=== PATIENT | female | born 1945 | race Caucasian/White ===

== ENCOUNTER 2020-05-25 10:56 | Emergency (ER) | payer MEDICARE, OTHER, SELFPAY ==
--- NOTE | 2020-05-25 | XR_ITS ---
EXAMINATION: XR CHEST CLINICAL INFORMATION: Right upper back pain. COMPARISON: None TECHNIQUE: 2 views of the chest were obtained. FINDINGS: There is central interstitial prominence with peribronchial cuffing consistent with airways disease. There is no focal consolidation. The pleural spaces are clear. The heart and mediastinal structures are normal. No bony abnormality is demonstrated. IMPRESSION: Central bronchial cuffing which can be seen in the setting of airways disease or long-term smoking. No focal consolidation or other acute abnormality.
[2020-05-25 11:26] VITALS: BP 157/81; PULSE 94; RESP 18; TEMP 36.4; O2SAT 96; BMI 45.6
--- NOTE | 2020-05-25 11:47 | ED.EXTPRO ---
HPI - Extremity Problem General Chief complaint: Extremity Injury, Upper Stated complaint: l shoulder pain Time Seen by Provider: 05/25/20 11:47 History of Present Illness HPI Narrative: patient complains of pain in the left upper back and shoulder worst in the area around her scapula on left side that is very similar to many prior episodes, pain is worse with movement deep breath and when it is touched Related Data Previous Rx's Medication Instructions Recorded cyclobenzaprine 5 mg PO TID PRN #14 tab 05/25/20 hydrocodone-acetaminophen 1 - 2 tab PO Q6H PRN #14 tab 05/25/20 Allergies Allergy/AdvReac Type Severity Reaction Status Date / Time No Known Allergies Allergy Unverified 05/09/20 17:02 N.K.D.A. Allergy Unknown Uncoded 03/15/18 00:00 Review of Systems Review of Systems: there is no chest pain no neck pain no shortness of breath no leg pain or swelling, pain is not related to exertion there is no sweating there is no nausea no vomiting no abdominal pain, there is no recent injury there is no fever no chills, no numbness no weakness no paresthesias PMFSH Past Medical History Source: nursing notes reviewed Social History Social History Alcohol intake: unknown Smoking Status: Unknown if ever smoked Use of substances other than those prescribed or required for medical reasons: No Advance Directives: No Advance Directives Information Provided: No Physical Exam Vital Signs and I&O and Narrative: Vital Signs and I&O: Vital Signs Temp 97.6 F 05/25/20 11:26 Pulse 94 05/25/20 11:26 Resp 18 05/25/20 11:26 BP 157/81 H 05/25/20 11:26 Pulse Ox 96 05/25/20 11:26 Intake & Output 05/24/20 05/25/20 05/25/20 18:59 06:59 18:59 Weight 136.078 kg Body Mass Index 45.6 general appearance is no acute distress, A&O x3, relaxed and cooperative The neck is supple nontender with full range of motion The chest is clear to auscultation bilaterally, no chest wall tenderness, no respiratory distress The abdomen is obese soft and nontender The back there is no CVA tenderness, skin of the back is normal with no wounds or rashes, there is tenderness that is in the left subscapular paraspinal area, pain is easily reproduced with movement and deep breath, there is no bony tenderness there is no redness no warmth Extremities there is no calf tenderness There is full range of motion and gait is normal normal Neuro exam is A&O x3 no motor deficits Course Course Hospital Course: patient remained stable throughout visit, x-ray of the chest did not show any acute abnormality and patient was sent home with medication for musculoskeletal pain in the left upper back Discharge Plan Discharge Clinical Impression: Back pain Patient Disposition: Home, Self-Care Additional Instructions: your exam is consistent with musculoskeletal pain in the left upper back Best plan is follow with primary care doctor for evaluation for physical therapy and if needed referral to specialist Return to ER any time for worsening pain, chest pain, difficulty breathing, any worse condition or any concerns Prescriptions: New cyclobenzaprine 5 mg tablet 5 mg PO TID PRN (Reason: muscle spasm) Qty: 14 RF: 0 hydrocodone-acetaminophen 5-325 mg tablet 1 - 2 tab PO Q6H PRN (Reason: pain) Qty: 14 RF: 0
== END 2020-05-25 13:18 | disposition home or self-care (01) ==
PROVIDERS: Emergency Provider Emergency Medicine; PCP Physician Assistant
DX: M54.6 Pain in thoracic spine (principal); Z79.01 Long term (current) use of anticoagulants
CPT/HCPCS: 71046; 99283; 99284

== ENCOUNTER → 2020-05-31 10:46 | Outpatient (BNVA) | payer MEDICARE, OTHER, SELFPAY | PROVIDERS: PCP Physician Assistant; Visit Provider Internal Medicine | DX: I26.99 Other pulmonary embolism without acute cor pulmonale (principal); Z86.718 Personal history of other venous thrombosis and embolism; Z51.81 Encounter for therapeutic drug level monitoring; Z79.01 Long term (current) use of anticoagulants | CPT/HCPCS: 85610 ==

== ENCOUNTER → 2020-06-28 10:50 | Outpatient (BNVA) | payer MEDICARE, OTHER, SELFPAY | PROVIDERS: PCP Physician Assistant; Referring Provider Physician Assistant; Visit Provider Internal Medicine | DX: I26.99 Other pulmonary embolism without acute cor pulmonale (principal); Z86.718 Personal history of other venous thrombosis and embolism; Z51.81 Encounter for therapeutic drug level monitoring; Z79.01 Long term (current) use of anticoagulants | CPT/HCPCS: 85610; 99211 ==

== ENCOUNTER → 2020-07-26 11:20 | Outpatient (BNVA) | payer MEDICARE, MEDICAID, OTHER, SELFPAY | PROVIDERS: PCP Physician Assistant; Visit Provider Internal Medicine | DX: I26.99 Other pulmonary embolism without acute cor pulmonale (principal); Z86.718 Personal history of other venous thrombosis and embolism; Z79.01 Long term (current) use of anticoagulants; Z51.81 Encounter for therapeutic drug level monitoring | CPT/HCPCS: 85610 ==

== ENCOUNTER → 2020-09-06 11:15 | Outpatient (BNVA) | payer MEDICARE, MEDICAID, SELFPAY | PROVIDERS: PCP Physician Assistant; Visit Provider Internal Medicine | DX: I26.99 Other pulmonary embolism without acute cor pulmonale (principal); Z86.718 Personal history of other venous thrombosis and embolism; Z51.81 Encounter for therapeutic drug level monitoring; Z79.01 Long term (current) use of anticoagulants | CPT/HCPCS: 85610; 99211 ==

== ENCOUNTER → 2020-10-04 11:10 | Outpatient (BNVA) | payer MEDICARE, MEDICAID, SELFPAY | PROVIDERS: PCP Physician Assistant; Visit Provider Internal Medicine | DX: I26.99 Other pulmonary embolism without acute cor pulmonale (principal); Z86.718 Personal history of other venous thrombosis and embolism; Z51.81 Encounter for therapeutic drug level monitoring; Z79.01 Long term (current) use of anticoagulants | CPT/HCPCS: 85610; 99211 ==

== ENCOUNTER → 2020-11-01 11:03 | Outpatient (BNVA) | payer MEDICARE, MEDICAID, SELFPAY | PROVIDERS: PCP Physician Assistant; Visit Provider Internal Medicine | DX: I26.99 Other pulmonary embolism without acute cor pulmonale (principal); Z86.718 Personal history of other venous thrombosis and embolism; Z51.81 Encounter for therapeutic drug level monitoring; Z79.01 Long term (current) use of anticoagulants | CPT/HCPCS: 85610; 99211 ==

== ENCOUNTER → 2020-11-29 10:49 | Outpatient (BNVA) | payer MEDICARE, MEDICAID, SELFPAY | PROVIDERS: PCP Physician Assistant; Visit Provider Internal Medicine | DX: I26.99 Other pulmonary embolism without acute cor pulmonale (principal); Z86.718 Personal history of other venous thrombosis and embolism; Z79.01 Long term (current) use of anticoagulants; Z51.81 Encounter for therapeutic drug level monitoring | CPT/HCPCS: 85610; 99211 ==

== ENCOUNTER → 2020-12-27 10:47 | Outpatient (BNVA) | payer MEDICARE, MEDICAID, SELFPAY | PROVIDERS: PCP Physician Assistant; Visit Provider Internal Medicine | DX: I26.99 Other pulmonary embolism without acute cor pulmonale (principal); Z86.718 Personal history of other venous thrombosis and embolism; Z79.01 Long term (current) use of anticoagulants; Z51.81 Encounter for therapeutic drug level monitoring | CPT/HCPCS: 85610; 99211 ==

== ENCOUNTER → 2021-01-03 13:10 | Outpatient (BNVA) | payer MEDICARE, MEDICAID, SELFPAY | PROVIDERS: PCP Physician Assistant; Visit Provider Internal Medicine | DX: I26.99 Other pulmonary embolism without acute cor pulmonale (principal); Z86.718 Personal history of other venous thrombosis and embolism; Z51.81 Encounter for therapeutic drug level monitoring; Z79.01 Long term (current) use of anticoagulants | CPT/HCPCS: 85610; 99211 ==

== ENCOUNTER → 2021-01-17 11:12 | Outpatient (BNVA) | payer MEDICARE, MEDICAID, SELFPAY | PROVIDERS: PCP Physician Assistant; Visit Provider Internal Medicine | DX: I26.99 Other pulmonary embolism without acute cor pulmonale (principal); Z86.718 Personal history of other venous thrombosis and embolism; Z51.81 Encounter for therapeutic drug level monitoring; Z79.01 Long term (current) use of anticoagulants | CPT/HCPCS: 85610; 99211 ==

== ENCOUNTER → 2021-01-31 11:19 | Outpatient (BNVA) | payer MEDICARE, MEDICAID, SELFPAY | PROVIDERS: PCP Physician Assistant; Visit Provider Internal Medicine | DX: I26.99 Other pulmonary embolism without acute cor pulmonale (principal); Z86.718 Personal history of other venous thrombosis and embolism; Z51.81 Encounter for therapeutic drug level monitoring; Z79.01 Long term (current) use of anticoagulants | CPT/HCPCS: 85610; 99211 ==

== ENCOUNTER → 2021-02-14 11:00 | Outpatient (BNVA) | payer MEDICARE, MEDICAID, SELFPAY | PROVIDERS: PCP Physician Assistant; Visit Provider Internal Medicine | DX: I26.99 Other pulmonary embolism without acute cor pulmonale (principal); Z86.718 Personal history of other venous thrombosis and embolism; Z51.81 Encounter for therapeutic drug level monitoring; Z79.01 Long term (current) use of anticoagulants | CPT/HCPCS: 85610; 99211 ==

== ENCOUNTER → 2021-02-17 11:09 | Outpatient (BNVA) | payer MEDICARE, MEDICAID, SELFPAY | PROVIDERS: PCP Physician Assistant; Visit Provider Internal Medicine | DX: I26.99 Other pulmonary embolism without acute cor pulmonale (principal); Z86.718 Personal history of other venous thrombosis and embolism; Z51.81 Encounter for therapeutic drug level monitoring; Z79.01 Long term (current) use of anticoagulants | CPT/HCPCS: 85610; 99211 ==

== ENCOUNTER → 2021-02-27 10:56 | Outpatient (BNVA) | payer MEDICARE, MEDICAID, SELFPAY | PROVIDERS: PCP Physician Assistant; Visit Provider Internal Medicine | DX: I26.99 Other pulmonary embolism without acute cor pulmonale (principal); Z86.718 Personal history of other venous thrombosis and embolism; Z51.81 Encounter for therapeutic drug level monitoring; Z79.01 Long term (current) use of anticoagulants | CPT/HCPCS: 85610; 99211 ==

== ENCOUNTER → 2021-03-13 11:05 | Outpatient (BNVA) | payer MEDICARE, MEDICAID, SELFPAY | PROVIDERS: PCP Physician Assistant; Visit Provider Internal Medicine | DX: I26.99 Other pulmonary embolism without acute cor pulmonale (principal); Z86.718 Personal history of other venous thrombosis and embolism; Z51.81 Encounter for therapeutic drug level monitoring; Z79.01 Long term (current) use of anticoagulants | CPT/HCPCS: 85610; 99211 ==

== ENCOUNTER → 2021-03-28 11:05 | Outpatient (BNVA) | payer MEDICARE, MEDICAID, SELFPAY | PROVIDERS: PCP Physician Assistant; Visit Provider Internal Medicine | DX: I26.99 Other pulmonary embolism without acute cor pulmonale (principal); Z86.718 Personal history of other venous thrombosis and embolism; Z51.81 Encounter for therapeutic drug level monitoring; Z79.01 Long term (current) use of anticoagulants | CPT/HCPCS: 85610; 99211 ==

== ENCOUNTER → 2021-04-11 11:02 | Outpatient (BNVA) | payer MEDICARE, MEDICAID, SELFPAY | PROVIDERS: PCP Physician Assistant; Visit Provider Internal Medicine | DX: I26.99 Other pulmonary embolism without acute cor pulmonale (principal); Z86.718 Personal history of other venous thrombosis and embolism; Z51.81 Encounter for therapeutic drug level monitoring; Z79.01 Long term (current) use of anticoagulants | CPT/HCPCS: 85610; 99211 ==

== ENCOUNTER → 2021-04-25 11:18 | Outpatient (BNVA) | payer MEDICARE, MEDICAID, SELFPAY | PROVIDERS: PCP Physician Assistant; Visit Provider Internal Medicine | DX: I26.99 Other pulmonary embolism without acute cor pulmonale (principal); Z86.718 Personal history of other venous thrombosis and embolism; Z51.81 Encounter for therapeutic drug level monitoring; Z79.01 Long term (current) use of anticoagulants | CPT/HCPCS: 85610; 99211 ==

== ENCOUNTER → 2021-05-16 10:21 | Outpatient (BNVA) | payer MEDICARE, MEDICAID, SELFPAY | PROVIDERS: PCP Physician Assistant; Visit Provider Internal Medicine | DX: I26.99 Other pulmonary embolism without acute cor pulmonale (principal); Z86.718 Personal history of other venous thrombosis and embolism; Z51.81 Encounter for therapeutic drug level monitoring; Z79.01 Long term (current) use of anticoagulants | CPT/HCPCS: 85610; 99211 ==

== ENCOUNTER → 2021-06-06 10:22 | Outpatient (BNVA) | payer MEDICARE, MEDICAID, SELFPAY | PROVIDERS: PCP Physician Assistant; Visit Provider Internal Medicine | DX: I26.99 Other pulmonary embolism without acute cor pulmonale (principal); Z86.718 Personal history of other venous thrombosis and embolism; Z51.81 Encounter for therapeutic drug level monitoring; Z79.01 Long term (current) use of anticoagulants | CPT/HCPCS: 85610; 99211 ==

== ENCOUNTER → 2021-06-27 10:22 | Outpatient (BNVA) | payer MEDICARE, MEDICAID, SELFPAY | PROVIDERS: PCP Physician Assistant; Visit Provider Internal Medicine | DX: I26.99 Other pulmonary embolism without acute cor pulmonale (principal); Z86.718 Personal history of other venous thrombosis and embolism; Z51.81 Encounter for therapeutic drug level monitoring; Z79.01 Long term (current) use of anticoagulants | CPT/HCPCS: 85610; 99211 ==

== ENCOUNTER → 2021-07-16 11:26 | Outpatient (BNVA) | payer MEDICARE, MEDICAID, SELFPAY | PROVIDERS: PCP Physician Assistant; Visit Provider Internal Medicine | DX: I26.99 Other pulmonary embolism without acute cor pulmonale (principal); Z86.718 Personal history of other venous thrombosis and embolism; Z51.81 Encounter for therapeutic drug level monitoring; Z79.01 Long term (current) use of anticoagulants | CPT/HCPCS: 85610; 99211 ==

== ENCOUNTER → 2021-08-20 10:30 | Outpatient (BNVA) | payer MEDICARE, MEDICAID, SELFPAY | PROVIDERS: PCP Physician Assistant; Visit Provider Internal Medicine | DX: I26.99 Other pulmonary embolism without acute cor pulmonale (principal); Z86.718 Personal history of other venous thrombosis and embolism; Z51.81 Encounter for therapeutic drug level monitoring; Z79.01 Long term (current) use of anticoagulants | CPT/HCPCS: 85610; 99211 ==

== ENCOUNTER → 2021-09-05 11:25 | Outpatient (BNVA) | payer MEDICARE, MEDICAID, SELFPAY | PROVIDERS: PCP Physician Assistant; Visit Provider Internal Medicine | DX: I26.99 Other pulmonary embolism without acute cor pulmonale (principal); Z86.718 Personal history of other venous thrombosis and embolism; Z51.81 Encounter for therapeutic drug level monitoring; Z79.01 Long term (current) use of anticoagulants | CPT/HCPCS: 85610; 99211 ==

== ENCOUNTER → 2021-10-10 13:41 | Outpatient (BNVA) | payer MEDICARE, MEDICAID, SELFPAY | PROVIDERS: PCP Physician Assistant; Visit Provider Internal Medicine | DX: I26.99 Other pulmonary embolism without acute cor pulmonale (principal); Z86.718 Personal history of other venous thrombosis and embolism; Z51.81 Encounter for therapeutic drug level monitoring; Z79.01 Long term (current) use of anticoagulants | CPT/HCPCS: 85610; 99211 ==

== ENCOUNTER → 2021-10-24 11:20 | Outpatient (BNVA) | payer MEDICARE, MEDICAID, SELFPAY | PROVIDERS: PCP Physician Assistant; Visit Provider Internal Medicine | DX: I26.99 Other pulmonary embolism without acute cor pulmonale (principal); Z86.718 Personal history of other venous thrombosis and embolism; Z51.81 Encounter for therapeutic drug level monitoring; Z79.01 Long term (current) use of anticoagulants | CPT/HCPCS: 85610; 99211 ==

== ENCOUNTER → 2021-11-14 11:29 | Outpatient (BNVA) | payer MEDICARE, MEDICAID, SELFPAY | PROVIDERS: PCP Physician Assistant; Visit Provider Internal Medicine | DX: I26.99 Other pulmonary embolism without acute cor pulmonale (principal); Z86.718 Personal history of other venous thrombosis and embolism; Z51.81 Encounter for therapeutic drug level monitoring; Z79.01 Long term (current) use of anticoagulants | CPT/HCPCS: 85610; 99211 ==

== ENCOUNTER 2021-11-17 09:09 | Outpatient (REF) | payer MEDICARE, OTHER, SELFPAY ==
[2021-11-17 10:47] LABS: MANUAL DIFF FLAG NO
[2021-11-17 11:01] LABS: Estimated Average Glucose 100 mg/dL; Hemoglobin A1c % 5.1 %
[2021-11-17 11:02] LABS: Basophils Absolute Auto 0.1 X10*3/uL (0.0-0.2); Basophils Percent Auto 1.1 % (0-2); Eosinophils Absolute Auto 0.3 X10*3/uL (0.0-0.4); Eosinophils Percent Auto 4.2 % (0-4); Hematocrit 39.2 % (37.0-47.0); Hemoglobin 12.4 g/dl (12.0-16.0); Imm Gran Abs Auto 0.01 X10*3/uL (0.00-0.03); Imm Gran Pct Auto 0.2 % (0.0-0.4); Lymphocytes Absolute Auto 1.9 X10*3/uL (1.2-4.9); Lymphocytes Percent Auto 29.5 % (20-40); Mean Corpuscular HGB Conc 31.6 g/dl (31.0-35.0); Mean Corpuscular Hemoglobin 30.5 pg (27.0-33.0); Mean Corpuscular Volume 96.3 fL (80.0-98.0); Mean Platelet Volume 11.5 fL (9.4-12.3); Monocytes Absolute Auto 0.5 X10*3/uL (0.1-1.2); Neutrophils Absolute Auto 3.7 x10*3/uL (2.0-8.3); Platelet Count 226 X10*3/uL (160-400); Red Blood Count 4.07 X10*6/uL (4.20-5.50); Red Cell Distribution Width 13.7 % (11.0-16.0); White Blood Count 6.4 X10*3/uL (4.8-10.8)
[2021-11-17 11:10] LABS: Anion Gap 11 (12-20); Blood Urea Nitrogen 17 mg/dL (9-16); Calcium 9.3 mg/dL (8.4-10.2); Carbon Dioxide 23 mmol/L (22-29); Chloride 110 mmol/L (96-108); Cholesterol 158 mg/dL; Estimated Glomerular Filt Rate 57; Glucose Fasting 94 mg/dL (60-99); HDL Cholesterol 45 mg/dL; LDL Cholesterol Calculated 91 mg/dl; Potassium 3.9 mmol/L (3.3-5.1); Sodium 140 mmol/L (135-145); Triglycerides 111 mg/dL
[2021-11-17 11:36] LABS: TSH reflex Free T4 0.09 uIU/mL (0.32-4.0)
[2021-11-17 12:41] LABS: Free T4 (Free Thyroxine) 1.47 ng/dL (0.71-1.85)
== END 2021-11-17 09:10 | disposition home or self-care (01) ==
LOC: HO.10HDL 09:09
PROVIDERS: Nurse Practitioner Acute Care; Visit Provider Physician Assistant
DX: Z13.1 Encounter for screening for diabetes mellitus (principal); I10 Essential (primary) hypertension; E03.9 Hypothyroidism, unspecified; E78.5 Hyperlipidemia, unspecified
CPT/HCPCS: 36415; 80048; 80061; 83036; 84439; 84443; 85025

== ENCOUNTER 2021-11-18 12:57 | Outpatient (REF) | payer MEDICARE, MEDICAID, SELFPAY ==
--- NOTE | ~2021-11-18 | MM_ITS ---
EXAMINATION: BONE DENSITOMETRY CLINICAL INDICATION: Encounter for screening for osteoporosis. COMPARISON: None (current study represents initial baseline exam). TECHNIQUE: Using a [employer] ([employer]) DXA System (software version: 13.1) manufactured by [employer], dual-energy x-ray absorptiometry was performed of the lumbar spine and left hip. The images are of good technical quality. Summary results are attached. FINDINGS: AP SPINE L1-L2 (excluding L3 and L4): The data of L1-L4 has been changed to exclude the L3 and L4 vertebral bodies, because degenerative changes at these levels may cause overestimation of lumbar spine density. BMD 1.221 g/cm2, Z-score 1.1, T-score 0.5, normal. LEFT FEMUR, NECK: BMD 0.812 g/cm2, Z-score -0.4, T-score -1.6, osteopenia. LEFT FEMUR, TOTAL: BMD 0.869 g/cm2, Z-score -0.2, T-score -1.1, osteopenia. IDENTIFIED RISK FACTORS: Parental hip fracture. Menopause. Chronic glucocorticoids. HISTORY OF FRACTURE: None listed. MEDICATIONS: Vitamin D. MM/XR DEXA axial skeleton IMPRESSION: 1. DIAGNOSIS: Osteopenia based on the lowest T-score value of -1.6 in the femoral neck applying World Health Organization criteria. 2. 10-YEAR FRACTURE RISK PREDICTION, FRAX: Major osteoporotic fracture (clinical spine, forearm, hip or shoulder) 26.0%. Hip fracture 14.2%. 3. Treatment Recommendations: NOF guidelines recommend consideration for treatment in postmenopausal women and men age 50 and older presenting with the following: -A hip or vertebral (clinical or morphometric) fracture. -T-score less than or equal to -2.5 at the femoral neck or spine after appropriate evaluation to exclude secondary causes. -Low bone mass at the hip or spine and a 10-year fracture probability by FRAX of greater than or equal to 3% for hip fracture or greater than or equal to 20% for major osteoporotic fracture based on the [place] adapted WHO algorithm. 4. Other Recommendations: All treatment decisions require clinical judgment and consideration of individual patient factors, including patient preferences, comorbidities, previous drug use, risk factors not captured in the FRAX model (e.g. frailty, falls, vitamin D deficiency, increased bone turnover, interval significant decline in bone density) and possible under or overestimation of fracture risk by FRAX. Additional medical evaluation for secondary cause of low bone mineral density may be appropriate. FUTURE SCAN RECOMMENDATION: People with diagnosed cases of osteoporosis or at high risk for fracture should have regular bone mineral density tests. For patients eligible for Medicare, routine testing is allowed once every 2 years. The testing frequency can be increased to one year for patients who have rapidly progressing disease, those who are receiving or discontinuing medical therapy to restore bone mass, or have additional risk factors.
== END 2021-11-18 12:58 | disposition home or self-care (01) ==
LOC: HO.MAMMO 12:57
PROVIDERS: PCP Physician Assistant; Visit Provider Nurse Practitioner Acute Care
DX: Z13.820 Encounter for screening for osteoporosis (principal); Z78.0 Asymptomatic menopausal state
CPT/HCPCS: 77080

== ENCOUNTER → 2021-11-28 11:30 | Outpatient (BNVA) | payer MEDICARE, MEDICAID, SELFPAY | PROVIDERS: PCP Physician Assistant; Visit Provider Internal Medicine | DX: I26.99 Other pulmonary embolism without acute cor pulmonale (principal); Z86.718 Personal history of other venous thrombosis and embolism; Z51.81 Encounter for therapeutic drug level monitoring; Z79.01 Long term (current) use of anticoagulants | CPT/HCPCS: 85610; 99211 ==

== ENCOUNTER → 2021-12-04 10:58 | Outpatient (BNVA) | payer MEDICARE, MEDICAID, SELFPAY | PROVIDERS: PCP Physician Assistant; Visit Provider Internal Medicine | DX: I26.99 Other pulmonary embolism without acute cor pulmonale (principal); Z86.718 Personal history of other venous thrombosis and embolism; Z79.01 Long term (current) use of anticoagulants; Z51.81 Encounter for therapeutic drug level monitoring | CPT/HCPCS: 85610; 99211 ==

== ENCOUNTER → 2021-12-12 11:14 | Outpatient (BNVA) | payer MEDICARE, MEDICAID, SELFPAY | PROVIDERS: PCP Physician Assistant; Visit Provider Internal Medicine | DX: I26.99 Other pulmonary embolism without acute cor pulmonale (principal); Z86.718 Personal history of other venous thrombosis and embolism; Z79.01 Long term (current) use of anticoagulants; Z51.81 Encounter for therapeutic drug level monitoring | CPT/HCPCS: 85610; 99211 ==

== ENCOUNTER → 2021-12-19 13:07 | Outpatient (BNVA) | payer MEDICARE, MEDICAID, SELFPAY | PROVIDERS: PCP Physician Assistant; Visit Provider Internal Medicine | DX: I26.99 Other pulmonary embolism without acute cor pulmonale (principal); Z86.718 Personal history of other venous thrombosis and embolism; Z79.01 Long term (current) use of anticoagulants; Z51.81 Encounter for therapeutic drug level monitoring | CPT/HCPCS: 85610; 99211 ==

== ENCOUNTER → 2021-12-26 13:44 | Outpatient (BNVA) | payer MEDICARE, MEDICAID, SELFPAY | PROVIDERS: PCP Physician Assistant; Visit Provider Internal Medicine | DX: I26.99 Other pulmonary embolism without acute cor pulmonale (principal); Z86.718 Personal history of other venous thrombosis and embolism; Z79.01 Long term (current) use of anticoagulants; Z51.81 Encounter for therapeutic drug level monitoring | CPT/HCPCS: 85610; 99211 ==

== ENCOUNTER → 2022-01-16 11:19 | Outpatient (BNVA) | payer MEDICARE, MEDICAID, SELFPAY | PROVIDERS: PCP Physician Assistant; Visit Provider Internal Medicine | DX: I26.99 Other pulmonary embolism without acute cor pulmonale (principal); Z86.718 Personal history of other venous thrombosis and embolism; Z79.01 Long term (current) use of anticoagulants; Z51.81 Encounter for therapeutic drug level monitoring | CPT/HCPCS: 85610; 99211 ==

== ENCOUNTER → 2022-02-13 11:23 | Outpatient (BNVA) | payer MEDICARE, MEDICAID, SELFPAY | PROVIDERS: PCP Physician Assistant; Visit Provider Internal Medicine | DX: I26.99 Other pulmonary embolism without acute cor pulmonale (principal); Z86.718 Personal history of other venous thrombosis and embolism; Z79.01 Long term (current) use of anticoagulants; Z51.81 Encounter for therapeutic drug level monitoring | CPT/HCPCS: 85610; 99211 ==

== ENCOUNTER → 2022-02-27 11:23 | Outpatient (BNVA) | payer MEDICARE, MEDICAID, SELFPAY | PROVIDERS: PCP Physician Assistant; Visit Provider Internal Medicine | DX: I26.99 Other pulmonary embolism without acute cor pulmonale (principal); Z86.718 Personal history of other venous thrombosis and embolism; Z79.01 Long term (current) use of anticoagulants; Z51.81 Encounter for therapeutic drug level monitoring | CPT/HCPCS: 85610; 99211 ==

== ENCOUNTER → 2022-03-20 10:58 | Outpatient (BNVA) | payer MEDICARE, MEDICAID, SELFPAY | PROVIDERS: PCP Physician Assistant; Visit Provider Internal Medicine | DX: I26.99 Other pulmonary embolism without acute cor pulmonale (principal); Z79.01 Long term (current) use of anticoagulants; Z86.718 Personal history of other venous thrombosis and embolism | CPT/HCPCS: 85610; 99211 ==

== ENCOUNTER → 2022-04-10 11:09 | Outpatient (BNVA) | payer MEDICARE, MEDICAID, SELFPAY | PROVIDERS: PCP Physician Assistant; Visit Provider Internal Medicine | DX: I26.99 Other pulmonary embolism without acute cor pulmonale (principal); Z86.718 Personal history of other venous thrombosis and embolism; Z79.01 Long term (current) use of anticoagulants; Z51.81 Encounter for therapeutic drug level monitoring | CPT/HCPCS: 85610; 99211 ==

== ENCOUNTER → 2022-05-01 11:00 | Outpatient (BNVA) | payer MEDICARE, MEDICAID, SELFPAY | PROVIDERS: PCP Physician Assistant; Visit Provider Internal Medicine | DX: I26.99 Other pulmonary embolism without acute cor pulmonale (principal); Z86.718 Personal history of other venous thrombosis and embolism; Z79.01 Long term (current) use of anticoagulants; Z51.81 Encounter for therapeutic drug level monitoring | CPT/HCPCS: 85610; 99211 ==

== ENCOUNTER 2022-05-04 09:54 | Outpatient (REF) | payer MEDICARE, MEDICAID, SELFPAY ==
[2022-05-04 10:52] LABS: Hematocrit 38.1 % (37.0-47.0); Hemoglobin 12.7 g/dl (12.0-16.0); Mean Corpuscular HGB Conc 33.3 g/dl (31.0-35.0); Mean Corpuscular Hemoglobin 31.9 pg (27.0-33.0); Mean Corpuscular Volume 95.7 fL (80.0-98.0); Mean Platelet Volume 11.5 fL (9.4-12.3); Platelet Count 188 X10*3/uL (160-400); Red Blood Count 3.98 X10*6/uL (4.20-5.50); Red Cell Distribution Width 13.4 % (11.0-16.0); White Blood Count 6.4 X10*3/uL (4.8-10.8)
[2022-05-04 11:26] LABS: Alanine Aminotransferase 11 U/L (0-31); Albumin Level 3.9 g/dL (3.5-5.0); Alkaline Phosphatase 70 U/L (39-117); Anion Gap 14 (12-20); Aspartate Amino Transferase 14 U/L (5-31); Bilirubin Total 0.6 mg/dL (0.0-1.0); Blood Urea Nitrogen 23 mg/dL (9-16); Carbon Dioxide 24 mmol/L (22-29); Chloride 109 mmol/L (96-108); Cholesterol 170 mg/dL; Estimated Glomerular Filt Rate 52; Glucose Fasting 95 mg/dL (60-99); HDL Cholesterol 48 mg/dL; LDL Cholesterol Calculated 100 mg/dl; Potassium 3.6 mmol/L (3.3-5.1); Sodium 143 mmol/L (135-145); Triglycerides 111 mg/dL
[2022-05-04 11:46] LABS: TSH reflex Free T4 1.41 uIU/mL (0.32-4.0)
== END 2022-05-04 09:55 | disposition home or self-care (01) ==
LOC: HO.10HDL 09:54
PROVIDERS: Visit Provider Physician Assistant
DX: I10 Essential (primary) hypertension (principal); E78.2 Mixed hyperlipidemia; E03.9 Hypothyroidism, unspecified
CPT/HCPCS: 36415; 80053; 80061; 84443; 85027

== ENCOUNTER → 2022-05-29 10:59 | Outpatient (BNVA) | payer MEDICARE, MEDICAID, SELFPAY | PROVIDERS: PCP Physician Assistant; Visit Provider Internal Medicine | DX: I26.99 Other pulmonary embolism without acute cor pulmonale (principal); Z86.718 Personal history of other venous thrombosis and embolism; Z51.81 Encounter for therapeutic drug level monitoring; Z79.01 Long term (current) use of anticoagulants | CPT/HCPCS: 85610; 99211 ==

== ENCOUNTER → 2022-06-26 11:08 | Outpatient (BNVA) | payer MEDICARE, MEDICAID, SELFPAY | PROVIDERS: PCP Physician Assistant; Visit Provider Internal Medicine | DX: I26.99 Other pulmonary embolism without acute cor pulmonale (principal); Z86.718 Personal history of other venous thrombosis and embolism; Z79.01 Long term (current) use of anticoagulants; Z51.81 Encounter for therapeutic drug level monitoring | CPT/HCPCS: 85610; 99211 ==

== ENCOUNTER → 2022-07-10 11:05 | Outpatient (BNVA) | payer MEDICARE, MEDICAID, SELFPAY | PROVIDERS: PCP Physician Assistant; Visit Provider Internal Medicine | DX: I26.99 Other pulmonary embolism without acute cor pulmonale (principal); Z86.718 Personal history of other venous thrombosis and embolism; Z79.01 Long term (current) use of anticoagulants; Z51.81 Encounter for therapeutic drug level monitoring | CPT/HCPCS: 85610; 99211 ==

== ENCOUNTER → 2022-08-07 11:04 | Outpatient (BNVA) | payer MEDICARE, MEDICAID, SELFPAY | PROVIDERS: PCP Physician Assistant; Visit Provider Internal Medicine | DX: I26.99 Other pulmonary embolism without acute cor pulmonale (principal); Z86.718 Personal history of other venous thrombosis and embolism; Z79.01 Long term (current) use of anticoagulants; Z51.81 Encounter for therapeutic drug level monitoring | CPT/HCPCS: 85610; 99211 ==

== ENCOUNTER → 2022-08-21 11:09 | Outpatient (BNVA) | payer MEDICARE, MEDICAID, SELFPAY | PROVIDERS: PCP Physician Assistant; Visit Provider Internal Medicine | DX: I26.99 Other pulmonary embolism without acute cor pulmonale (principal); Z86.718 Personal history of other venous thrombosis and embolism; Z79.01 Long term (current) use of anticoagulants; Z51.81 Encounter for therapeutic drug level monitoring | CPT/HCPCS: 85610; 99211 ==

== ENCOUNTER → 2022-09-11 11:03 | Outpatient (BNVA) | payer MEDICARE, MEDICAID, SELFPAY | PROVIDERS: PCP Physician Assistant; Visit Provider Internal Medicine | DX: I26.99 Other pulmonary embolism without acute cor pulmonale (principal); Z86.718 Personal history of other venous thrombosis and embolism; Z79.01 Long term (current) use of anticoagulants; Z51.81 Encounter for therapeutic drug level monitoring | CPT/HCPCS: 85610; 99211 ==

== ENCOUNTER → 2022-10-09 11:09 | Outpatient (BNVA) | payer MEDICARE, MEDICAID, SELFPAY | PROVIDERS: PCP Physician Assistant; Visit Provider Internal Medicine | DX: I26.99 Other pulmonary embolism without acute cor pulmonale (principal); Z86.718 Personal history of other venous thrombosis and embolism; Z79.01 Long term (current) use of anticoagulants; Z51.81 Encounter for therapeutic drug level monitoring | CPT/HCPCS: 85610; 99211 ==

== ENCOUNTER → 2022-11-06 11:12 | Outpatient (BNVA) | payer MEDICARE, MEDICAID, SELFPAY | PROVIDERS: PCP Physician Assistant; Visit Provider Internal Medicine | DX: I26.99 Other pulmonary embolism without acute cor pulmonale (principal); Z86.718 Personal history of other venous thrombosis and embolism; Z79.01 Long term (current) use of anticoagulants; Z51.81 Encounter for therapeutic drug level monitoring | CPT/HCPCS: 85610; 99211 ==

== ENCOUNTER → 2022-12-04 11:07 | Outpatient (BNVA) | payer MEDICARE, MEDICAID, SELFPAY | PROVIDERS: PCP Physician Assistant; Visit Provider Internal Medicine | DX: I26.99 Other pulmonary embolism without acute cor pulmonale (principal); Z86.718 Personal history of other venous thrombosis and embolism; Z79.01 Long term (current) use of anticoagulants; Z51.81 Encounter for therapeutic drug level monitoring | CPT/HCPCS: 85610; 99211 ==

== ENCOUNTER 2022-12-28 10:19 | Outpatient (REF) | payer MEDICARE, MEDICAID, SELFPAY ==
[2022-12-28 13:41] LABS: Hematocrit 38.6 % (37.0-47.0); Hemoglobin 12.6 g/dl (12.0-16.0); Mean Corpuscular HGB Conc 32.6 g/dl (31.0-35.0); Mean Corpuscular Hemoglobin 31.8 pg (27.0-33.0); Mean Corpuscular Volume 97.5 fL (80.0-98.0); Mean Platelet Volume 12.1 fL (9.4-12.3); Platelet Count 202 X10*3/uL (160-400); Red Blood Count 3.96 X10*6/uL (4.20-5.50); Red Cell Distribution Width 13.4 % (11.0-16.0); White Blood Count 6.3 X10*3/uL (4.8-10.8)
[2022-12-28 14:15] LABS: Alanine Aminotransferase 12 U/L (0-31); Albumin Level 3.8 g/dL (3.5-5.0); Alkaline Phosphatase 84 U/L (39-117); Anion Gap 13 (12-20); Aspartate Amino Transferase 17 U/L (5-31); Bilirubin Total 0.7 mg/dL (0.0-1.0); Blood Urea Nitrogen 17 mg/dL (9-16); Carbon Dioxide 24 mmol/L (22-29); Chloride 110 mmol/L (96-108); Cholesterol 169 mg/dL; Estimated Glomerular Filt Rate 54; Glucose Fasting 95 mg/dL (60-99); HDL Cholesterol 47 mg/dL; LDL Cholesterol Calculated 101 mg/dl; Potassium 3.6 mmol/L (3.3-5.1); Sodium 143 mmol/L (135-145); Total Protein 6.6 g/dL (6.5-8.0); Triglycerides 109 mg/dL
[2022-12-28 14:28] LABS: TSH reflex Free T4 1.14 uIU/mL (0.32-4.0)
[2022-12-28 14:55] LABS: Creatinine Urine 179.96 mg/dL; Microalbum/Creatinine Ratio Ur 62.2 ug/mg cr
== END 2022-12-28 10:20 | disposition home or self-care (01) ==
LOC: HO.10HDL 10:19
PROVIDERS: Visit Provider Physician Assistant
DX: E03.9 Hypothyroidism, unspecified (principal); E78.2 Mixed hyperlipidemia; I10 Essential (primary) hypertension
CPT/HCPCS: 36415; 80053; 80061; 82043; 84443; 85027

== ENCOUNTER → 2023-01-01 11:16 | Outpatient (BNVA) | payer MEDICARE, MEDICAID, SELFPAY | PROVIDERS: PCP Physician Assistant; Visit Provider Internal Medicine | DX: I26.99 Other pulmonary embolism without acute cor pulmonale (principal); Z86.718 Personal history of other venous thrombosis and embolism; Z79.01 Long term (current) use of anticoagulants; Z51.81 Encounter for therapeutic drug level monitoring | CPT/HCPCS: 85610; 99211 ==

== ENCOUNTER → 2023-01-29 11:02 | Outpatient (BNVA) | payer MEDICARE, SELFPAY | PROVIDERS: PCP Physician Assistant; Visit Provider Internal Medicine | DX: I26.99 Other pulmonary embolism without acute cor pulmonale (principal); Z86.718 Personal history of other venous thrombosis and embolism; Z79.01 Long term (current) use of anticoagulants; Z51.81 Encounter for therapeutic drug level monitoring | CPT/HCPCS: 85610; 99211 ==

== ENCOUNTER 2023-03-05 11:08 | Outpatient (AMB) | payer MEDICARE, SELFPAY ==
[2023-03-05 11:18] LABS: Prothrombin Time Whole Bld POC 25.3 sec (11.1-13.5); ~PT, ~INR - Anti Coag Clinic 2.1 (0.9-1.1)
--- NOTE | 2023-03-05 11:21 | MHC.OFFVISCO ---
Intake Intake Visit Reasons: Anticoagulation Allergies No Known Allergies Allergy (Verified 03/05/23 11:12) Medication List - Last Reconciled 03/05/23 by Keli Ly RN atenolol 50 mg PO DAILY blood pressure kit-extra large As directed calcium carbonate (Oyster Shell Calcium) 500 mg PO BID 30 days cholecalciferol (vitamin D3) 50 mcg PO DAILY 90 days diphenhydramine HCl (Benadryl) 25 mg PO TID PRN furosemide 20 mg PO DAILY levothyroxine 137 mcg PO DAILY 90 days lisinopril 40 mg PO DAILY 90 days potassium chloride ER 40 mEq (2 x 20 mEq) PO DAILY walker (Ultra-Light Rollator misc) As directed warfarin 7.5 mg See Protocol PO DAILY Nursing Note INR: 2.1 in therapeutic range Medications and supplements reviewed No changes in health, diet, medications, or supplements, Denies any signs and symptoms of bleeding or bruising or clotting. 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
== END 2023-03-05 11:23 | disposition home or self-care (01) ==
LOC: HO.ACS 11:08
PROVIDERS: PCP Physician Assistant; Visit Provider Internal Medicine
DX: Z79.01 Long term (current) use of anticoagulants (principal)

== ENCOUNTER → 2023-03-05 11:08 | Outpatient (BNVA) | payer MEDICARE, SELFPAY | PROVIDERS: PCP Physician Assistant; Visit Provider Internal Medicine | DX: I26.99 Other pulmonary embolism without acute cor pulmonale (principal); Z86.718 Personal history of other venous thrombosis and embolism; Z79.01 Long term (current) use of anticoagulants; Z51.81 Encounter for therapeutic drug level monitoring | CPT/HCPCS: 85610; 99211 ==

== ENCOUNTER 2023-04-02 11:18 | Outpatient (AMB) | payer MEDICARE, SELFPAY ==
[2023-04-02 11:33] LABS: Prothrombin Time Whole Bld POC 35.5 sec (11.1-13.5)
--- NOTE | 2023-04-02 11:40 | MHC.OFFVISCO ---
Intake Intake Visit Reasons: Anticoagulation Allergies No Known Allergies Allergy (Verified 04/02/23 11:34) Medication List - Last Reconciled 04/02/23 by Keli Ly RN atenolol 50 mg PO DAILY blood pressure kit-extra large As directed calcium carbonate (Oyster Shell Calcium) 500 mg PO BID 30 days cholecalciferol (vitamin D3) 50 mcg PO DAILY 90 days diphenhydramine HCl (Benadryl) 25 mg PO TID PRN furosemide 20 mg PO DAILY levothyroxine 137 mcg PO DAILY 90 days lisinopril 40 mg PO DAILY 90 days potassium chloride ER 40 mEq (2 x 20 mEq) PO DAILY walker (Ultra-Light Rollator misc) As directed warfarin 7.5 mg See Protocol PO DAILY Nursing Note INR: 3.0 in therapeutic range Medications and supplements reviewed 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 Bleeding, bruising, clotting discussed Nutritional guidance given - ENC TO KEEP UP GREENS, PROTEIN AND WATER WITH HOT WEATHER Dose: KEEP SAME DOSE 2.5MG X 1 DAY/ 5MG X 6 DAYS F/U INR: 1 MONTH Patient verbalizes understanding of instructions given Anti-Coag Initial Assessment Social Hx Patient Tobacco Use Status: Never used Tobacco alcohol intake: unknown Questionnaires HAS-BLED Does the patient had uncontrolled Hypertension?: No Does the patient have renal disease?: No Does the patient have liver disease?: No Does the patient have a history of stroke?: No Has the patient had major bleeding or predisposition to bleeding?: No Does the patient have labile INRs?: No Is the patient over 65 years of age?: Yes Is the patient on medications that gives them a predisposition to bleeding?: Yes Does the patient use alcohol?: No HAS-BLED Score: 2 CHADSVASC Age: 75 or over Gender: Female Does the patient have a history of CHF?: No Does the patient have a history of Hypertension?: Yes Does the patient have a history of Stroke/TIA/Thromboembolism?: Yes Does the patient have a history of Vascular Disease (prior MD, PAD or aortic plaque)?: No Does the patient have a history of Diabetes?: No CHADS VACS Score: 6 Adan Prediction Score Rsk VTE Active Cancer: No Previous VTE, excluding superficial vein thrombosis: Yes Reduced mobility: Yes Already known Thrombophilic Condition: Yes With-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 Trauma and/or Surgery: No Elderly 70 year or older: Yes Heart and/or Respiratory Failure: No Acute Myocardial infarction and/or Ischemic Stroke: No Acute Infection and/or Rheumatologic Disorder: No Obesity (BMI 30 or greater): Yes Ongoing Hormonal Treatment: No Score: 11 Adan Score less than 4; Low Risk of VTE Adan Score 4 or greater; High Risk of VTE Coding Level of Care Code Est Patient Level 1 Diagnoses Current use of anticoagulant therapy Z79.01 Assessment & Plan Assessment & Plan (1) Current use of anticoagulant therapy: 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
== END 2023-04-02 11:46 | disposition home or self-care (01) ==
LOC: HO.ACS 11:18
PROVIDERS: PCP Physician Assistant; Visit Provider Internal Medicine
DX: Z79.01 Long term (current) use of anticoagulants (principal)

== ENCOUNTER → 2023-04-02 11:18 | Outpatient (BNVA) | payer MEDICARE, SELFPAY | PROVIDERS: PCP Physician Assistant; Visit Provider Internal Medicine | DX: I26.99 Other pulmonary embolism without acute cor pulmonale (principal); Z86.718 Personal history of other venous thrombosis and embolism; Z79.01 Long term (current) use of anticoagulants; Z51.81 Encounter for therapeutic drug level monitoring | CPT/HCPCS: 85610; 99211 ==

== ENCOUNTER 2023-05-07 11:02 | Outpatient (AMB) | payer MEDICARE, SELFPAY ==
[2023-05-07 11:08] LABS: Prothrombin Time Whole Bld POC 38.8 sec (11.1-13.5); ~PT, ~INR - Anti Coag Clinic 3.2 (0.9-1.1)
--- NOTE | 2023-05-07 11:11 | MHC.OFFVISCO ---
Intake Intake Visit Reasons: Anticoagulation Allergies No Known Allergies Allergy (Verified 05/07/23 11:03) Medication List - Last Reconciled 05/07/23 by Cara Kahn RN atenolol 50 mg PO DAILY blood pressure kit-extra large As directed calcium carbonate (Oyster Shell Calcium) 500 mg PO BID 30 days cholecalciferol (vitamin D3) 50 mcg PO DAILY 90 days diphenhydramine HCl (Benadryl) 25 mg PO TID PRN furosemide 20 mg PO DAILY levothyroxine 137 mcg PO DAILY 90 days lisinopril 40 mg PO DAILY 90 days potassium chloride ER 40 mEq (2 x 20 mEq) PO DAILY walker (Ultra-Light Rollator misc) As directed warfarin 7.5 mg See Protocol PO DAILY Nursing Note Amb to ACS using walker, feeling well Medications and supplements reviewed No changes in health, diet, medications, or supplements Denies any unusual signs and symptoms of bruising, bleeding Denies any new Chest pain, SOB, or clotting INR: 3.2 just above therapeutic range Nutritional guidance given: dark leafy green today then try to balance greens and reds in diet Dose: continue usual dosing; 2.5mg x 1 day and 5mg x 6 days- discussed no dosing change now possibly if next visit still above range, however summer has been extremely hot and people eating less cooked foods and veggies F/U INR: 4 weeks Patient verbalizes understanding of instructions given with accurate read back/ teach back of dosing Anti-Coag Initial Assessment Social Hx Patient Tobacco Use Status: Never used Tobacco alcohol intake: unknown Coding Level of Care Code Est Patient Level 1 Diagnoses Current use of anticoagulant therapy Z79.01 Time Spent (min) 15 Assessment & Plan Assessment & Plan (1) Current use of anticoagulant therapy: 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
== END 2023-05-07 15:31 | disposition home or self-care (01) ==
LOC: HO.ACS 11:02
PROVIDERS: PCP Physician Assistant; Visit Provider Internal Medicine
DX: Z79.01 Long term (current) use of anticoagulants (principal)

== ENCOUNTER → 2023-05-07 11:02 | Outpatient (BNVA) | payer MEDICARE, SELFPAY | PROVIDERS: PCP Physician Assistant; Visit Provider Internal Medicine | DX: I26.99 Other pulmonary embolism without acute cor pulmonale (principal); Z86.718 Personal history of other venous thrombosis and embolism; Z79.01 Long term (current) use of anticoagulants; Z51.81 Encounter for therapeutic drug level monitoring | CPT/HCPCS: 85610; 99211 ==

== ENCOUNTER 2023-06-04 11:21 | Outpatient (AMB) | payer MEDICARE, SELFPAY ==
[2023-06-04 11:48] LABS: Prothrombin Time Whole Bld POC 25.2 sec (11.1-13.5); ~PT, ~INR - Anti Coag Clinic 2.1 (0.9-1.1)
--- NOTE | 2023-06-04 11:52 | MHC.OFFVISCO ---
Intake Intake Visit Reasons: Anticoagulation Allergies No Known Allergies Allergy (Verified 06/04/23 11:23) Medication List - Last Reconciled 06/04/23 by Keli Ly RN atenolol 50 mg PO DAILY blood pressure kit-extra large As directed calcium carbonate (Oyster Shell Calcium) 500 mg PO BID 30 days cholecalciferol (vitamin D3) 50 mcg PO DAILY 90 days diphenhydramine HCl (Benadryl) 25 mg PO TID PRN furosemide 20 mg PO DAILY levothyroxine 137 mcg PO DAILY 90 days lisinopril 40 mg PO DAILY 90 days potassium chloride ER 40 mEq (2 x 20 mEq) PO DAILY walker (Ultra-Light Rollator misc) As directed warfarin 7.5 mg See Protocol PO DAILY Nursing Note INR: 2.1 in therapeutic range Medications and supplements reviewed No changes in health, diet, medications, or supplements, Denies any signs and symptoms of bleeding or bruising or clotting. 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
== END 2023-06-04 11:54 | disposition home or self-care (01) ==
LOC: HO.ACS 11:21
PROVIDERS: PCP Physician Assistant; Visit Provider Internal Medicine
DX: Z79.01 Long term (current) use of anticoagulants (principal)

== ENCOUNTER → 2023-06-04 11:21 | Outpatient (BNVA) | payer MEDICARE, SELFPAY | PROVIDERS: PCP Physician Assistant; Visit Provider Internal Medicine | DX: I26.99 Other pulmonary embolism without acute cor pulmonale (principal); Z86.718 Personal history of other venous thrombosis and embolism; Z79.01 Long term (current) use of anticoagulants; Z51.81 Encounter for therapeutic drug level monitoring | CPT/HCPCS: 85610; 99211 ==

== ENCOUNTER 2023-07-02 11:30 | Outpatient (AMB) | payer MEDICARE, SELFPAY ==
--- NOTE | 2023-07-02 11:44 | MHC.OFFVISCO ---
Intake Intake Visit Reasons: Anticoagulation Allergies No Known Allergies Allergy (Verified 07/02/23 11:40) Medication List - Last Reconciled 07/02/23 by Nelsy Kahn RN atenolol 50 mg PO DAILY blood pressure kit-extra large As directed calcium carbonate (Oyster Shell Calcium) 500 mg PO BID 30 days cholecalciferol (vitamin D3) 50 mcg PO DAILY 90 days diphenhydramine HCl (Benadryl) 25 mg PO TID PRN furosemide 20 mg PO DAILY levothyroxine 137 mcg PO DAILY 90 days lisinopril 40 mg PO DAILY 90 days potassium chloride ER 40 mEq (2 x 20 mEq) PO DAILY walker (Ultra-Light Rollator misc) As directed warfarin 7.5 mg See Protocol PO DAILY Nursing Note INR: 2.7- in therapeutic range of 2-3 Medications and supplements reviewed- no changes No changes in health, diet, medications, or supplements, Denies any signs and symptoms of bleeding or bruising or clotting. Bleeding, bruising, clotting discussed Nutritional guidance given Dose: 2.5mg x 2, 5mg x 6 F/U INR: 4 weeks Patient verbalizes understanding of instructions given pt amb with walker, gets meals on wheels Anti-Coag Initial Assessment Social Hx Patient Tobacco Use Status: Never used Tobacco alcohol intake: unknown Coding Level of Care Code Est Patient Level 1 Diagnoses Current use of anticoagulant therapy Z79.01 Assessment & Plan Assessment & Plan (1) Current use of anticoagulant therapy: Code(s): Z79.01 - assisted (current) use of anticoagulants Category: Medical
[2023-07-02 11:45] LABS: Prothrombin Time Whole Bld POC 31.9 sec (11.1-13.5); ~PT, ~INR - Anti Coag Clinic 2.7 (0.9-1.1)
== END 2023-07-02 12:05 | disposition home or self-care (01) ==
LOC: HO.ACS 11:30
PROVIDERS: PCP Physician Assistant; Visit Provider Internal Medicine
DX: Z79.01 Long term (current) use of anticoagulants (principal)

== ENCOUNTER → 2023-07-02 11:30 | Outpatient (BNVA) | payer MEDICARE, SELFPAY | PROVIDERS: PCP Physician Assistant; Visit Provider Internal Medicine | DX: I26.99 Other pulmonary embolism without acute cor pulmonale (principal); Z86.718 Personal history of other venous thrombosis and embolism; Z79.01 Long term (current) use of anticoagulants; Z51.81 Encounter for therapeutic drug level monitoring | CPT/HCPCS: 85610; 99211 ==

== ENCOUNTER 2023-08-06 11:17 | Outpatient (AMB) | payer MEDICARE, SELFPAY ==
--- NOTE | 2023-08-06 11:55 | MHC.OFFVISCO ---
Intake Intake Visit Reasons: Anticoagulation Allergies No Known Allergies Allergy (Verified 08/06/23 11:22) Medication List - Last Reconciled 08/06/23 by Keli Ly RN atenolol 50 mg PO DAILY blood pressure kit-extra large As directed calcium carbonate (Oyster Shell Calcium) 500 mg PO BID 30 days cholecalciferol (vitamin D3) 50 mcg PO DAILY 90 days diphenhydramine HCl (Benadryl) 25 mg PO TID PRN furosemide 20 mg PO DAILY levothyroxine 137 mcg PO DAILY 90 days lisinopril 40 mg PO DAILY 90 days potassium chloride ER 40 mEq (2 x 20 mEq) PO DAILY walker (Ultra-Light Rollator misc) As directed warfarin 7.5 mg See Protocol PO DAILY Nursing Note INR 5.0 out of therapeutic range Medications and supplements reviewed Patient status: states she has not felt well x 3 weeks, had cough and laryngitis, feeling a little better but still tiered and REYEZ, has had decreased appetite without usual greens, was taking tylenol which can raise the INR, also has been under stress with squirrels in her house and family dynamics, has financial burdens and does not know how to navigate them- she states [facility] not able to assist- maybe nurse navigators can help. Offered to bring her to the ER but refused at this time. Medications or supplements: tyelnol for cold symptoms Diet: was fair but improving Denies any signs and symptoms of bleeding or clotting or unusual bruising Bleeding, bruising, clotting discussed Nutritional guidance given: eat cooked greens to help lower the INR Dose: hold today's dose then decrease tomorrow dose to 2.5mg eat cooked greens today and then resume usual dose 2.5mg mon/ 5mg x 6 days F/U INR Date : 08/10/23 ?? Will go to ER with any unusual bleeding or bruising or clotting or fall or bump to the head. Patient verbalizing understanding of instructions given. 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
== END 2023-08-06 12:11 | disposition home or self-care (01) ==
LOC: HO.ACS 11:17
PROVIDERS: PCP Physician Assistant; Visit Provider Internal Medicine
DX: Z79.01 Long term (current) use of anticoagulants (principal)

== ENCOUNTER → 2023-08-06 11:17 | Outpatient (BNVA) | payer MEDICARE, SELFPAY | PROVIDERS: PCP Physician Assistant; Visit Provider Internal Medicine | DX: I26.99 Other pulmonary embolism without acute cor pulmonale (principal); Z86.718 Personal history of other venous thrombosis and embolism; Z79.01 Long term (current) use of anticoagulants; Z51.81 Encounter for therapeutic drug level monitoring | CPT/HCPCS: 85610; 99211 ==

== ENCOUNTER 2023-08-10 13:22 | Outpatient (AMB) | payer MEDICARE, SELFPAY ==
--- NOTE | 2023-08-10 13:28 | MHC.OFFVISCO ---
Intake Intake Visit Reasons: Anticoagulation Allergies No Known Allergies Allergy (Verified 08/10/23 13:24) Medication List - Last Reconciled 08/10/23 by Nelsy Kahn RN atenolol 50 mg PO DAILY blood pressure kit-extra large As directed calcium carbonate (Oyster Shell Calcium) 500 mg PO BID 30 days cholecalciferol (vitamin D3) 50 mcg PO DAILY 90 days diphenhydramine HCl (Benadryl) 25 mg PO TID PRN furosemide 20 mg PO DAILY levothyroxine 137 mcg PO DAILY 90 days lisinopril 40 mg PO DAILY 90 days potassium chloride ER 40 mEq (2 x 20 mEq) PO DAILY walker (Ultra-Light Rollator misc) As directed warfarin 7.5 mg See Protocol PO DAILY Nursing Note INR 3.5-? out of therapeutic range of 2-3 Medications and supplements reviewed Patient status: pt to acs in w/c, she states walker is broken. she c.o increased stress pt states she is having issues with squirrels and racoons at her home. nurse navigation called to request assist for this pt. spoke to harvey. she will have someone reach out to this pt Medications or supplements: no changes Diet: appetite good Denies any signs and symptoms of bleeding or clotting or unusual bruising Bleeding, bruising, clotting discussed Nutritional guidance given: cont with greens Dose: 2.5mg today, reduce weekly dosing F/U INR Date : 08/17/23?? Patient verbalizing understanding of instructions given. 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
[2023-08-10 13:29] LABS: ~PT, ~INR - Anti Coag Clinic 3.5 (0.9-1.1)
== END 2023-08-10 14:02 | disposition home or self-care (01) ==
LOC: HO.ACS 13:22
PROVIDERS: PCP Physician Assistant; Visit Provider Internal Medicine
DX: Z79.01 Long term (current) use of anticoagulants (principal)

== ENCOUNTER → 2023-08-10 13:22 | Outpatient (BNVA) | payer MEDICARE, SELFPAY | PROVIDERS: PCP Physician Assistant; Visit Provider Internal Medicine | DX: I26.99 Other pulmonary embolism without acute cor pulmonale (principal); Z86.718 Personal history of other venous thrombosis and embolism; Z79.01 Long term (current) use of anticoagulants; Z51.81 Encounter for therapeutic drug level monitoring | CPT/HCPCS: 85610; 99211 ==

== ENCOUNTER 2023-08-17 13:19 | Outpatient (AMB) | payer MEDICARE, SELFPAY ==
--- NOTE | 2023-08-17 13:35 | MHC.OFFVISCO ---
Intake Intake Visit Reasons: Anticoagulation Allergies No Known Allergies Allergy (Verified 08/17/23 13:48) Medication List - Last Reconciled 08/17/23 by Nelsy Kahn RN atenolol 50 mg PO DAILY blood pressure kit-extra large As directed calcium carbonate (Oyster Shell Calcium) 500 mg PO BID 30 days cholecalciferol (vitamin D3) 50 mcg PO DAILY 90 days diphenhydramine HCl (Benadryl) 25 mg PO TID PRN furosemide 20 mg PO DAILY levothyroxine 137 mcg PO DAILY 90 days lisinopril 40 mg PO DAILY 90 days potassium chloride ER 40 mEq (2 x 20 mEq) PO DAILY walker (Ultra-Light Rollator misc) As directed warfarin 7.5 mg See Protocol PO DAILY Nursing Note INR 4.1-?? out of therapeutic range of 2-3 Medications and supplements reviewed Patient status: pt to acs in w/c, cont with increased stress prev inr at acs 5.0/3.5 Medications or supplements: no changes Diet: not many greens Denies any signs and symptoms of bleeding or clotting or unusual bruising Bleeding, bruising, clotting discussed - aware at risk for bleeding, avoid high risk activity Nutritional guidance given: eat greens for 2-3 days, no reds for 2-3 days Dose: hold today then reduce weekly dosing 2.5mg x 3, 5mg x 4 F/U INR Date : wed08/24/23 Patient verbalizing understanding of instructions given.j pt to acs with assist of friend Anti-Coag Initial Assessment Social Hx Patient Tobacco Use Status: Never used Tobacco alcohol intake: unknown Coding Level of Care Code Est Patient Level 1 Diagnoses Current use of anticoagulant therapy Z79.01 Assessment & Plan Assessment & Plan (1) Current use of anticoagulant therapy: 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
[2023-08-17 13:37] LABS: Prothrombin Time Whole Bld POC 49.2 sec (11.1-13.5); ~PT, ~INR - Anti Coag Clinic 4.1 (0.9-1.1)
== END 2023-08-17 13:49 | disposition home or self-care (01) ==
LOC: HO.ACS 13:19
PROVIDERS: PCP Physician Assistant; Visit Provider Internal Medicine
DX: Z79.01 Long term (current) use of anticoagulants (principal)

== ENCOUNTER → 2023-08-17 13:19 | Outpatient (BNVA) | payer MEDICARE, SELFPAY | PROVIDERS: PCP Physician Assistant; Visit Provider Internal Medicine | DX: I26.99 Other pulmonary embolism without acute cor pulmonale (principal); Z86.718 Personal history of other venous thrombosis and embolism; Z51.81 Encounter for therapeutic drug level monitoring; Z79.01 Long term (current) use of anticoagulants | CPT/HCPCS: 85610; 99211 ==

== ENCOUNTER 2023-08-24 13:55 | Inpatient (IN) | payer MEDICARE, SELFPAY ==
[2023-08-24] VITALS (12 sets, daily range): BP systolic 89–123; BP diastolic 52–92; PULSE 111–138; RESP 12–36; TEMP 36.5–36.7; O2SAT 92–97; BMI 50.8
--- NOTE | ~2023-08-24 | XR_ITS ---
EXAMINATION: XR CHEST CLINICAL INFORMATION: SOB COMPARISON: Chest x-ray 05/25/2020 TECHNIQUE: Frontal view of the chest was obtained. FINDINGS: The lungs are hypoexpanded. The heart size is enlarged with increased pulmonary vascularity suggestive of pulmonary vascular congestion. No gross bony abnormality seen. XR/XR chest 1V IMPRESSION: Cardiomegaly with mild pulmonary vascular congestion.
--- NOTE | 2023-08-24 14:22 | ECG_ITS ---
Test Reason : SOB Blood Pressure : / mmHG Vent. Rate : 133 BPM Atrial Rate : 000 BPM P-R Int : 000 ms QRS Dur : 130 ms QT Int : 352 ms P-R-T Axes : 000 -05 147 degrees QTc Int : 523 ms Atrial fibrillation with rapid ventricular response Left bundle branch block Abnormal ECG When compared with ECG of 13-OCT-2014 07:09, Atrial fibrillation has replaced Sinus rhythm Referred By: Generic ED Physician Electronically Signed By:Larry May
[2023-08-24 14:42] LABS: MANUAL DIFF FLAG NO
[2023-08-24 14:51] LABS: Basophils Absolute Auto 0.1 X10*3/uL (0.0-0.2); Basophils Percent Auto 0.9 % (0-2); Eosinophils Absolute Auto 0.1 X10*3/uL (0.0-0.4); Eosinophils Percent Auto 1.7 % (0-4); Hematocrit 38.1 % (37.0-47.0); Hemoglobin 12.2 g/dl (12.0-16.0); Imm Gran Abs Auto 0.02 X10*3/uL (0.00-0.03); Imm Gran Pct Auto 0.3 % (0.0-0.4); Lymphocytes Absolute Auto 1.1 X10*3/uL (1.2-4.9); Lymphocytes Percent Auto 16.4 % (20-40); Mean Corpuscular Hemoglobin 30.8 pg (27.0-33.0); Mean Corpuscular Volume 96.2 fL (80.0-98.0); Mean Platelet Volume 12.2 fL (9.4-12.3); Monocytes Absolute Auto 0.4 X10*3/uL (0.1-1.2); Monocytes Percent Auto 6.2 % (2-11); Neutrophils Absolute Auto 5.2 x10*3/uL (2.0-8.3); Neutrophils Percent Auto 74.5 % (45-73); Platelet Count 179 X10*3/uL (160-400); Prothrombin Time 36.3 SEC (11.1-13.3); Red Blood Count 3.96 X10*6/uL (4.20-5.50); Red Cell Distribution Width 15.2 % (11.0-16.0)
[2023-08-24 15:00] LABS: Ethanol < 10 mg/dL
--- NOTE | 2023-08-24 15:01 | ED_ITS ---
HPI - Arrhythmia/Palpitations General Chief Complaint: Arrhythmia/Palpitations Stated Complaint: sob 96% ra,high hr 70-160 per ems Time Seen by Provider: 08/24/23 14:23 Source: patient Mode of arrival: EMS Limitations: no limitations History of Present Illness HPI narrative: Patient comes to the emergency room via ambulance from home. Patient states that suddenly she became very short of breath, having palpitations after she stood up from her chair to use the bathroom. Patient called 911, per EMS, patient's EKG showed atrial fibrillation with RVR. According to the patient, patient does not have any history of AFib. Patient does take Coumadin for previous history of PEs. Patient states that she has some chest palpitations, no pain, complaining of shortness of breath. Patient oxygen dependent, denies history of asthma or COPD. Related Data Home Medications Medication Instructions Recorded Confirmed diphenhydramine HCl 25 mg capsule 25 mg PO TID PRN allergies 01/16/22 08/10/23 (Benadryl) Previous Rx's Medication Instructions Recorded calcium carbonate 500 mg calcium 500 mg PO BID 30 days #60 tabs 11/27/21 (1,250 mg) tablet (Oyster Shell Calcium) cholecalciferol (vitamin D3) 50 50 mcg PO DAILY 90 days #90 caps 11/27/21 mcg (2,000 unit) capsule blood pressure kit-extra large #1 ea 07/13/22 walker (Ultra-Light Rollator misc) #1 ea 01/28/23 furosemide 20 mg tablet 20 mg PO DAILY #90 tabs 03/15/23 atenolol 50 mg tablet 50 mg PO DAILY #60 tabs 04/15/23 warfarin 5 mg tablet 7.5 mg PO DAILY #45 tabs 04/15/23 levothyroxine 137 mcg tablet 137 mcg PO DAILY 90 days #90 tabs 05/14/23 potassium chloride 20 mEq 40 meq (2 x 20 mEq) PO DAILY #180 05/14/23 tablet,extended release(part/cryst) tabs lisinopril 40 mg tablet 40 mg PO DAILY 90 days #90 tabs 07/23/23 Allergies Allergy/AdvReac Type Severity Reaction Status Date / Time No Known Allergies Allergy Verified 08/17/23 13:48 Review of Systems 2 Review of Systems: Constitutional : No Weight loss, No Fever, No Chills, No Night Sweats, No Fatigue, No Malaise ENT/Mouth : No Hearing loss, No Ear Pain, No Nasal Congestion, No Sinus Pain, No Hoarseness, No sore throat, No Rhinorrhea, No Swallowing Difficulty Eyes: No Eye Pain, No Swelling, No Redness, No Foreign Body, No Discharge, No Vision Changes Cardiovascular : No Chest Pain, complaining of palpitations, shortness of breath, for weeks worsening bilateral lower extremity edema Respiratory : No Cough, No Sputum, No Wheezing, No Smoke Exposure, No Dyspnea Gastrointestinal : No Nausea, No Vomiting, No Diarrhea, No Constipation, No abdominal Pain, No Hematochezia, No Melena Genitourinary : no irregular bleeding, No Dysuria, No Urinary Frequency, No Hematuria, No Urinary Incontinence, No Urgency, No Flank Pain, No Urinary Flow Changes, No Hesitancy Musculoskeletal : No joint pain, No Myalgias, No Joint Swelling Skin : No Skin Lesions, No rash Neuro : No Weakness, No Numbness, No Paresthesias, No Loss of Consciousness, No Dizziness, No Headache Psych : No Anxiety/Panic, No Depression, No SI/HI/AH/VH, No Social Issues, Heme/Lymph: No Bruising, No Bleeding,No Lymphadenopathy Endocrine : No Polyuria, No Polydipsia, No Temperature Intolerance PMFSH Past Medical History Onset Date is defined in the Problem List Problems that require an onset date and time if occurred within 24 hrs of arrival to the ED Aortic Dissection and Rupture; Neurologic impairment; Cardiopulmonary Arrest; Endotracheal Intubation; Insertion or Replacement of Mechanical Circulatory Assist Device Medical History (Updated 08/24/23 @ 17:03 by Jaycee Hitchcock MD) Atrial fibrillation Lymphedema Hypothyroidism History of pulmonary embolism HTN (hypertension) Current use of anticoagulant therapy Surgical History History of laparoscopic cholecystectomy Family History Family History Father CVD (cardiovascular disease) Mother Medical history unknown Social History Social History Housing: House Alcohol intake: unknown Patient Tobacco Use Status: Never used Tobacco e-Cigarette/Vaping Use: Never Used Advance Directives: Yes Advance Directives Information Provided: Yes Advance Directives on File: No service: No Current occupational status: retired Cognitive needs: Yes (Pt has a walker) Hearing needs: No Vision needs: No Physical Exam 2 Vital Signs: Vital Signs: Last Vital Signs Temp 97.9 F 08/24/23 15:28 Pulse 137 H 08/24/23 16:48 Resp 28 H 08/24/23 16:48 BP 112/76 08/24/23 16:48 Pulse Ox 97 08/24/23 16:48 O2 Del Method Nasal Cannula 08/24/23 16:48 O2 Flow Rate 2 08/24/23 16:48 Oxygen Flow Rate 2 08/24/23 14:14 BMI result Body Mass Index 50.8 Const: Other: Appearance: Alert. Oriented X3. No acute distress. Eyes: Pupils equal, round and reactive to light. ENT: Pharynx normal. Neck: Normal inspection. Neck supple. No lymph nodes noted. No crepitus CVS: Normal heart rate and rhythm. Pulses normal. Normal S1 and S2 Respiratory: Irregularly irregular, heart rate 130 No crackles, No Wheezing. No rales Abdomen: Soft and nontender. No rigidity. No distention. Skin: Skin warm and dry. Normal skin color. Normal skin turgor. Extremities: Chronic lymphedema bilaterally, +2 pitting edema Neuro: Oriented X 3. No motor deficit. No sensory deficit. Moving all extremities. No slurred speech. CN 2 through 12 grossly intact Psych: calm, cooperative, normal affect Course Course Course Narrative: -patient takes atenolol at home. -current heart rate 130, blood pressure 115/71, patient receiving IV metoprolol 5 mg Medications Administered Generic Name Dose Route Start Last Admin Trade Name Freq PRN Reason Stop Dose Admin Calcium Gluconate 2 gm in 100 mls @ 50 mls/hr 08/24/23 16:30 08/24/23 16:59 Calcium Gluconate IV 08/24/23 18:29 50 mls/hr ONCE ONE Administration Discontinued Medications Generic Name Dose Route Start Last Admin Trade Name Freq PRN Reason Stop Dose Admin Metoprolol Tartrate 5 mg 08/24/23 14:46 08/24/23 15:06 Metoprolol Tartrate 5 Mg/5 Ml Vial IVPUSH 08/24/23 14:47 5 mg ONCE ONE Administration Metoprolol Tartrate 5 mg 08/24/23 16:30 08/24/23 16:47 Metoprolol Tartrate 5 Mg/5 Ml Vial IVPUSH 08/24/23 16:31 5 mg ONCE ONE Administration Medical Decision Making Medical Decision Making [facility] Narrative: -insert heart rate in the 140s to 160s, patient given 1 dose of IV metoprolol 5 mg. -the heart rate did not improve, patient still in AFib with RVR. Blood pressure 114/86. Patient will be given 1 more dose of IV metoprolol 5 mg, also calcium gluconate has been started to prevent hypotension in case that we need to start Cardizem -my interpretation of chest x-ray: Vascular congestion, pulmonary edema -given patient's new onset of AFib with RVR pulmonary edema and her current symptoms, is very likely that we will admit the patient -patient was given 20 mg of IV Lasix -I discussed the patient with Dr. Caro, patient being admitted Differential Diagnosis Differential Diagnoses: The differential diagnosis associated with the presentation includes (Atrial fibrillation with RVR, CHF, pulmonary edema) Admission/Observation Consideration of admission/observation: Escalation of care including admission/observation considered Consult Healthcare Provider Management of the patient was discussed with: Hospitalist Lab Data [facility] Lab Attestation statement: I reviewed the patient's lab results. 08/24/23 14:36 08/24/23 15:40 Labs: Lab Results 08/24/23 08/24/23 08/24/23 Range/Units 14:36 15:34 15:40 WBC 7.0 (4.8-10.8) X10*3/uL RBC 3.96 L (4.20-5.50) X10*6/uL Hgb 12.2 (12.0-16.0) g/dl Hct 38.1 (37.0-47.0) % MCV 96.2 (80.0-98.0) fL MCH 30.8 (27.0-33.0) pg MCHC 32.0 (31.0-35.0) g/dl RDW 15.2 (11.0-16.0) % Plt Count 179 (160-400) X10*3/uL MPV 12.2 (9.4-12.3) fL Immature Gran % (Auto) 0.3 (0.0-0.4) % Neut % (Auto) 74.5 H (45-73) % Lymph % (Auto) 16.4 L (20-40) % [place] % (Auto) 6.2 (2-11) % Eos % (Auto) 1.7 (0-4) % Baso % (Auto) 0.9 (0-2) % Lymph # (Auto) 1.1 L (1.2-4.9) X10*3/uL [place] # (Auto) 0.4 (0.1-1.2) X10*3/uL Eos # (Auto) 0.1 (0.0-0.4) X10*3/uL Baso # (Auto) 0.1 (0.0-0.2) X10*3/uL Abs Immat Gran (auto) 0.02 (0.00-0.03) X10*3/uL Absolute Neuts (auto) 5.2 (2.0-8.3) x10*3/uL Absolute Nucleated RBC 0.000 (0.0-0.012) X10*3/uL Nucleated RBC % (auto) 0.0 (0.0-0.2) /100WBC PT 36.3 H (11.1-13.3) SEC INR 3.0 H (0.9-1.1) Sodium 143 (135-145) mmol/L Potassium 3.3 (3.3-5.1) mmol/L Chloride 112 H (96-108) mmol/L Carbon Dioxide 21 L (22-29) mmol/L Anion Gap 13 (12-20) BUN 30 H (9-16) mg/dL Creatinine 1.18 (0.5-1.4) mg/dL Estim Creat Clear Calc 62.3 Estimated GFR 44 Random Glucose 129 H (60-115) mg/dL Calcium 9.5 (8.4-10.2) mg/dL Magnesium 2.2 (1.6-2.6) mg/dL Total Bilirubin 1.3 H (0.0-1.0) mg/dL Direct Bilirubin 0.6 H (0.0-0.5) mg/dL AST 19 (5-31) U/L ALT 14 (0-31) U/L Alkaline Phosphatase 82 (39-117) U/L Troponin I High Sens 8.0 (<3.5-17.0) ng/L B-Natriuretic Peptide 649 H (<100) pg/mL Total Protein 7.1 (6.5-8.0) g/dL Albumin 3.8 (3.5-5.0) g/dL Ethyl Alcohol < 10 mg/dL Influenza Type A (MADELINE) Negative (Negative) Influenza Type B (MADELINE) Negative (Negative) Influenza A & B Note See Note Independent Interpretation I performed an independent interpretation of an: Plain X-Ray Radiology Impression Discussion of test interpretation with radiology: I have reviewed the radiologist's reading. Radiologist Impression: FINDINGS: The lungs are hypoexpanded. The heart size is enlarged with increased pulmonary vascularity suggestive of pulmonary vascular congestion. No gross bony abnormality seen. XR/XR chest 1V IMPRESSION: Cardiomegaly with mild pulmonary vascular congestion. Independent Historian Clinical information obtained from an independent historian. History obtained from or confirmed by: EMS Critical Care Time Critical Care Time Critical Care Time: Yes Total Critical Care Time: 75 Attestation: I have personally provided critical care time. Time includes review of lab data, radiology results, discussion with consultants, and monitoring for potential decompensation. Intervention performed as documented. Discharge Plan Discharge Clinical Impression: Atrial fibrillation with RVR, Congestive heart failure Patient Disposition: Admitted As Inpatient
[2023-08-24] MEDS: Metoprolol Tartrate 5 MG/5 ML VIAL IVPUSH ×2 (15:06→16:47)
[2023-08-24 15:18] LABS: B Type Natriuretic Peptide 649 pg/mL (<100)
--- NOTE | 2023-08-24 15:40 | MHC.EDTECH ---
This pct assumed care of Pt at 1500 ,vitals taken ,flu swab collected ,repeated lab drawn and sent to lab .
[2023-08-24 16:13] LABS: Alanine Aminotransferase 14 U/L (0-31); Albumin Level 3.8 g/dL (3.5-5.0); Alkaline Phosphatase 82 U/L (39-117); Anion Gap 13 (12-20); Aspartate Amino Transferase 19 U/L (5-31); Bilirubin Direct 0.6 mg/dL (0.0-0.5); Bilirubin Total 1.3 mg/dL (0.0-1.0); Blood Urea Nitrogen 30 mg/dL (9-16); Calcium 9.5 mg/dL (8.4-10.2); Carbon Dioxide 21 mmol/L (22-29); Chloride 112 mmol/L (96-108); Creatinine Clr Calc Pharmacy 62.3; Estimated Glomerular Filt Rate 44; Glucose Random 129 mg/dL (60-115); Magnesium 2.2 mg/dL (1.6-2.6); Potassium 3.3 mmol/L (3.3-5.1); Sodium 143 mmol/L (135-145); Total Protein 7.1 g/dL (6.5-8.0)
[2023-08-24 16:27] LABS: IDNOW Serial# BCCEAD1C; Influenza A Negative (Negative); Influenza B2 Negative (Negative)
[2023-08-24] MEDS: Calcium Gluconate/NaCl,Iso-Osm 2 GM/100 ML PLAST..BAG IV (16:59)
--- NOTE | 2023-08-24 17:12 | P.HPHOSP_ITS ---
History of Present Illness Date of Service: 08/24/23 Chief Complaint: Shortness of breath and palpitation. 78 year old female with h/o HTN, HLD, PE in 2013 on coumadin, INR 3 today, Hypothyroidism on replacement therapy. She presents to the ED following 2 weeks of onset of shortness of breath that is progressing, worse with exertion and not longer able to go up the stairs to her bedroom and consequently sleeping in couch. Her symptoms have become more pronounced and additionally, today she had sudden onset of palpitation. She unsure of weight gain, but has noted increased leg edema as well. +PND and orthopnea. Work up in ED has revealed new AFIB with RVR, clinicaly finding of heart failure--BNP 649. CXR cardiolmegally and vascular congestion. ED treatement: IV Lasix, calcium gluconate, IV metoprolol Review of Systems 2 Review of Systems: Gen: no fever Resp: +sob, no cough CV: no chest, + REYEZ, + leg edema GI: No n/v, no abd pain Neuro: No confusion Yes all other systems are reviewed and are negative [facility] Medical History (Updated 08/25/23 @ 10:54 by Larry May MD) Lymphedema Hypothyroidism History of pulmonary embolism HTN (hypertension) Current use of anticoagulant therapy Family History Father CVD (cardiovascular disease) Mother Medical history unknown Surgical History History of laparoscopic cholecystectomy Social History Housing: House Alcohol intake: unknown Patient Tobacco Use Status: Never used Tobacco e-Cigarette/Vaping Use: Never Used Advance Directives: Yes Advance Directives Information Provided: Yes Advance Directives on File: No service: No Current occupational status: retired Cognitive needs: Yes (Pt has a walker) Hearing needs: No Vision needs: No Meds Allergies Allergy/AdvReac Type Severity Reaction Status Date / Time No Known Allergies Allergy Verified 08/17/23 13:48 Active Medications: Current Medications Calcium Gluconate (Calcium Gluconate) 2 gm in 100 mls @ 50 mls/hr IV ONCE ONE Stop: 08/24/23 18:29 Last Admin: 08/24/23 16:59 Dose: 50 mls/hr Home Medications Medication Instructions Recorded Confirmed Last Taken Type diphenhydramine HCl 25 mg capsule 25 mg PO TID PRN allergies 01/16/22 08/24/23 Unknown History (Benadryl) atenolol 50 mg tablet 50 mg PO BEDTIME 08/24/23 08/24/23 08/23/22 History levothyroxine 137 mcg tablet 137 mcg PO DAILY@0600 08/24/23 08/24/23 08/24/22 History potassium chloride 20 mEq 40 meq PO DAILY@1200 08/24/23 08/24/23 08/23/22 History tablet,extended release(part/cryst) warfarin 5 mg tablet 2.5 mg PO MOWEFR@1800 08/24/23 08/24/23 08/23/22 History warfarin 5 mg tablet 5 mg PO SUTUTHSA@1800 08/24/23 08/24/23 08/22/23 History Physical Exam 2 Vital Signs and Narrative: Vital Signs: Last Vital Signs Temp 97.9 F 08/24/23 15:28 Pulse 137 H 08/24/23 16:48 Resp 28 H 08/24/23 16:48 BP 112/76 08/24/23 16:48 Pulse Ox 97 08/24/23 16:48 O2 Del Method Nasal Cannula 08/24/23 16:48 O2 Flow Rate 2 08/24/23 16:48 Oxygen Flow Rate 2 08/24/23 14:14 BMI result Body Mass Index 50.8 Const: Other: Constitutional: Alert, in no distress, overweight. Mental Status: Oriented to person, place and time. Eyes: Pupils are equal, round and reactive to light. Ear, Nose and Throat: Oropharynx clear, mucous membranes moist. Ears and nose without deformities. Trachea midline. Respiratory: diminished, rales at bases, with some faint audible wheezes Cardiovascular: S1 S2 ireuglar ireregular. No murmurs, rubs or gallops. 3+ pitting pedal edema bilaterally Gastrointestinal: Abdomen soft, non-tender, non-distended. Normal bowel sounds.? Neurologic: Cranial nerves II-XII grossly intact. No focal neurological deficits. Moves all extremities spontaneously.? Skin: No rashes or lesions.? Musculoskeletal: No cyanosis or clubbing. Psychiatric: Normal mood and affect? Results Labs 08/24/23 14:36 08/25/23 10:10 Labs: Imaging Radiologist's Impressions: Impressions Chest X-Ray 08/24/23 15:45 IMPRESSION: Cardiomegaly with mild pulmonary vascular congestion. Assessment and Plan (1) Atrial fibrillation with RVR: Status: Acute (2) Congestive heart failure: Status: Acute Plan 78 year old female with h/o HTN, HLD, PE in 2013 on coumadin, INR 3 today, Hypothyroidism on replacement therapy here with dyspnea, leg edame, vascular congestion and found to have new onset afib with rvy and new onset of hert failure New onset of heart failure- symptomatic treatment with IV Lasix, further work up with echo, tsh, cardiology consult, monitor i/o, weight New onset of AFIB with RVR, give IV metoprolol, will consider IV cardizem cautiously if rate remains high. Already anticoagulated with coumadin with therapeutic INR, continue coumadin Hypothyroidism--Levothryoxine HTN--hold Lisinopril for now, hold atenolol ( not controlling heart rate as is) dvt prophylaxis coumadin full code admission for at least 2 mdnight for management acute heart failure needing iv diuretics, new afib with rvr that is requiring iv med for control and continuous cardiac Quality Stroke Does the patient have a stroke diagnosis?: No VTE Prior VTE?: Yes VTE Risk Level:: Medical - moderate - high VTE Device Contraindication: Treatment Not Indicated VTE Drug Contraindication: N/A - Med Ordered
--- NOTE | 2023-08-24 17:29 | PHA.MEDREC ---
Pharmacy Consult ? Medication Reconciliation Pharmacy has completed the medication reconciliation. Patient reported medications. Patient reported INR has been high, and her dose has been adjusted often. Per coag clinic, current dose is MoWeFr 2.5mg and SuTuThSa 5 mg. Glenis Bui, FideD
--- NOTE | 2023-08-24 17:54 | MHC.EDTECH ---
Patient vitals taken ,Pure wick in place ,patient was reposition and boosted up in bed ,Pt belonging list done ,RN Jaimie aware of Pt high heart rate and high resp .
[2023-08-24 18:22] LABS: Thyroid Stimulating Hormone 3.24 uIU/mL (0.32-4.0)
[2023-08-24] MEDS: Furosemide 40 MG/4 ML VIAL IVPUSH (18:25)
[2023-08-24] MEDS: Warfarin Sodium 5 MG TABLET PO (18:26)
--- NOTE | 2023-08-24 21:00 | PC.NURSE ---
pt heart rated noted to increase to 120s with activity such as eating. once she is resting heart rate comes down to 110-113.
[2023-08-25] VITALS (11 sets, daily range): BP systolic 96–123; BP diastolic 63–89; PULSE 97–138; RESP 13–30; TEMP 36.5–36.6; O2SAT 93–99
[2023-08-25] MEDS: dilTIAZem HCL 125 MG in 0.9 % Sodium Chloride 100 ML 10 MG IVCONT (03:53)
--- NOTE | 2023-08-25 03:53 | PC.NURSE ---
[employer] tech notified this RN that HR was again elevated. HR at this time is 128. Diltiazem drip initiated. pt HR from 113-128 on monitor. will continue to monitor.
--- NOTE | 2023-08-25 04:40 | PC.NURSE ---
HR is 116-118 on diltiazem drip at 10mg
--- NOTE | 2023-08-25 06:37 | MHC.EDTECH ---
Patient was change and reposition ,vitals taken ,Pt resting quietly in bed .
[2023-08-25] MEDS: LEVOTHYROXINE SODIUM 137 MCG PO (06:56)
[2023-08-25 06:59] LABS: INTERNATIONAL NORM RATIO 3.1 (0.9-1.1); Prothrombin Time 37.7 SEC (11.1-13.3)
[2023-08-25 07:18] LABS: Anion Gap 13 (12-20); Blood Urea Nitrogen 28 mg/dL (9-16); Calcium 9.6 mg/dL (8.4-10.2); Carbon Dioxide 24 mmol/L (22-29); Chloride 111 mmol/L (96-108); Creatinine Clr Calc Pharmacy 55.8; Estimated Glomerular Filt Rate 39; Glucose Random 107 mg/dL (60-115); Potassium 3.5 mmol/L (3.3-5.1); Sodium 144 mmol/L (135-145)
--- NOTE | 2023-08-25 08:30 | PC.NURSE ---
Bedside echo at this time
[2023-08-25] MEDS: Furosemide 40 MG/4 ML VIAL IVPUSH (09:37)
[2023-08-25] MEDS: 0.9 % Sodium Chloride Flush 3 ML SYRINGE IVFLUSH ×2 (09:38→15:18)
--- NOTE | 2023-08-25 09:39 | PC.NURSE ---
After cho pt noted with increased SOB and work of breathing. Dr Fragoso to bedside, verbal order to d/c Cardizem. Lasix given. Pt started on Bipap 10/5/30%, pt tolerated well at this time with decreased work of breathing. HR 120s
--- NOTE | 2023-08-25 10:29 | PC.NURSE ---
Pt tolerating Bipap. HR 120-140s since stop of Cardizem. Digoxin being given at this time. Pt with eyes closed intermittently. Voided in bed bet[place] when attempting to have BM, unable to measure. Pt unable to tolerate laying flat for care. Purewick in place.
--- NOTE | 2023-08-25 10:50 | PM.CNCAR ---
History of Present Illness History of Present Illness Date of Service: 08/25/23 Requesting physician: Ernst Arambula Chief complaint: New afib, New CHF Narrative: 78-year-old female with background history of PE on Coumadin, obesity, hypertension and hyperlipidemia who is presenting with shortness of breath ongoing for 1 week. She said she was getting more and more short of breath with activities. She has been sleeping in a recliner for long time and was denying any orthopnea PND but unclear how inclined she is when she is sleeping. She was noticed to be in AFib with RVR and congestive heart failure in the ER. She was given diuretics, IV metoprolol and was started on IV Cardizem drip. She was seen while she was getting echocardiography. She was significantly short of breath and was unable to speak in full sentences. ECHO was completed quickly and she was given IV diuretics and was started on BiPAP for support. Cardizem drip was stopped. She was denying any chest discomfort. ECHO was briefly reviewed which showed moderate to severe LV dysfunction. We will report this in more detail. She was in AFib with RVR. [facility] Past Medical History Medical History (Updated 08/25/23 @ 10:54 by Larry May MD) Lymphedema Hypothyroidism History of pulmonary embolism HTN (hypertension) Current use of anticoagulant therapy Family History Family History Father CVD (cardiovascular disease) Mother Medical history unknown Surgical History Surgical History History of laparoscopic cholecystectomy Social History Social History Housing: House Alcohol intake: unknown Patient Tobacco Use Status: Never used Tobacco e-Cigarette/Vaping Use: Never Used Advance Directives: Yes Advance Directives Information Provided: Yes Advance Directives on File: No service: No Current occupational status: retired Cognitive needs: Yes (Pt has a walker) Hearing needs: No Vision needs: No Meds Allergies Allergy/AdvReac Type Severity Reaction Status Date / Time No Known Allergies Allergy Verified 08/17/23 13:48 Active Medications: Current Medications Acetaminophen (Acetaminophen 325 Mg Tablet) 650 mg PO Q6H PRN PRN Reason: Pain, Mild (Pain Scale 1-3) Al Hydroxide/Mg Hydroxide (Magnesium Hydrox/Alum Hydrox 30 Ml Oral.Susp) 30 ml PO Q4H PRN PRN Reason: Heartburn/Nausea Digoxin (Digoxin 0.5 Mg/2 Ml Ampul) 0.125 mg IVPUSH Q6H [facility] Stop: 08/25/23 22:16 Last Admin: 08/25/23 10:27 Dose: 0.125 mg Furosemide (Furosemide 40 Mg/4 Ml Vial) 40 mg IVPUSH BID@0900,1800 [facility]; Protocol Last Admin: 08/25/23 09:37 Dose: 40 mg Levothyroxine Sodium 25 mcg/ (Levothyroxine Sodium 112 mcg) 137 mcg PO DAILY@0600 [facility] Last Admin: 08/25/23 06:56 Dose: 137 mcg Magnesium Hydroxide (Milk Of Magnesia 30 Ml Oral.Susp) 30 ml PO DAILY PRN PRN Reason: Constipation Melatonin (Melatonin 3 Mg Tablet) 3 mg PO BEDTIME PRN PRN Reason: Insomnia Ondansetron HCl (Ondansetron Hcl 4 Mg/2 Ml Vial) 4 mg IVPUSH Q8H PRN PRN Reason: Nausea and Vomiting Potassium Chloride (Potassium Chloride Er 20 Meq Tab.Er.Prt) 40 meq PO DAILY@1200 [facility] Sodium Chloride (0.9 % Sodium Chloride Flush 3 Ml Syringe) 3 ml IVFLUSH QSWIFT [facility] Last Admin: 08/25/23 09:38 Dose: 3 ml Warfarin Sodium (Warfarin Sodium 2.5 Mg Tablet) 2.5 mg PO MOWEFR@1800 [facility] Home Medications Medication Instructions Recorded Confirmed Last Taken Type diphenhydramine HCl 25 mg capsule 25 mg PO TID PRN allergies 01/16/22 08/24/23 Unknown History (Benadryl) atenolol 50 mg tablet 50 mg PO BEDTIME 08/24/23 08/24/23 08/23/22 History levothyroxine 137 mcg tablet 137 mcg PO DAILY@0600 08/24/23 08/24/23 08/24/22 History potassium chloride 20 mEq 40 meq PO DAILY@1200 08/24/23 08/24/23 08/23/22 History tablet,extended release(part/cryst) warfarin 5 mg tablet 2.5 mg PO MOWEFR@1800 08/24/23 08/24/23 08/23/22 History warfarin 5 mg tablet 5 mg PO HANNAH@1800 08/24/23 08/24/23 08/22/23 History Physical Exam Vital Signs: Vital Signs: Last Vital Signs Temp 97.7 F 08/25/23 06:33 Pulse 133 H 08/25/23 10:28 Resp 22 H 08/25/23 10:28 BP 101/78 08/25/23 10:28 Pulse Ox 95 08/25/23 10:28 O2 Del Method BiPAP 08/25/23 10:28 O2 Flow Rate 2 08/25/23 03:29 FiO2 30 08/25/23 10:28 Oxygen Flow Rate 2 08/24/23 14:14 BMI result Body Mass Index 50.8 GENERAL APPEARANCE: Significantly short of breath. On supplemental oxygen. NECK: no carotid bruit, + jugular venous distention. SKIN: no suspicious lesions, warm and dry. HEART: no murmurs, Irregularly irregular rhythm. Tachycardic. LUNGS: Bilateral wheezes. ABDOMEN: soft, nontender. EXTREMITIES: 2+ edema. PERIPHERAL PULSES: equal. NEUROLOGIC: No gross deficits, AAO X 3 Objective Labs and Meds 08/24/23 14:36 08/25/23 05:53 Lab results: Laboratory Results - last 24 hr 08/24/23 08/24/23 08/24/23 14:36 15:34 15:40 WBC 7.0 RBC 3.96 L Hgb 12.2 Hct 38.1 MCV 96.2 MCH 30.8 MCHC 32.0 RDW 15.2 Plt Count 179 MPV 12.2 Immature Gran % (Auto) 0.3 Neut % (Auto) 74.5 H Lymph % (Auto) 16.4 L [place] % (Auto) 6.2 Eos % (Auto) 1.7 Baso % (Auto) 0.9 Lymph # (Auto) 1.1 L [place] # (Auto) 0.4 Eos # (Auto) 0.1 Baso # (Auto) 0.1 Abs Immat Gran (auto) 0.02 Absolute Neuts (auto) 5.2 Absolute Nucleated RBC 0.000 Nucleated RBC % (auto) 0.0 PT 36.3 H INR 3.0 H Sodium 143 Potassium 3.3 Chloride 112 H Carbon Dioxide 21 L Anion Gap 13 BUN 30 H Creatinine 1.18 Estim Creat Clear Calc 62.3 Estimated GFR 44 Random Glucose 129 H Calcium 9.5 Magnesium 2.2 Total Bilirubin 1.3 H Direct Bilirubin 0.6 H AST 19 ALT 14 Alkaline Phosphatase 82 Troponin I High Sens 8.0 B-Natriuretic Peptide 649 H Total Protein 7.1 Albumin 3.8 TSH 3.24 Ethyl Alcohol < 10 Influenza Type A (MADELINE) Negative Influenza Type B (MADELINE) Negative Influenza A & B Note See Note 08/25/23 05:53 WBC RBC Hgb Hct MCV MCH MCHC RDW Plt Count MPV Immature Gran % (Auto) Neut % (Auto) Lymph % (Auto) [place] % (Auto) Eos % (Auto) Baso % (Auto) Lymph # (Auto) [place] # (Auto) Eos # (Auto) Baso # (Auto) Abs Immat Gran (auto) Absolute Neuts (auto) Absolute Nucleated RBC Nucleated RBC % (auto) PT 37.7 H INR 3.1 H Sodium 144 Potassium 3.5 Chloride 111 H Carbon Dioxide 24 Anion Gap 13 BUN 28 H Creatinine 1.32 Estim Creat Clear Calc 55.8 Estimated GFR 39 Random Glucose 107 Calcium 9.6 Magnesium Total Bilirubin Direct Bilirubin AST ALT Alkaline Phosphatase Troponin I High Sens B-Natriuretic Peptide Total Protein Albumin TSH Ethyl Alcohol Influenza Type A (MADELINE) Influenza Type B (MADELINE) Influenza A & B Note Imaging Radiologist's impression: Impressions Chest X-Ray 08/24/23 15:45 IMPRESSION: Cardiomegaly with mild pulmonary vascular congestion. Assessment and Plan (1) Atrial fibrillation with RVR: Status: Acute (2) Congestive heart failure: Status: Acute (3) Cardiomyopathy: Status: Acute Plan 78-year-old female with medical issues as above presenting with shortness of breath and new onset atrial fibrillation and congestive heart failure. EKG showing AFib with RVR with left bundle-branch block which is chronic. AFib is new onset. She has moderate to severe LV dysfunction by echocardiography. No negative ionotropic agents should be given specially Cardizem. Give her digoxin load. Lasix 40 mg IV b.i.d. with low threshold to change it to a Lasix drip. Monitor electrolytes closely. She will eventually need cardioversion. She is on Coumadin for pulmonary embolism and has been therapeutic so would favor cardioversion without DOUG on her. We will follow along with you. Thank you for allowing me to participate in the care of your patient. Please feel free to contact me if you have any questions. Procedures Date of Service Date of Service: 08/25/23
[2023-08-25 11:30] LABS: Anion Gap 13 (12-20); Blood Urea Nitrogen 28 mg/dL (9-16); Carbon Dioxide 26 mmol/L (22-29); Chloride 109 mmol/L (96-108); Creatinine Clr Calc Pharmacy 55.3; Estimated Glomerular Filt Rate 39; Glucose Random 126 mg/dL (60-115); Potassium 3.6 mmol/L (3.3-5.1); Sodium 144 mmol/L (135-145)
--- NOTE | 2023-08-25 12:40 | PC.NURSE ---
Pt continues on BIPAP, HR more so 130s consistently. BP stable as charted. Dr Arambula aware
--- NOTE | 2023-08-25 12:49 | P.PNIM_ITS ---
Subjective Subjective Date of Service: 08/25/23 Interval History: Seen in f/u for heart failure interval history :She remains tachycardic overnight, and feels just slightly better Physical Exam 2 Vital Signs: Vital Signs: Last Vital Signs Temp 97.7 F 08/25/23 06:33 Pulse 133 H 08/25/23 11:49 Resp 22 H 08/25/23 11:49 BP 116/89 08/25/23 11:49 Pulse Ox 99 08/25/23 11:49 O2 Del Method BiPAP 08/25/23 11:49 O2 Flow Rate 2 08/25/23 03:29 FiO2 30 08/25/23 11:49 Oxygen Flow Rate 2 08/24/23 14:14 BMI result Body Mass Index 50.8 Const: Other: General: AO X 3, no acute distress Resp: diminished, rales at bases, 3+ pedal edema CVS: S1,S2, iregular iregular GI: +BS, NT, no distention Skin: bilateral lymphadema changes, marked leg edema Neuro: motor grossly intact Psych: appropriate affect Objective Data Active Medications Acetaminophen (Acetaminophen 325 Mg Tablet) 650 mg PO Q6H PRN PRN Reason: Pain, Mild (Pain Scale 1-3) Al Hydroxide/Mg Hydroxide (Magnesium Hydrox/Alum Hydrox 30 Ml Oral.Susp) 30 ml PO Q4H PRN PRN Reason: Heartburn/Nausea Digoxin (Digoxin 0.5 Mg/2 Ml Ampul) 0.125 mg IVPUSH Q6H [facility] Stop: 08/25/23 22:16 Last Admin: 08/25/23 10:27 Dose: 0.125 mg Documented By: NONI Furosemide (Furosemide 40 Mg/4 Ml Vial) 40 mg IVPUSH BID@0900,1800 [facility]; Protocol Last Admin: 08/25/23 09:37 Dose: 40 mg Documented By: NONI Furosemide 200 mg/ Sodium (Chloride) 100 mls @ 2.5 mls/hr IVCONT .Q24H [facility] Levothyroxine Sodium 25 mcg/ (Levothyroxine Sodium 112 mcg) 137 mcg PO DAILY@0600 [facility] Last Admin: 08/25/23 06:56 Dose: 137 mcg Documented By: AMANDA Magnesium Hydroxide (Milk Of Magnesia 30 Ml Oral.Susp) 30 ml PO DAILY PRN PRN Reason: Constipation Melatonin (Melatonin 3 Mg Tablet) 3 mg PO BEDTIME PRN PRN Reason: Insomnia Ondansetron HCl (Ondansetron Hcl 4 Mg/2 Ml Vial) 4 mg IVPUSH Q8H PRN PRN Reason: Nausea and Vomiting Potassium Chloride (Potassium Chloride Er 20 Meq Tab.Er.Prt) 40 meq PO DAILY@1200 [facility] Sodium Chloride (0.9 % Sodium Chloride Flush 3 Ml Syringe) 3 ml IVFLUSH QSHIFT [facility] Last Admin: 08/25/23 09:38 Dose: 3 ml Documented By: NONI Warfarin Sodium (Warfarin Sodium 2.5 Mg Tablet) 2.5 mg PO MOWEFR@1800 [facility] Labs 08/24/23 14:36 08/25/23 10:10 Labs: Laboratory Results - last 24 hr 08/24/23 08/24/23 08/24/23 14:36 15:34 15:40 MCV 96.2 MCH 30.8 MCHC 32.0 RDW 15.2 Plt Count 179 MPV 12.2 Immature Gran % (Auto) 0.3 Neut % (Auto) 74.5 H Lymph % (Auto) 16.4 L [place] % (Auto) 6.2 Eos % (Auto) 1.7 Baso % (Auto) 0.9 Lymph # (Auto) 1.1 L [place] # (Auto) 0.4 Eos # (Auto) 0.1 Baso # (Auto) 0.1 Abs Immat Gran (auto) 0.02 Absolute Neuts (auto) 5.2 Absolute Nucleated RBC 0.000 Nucleated RBC % (auto) 0.0 PT 36.3 H INR 3.0 H Anion Gap 13 Estim Creat Clear Calc 62.3 Estimated GFR 44 Random Glucose 129 H Calcium 9.5 Magnesium 2.2 Total Bilirubin 1.3 H Direct Bilirubin 0.6 H AST 19 ALT 14 Alkaline Phosphatase 82 B-Natriuretic Peptide 649 H Total Protein 7.1 Albumin 3.8 TSH 3.24 Ethyl Alcohol < 10 Influenza Type A (MADELINE) Negative Influenza Type B (MADELINE) Negative Influenza A & B Note See Note 08/25/23 08/25/23 05:53 10:10 MCV MCH MCHC RDW Plt Count MPV Immature Gran % (Auto) Neut % (Auto) Lymph % (Auto) [place] % (Auto) Eos % (Auto) Baso % (Auto) Lymph # (Auto) [place] # (Auto) Eos # (Auto) Baso # (Auto) Abs Immat Gran (auto) Absolute Neuts (auto) Absolute Nucleated RBC Nucleated RBC % (auto) PT 37.7 H INR 3.1 H Anion Gap 13 13 Estim Creat Clear Calc 55.8 55.3 Estimated GFR 39 39 Random Glucose 107 126 H Calcium 9.6 10.0 Magnesium Total Bilirubin Direct Bilirubin AST ALT Alkaline Phosphatase B-Natriuretic Peptide Total Protein Albumin TSH Ethyl Alcohol Influenza Type A (MADELINE) Influenza Type B (MADELINE) Influenza A & B Note Assessment and Plan (1) Congestive heart failure: Status: Acute (2) Atrial fibrillation with RVR: Status: Acute Assessment and Plan: 78 year old female with h/o HTN, HLD, PE in 2013 on coumadin, INR 3 today, Hypothyroidism on replacement therapy here with dyspnea, leg edame, vascular congestion and found to have new onset afib with rvy and new onset of hert failure New onset of heart failure with reduced EF, complicated by acute respiratory failure and is now on bipap- symptomatic treatment with IV Lasix, now changing to drip, monitor i/o, reduced salt diet, daily weight, cardiology following New onset of AFIB with RVR, give IV metoprolol, cardizem stopped, being loaded with dig, further management recomendation per cardiology, continue anticoagulation with coumadin. Digoxin loading HTN--hold Lisinopril for now, and Atenolol given borderline bp Chronic Hypokalemia--oral K replacement dvt prophylaxis coumadin full code need for inpt: Acute heart failure needing IV diuretics, afib with rvr that needs constant cardiac monitoring and meed adjustement Quality Stroke Does the patient have a stroke diagnosis?: No VTE Prior VTE?: Yes VTE Risk Level:: Medical - moderate - high VTE Device Contraindication: Treatment Not Indicated VTE Drug Contraindication: N/A - Med Ordered
[2023-08-25] MEDS: Potassium Chloride ER 20 MEQ TAB.ER.PRT 40 MEQ PO (13:19)
--- NOTE | 2023-08-25 13:30 | PC.NURSE ---
BiPAP removed and tolerating well
--- NOTE | 2023-08-25 13:56 | MHC.CM.PN ---
IMM 08/25/23, Pt lives alone in a 2 floor house, she uses only first floor. She has services from [facility] (through [facility]) for 2 hours a week on and . She is independent with personal care, home health aid does light cleaning, shopping, errands. For med equipment, she has a w/c, walker, rollator, commode. She has used [facility] in the past, agrees to refer again if rec. She has been to [facility] (then [facility]) in the past, agrees to refer again if rec. Her daughter is her HCP, CM will call PCP to obtain copy. Pt will need assistance with transportation home upon DC. CM to follow and assist with DC planning.
--- NOTE | 2023-08-25 15:08 | PM.EVENT ---
Event Note Date of Service: 08/25/23 Event Note: Patient is now feeling better, off bipap, HR remains fairly high Time Spent With Patient Time: Total time managing care of this patient today ____ minutes.
--- NOTE | 2023-08-25 16:01 | PC.NURSE ---
Negrete placed and lasix gtt started at 5mg/hr. Plan for Amiodarone per Dr Fragoso (at bedside) Pt remains tachy 140s, work of breathing increases with activity but improves with rest.
[2023-08-26] VITALS (12 sets, daily range): BP systolic 73–131; BP diastolic 7–81; PULSE 118–138; RESP 13–25; TEMP 36.4–36.6; O2SAT 96–99; BMI 48.7
[2023-08-26 06:42] LABS: Anion Gap 17 (12-20); Blood Urea Nitrogen 25 mg/dL (9-16); Calcium 9.2 mg/dL (8.4-10.2); Carbon Dioxide 24 mmol/L (22-29); Chloride 106 mmol/L (96-108); Estimated Glomerular Filt Rate 40; Glucose Random 111 mg/dL (60-115); Potassium 3.3 mmol/L (3.3-5.1); Sodium 144 mmol/L (135-145)
[2023-08-26] MEDS: LEVOTHYROXINE SODIUM 137 MCG PO (06:42)
[2023-08-26 06:43] LABS: INTERNATIONAL NORM RATIO 3.8 (0.9-1.1); Prothrombin Time 46.7 SEC (11.1-13.3)
[2023-08-26] MEDS: 0.9 % Sodium Chloride Flush 3 ML SYRINGE IVFLUSH (08:19)
--- NOTE | 2023-08-26 11:29 | PM.PNCARD ---
Subjective Subjective Date of Service: 08/26/23 Interval history: Seen examined at bedside. Feeling better than yesterday. Continues to be in atrial fibrillation with heart rate is 130s. She is on p.o. amiodarone at this point. Coumadin has been held. She is on Lasix drip. I's and O's are not well documented. Physical Exam Vital Signs: Last Vital Signs Temp 97.7 F 08/25/23 14:49 Pulse 133 H 08/26/23 08:21 Resp 22 H 08/26/23 08:21 BP 131/7 L 08/26/23 08:21 Pulse Ox 96 08/26/23 08:21 O2 Del Method Nasal Cannula 08/26/23 08:21 O2 Flow Rate 2.5 08/26/23 08:21 FiO2 30 08/25/23 11:49 Oxygen Flow Rate 2 08/24/23 14:14 BMI result Body Mass Index 50.8 GENERAL APPEARANCE: Less short of breath today. On supplemental oxygen. NECK: no carotid bruit, + jugular venous distention. SKIN: no suspicious lesions, warm and dry. HEART: no murmurs, Irregularly irregular rhythm. Tachycardic. LUNGS: Crackles at bases. ABDOMEN: soft, nontender. EXTREMITIES: 2+ edema. PERIPHERAL PULSES: equal. NEUROLOGIC: No gross deficits, AAO X 3 Objective Labs and Meds 08/24/23 14:36 08/26/23 05:10 Lab results: Laboratory Results - last 24 hr 08/25/23 08/26/23 10:10 05:10 PT 46.7 H D INR 3.8 H Sodium 144 144 Potassium 3.6 3.3 Chloride 109 H 106 Carbon Dioxide 26 24 Anion Gap 13 17 BUN 28 H 25 H Creatinine 1.33 1.29 Estim Creat Clear Calc 55.3 57.0 Estimated GFR 39 40 Random Glucose 126 H 111 Calcium 10.0 9.2 D Progress Note: A&P Assessment and plan (1) Cardiomyopathy: Status: Acute (2) Congestive heart failure: Status: Acute (3) Atrial fibrillation with RVR: Status: Acute (4) LBBB (left bundle branch block): Status: Acute Plan Pleasant 78-year-old female with chronic left bundle-branch block presenting for new onset congestive heart failure and cardiomyopathy with EF of 25-30% as well as new onset atrial fibrillation. Left bundle-branch block is chronic and has been present since 2015. New onset atrial fibrillation with rapid ventricular response is a potential cause for cardiomyopathy. She was given IV Cardizem and did not tolerated due to cardiomyopathy. She should not get any calcium channel blockers or beta-blockers currently. Continue amiodarone 400 mg twice a day. Adding Entresto. Increasing spironolactone 25 mg twice a day. As potassium starts improving and rises close to for please stop the oral potassium supplements. Still significantly volume overloaded. Will eventually need cardioversion. Transitioning her from Coumadin to Eliquis. We will wait for the INR to get close to 2 and at that stage we will introduce apixaban. She has hypothyroidism and is on levothyroxine so will need close monitoring of TSH on amiodarone. Thank you for allowing me to participate in the care of your patient. Please feel free to contact me if you have any questions. Time Spent With Patient Time: Total time managing care of this patient today ____ minutes. Progress Note: Quality Stroke Does the patient have a stroke diagnosis?: No Procedures Date of Service Date of Service: 08/26/23
[2023-08-26] MEDS: Sacubitril/Valsartan 24/26 1 TAB TABLET PO (11:58)
--- NOTE | 2023-08-26 13:54 | HO.PM.IMPN ---
Subjective Subjective Date of Service: 08/27/23 Interval History: Seen in f/u for heart failure, new afib with RVR interval history :Symptomatically feels better, Heart rate is better on on amiodarone, she less short of breath and remrain high fluid overloaded Physical Exam Vital Signs: Vital Signs: Last Vital Signs Temp 97.7 F 08/25/23 14:49 Pulse 125 H 08/26/23 11:42 Resp 20 08/26/23 11:42 BP 131/73 08/26/23 11:42 Pulse Ox 98 08/26/23 11:42 O2 Del Method Nasal Cannula 08/26/23 11:42 O2 Flow Rate 2.5 08/26/23 11:42 FiO2 30 08/25/23 11:49 Oxygen Flow Rate 2 08/24/23 14:14 BMI result Body Mass Index 50.8 General: AO X 3, no acute distress, more comfortable today Resp: rales at bases CVS: S1,S2,iRiR, no mur, +jvd, 2-3+ leg edema demetri GI: +BS, NT, no distention Skin: No rash Neuro: motor grossly intact Psych: appropriate affect Objective Data Active Medications Acetaminophen (Acetaminophen 325 Mg Tablet) 650 mg PO Q6H PRN PRN Reason: Pain, Mild (Pain Scale 1-3) Al Hydroxide/Mg Hydroxide (Magnesium Hydrox/Alum Hydrox 30 Ml Oral.Susp) 30 ml PO Q4H PRN PRN Reason: Heartburn/Nausea Amiodarone HCl (Amiodarone Hcl 200 Mg Tablet) 400 mg PO BID [facility] Last Admin: 08/26/23 08:18 Dose: 400 mg Documented By: SUMIT Furosemide 200 mg/ Sodium (Chloride) 100 mls @ 2.5 mls/hr IVCONT .Q24H [facility] Last Admin: 08/25/23 15:16 Dose: 5 mg/hr, 2.5 mls/hr Documented By: NONI Levothyroxine Sodium 25 mcg/ (Levothyroxine Sodium 112 mcg) 137 mcg PO DAILY@0600 [facility] Last Admin: 08/26/23 06:42 Dose: 137 mcg Documented By: ALEXIS Magnesium Hydroxide (Milk Of Magnesia 30 Ml Oral.Susp) 30 ml PO DAILY PRN PRN Reason: Constipation Melatonin (Melatonin 3 Mg Tablet) 3 mg PO BEDTIME PRN PRN Reason: Insomnia Ondansetron HCl (Ondansetron Hcl 4 Mg/2 Ml Vial) 4 mg IVPUSH Q8H PRN PRN Reason: Nausea and Vomiting Potassium Chloride (Potassium Chloride Er 20 Meq Tab.Er.Prt) 40 meq PO DAILY@1200 [facility] Last Admin: 08/26/23 11:40 Dose: 40 meq Documented By: SUMIT Sacubitril/Valsartan (Sacubitril/Valsartan 1 Tab Tablet) 1 tab PO BID [facility]; Protocol Last Admin: 08/26/23 11:58 Dose: 1 tab Documented By: SUMIT Sodium Chloride (0.9 % Sodium Chloride Flush 3 Ml Syringe) 3 ml IVFLUSH QSHIFT [facility] Last Admin: 08/26/23 08:19 Dose: 3 ml Documented By: SUMIT Spironolactone (Spironolactone 25 Mg Tablet) 25 mg PO BID [facility]; Protocol Labs 08/24/23 14:36 08/27/23 07:15 Labs: Laboratory Results - last 24 hr 08/26/23 05:10 PT 46.7 H D INR 3.8 H Anion Gap 17 Estim Creat Clear Calc 57.0 Estimated GFR 40 Random Glucose 111 Calcium 9.2 D Assessment and Plan (1) Congestive heart failure: Status: Acute (2) Atrial fibrillation with RVR: Status: Acute Assessment and Plan: 78 year old female with h/o HTN, HLD, PE in 2013 on coumadin, INR 3 today, Hypothyroidism on replacement therapy here with dyspnea, leg edame, vascular congestion and found to have new onset afib with rvy and new onset of hert failure New onset of heart failure with reduced EF, complicated by acute respiratory failure that required bipap briefly on 08/25, negative 3 lit Continue IV Lasix drip with pulse dose, monitor I/O, starting entresto, aldactone and monitor potassium. BB and CCB to be avoided at the present time. New onset of AFIB with RVR, give IV metoprolol, cardizem stopped as did not tolerated, got quincy 0.125 x 2, and started on amio, to continue on amio loading, to be transitioned from coumadin to eliquis once INR is near 2, INR 3.8 today Discussed with cardiology h/o PE, anticoagulation as above HTN--hold Lisinopril for now, and Atenolol given borderline bp Chronic Hypokalemia--oral K replacement morbid obesity--weight loss adivised Hypothyroidism--continue Levothyroxine dvt prophylaxis coumadin full code need for inpt: Acute heart failure needing IV diuretics, afib with rvr that needs constant cardiac monitoring and meed adjustement Quality Stroke Does the patient have a stroke diagnosis?: No VTE Prior VTE?: Yes VTE Risk Level:: Medical - moderate - high VTE Device Contraindication: Treatment Not Indicated VTE Drug Contraindication: N/A - Med Ordered
--- NOTE | 2023-08-26 15:15 | PC.NURSE ---
this RN assumed care of patient at this time, patient has furosemide drip at 5mg/hr running. patient on 2.5 L NC, respirations equal and unlabored, patient shows no signs of distress, skin PWD. becker cath emptied by this RN 800ml.patient remains tachy in 120s. patuient is alert and oriented x3, call kulkarni within reach able to make needs known
--- NOTE | 2023-08-26 15:41 | MHC.EDTECH ---
Total bed changed and patient repositioned
--- NOTE | 2023-08-26 18:24 | PC.NURSE ---
patient becker cath emptied 650ml output
--- NOTE | 2023-08-26 18:42 | PC.NURSE ---
patient pressure dropped 89/55 at 1821, attending at bedside, requested lasix drip to be paused. pressure now 115/68 semi michelle
--- NOTE | 2023-08-26 23:02 | PC.NURSE ---
Per Dr. Ralf ferrara to restart lasix gtt at this time.
--- NOTE | 2023-08-26 23:38 | PM.EVENT ---
Event Note Date of Service: 08/26/23 Event Note: Nurse reported blood pressure of around 70/40s. Patient is in AFib with RVR with heart rate jumping up to the 150s. Patient just got back to the bed after using the commode. Patient is mentating well and denies dizziness or lightheadedness. Blood pressure re-checked in both arms. Noted that patient is on IV Lasix drip and amiodarone for new onset CHF and AFib with RVR. Reviewed notes from Cardiology. Consulted ICU and discussed the case with Dr. Horton. Patient's heart rate spontaneously improved with improvement in blood pressure with rest. Will continue to monitor mentation and hemodynamics with low threshold to transfer for higher care Time Spent With Patient Time: Total time managing care of this patient today ____ minutes.
--- NOTE | 2023-08-26 23:50 | PC.NURSE ---
Report given to oncoming RN assuming care of patient at this time.
[2023-08-27] MEDS: 0.9 % Sodium Chloride Flush 3 ML SYRINGE IVFLUSH (00:26)
[2023-08-27 03:58] VITALS: BP 91/64; PULSE 127; RESP 20; TEMP 36.2; O2SAT 97
[2023-08-27 07:26] VITALS: BP 114/60; PULSE 127; RESP 20; TEMP 36.4; O2SAT 96
[2023-08-27 11:03] VITALS: BP 103/78; PULSE 126; RESP 20; TEMP 36.2; O2SAT 96
--- NOTE | 2023-08-27 11:10 | HO.WOUND ---
Wound Consult: Initial 78yr old [place] admitted [place] [facility] [place] 17:16? - See progress notes and H&P for detailed history. Wound consult placed for Skin folds. Arrival to bedside pt agreeable to assessment and photo documentation. She denies incontinence - she is obese and has several skin folds contributing to trapping moisture. Skin folds assessed and are noted for MASD and fungal dermatitis to the abdominal skin folds no open lesions at the base of the folds - advancing satellite lesions noted - pt reports itching. Bilateral breast fold noted for MASD - red pink blanchable mirrored erythema no observance of fungal dermatitis at this time and pt denies itching. Buttock and perineal area noted for MASD - red blanchable erythema noted tissue intact at this time and tender to touch - F/C in place but strong urine odor noted - pericare provided along with barrier cream. The sacrum is noted for nonblanchable red intact lesions on the sacral coccyx area -these are stage 1 pressure injuries Present on admission. Discussed off loading pressure with pt and staff. Abdominal Skin folds Etiology: ?MASD with Fungal Dermatitis Wound Bed: red blanchable tissue with advancing satellite lesions noted - no open tissue noted Drainage / Odor: None Edges: ? Mirrored and advancing Nani wound: ? No Induration, Fluctuance or Warmth noted Pain: Itching reported Goals of Treatment: ? Antifungal powder followed by Interdry Bilateral Breast Skin folds Etiology: ?MASD with Fungal Dermatitis Wound Bed: red blanchable tissue with mirroed edges - hyperpigmentation indicative of chronic moisture - no s/s of fungal at this time - no open tissue at base of skin folds Drainage / Odor: None Edges: ? Mirrored Nani wound: ? No Induration, Fluctuance or Warmth noted Pain: denies Itching Goals of Treatment: ? Interdry Sacrum Etiology: ??Stage 1 Pressure Injury Present on Admission Measurements: 3cm x 3cm x 0cm Wound Bed: red nonblanchable intact tissue Drainage / Odor: none Edges: ? irregular Nani wound: ? No Induration, Fluctuance or Warmth noted Pain: denies Goals of Treatment: Off load pressure and barrier cream to protect from moisture and friction Recommendations: 1. Turn and Reposition every 2 hours and as needed for patient comfort.? Use pillows or wedges to support off loading positions. 2. Off Load all bony prominences with use of pillows and heel boots if needed.? Apply Preventative foams where needed. ? 3. Monitor for incontinence and moisture control, use barrier creams when needed for prevention and treatment. 4. Provide adequate and supplemental nutrition. 5. Order low air loss mattress - consider bariatric bed. 6. Bilateral Breast Skin Folds - Tuck Interdry AG Sheet into skin fold to wick and translocate moisture away from skin fold.? Be sure to leave at least 2 inch of fabric exposed outside of skin fold.? Change when soiled. 7. Abdominal Folds - Cleanse with PH balance wipes, pat dry with soft cloth.? Apply antifungal power to assist with moisture management.? Be sure to dust of excess powder to prevent caking on skin and in folds. Apply per provider orders. 8. Sacrum and buttocks - Off Load Pressure - Cleanse with routine cleansing - apply barrier cream twice daily and PRN. Re-consult wound care Nurse for wound deterioration or wound changes.
--- NOTE | 2023-08-27 11:17 | PM.PNCARD ---
Subjective Subjective Date of Service: 08/27/23 Interval history: Seen examined at bedside. Continues to be significantly volume overloaded but improving. In AFib with RVR. On amiodarone p.o.. Physical Exam Vital Signs: Last Vital Signs Temp 97.1 F 08/27/23 11:03 Pulse 126 H 08/27/23 11:03 Resp 20 08/27/23 11:03 BP 103/78 08/27/23 11:03 Pulse Ox 96 08/27/23 11:03 O2 Del Method Nasal Cannula 08/27/23 11:03 O2 Flow Rate 2 08/27/23 11:03 FiO2 30 08/25/23 11:49 Oxygen Flow Rate 2 08/24/23 14:14 BMI result Body Mass Index 48.7 GENERAL APPEARANCE: Less short of breath today. On supplemental oxygen. NECK: no carotid bruit, + jugular venous distention. SKIN: no suspicious lesions, warm and dry. HEART: no murmurs, Irregularly irregular rhythm. Tachycardic. LUNGS: Crackles at bases. ABDOMEN: soft, nontender. EXTREMITIES: 2+ edema. PERIPHERAL PULSES: equal. NEUROLOGIC: No gross deficits, AAO X 3 Objective Labs and Meds 08/24/23 14:36 08/27/23 07:15 Lab results: Laboratory Results - last 24 hr 08/27/23 08/27/23 07:00 07:15 PT 47.8 H INR 3.9 H Sodium 143 Potassium 3.2 L Chloride 108 Carbon Dioxide 27 Anion Gap 11 L BUN 25 H Creatinine 1.18 Estim Creat Clear Calc 60.7 Estimated GFR 44 Random Glucose 104 Calcium 8.6 D Progress Note: A&P Assessment and plan (1) LBBB (left bundle branch block): Status: Acute (2) Cardiomyopathy: Status: Acute (3) Congestive heart failure: Status: Acute (4) Atrial fibrillation with RVR: Status: Acute Plan Pleasant 78 year female with left bundle-branch block, atrial fibrillation with rapid ventricular response, cardiomyopathy and congestive heart failure. LV function is moderate to severely reduced. Likely tachycardia induced cardiomyopathy. Did not tolerate Cardizem due to cardiomyopathy. Should not use any Cardizem or beta-negrito currently. Will give 1 more dose of digoxin 250 mcg IV x1. Monitor potassium closely and keep it close to 4. On spironolactone 25 mg twice a day. Hopefully as she gets more negative we can try low-dose beta-negrito. Will plan for cardioversion next week. INR is still above 2 and once close to 2 Eliquis should be started. Will need sleep study as outpatient. Thank you for allowing me to participate in the care of your patient. Please feel free to contact me if you have any questions. Time Spent With Patient Time: Total time managing care of this patient today ____ minutes. Progress Note: Quality Stroke Does the patient have a stroke diagnosis?: No Procedures Date of Service Date of Service: 08/27/23
--- NOTE | 2023-08-27 11:24 | HO.PM.IMPN ---
Subjective Subjective Date of Service: 08/27/23 Interval History: Seen in f/u for heart failure, new afib with RVR interval history her breathing feels better, still tachycardic but doesn't feel it, remains highly volume overloaded Physical Exam Vital Signs: Vital Signs: Last Vital Signs Temp 97.1 F 08/27/23 11:03 Pulse 126 H 08/27/23 11:03 Resp 20 08/27/23 11:03 BP 103/78 08/27/23 11:03 Pulse Ox 96 08/27/23 11:03 O2 Del Method Nasal Cannula 08/27/23 11:03 O2 Flow Rate 2 08/27/23 11:03 FiO2 30 08/25/23 11:49 Oxygen Flow Rate 2 08/24/23 14:14 BMI result Body Mass Index 48.7 GENERAL APPEARANCE: Less short of breath today. On supplemental oxygen. NECK: no carotid bruit, + jugular venous distention. SKIN: no suspicious lesions, warm and dry. HEART: no murmurs, Irregularly irregular rhythm. Tachycardic. LUNGS: Crackles at bases. ABDOMEN: soft, nontender. EXTREMITIES: 2+ edema. PERIPHERAL PULSES: equal. NEUROLOGIC: No gross deficits, AAO X 3 Objective Data Active Medications Acetaminophen (Acetaminophen 325 Mg Tablet) 650 mg PO Q6H PRN PRN Reason: Pain, Mild (Pain Scale 1-3) Al Hydroxide/Mg Hydroxide (Magnesium Hydrox/Alum Hydrox 30 Ml Oral.Susp) 30 ml PO Q4H PRN PRN Reason: Heartburn/Nausea Amiodarone HCl (Amiodarone Hcl 200 Mg Tablet) 400 mg PO BID [facility] Last Admin: 08/27/23 08:09 Dose: 400 mg Documented By: PAULA Digoxin (Digoxin 0.5 Mg/2 Ml Ampul) 0.25 mg IVPUSH ONCE ONE Stop: 08/27/23 11:17 Furosemide 200 mg/ Sodium (Chloride) 100 mls @ 5 mls/hr IVCONT .Q20H [facility] Last Admin: 08/27/23 10:42 Dose: 10 mg/hr, 5 mls/hr Documented By: PAULA Levothyroxine Sodium 25 mcg/ (Levothyroxine Sodium 112 mcg) 137 mcg PO DAILY@0600 [facility] Last Admin: 08/27/23 06:24 Dose: 137 mcg Documented By: JACKIE Magnesium Hydroxide (Milk Of Magnesia 30 Ml Oral.Susp) 30 ml PO DAILY PRN PRN Reason: Constipation Melatonin (Melatonin 3 Mg Tablet) 3 mg PO BEDTIME PRN PRN Reason: Insomnia Nystatin (Nystatin Powder 15 Gm Bottle) 1 appl TOPICAL BID [facility]; Protocol Ondansetron HCl (Ondansetron Hcl 4 Mg/2 Ml Vial) 4 mg IVPUSH Q8H PRN PRN Reason: Nausea and Vomiting Potassium Chloride (Potassium Chloride Er 20 Meq Tab.Er.Prt) 40 meq PO DAILY@1200 [facility] Last Admin: 08/26/23 11:40 Dose: 40 meq Documented By: SUMIT Potassium Chloride (Potassium Chloride Er 20 Meq Tab.Er.Prt) 20 meq PO ONCE ONE Stop: 08/27/23 11:16 Sacubitril/Valsartan (Sacubitril/Valsartan 1 Tab Tablet) 1 tab PO BID [facility]; Protocol Last Admin: 08/27/23 08:09 Dose: 1 tab Documented By: PAULA Sodium Chloride (0.9 % Sodium Chloride Flush 3 Ml Syringe) [facility] Last Admin: 08/27/23 08:10 Dose: 3 ml Documented By: PAULA Spironolactone (Spironolactone 25 Mg Tablet) 25 mg PO BID [facility]; Protocol Last Admin: 08/27/23 08:09 Dose: 25 mg Documented By: PAULA Labs 08/24/23 14:36 08/27/23 07:15 Labs: Laboratory Results - last 24 hr 08/27/23 08/27/23 07:00 07:15 PT 47.8 H INR 3.9 H Anion Gap 11 L Estim Creat Clear Calc 60.7 Estimated GFR 44 Random Glucose 104 Calcium 8.6 D Assessment and Plan (1) Congestive heart failure: Status: Acute (2) Atrial fibrillation with RVR: Status: Acute Assessment and Plan: 78 year old female with h/o HTN, HLD, PE in 2013 on coumadin, INR 3 today, Hypothyroidism on replacement therapy here with dyspnea, leg edame, vascular congestion and found to have new onset afib with rvy and new onset of hert failure New onset of heart failure with reduced EF 25 to 30%,, complicated by acute respiratory failure that required bipap briefly on 08/25, negative 3.7 liter Continue IV Lasix drip at 10 mg/hr, monitor I/O, continue entresto, aldactone and monitor potassium. BB and CCB to be avoided at the present time. O2 as needed New onset of AFIB with RVR, give IV metoprolol, cardizem stopped as did not tolerated, got quincy 0.125 x 2, and started on amio, to continue on amio loading, to be transitioned from coumadin to eliquis once INR is near 2, INR 3.8 today, ultimately may need cardioversion. h/o PE, anticoagulation as above HTN-- Entesto as above Chronic Hypokalemia--oral K replacement, additional K given low k and lasix drip morbid obesity--weight loss adivised Hypothyroidism--continue Levothyroxine dvt prophylaxis coumadin full code need for inpt: Acute heart failure needing IV diuretics, afib with rvr that needs constant cardiac monitoring and meed adjustement Quality Stroke Does the patient have a stroke diagnosis?: No VTE Prior VTE?: Yes VTE Risk Level:: Medical - moderate - high VTE Device Contraindication: Treatment Not Indicated VTE Drug Contraindication: N/A - Med Ordered
--- NOTE | 2023-08-27 13:08 | MHC.CM.PN ---
EMR REVIEWED, PT REMAINS TACCHY AND W/FLUID OVERLOAD, ANTIC CARDIOVERSION ON WEDNESDAY AND DC BY THURSDAY 08/31, ANTIC PLAN WILL BE HOME W/NEW HVNA. CM MET W/PT TO COMPLETE A HCP, PT NAMED HER DTR VINEET GEORGE [phone] HER [facility] AND HER DTRS ALEJANDRA AND MARYCHUY HER ALTERNATES ADN CONTACT INFO ON FILE, PT PROVIDED W/EDUCATIONAL HANDOUT, ORIGINAL AND 3 COPIES, COPY UPLOADED TO [facility] AND PLACED IN CHART.
[2023-08-27 15:50] VITALS: BP 120/64; PULSE 118; RESP 20; TEMP 36.1; O2SAT 98
[2023-08-27 20:00] VITALS: BP 107/58; PULSE 123; RESP 20; TEMP 35.9; O2SAT 98
[2023-08-28] VITALS: BP 94/60; PULSE 119; RESP 20; TEMP 36.6; O2SAT 95
[2023-08-28 03:55] VITALS: BP 122/57; PULSE 102; RESP 20; TEMP 36.1; O2SAT 95
[2023-08-28 05:48] VITALS: BMI 48.4
[2023-08-28 07:46] VITALS: BP 122/51; PULSE 107; RESP 20; TEMP 36.1; O2SAT 98
--- NOTE | 2023-08-28 12:13 | HO.PM.IMPN ---
Subjective Subjective Date of Service: 08/28/23 Interval History: Seen in f/u for heart failure, new afib with RVR interval history her breathing feels the best today, still in RVR but better Physical Exam Vital Signs: Vital Signs: Last Vital Signs Temp 97 F 08/28/23 07:46 Pulse 107 H 08/28/23 07:46 Resp 20 08/28/23 07:46 BP 122/51 L 08/28/23 07:46 Pulse Ox 98 08/28/23 07:46 O2 Del Method Nasal Cannula 08/28/23 07:46 O2 Flow Rate 2 08/28/23 07:46 FiO2 30 08/25/23 11:49 Oxygen Flow Rate 2 08/24/23 14:14 BMI result Body Mass Index 48.4 GENERA: comfortable, no sob NECK: no carotid bruit, + jugular venous distention. SKIN: no suspicious lesions, warm and dry. HEART: no murmurs, Irregularly irregular rhythm. Tachycardic. LUNGS: Crackles at bases. ABDOMEN: soft, nontender. EXTREMITIES: 2+ edema, now noting wrinkles PERIPHERAL PULSES: equal. NEUROLOGIC: No gross deficits, AAO X 3 Objective Data Active Medications Acetaminophen (Acetaminophen 325 Mg Tablet) 650 mg PO Q6H PRN PRN Reason: Pain, Mild (Pain Scale 1-3) Al Hydroxide/Mg Hydroxide (Magnesium Hydrox/Alum Hydrox 30 Ml Oral.Susp) 30 ml PO Q4H PRN PRN Reason: Heartburn/Nausea Amiodarone HCl (Amiodarone Hcl 200 Mg Tablet) 400 mg PO BID [facility] Last Admin: 08/28/23 08:23 Dose: 400 mg Documented By: ELI Furosemide 200 mg/ Sodium (Chloride) 100 mls @ 5 mls/hr IVCONT .Q20H [facility] Last Admin: 08/28/23 05:41 Dose: 10 mg/hr, 5 mls/hr Documented By: DANNIELLE Levothyroxine Sodium 25 mcg/ (Levothyroxine Sodium 112 mcg) 137 mcg PO DAILY@0600 [facility] Last Admin: 08/28/23 05:38 Dose: 137 mcg Documented By: DANNIELLE Magnesium Hydroxide (Milk Of Magnesia 30 Ml Oral.Susp) 30 ml PO DAILY PRN PRN Reason: Constipation Melatonin (Melatonin 3 Mg Tablet) 3 mg PO BEDTIME PRN PRN Reason: Insomnia Metoprolol Succinate (Metoprolol Succinate Er 25 Mg Tab.Er.24h) 25 mg PO DAILY [facility]; Protocol Nystatin (Nystatin Powder 15 Gm Bottle) 1 appl TOPICAL BID [facility]; Protocol Last Admin: 08/28/23 08:24 Dose: 1 appl Documented By: ELI Ondansetron HCl (Ondansetron Hcl 4 Mg/2 Ml Vial) 4 mg IVPUSH Q8H PRN PRN Reason: Nausea and Vomiting Potassium Chloride (Potassium Chloride Er 20 Meq Tab.Er.Prt) 40 meq PO BID [facility] Last Admin: 08/28/23 11:38 Dose: 40 meq Documented By: ELI Sacubitril/Valsartan (Sacubitril/Valsartan 1 Tab Tablet) 1 tab PO BID [facility]; Protocol Last Admin: 08/28/23 08:23 Dose: 1 tab Documented By: ELI Sodium Chloride (0.9 % Sodium Chloride Flush 3 Ml Syringe) 3 ml IVFLUSH QSHIFT [facility] Last Admin: 08/28/23 08:24 Dose: Not Given Documented By: ELI Non-Admin Reason: IV Running Spironolactone (Spironolactone 25 Mg Tablet) 25 mg PO BID [facility]; Protocol Last Admin: 08/28/23 08:29 Dose: 25 mg Documented By: ELI Labs 08/24/23 14:36 08/28/23 08:16 Labs: Laboratory Results - last 24 hr 08/28/23 08:16 PT 35.7 H D INR 2.9 H Anion Gap 12 Estim Creat Clear Calc 64.3 Estimated GFR 48 Random Glucose 91 Calcium 8.5 Assessment and Plan (1) Congestive heart failure: Status: Acute (2) Atrial fibrillation with RVR: Status: Acute Assessment and Plan: 78 year old female with h/o HTN, HLD, PE in 2013 on coumadin, INR 3 today, Hypothyroidism on replacement therapy here with dyspnea, leg edame, vascular congestion and found to have new onset afib with rvy and new onset of hert failure New onset of heart failure with reduced EF 25 to 30%,, complicated by acute respiratory failure that required bipap briefly on 08/25, negative 5 liter, but still markedly fluid overloaded. Continue IV Lasix drip at 10 mg/hr, monitor I/O, continue entresto, aldactone and monitor potassium. No CCB, adding Toprolol today. Conineu Entresto New onset of AFIB with RVR, did tolerate CCB. On Amio loading. Adding Toprol XL 25 mg today, cardiology following h/o PE, on coumaind, holding coumadin, transition to Eliquis when INR close to 2 HTN-- Entesto as above and metoprolol as above Chronic HypOkalemia--oral K replacement, additional K given low k and lasix drip morbid obesity--weight loss adivised Hypothyroidism--continue Levothyroxine dvt prophylaxis coumadin, INR therapeutic full code need for inpt: Acute heart failure needing IV diuretics, afib with rvr that needs constant cardiac monitoring and meed adjustement Quality Stroke Does the patient have a stroke diagnosis?: No VTE Prior VTE?: Yes VTE Risk Level:: Medical - moderate - high VTE Device Contraindication: Treatment Not Indicated VTE Drug Contraindication: N/A - Med Ordered
[2023-08-28 12:29] VITALS: BP 147/54; PULSE 126; RESP 20; TEMP 35.8; O2SAT 98
[2023-08-28] MEDS: Metoprolol Succinate ER 25 MG TAB.ER.24H PO (12:31)
--- NOTE | 2023-08-28 13:39 | PM.PNCARD ---
Subjective Subjective Date of Service: 08/28/23 Interval history: Seen examined at bedside. Feeling good. Continues to be volume overloaded. Physical Exam Vital Signs: Last Vital Signs Temp 96.5 F L 08/28/23 12:29 Pulse 126 H 08/28/23 12:29 Resp 20 08/28/23 12:29 BP 147/54 H 08/28/23 12:29 Pulse Ox 98 08/28/23 12:29 O2 Del Method Nasal Cannula 08/28/23 12:29 O2 Flow Rate 2 08/28/23 12:29 FiO2 30 08/25/23 11:49 Oxygen Flow Rate 2 08/24/23 14:14 BMI result Body Mass Index 48.4 GENERAL APPEARANCE: Less short of breath today. On supplemental oxygen. NECK: no carotid bruit, + jugular venous distention. SKIN: no suspicious lesions, warm and dry. HEART: no murmurs, Irregularly irregular rhythm. Tachycardic. LUNGS: Crackles at bases. ABDOMEN: soft, nontender. EXTREMITIES: 2+ edema. PERIPHERAL PULSES: equal. NEUROLOGIC: No gross deficits, AAO X 3 Objective Labs and Meds 08/24/23 14:36 08/28/23 08:16 Lab results: Laboratory Results - last 24 hr 08/28/23 08:16 PT 35.7 H D INR 2.9 H Sodium 142 Potassium 3.1 L Chloride 101 Carbon Dioxide 32 H Anion Gap 12 BUN 22 H Creatinine 1.11 Estim Creat Clear Calc 64.3 Estimated GFR 48 Random Glucose 91 Calcium 8.5 Progress Note: A&P Assessment and plan (1) LBBB (left bundle branch block): Status: Acute (2) Cardiomyopathy: Status: Acute (3) Congestive heart failure: Status: Acute (4) Atrial fibrillation with RVR: Status: Acute Plan Pleasant 78-year-old female who is presenting with shortness of breath and congestive heart failure. She has moderate severe LV dysfunction on echocardiogram. She has chronic left bundle branch block and new onset atrial fibrillation. Continues to be volume overloaded at this point. Also AFib with RVR on amiodarone loading right now. Was on Coumadin our plan is to transition her to Eliquis as INR comes close to 2. Increase potassium to 40 mg twice a day. Give 2.5 mg of oral metolazone along with the Lasix drip. Toprol XL 25 mg once a day. Not be titrated till she stabilizes further. Will eventually need cardioversion for atrial fibrillation. Thank you for allowing me to participate in the care of your patient. Please feel free to contact me if you have any questions. Time Spent With Patient Time: Total time managing care of this patient today ____ minutes. Progress Note: Quality Stroke Does the patient have a stroke diagnosis?: No Procedures Date of Service Date of Service: 08/28/23
[2023-08-28 15:55] VITALS: BP 131/57; PULSE 113; RESP 20; TEMP 35.9; O2SAT 99
[2023-08-28 20:00] VITALS: BP 104/54; PULSE 117; RESP 18; TEMP 36; O2SAT 99
[2023-08-29] VITALS: BP 128/68; PULSE 117; RESP 20; TEMP 36.1; O2SAT 95
[2023-08-29 03:30] VITALS: BP 110/55; PULSE 106; RESP 20; TEMP 36.1; O2SAT 96
[2023-08-29 06:00] VITALS: BMI 47.6
[2023-08-29 08:00] VITALS: BP 106/70; PULSE 117; RESP 20; TEMP 36.1; O2SAT 97
[2023-08-29 08:38] LABS: Anion Gap 12 (12-20); Blood Urea Nitrogen 25 mg/dL (9-16); Calcium 8.8 mg/dL (8.4-10.2); Carbon Dioxide 33 mmol/L (22-29); Chloride 98 mmol/L (96-108); Estimated Glomerular Filt Rate 42; Glucose Random 83 mg/dL (60-115); Potassium 3.6 mmol/L (3.3-5.1); Sodium 139 mmol/L (135-145)
--- NOTE | 2023-08-29 11:46 | HO.PM.IMPN ---
Subjective Subjective Date of Service: 08/30/23 Interval History: Seen in f/u for heart failure, new afib with RVR interval history Breathing is better, tachycardia is better, still fluid overloaded Physical Exam Vital Signs: Vital Signs: Last Vital Signs Temp 96.9 F 08/29/23 08:00 Pulse 117 H 08/29/23 08:00 Resp 20 08/29/23 08:00 BP 106/70 08/29/23 08:00 Pulse Ox 97 08/29/23 08:00 O2 Del Method Nasal Cannula 08/29/23 08:00 O2 Flow Rate 2 08/29/23 08:00 FiO2 30 08/25/23 11:49 Oxygen Flow Rate 2 08/24/23 14:14 BMI result Body Mass Index 47.6 Objective Data Active Medications Acetaminophen (Acetaminophen 325 Mg Tablet) 650 mg PO Q6H PRN PRN Reason: Pain, Mild (Pain Scale 1-3) Al Hydroxide/Mg Hydroxide (Magnesium Hydrox/Alum Hydrox 30 Ml Oral.Susp) 30 ml PO Q4H PRN PRN Reason: Heartburn/Nausea Amiodarone HCl (Amiodarone Hcl 200 Mg Tablet) 400 mg PO BID [facility] Last Admin: 08/29/23 08:52 Dose: 400 mg Documented By: ROBBY Furosemide 200 mg/ Sodium (Chloride) 100 mls @ 5 mls/hr IVCONT .Q20H [facility] Last Admin: 08/29/23 00:49 Dose: 10 mg/hr, 5 mls/hr Documented By: MARY Levothyroxine Sodium 25 mcg/ (Levothyroxine Sodium 112 mcg) 137 mcg PO DAILY@0600 [facility] Last Admin: 08/29/23 05:45 Dose: 137 mcg Documented By: MARY Magnesium Hydroxide (Milk Of Magnesia 30 Ml Oral.Susp) 30 ml PO DAILY PRN PRN Reason: Constipation Melatonin (Melatonin 3 Mg Tablet) 3 mg PO BEDTIME PRN PRN Reason: Insomnia Metoprolol Succinate (Metoprolol Succinate Er 25 Mg Tab.Er.24h) 25 mg PO DAILY [facility]; Protocol Last Admin: 08/29/23 08:52 Dose: 25 mg Documented By: ROBBY Nystatin (Nystatin Powder 15 Gm Bottle) 1 appl TOPICAL BID [facility]; Protocol Last Admin: 08/29/23 08:56 Dose: 1 appl Documented By: ROBBY Ondansetron HCl (Ondansetron Hcl 4 Mg/2 Ml Vial) 4 mg IVPUSH Q8H PRN PRN Reason: Nausea and Vomiting Potassium Chloride (Potassium Chloride Er 20 Meq Tab.Er.Prt) 40 meq PO BID [facility] Last Admin: 08/29/23 08:52 Dose: 40 meq Documented By: ROBBY Sacubitril/Valsartan (Sacubitril/Valsartan 1 Tab Tablet) 1 tab PO BID [facility]; Protocol Last Admin: 08/29/23 08:52 Dose: 1 tab Documented By: ROBBY Sodium Chloride (0.9 % Sodium Chloride Flush 3 Ml Syringe) 3 ml IVFLUSH QSHIFT [facility] Last Admin: 08/29/23 08:52 Dose: Not Given Documented By: ROBBY Non-Admin Reason: IV Running Spironolactone (Spironolactone 25 Mg Tablet) 25 mg PO BID [facility]; Protocol Last Admin: 08/29/23 08:52 Dose: 25 mg Documented By: ROBBY Labs 08/24/23 14:36 08/30/23 05:55 Labs: Laboratory Results - last 24 hr 08/29/23 07:47 PT 33.5 H INR 2.8 H Anion Gap 12 Estim Creat Clear Calc 57.0 Estimated GFR 42 Random Glucose 83 Calcium 8.8 Assessment and Plan (1) Congestive heart failure: Status: Acute (2) Atrial fibrillation with RVR: Status: Acute Assessment and Plan: 78 year old female with h/o HTN, HLD, PE in 2013 on coumadin, INR 3 today, Hypothyroidism on replacement therapy here with dyspnea, leg edame, vascular congestion and found to have new onset afib with rvy and new onset of hert failure New onset of heart failure with reduced EF 25 to 30%,, complicated by acute respiratory failure that required bipap briefly on 08/25, negative 8 liter, but still markedly fluid overloaded. Continue IV Lasix drip at 10 mg/hr, metolazone 2.5 today, monitor I/O, continue entresto, aldactone and monitor potassium. No CCB, adding Toprolol today. Conineu Entresto New onset of AFIB with RVR, did not tolerate CCB. On Amio loading. On toprolol xl 25, , cardiology following h/o PE, on coumaind, holding coumadin, transition to Eliquis when INR close to 2 HTN-- Entesto and metoprolol as above Chronic HypOkalemia--oral K replacement, additional K given low k and lasix drip morbid obesity--weight loss adivised Hypothyroidism--continue Levothyroxine dvt prophylaxis coumadin, INR therapeutic full code need for inpt: continues to need IV diuretics drip for heart failure Quality Stroke Does the patient have a stroke diagnosis?: No VTE Prior VTE?: Yes VTE Risk Level:: Medical - moderate - high VTE Device Contraindication: Treatment Not Indicated VTE Drug Contraindication: N/A - Med Ordered
[2023-08-29 12:00] VITALS: BP 115/61; PULSE 115; RESP 20; TEMP 36.1; O2SAT 97
--- NOTE | 2023-08-29 12:00 | PM.PNCARD ---
Subjective Subjective Date of Service: 08/29/23 Interval history: Seen and examined at bedside. Clinically improving. In negative balance of 3900 after metolazone. Physical Exam Vital Signs: Last Vital Signs Temp 96.9 F 08/29/23 08:00 Pulse 117 H 08/29/23 08:00 Resp 20 08/29/23 08:00 BP 106/70 08/29/23 08:00 Pulse Ox 97 08/29/23 08:00 O2 Del Method Nasal Cannula 08/29/23 08:00 O2 Flow Rate 2 08/29/23 08:00 FiO2 30 08/25/23 11:49 Oxygen Flow Rate 2 08/24/23 14:14 BMI result Body Mass Index 47.6 GENERAL APPEARANCE: In no distress. On supplemental oxygen. NECK: no carotid bruit, + jugular venous distention. SKIN: no suspicious lesions, warm and dry. HEART: no murmurs, Irregularly irregular rhythm. Tachycardic. LUNGS: Crackles at bases. ABDOMEN: soft, nontender. EXTREMITIES: 1+ edema. PERIPHERAL PULSES: equal. NEUROLOGIC: No gross deficits, AAO X 3 Objective Labs and Meds 08/24/23 14:36 08/29/23 07:47 Lab results: Laboratory Results - last 24 hr 08/29/23 07:47 PT 33.5 H INR 2.8 H Sodium 139 Potassium 3.6 Chloride 98 Carbon Dioxide 33 H Anion Gap 12 BUN 25 H Creatinine 1.24 Estim Creat Clear Calc 57.0 Estimated GFR 42 Random Glucose 83 Calcium 8.8 Progress Note: A&P Assessment and plan (1) LBBB (left bundle branch block): Status: Acute (2) Cardiomyopathy: Status: Acute (3) Congestive heart failure: Status: Acute (4) Atrial fibrillation with RVR: Status: Acute Plan Pleasant 78-year-old female who is presenting with shortness of breath and congestive heart failure. She has moderate severe LV dysfunction on echocardiogram. She has chronic left bundle branch block and new onset atrial fibrillation. Continues to be volume overloaded at this point. Also AFib with RVR on amiodarone loading right now. Was on Coumadin our plan is to transition her to Eliquis as INR comes close to 2. INR today is 2.8. We will check tomorrow morning. Increased potassium to 40 mg twice a day. We will give her another dose of 2.5 mg metolazone today. Toprol XL 25 mg once a day. Not be titrated till she stabilizes further. Will eventually need cardioversion for atrial fibrillation probably by Wednesday or Wednesday. Thank you for allowing me to participate in the care of your patient. Please feel free to contact me if you have any questions. Time Spent With Patient Time: Total time managing care of this patient today ____ minutes. Progress Note: Quality Stroke Does the patient have a stroke diagnosis?: No Procedures Date of Service Date of Service: 08/29/23
[2023-08-29 16:00] VITALS: BP 111/53; PULSE 114; RESP 20; TEMP 36.1; O2SAT 99
[2023-08-29 19:04] VITALS: BP 109/55; PULSE 124; RESP 16; TEMP 36; O2SAT 98
[2023-08-30] VITALS (7 sets, daily range): BP systolic 100–121; BP diastolic 54–65; PULSE 62–123; RESP 18–20; TEMP 36.1–37.1; O2SAT 95–100; BMI 47.0
[2023-08-30 06:57] LABS: Anion Gap 14 (12-20); Blood Urea Nitrogen 32 mg/dL (9-16); Calcium 9.2 mg/dL (8.4-10.2); Carbon Dioxide 37 mmol/L (22-29); Chloride 91 mmol/L (96-108); Creatinine Clr Calc Pharmacy 47.8; Estimated Glomerular Filt Rate 34; Glucose Random 90 mg/dL (60-115); Potassium 3.8 mmol/L (3.3-5.1); Sodium 138 mmol/L (135-145)
--- NOTE | 2023-08-30 11:03 | HO.PM.IMPN ---
Subjective Subjective Date of Service: 08/31/23 Interval History: Seen in f/u for heart failure, new afib with RVR interval history Breathing is better, tachycardia is better, still fluid overloaded Physical Exam Vital Signs: Vital Signs: Last Vital Signs Temp 97.0 F 08/30/23 07:58 Pulse 112 H 08/30/23 07:58 Resp 18 08/30/23 07:58 BP 118/65 08/30/23 07:58 Pulse Ox 95 08/30/23 07:58 O2 Del Method Nasal Cannula 08/30/23 07:58 O2 Flow Rate 2 08/30/23 07:58 FiO2 30 08/25/23 11:49 Oxygen Flow Rate 2 08/24/23 14:14 BMI result Body Mass Index 47.0 Const: Other: General: AO X 3, no acute distress Resp: diminished, rales at bases, 3+ pedal edema CVS: S1,S2, iregular iregular GI: +BS, NT, no distention Skin: bilateral lymphadema changes, marked leg edema Neuro: motor grossly intact Psych: appropriate affect Objective Data Active Medications Acetaminophen (Acetaminophen 325 Mg Tablet) 650 mg PO Q6H PRN PRN Reason: Pain, Mild (Pain Scale 1-3) Al Hydroxide/Mg Hydroxide (Magnesium Hydrox/Alum Hydrox 30 Ml Oral.Susp) 30 ml PO Q4H PRN PRN Reason: Heartburn/Nausea Amiodarone HCl (Amiodarone Hcl 200 Mg Tablet) 400 mg PO BID [facility] Last Admin: 08/30/23 08:40 Dose: 400 mg Documented By: GOYO Levothyroxine Sodium 25 mcg/ (Levothyroxine Sodium 112 mcg) 137 mcg PO DAILY@0600 [facility] Last Admin: 08/30/23 05:58 Dose: 137 mcg Documented By: JUSTIN Magnesium Hydroxide (Milk Of Magnesia 30 Ml Oral.Susp) 30 ml PO DAILY PRN PRN Reason: Constipation Melatonin (Melatonin 3 Mg Tablet) 3 mg PO BEDTIME PRN PRN Reason: Insomnia Metoprolol Succinate (Metoprolol Succinate Er 25 Mg Tab.Er.24h) 25 mg PO DAILY [facility]; Protocol Last Admin: 08/30/23 08:41 Dose: 25 mg Documented By: GOYO Nystatin (Nystatin Powder 15 Gm Bottle) 1 appl TOPICAL BID [facility]; Protocol Last Admin: 08/30/23 08:41 Dose: 1 appl Documented By: GOYO Ondansetron HCl (Ondansetron Hcl 4 Mg/2 Ml Vial) 4 mg IVPUSH Q8H PRN PRN Reason: Nausea and Vomiting Potassium Chloride (Potassium Chloride Er 20 Meq Tab.Er.Prt) 40 meq PO BID [facility] Last Admin: 08/30/23 08:41 Dose: 40 meq Documented By: GOYO Sacubitril/Valsartan (Sacubitril/Valsartan 1 Tab Tablet) 1 tab PO BID [facility]; Protocol Last Admin: 08/30/23 08:40 Dose: 1 tab Documented By: GOYO Sodium Chloride (0.9 % Sodium Chloride Flush 3 Ml Syringe) 3 ml IVFLUSH QSHIFT [facility] Last Admin: 08/30/23 08:42 Dose: 3 ml Documented By: GOYO Spironolactone (Spironolactone 25 Mg Tablet) 25 mg PO BID [facility]; Protocol Last Admin: 08/30/23 08:40 Dose: 25 mg Documented By: GOYO Labs 08/24/23 14:36 08/30/23 05:55 Labs: Laboratory Results - last 24 hr 08/30/23 08/30/23 05:55 09:26 Hold Purple Top SEE NOTE PT 23.7 H D INR 1.9 H Anion Gap 14 Estim Creat Clear Calc 47.8 Estimated GFR 34 Random Glucose 90 Calcium 9.2 Assessment and Plan (1) Congestive heart failure: Status: Acute (2) Atrial fibrillation with RVR: Status: Acute Assessment and Plan: 78 year old female with h/o HTN, HLD, PE in 2013 on coumadin, INR 3 today, Hypothyroidism on replacement therapy here with dyspnea, leg edame, vascular congestion and found to have new onset afib with rvy and new onset of hert failure New onset of heart failure with reduced EF 25 to 30%, complicated by acute respiratory failure that required bipap briefly on 08/25, negative 13 liters. Cr is going up so stop IV Lasix drip. monitor I/O, continue entresto, metoprolol, aldactone and monitor potassium. Start PO lasix tomorrow New onset of AFIB with RVR, did not tolerate CCB. On Amio loading. On toprolol xl 25, , cardiology following, for cardioversion tomorrow h/o PE, on coumaind, holding coumadin, transition to Eliquis when INR close to 2, starting eliquis today JESSIE on CKD--mild, hold diuretic and repeat tomorrow HTN-- Entesto and metoprolol as above Chronic HypOkalemia--K corrected morbid obesity--weight loss adivised Hypothyroidism--continue Levothyroxine dvt prophylaxis coumadin, INR therapeutic full code need for inpt: continues to need IV diuretics drip for heart failure Quality Stroke Does the patient have a stroke diagnosis?: No VTE Prior VTE?: Yes VTE Risk Level:: Medical - moderate - high VTE Device Contraindication: Treatment Not Indicated VTE Drug Contraindication: N/A - Med Ordered
[2023-08-30] MEDS: Apixaban 5 MG TABLET PO ×2 (11:56→20:16)
--- NOTE | 2023-08-30 12:26 | PM.PNCARD ---
Subjective Subjective Date of Service: 08/30/23 Principal diagnosis: Cardiomyopathy, atrial fibrillation. Interval history: Patient has diuresed over 13 L. Creatinine jumping up a low bit. Patient says shortness of breath and leg edema improved significantly. Atrial fibrillation remains with slightly rapid ventricular response. Review of Systems Constitutional: Reports no additional constitutional complaints Cardiovascular: Denies chest pain, Denies lightheadedness, Denies Loss of Consciousness, Denies palpitations and Reports dyspnea on exertion Respiratory: Reports dyspnea on exertion Gastrointestinal: Reports no additional gastrointestinal complaints Reports system reviewed and no additional complaints, except as documented Endocrine: Denies palpitations Physical Exam Vital Signs: Last Vital Signs Temp 97.1 F 08/30/23 11:55 Pulse 106 H 08/30/23 11:55 Resp 20 08/30/23 11:55 BP 106/58 L 08/30/23 11:55 Pulse Ox 97 08/30/23 11:55 O2 Del Method Nasal Cannula 08/30/23 11:55 O2 Flow Rate 2 08/30/23 11:55 FiO2 30 08/25/23 11:49 Oxygen Flow Rate 2 08/24/23 14:14 BMI result Body Mass Index 47.0 GENERAL APPEARANCE: In no distress. On supplemental oxygen. NECK: no carotid bruit, + jugular venous distention. SKIN: no suspicious lesions, warm and dry. HEART: no murmurs, Irregularly irregular rhythm. Tachycardic. LUNGS: Crackles at bases. ABDOMEN: soft, nontender. EXTREMITIES: 1+ edema. PERIPHERAL PULSES: equal. 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 Heart rate remains difficult to control. Overall diuresed about 13 L. Still short of breath could be related to being bed-bound and reduced pulmonary capacity. Can hold off on loop diuretics today. Continue other medications. Continue monitor renal function tomorrow. Will require cardioversion, to pursue rhythm control approach. Continue current neurohormonal modulation. (2) Atrial fibrillation with RVR: Status: Acute Assessment and Plan: Atrial fibrillation with mostly therapeutic INR. INR today is 1.9. Will start Eliquis 5 mg b.i.d.. Discussed with the patient of more predictable oral anticoagulation therapy with Eliquis. She understands. Rate is borderline controlled. Pursue synchronized cardioversion tomorrow. Please keep NPO past midnight. Continue amiodarone for loading. Will follow with you Time Spent With Patient Time: Total time managing care of this patient today ____ minutes. Progress Note: Quality Stroke Does the patient have a stroke diagnosis?: No Procedures Date of Service Date of Service: 08/30/23
--- NOTE | 2023-08-30 14:46 | MHC.CM.PN ---
EMR REVIEWED, PER CARDIO PLAN FOR CARDIVERSION TOMORROW, NO PLAN FOR DC AT THIS TIME, CM WILL CONT TO FOLLOW DC NEEDS.
[2023-08-30] MEDS: 0.9 % Sodium Chloride Flush 3 ML SYRINGE IVFLUSH (16:47)
[2023-08-30] MEDS: Spironolactone 25 MG TABLET PO (20:15)
[2023-08-30] MEDS: Amiodarone HCL 200 MG TABLET 400 MG PO (20:15)
[2023-08-30] MEDS: Potassium Chloride ER 20 MEQ TAB.ER.PRT 40 MEQ PO (20:16)
[2023-08-30] MEDS: Sacubitril/Valsartan 24/26 1 TAB TABLET PO (20:26)
[2023-08-31] VITALS (12 sets, daily range): BP systolic 90–116; BP diastolic 39–64; PULSE 73–121; RESP 12–20; TEMP 36.2–37.1; O2SAT 92–97; BMI 47.1
[2023-08-31] MEDS: LEVOTHYROXINE SODIUM 137 MCG PO (06:20)
[2023-08-31] MEDS: 0.9 % Sodium Chloride Flush 3 ML SYRINGE IVFLUSH ×4 (06:21→20:57)
[2023-08-31 07:45] LABS: INTERNATIONAL NORM RATIO 2.6 (0.9-1.1); Prothrombin Time 31.7 SEC (11.1-13.3)
[2023-08-31] MEDS: Potassium Chloride ER 20 MEQ TAB.ER.PRT 40 MEQ PO ×2 (08:17→20:56)
[2023-08-31] MEDS: Amiodarone HCL 200 MG TABLET 400 MG PO (08:17)
[2023-08-31] MEDS: Sacubitril/Valsartan 24/26 1 TAB TABLET PO ×2 (08:17→20:57)
[2023-08-31] MEDS: Furosemide 40 MG TABLET PO (08:17)
[2023-08-31] MEDS: Apixaban 5 MG TABLET PO ×2 (08:17→20:57)
[2023-08-31] MEDS: Metoprolol Succinate ER 25 MG TAB.ER.24H PO (08:17)
[2023-08-31] MEDS: Spironolactone 25 MG TABLET PO ×2 (08:17→20:57)
--- NOTE | 2023-08-31 09:33 | P.PNIM_ITS ---
Subjective Subjective Date of Service: 08/31/23 Interval History: Seen in f/u for heart failure, new afib with RVR interval history : Breathing continues to be favorable, HR oveall better Physical Exam 2 Vital Signs: Vital Signs: Last Vital Signs Temp 98.3 F 08/31/23 07:17 Pulse 104 H 08/31/23 07:17 Resp 20 08/31/23 07:17 BP 116/59 L 08/31/23 07:17 Pulse Ox 92 08/31/23 09:24 O2 Del Method Room Air 08/31/23 09:24 O2 Flow Rate 2 08/31/23 07:17 FiO2 30 08/25/23 11:49 Oxygen Flow Rate 2 08/24/23 14:14 BMI result Body Mass Index 47.1 Const: Other: General: AO X 3, no acute distress Resp: diminished, rales at bases, 1+ pedal edema CVS: S1,S2, iregular iregular GI: +BS, NT, no distention Skin: bilateral lymphadema changes, marked leg edema Neuro: motor grossly intact Psych: appropriate affect Objective Data Active Medications Acetaminophen (Acetaminophen 325 Mg Tablet) 650 mg PO Q6H PRN PRN Reason: Pain, Mild (Pain Scale 1-3) Al Hydroxide/Mg Hydroxide (Magnesium Hydrox/Alum Hydrox 30 Ml Oral.Susp) 30 ml PO Q4H PRN PRN Reason: Heartburn/Nausea Amiodarone HCl (Amiodarone Hcl 200 Mg Tablet) 400 mg PO BID [facility] Last Admin: 08/31/23 08:17 Dose: 400 mg Documented By: GREG Apixaban (Apixaban 5 Mg Tablet) 5 mg PO BID [facility] Last Admin: 08/31/23 08:17 Dose: 5 mg Documented By: GREG Furosemide (Furosemide 40 Mg Tablet) 40 mg PO BID@0900,1800 [facility]; Protocol Last Admin: 08/31/23 08:17 Dose: 40 mg Documented By: GREG Levothyroxine Sodium 25 mcg/ (Levothyroxine Sodium 112 mcg) 137 mcg PO DAILY@0600 [facility] Last Admin: 08/31/23 06:20 Dose: 137 mcg Documented By: MARIA TERESA Magnesium Hydroxide (Milk Of Magnesia 30 Ml Oral.Susp) 30 ml PO DAILY PRN PRN Reason: Constipation Melatonin (Melatonin 3 Mg Tablet) 3 mg PO BEDTIME PRN PRN Reason: Insomnia Metoprolol Succinate (Metoprolol Succinate Er 25 Mg Tab.Er.24h) 25 mg PO DAILY [facility]; Protocol Last Admin: 08/31/23 08:17 Dose: 25 mg Documented By: GREG Nystatin (Nystatin Powder 15 Gm Bottle) 1 appl TOPICAL BID [facility]; Protocol Last Admin: 08/31/23 08:26 Dose: 1 appl Documented By: GREG Ondansetron HCl (Ondansetron Hcl 4 Mg/2 Ml Vial) 4 mg IVPUSH Q8H PRN PRN Reason: Nausea and Vomiting Potassium Chloride (Potassium Chloride Er 20 Meq Tab.Er.Prt) 40 meq PO BID [facility] Last Admin: 08/31/23 08:17 Dose: 40 meq Documented By: GREG Sacubitril/Valsartan (Sacubitril/Valsartan 1 Tab Tablet) 1 tab PO BID [facility]; Protocol Last Admin: 08/31/23 08:17 Dose: 1 tab Documented By: GREG Sodium Chloride (0.9 % Sodium Chloride Flush 3 Ml Syringe) [address] [facility] Last Admin: 08/31/23 08:17 Dose: 3 ml Documented By: GREG Spironolactone (Spironolactone 25 Mg Tablet) 25 mg PO BID [facility]; Protocol Last Admin: 08/31/23 08:17 Dose: 25 mg Documented By: GREG Labs 08/24/23 14:36 08/30/23 05:55 Labs: Laboratory Results - last 24 hr 08/30/23 08/31/23 09:26 06:35 Hold Purple Top SEE NOTE PT 23.7 H D 31.7 H D INR 1.9 H 2.6 H Assessment and Plan (1) Congestive heart failure: Status: Acute (2) Atrial fibrillation with RVR: Status: Acute Assessment and Plan: 78 year old female with h/o HTN, HLD, PE in 2013 on coumadin, INR 3 today, Hypothyroidism on replacement therapy here with dyspnea, leg edame, vascular congestion and found to have new onset afib with rvy and new onset of hert failure New onset of heart failure with reduced EF 25 to 30%, complicated by acute respiratory failure that required bipap briefly on 08/25, negative 13 liters thus far. Changing to oral Lasix 40 bid, monitor I/O, continue entresto, metoprolol, aldactone and monitor potassium. Monitor BMP New onset of AFIB with RVR, did not tolerate CCB. On Amio loading started on 08/25 x 7 days, then 200 mg daily, On toprolol xl 25. For DC cardioversion today h/o PE, was on coumadin with elevated INR, now transitioned to eliquis JESSIE on CKD 3b, mild JESSIE monitoring, HTN-- Entesto and metoprolol as above Chronic HypOkalemia--K corrected morbid obesity--weight loss adivised Hypothyroidism--continue Levothyroxine dvt prophylaxis Eliquis full code need for inpt: IV diuretic for chf, and need for cardioversion for symptomatic afib Quality Stroke Does the patient have a stroke diagnosis?: No VTE Prior VTE?: Yes VTE Risk Level:: Medical - moderate - high VTE Device Contraindication: Treatment Not Indicated VTE Drug Contraindication: N/A - Med Ordered
[2023-08-31 10:56] LABS: B Type Natriuretic Peptide 193 pg/mL (<100)
--- NOTE | 2023-08-31 11:01 | PM.PNCARD ---
Subjective Subjective Date of Service: 08/31/23 Principal diagnosis: Cardiomyopathy, atrial fibrillation. Interval history: Patient remains in atrial fibrillation better rate control. No shortness of breath. BNP is improved to 193. Review of Systems Constitutional: Reports no additional constitutional complaints Cardiovascular: Reports no additional cardiovascular complaints Respiratory: Reports no additional respiratory complaints Reports system reviewed and no additional complaints, except as documented Psychiatric: Reports no additional psychiatric complaints Endocrine: Reports no additional endocrine complaints Physical Exam Vital Signs: Last Vital Signs Temp 98.3 F 08/31/23 07:17 Pulse 104 H 08/31/23 07:17 Resp 20 08/31/23 07:17 BP 116/59 L 08/31/23 07:17 Pulse Ox 92 08/31/23 09:24 O2 Del Method Room Air 08/31/23 09:24 O2 Flow Rate 2 08/31/23 07:17 FiO2 30 08/25/23 11:49 Oxygen Flow Rate 2 08/24/23 14:14 BMI result Body Mass Index 47.1 GENERAL APPEARANCE: In no distress. On supplemental oxygen. NECK: no carotid bruit, + jugular venous distention. SKIN: no suspicious lesions, warm and dry. HEART: no murmurs, Irregularly irregular rhythm. Tachycardic. LUNGS: Crackles at bases. ABDOMEN: soft, nontender. EXTREMITIES: 1+ edema. PERIPHERAL PULSES: equal. NEUROLOGIC: No gross deficits, AAO X 3 Objective Labs and Meds 08/24/23 14:36 08/30/23 05:55 Lab results: Laboratory Results - last 24 hr 08/31/23 06:35 Hold Purple Top SEE NOTE PT 31.7 H D INR 2.6 H B-Natriuretic Peptide 193 H Progress Note: A&P Assessment and plan (1) Decompensated heart failure: Status: Acute Assessment and Plan: Decompensated congestive after which has improved. Has been diuresed about 13 L. Can transition to p.o. Lasix 40 mg today. Continue Entresto, metoprolol and spironolactone for neurohormonal modulation. Heart failure education to be provided. 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 Will require ischemic workup as outpatient. (2) Atrial fibrillation with RVR: Status: Acute Assessment and Plan: Atrial fibrillation rapid ventricular response with improved rate with amiodarone metoprolol therapy. Pursue rhythm control approach as above. Will schedule for synchronized cardioversion today. Has been on warfarin therapy with therapeutic INRs. Switch to Eliquis yesterday and should continue Eliquis in the long run for more predictable anticoagulation. Will follow with her. Time Spent With Patient Time: Total time managing care of this patient today ____ minutes. Progress Note: Quality Stroke Does the patient have a stroke diagnosis?: No Procedures Date of Service Date of Service: 08/31/23
[2023-08-31 11:25] LABS: Anion Gap 13 (12-20); Blood Urea Nitrogen 34 mg/dL (9-16); Calcium 9.5 mg/dL (8.4-10.2); Carbon Dioxide 38 mmol/L (22-29); Chloride 91 mmol/L (96-108); Creatinine Clr Calc Pharmacy 44.5; Estimated Glomerular Filt Rate 32; Glucose Random 96 mg/dL (60-115); Sodium 138 mmol/L (135-145)
--- NOTE | 2023-08-31 12:45 | PC.NURSE ---
Patient off of floor for cardioversion at this time.
--- NOTE | 2023-08-31 13:22 | HO.ANESPROP2 ---
HPI - Anesthesia Eval Consult details Narrative: for cardioversion [facility] Active Problems Active Problems: All Active Problems (Updated 08/30/23 @ 12:27 by Thuan Fine MD) Decompensated heart failure (Acute) LBBB (left bundle branch block) (Acute) Cardiomyopathy (Acute) Congestive heart failure (Acute) Atrial fibrillation with RVR (Acute) Atrial fibrillation (Acute) Current use of anticoagulant therapy (Acute) HTN (hypertension) (Acute) History of pulmonary embolism (Acute) Hypothyroidism (Acute) Lymphedema (Acute) Lumbar disc disease (Acute) Obese (Acute) Osteopenia after menopause (Acute) Post-menopausal (Acute) Obesity due to excess calories (Acute) Screening for osteoporosis (Acute) Hyperlipidemia (Acute) Screening for diabetes mellitus (Acute) Lower extremity edema (Acute) Vitamin D deficiency (Acute) Current use of anticoagulant therapy (Acute) Past Medical History Medical History Lymphedema Hypothyroidism History of pulmonary embolism HTN (hypertension) Current use of anticoagulant therapy Family History Family History Father CVD (cardiovascular disease) Mother Medical history unknown Family history of problems with anesthesia: No Surgical History Surgical History History of laparoscopic cholecystectomy History of Problems with Anesthesia: No Social History Social History Household Members: None Housing: House Do you presently have visiting nurse or other home services: Yes ([employer]/ Meals on wheels) Alcohol intake: unknown Comment: rings appropriately- A/ox4 Patient Tobacco Use Status: Never used Tobacco e-Cigarette/Vaping Use: Never Used Advance Directives Date on File: 08/26/23 service: No Current occupational status: retired Cognitive needs: Yes (Pt has a walker) Hearing needs: No Vision needs: No Meds Allergies Allergy/AdvReac Type Severity Reaction Status Date / Time No Known Allergies Allergy Verified 08/31/23 13:23 Active Medications: Current Medications Acetaminophen (Acetaminophen 325 Mg Tablet) 650 mg PO Q6H PRN PRN Reason: Pain, Mild (Pain Scale 1-3) Al Hydroxide/Mg Hydroxide (Magnesium Hydrox/Alum Hydrox 30 Ml Oral.Susp) 30 ml PO Q4H PRN PRN Reason: Heartburn/Nausea Amiodarone HCl (Amiodarone Hcl 200 Mg Tablet) 400 mg PO BID [facility] Last Admin: 08/31/23 08:17 Dose: 400 mg Apixaban (Apixaban 5 Mg Tablet) 5 mg PO BID [facility] Last Admin: 08/31/23 08:17 Dose: 5 mg Levothyroxine Sodium 25 mcg/ (Levothyroxine Sodium 112 mcg) 137 mcg PO DAILY@0600 [facility] Last Admin: 08/31/23 06:20 Dose: 137 mcg Magnesium Hydroxide (Milk Of Magnesia 30 Ml Oral.Susp) 30 ml PO DAILY PRN PRN Reason: Constipation Melatonin (Melatonin 3 Mg Tablet) 3 mg PO BEDTIME PRN PRN Reason: Insomnia Metoprolol Succinate (Metoprolol Succinate Er 25 Mg Tab.Er.24h) 25 mg PO DAILY [facility]; Protocol Last Admin: 08/31/23 08:17 Dose: 25 mg Nystatin (Nystatin Powder 15 Gm Bottle) 1 appl TOPICAL BID [facility]; Protocol Last Admin: 08/31/23 08:26 Dose: 1 appl Ondansetron HCl (Ondansetron Hcl 4 Mg/2 Ml Vial) 4 mg IVPUSH Q8H PRN PRN Reason: Nausea and Vomiting Potassium Chloride (Potassium Chloride Er 20 Meq Tab.Er.Prt) 40 meq PO BID [facility] Last Admin: 08/31/23 08:17 Dose: 40 meq Sacubitril/Valsartan (Sacubitril/Valsartan 1 Tab Tablet) 1 tab PO BID [facility]; Protocol Last Admin: 08/31/23 08:17 Dose: 1 tab Sodium Chloride (0.9 % Sodium Chloride Flush 3 Ml Syringe) 3 ml IVFLUSH QSHIFT [facility] Last Admin: 08/31/23 08:17 Dose: 3 ml Spironolactone (Spironolactone 25 Mg Tablet) 25 mg PO BID [facility]; Protocol Last Admin: 08/31/23 08:17 Dose: 25 mg Home Medications Medication Instructions Recorded Confirmed Last Taken Type diphenhydramine HCl 25 mg capsule 25 mg PO TID PRN allergies 01/16/22 08/24/23 Unknown History (Benadryl) atenolol 50 mg tablet 50 mg PO BEDTIME 08/24/23 08/24/23 08/23/22 History levothyroxine 137 mcg tablet 137 mcg PO DAILY@0600 08/24/23 08/24/23 08/24/22 History potassium chloride 20 mEq 40 meq PO DAILY@1200 08/24/23 08/24/23 08/23/22 History tablet,extended release(part/cryst) warfarin 5 mg tablet 2.5 mg PO MOWEFR@1800 08/24/23 08/24/23 08/23/22 History warfarin 5 mg tablet 5 mg PO SUTUTHSA@1800 08/24/23 08/24/23 08/22/23 History Exam Height,Weight and Vital Signs: Height 5 ft 8 in Weight 140.6 kg Last Vital Signs Temp 98.2 F 08/31/23 12:50 Pulse 102 H 08/31/23 13:21 Resp 18 08/31/23 12:50 BP 96/64 08/31/23 12:50 Pulse Ox 97 08/31/23 12:50 O2 Del Method Room Air 08/31/23 12:50 O2 Flow Rate 2 08/31/23 07:17 FiO2 30 08/25/23 11:49 Oxygen Flow Rate 2 08/24/23 14:14 Pertinent Lab Results Pertinent Lab Results: Laboratory Tests 08/24/23 08/24/23 08/24/23 14:36 15:34 15:40 WBC 7.0 RBC 3.96 L Hgb 12.2 Hct 38.1 MCV 96.2 MCH 30.8 MCHC 32.0 RDW 15.2 Plt Count 179 MPV 12.2 Immature Gran % (Auto) 0.3 Neut % (Auto) 74.5 H Lymph % (Auto) 16.4 L [place] % (Auto) 6.2 Eos % (Auto) 1.7 Baso % (Auto) 0.9 Lymph # (Auto) 1.1 L [place] # (Auto) 0.4 Eos # (Auto) 0.1 Baso # (Auto) 0.1 Abs Immat Gran (auto) 0.02 Absolute Neuts (auto) 5.2 Absolute Nucleated RBC 0.000 Nucleated RBC % (auto) 0.0 Hold Purple Top PT 36.3 H INR 3.0 H Sodium 143 Potassium 3.3 Chloride 112 H Carbon Dioxide 21 L Anion Gap 13 BUN 30 H Creatinine 1.18 Estim Creat Clear Calc 62.3 Estimated GFR 44 Random Glucose 129 H Calcium 9.5 Magnesium 2.2 Total Bilirubin 1.3 H Direct Bilirubin 0.6 H AST 19 ALT 14 Alkaline Phosphatase 82 Troponin I High Sens 8.0 B-Natriuretic Peptide 649 H Total Protein 7.1 Albumin 3.8 TSH 3.24 Ethyl Alcohol < 10 Influenza Type A (MADELINE) Negative Influenza Type B (MADELINE) Negative Influenza A & B Note See Note 08/25/23 08/25/23 08/26/23 05:53 10:10 05:10 WBC RBC Hgb Hct MCV MCH MCHC RDW Plt Count MPV Immature Gran % (Auto) Neut % (Auto) Lymph % (Auto) [place] % (Auto) Eos % (Auto) Baso % (Auto) Lymph # (Auto) [place] # (Auto) Eos # (Auto) Baso # (Auto) Abs Immat Gran (auto) Absolute Neuts (auto) Absolute Nucleated RBC Nucleated RBC % (auto) Hold Purple Top PT 37.7 H 46.7 H D INR 3.1 H 3.8 H Sodium 144 144 144 Potassium 3.5 3.6 3.3 Chloride 111 H 109 H 106 Carbon Dioxide 24 26 24 Anion Gap 13 13 17 BUN 28 H 28 H 25 H Creatinine 1.32 1.33 1.29 Estim Creat Clear Calc 55.8 55.3 57.0 Estimated GFR 39 39 40 Random Glucose 107 126 H 111 Calcium 9.6 10.0 9.2 D Magnesium Total Bilirubin Direct Bilirubin AST ALT Alkaline Phosphatase Troponin I High Sens B-Natriuretic Peptide Total Protein Albumin TSH Ethyl Alcohol Influenza Type A (MADELINE) Influenza Type B (MADELINE) Influenza A & B Note 08/27/23 08/27/23 08/28/23 07:00 07:15 08:16 WBC RBC Hgb Hct MCV MCH MCHC RDW Plt Count MPV Immature Gran % (Auto) Neut % (Auto) Lymph % (Auto) [place] % (Auto) Eos % (Auto) Baso % (Auto) Lymph # (Auto) [place] # (Auto) Eos # (Auto) Baso # (Auto) Abs Immat Gran (auto) Absolute Neuts (auto) Absolute Nucleated RBC Nucleated RBC % (auto) Hold Purple Top PT 47.8 H 35.7 H D INR 3.9 H 2.9 H Sodium 143 142 Potassium 3.2 L 3.1 L Chloride 108 101 Carbon Dioxide 27 32 H Anion Gap 11 L 12 BUN 25 H 22 H Creatinine 1.18 1.11 Estim Creat Clear Calc 60.7 64.3 Estimated GFR 44 48 Random Glucose 104 91 Calcium 8.6 D 8.5 Magnesium Total Bilirubin Direct Bilirubin AST ALT Alkaline Phosphatase Troponin I High Sens B-Natriuretic Peptide Total Protein Albumin TSH Ethyl Alcohol Influenza Type A (MADELINE) Influenza Type B (MADELINE) Influenza A & B Note 08/29/23 08/30/23 08/30/23 07:47 05:55 09:26 WBC RBC Hgb Hct MCV MCH MCHC RDW Plt Count MPV Immature Gran % (Auto) Neut % (Auto) Lymph % (Auto) [place] % (Auto) Eos % (Auto) Baso % (Auto) Lymph # (Auto) [place] # (Auto) Eos # (Auto) Baso # (Auto) Abs Immat Gran (auto) Absolute Neuts (auto) Absolute Nucleated RBC Nucleated RBC % (auto) Hold Purple Top SEE NOTE PT 33.5 H 23.7 H D INR 2.8 H 1.9 H Sodium 139 138 Potassium 3.6 3.8 Chloride 98 91 L Carbon Dioxide 33 H 37 H Anion Gap 12 14 BUN 25 H 32 H Creatinine 1.24 1.47 H Estim Creat Clear Calc 57.0 47.8 Estimated GFR 42 34 Random Glucose 83 90 Calcium 8.8 9.2 Magnesium Total Bilirubin Direct Bilirubin AST ALT Alkaline Phosphatase Troponin I High Sens B-Natriuretic Peptide Total Protein Albumin TSH Ethyl Alcohol Influenza Type A (MADELINE) Influenza Type B (MADELINE) Influenza A & B Note 08/31/23 08/31/23 06:35 10:16 WBC RBC Hgb Hct MCV MCH MCHC RDW Plt Count MPV Immature Gran % (Auto) Neut % (Auto) Lymph % (Auto) [place] % (Auto) Eos % (Auto) Baso % (Auto) Lymph # (Auto) [place] # (Auto) Eos # (Auto) Baso # (Auto) Abs Immat Gran (auto) Absolute Neuts (auto) Absolute Nucleated RBC Nucleated RBC % (auto) Hold Purple Top SEE NOTE PT 31.7 H D INR 2.6 H Sodium 138 Potassium 4.0 Chloride 91 L Carbon Dioxide 38 H Anion Gap 13 BUN 34 H Creatinine 1.58 H Estim Creat Clear Calc 44.5 Estimated GFR 32 Random Glucose 96 Calcium 9.5 Magnesium Total Bilirubin Direct Bilirubin AST ALT Alkaline Phosphatase Troponin I High Sens B-Natriuretic Peptide 193 H Total Protein Albumin TSH Ethyl Alcohol Influenza Type A (MADELINE) Influenza Type B (MADELINE) Influenza A & B Note Airway Mallampati Class: III TM Dist: >3cm Neck ROM: Limited Heart: a fib Lungs: cta Assessment and Plan Assessment Anesthesia Assessment: Anesthesia Plan Discussed Final Anesthetic Review Family History of Problems with Anesthesia: No History of Problems with Anesthesia: No NPO: Yes ASA Class: III Final Preanesthetic Review: No Changes in Pt Med Stat, Meds/Allgs Chart Reviewed and Anes Risks/Benef Reviewed Patient Risk: Intermediate Procedure Risk: Low Anesthetic Plan Anesthetic Plan: MAC: Disposition: Standard PACU
--- NOTE | 2023-08-31 13:56 | HO.CARDIVERS ---
Cardioversion Procedure Note Cardioversion Date of Procedure: Today Ordering Provider: Myself Performing Provider: Myself Indication for Procedure: Persistent atrial fibrillation with severe cardiomyopathy suspected to be tachycardia mediated with heart failure Pre-Op Diagnosis: Same Post-Op Diagnosis: Same Performed with Transesophageal Echo: No History: See the consult note and progress notes Consent: Verbal and Written consent was obtained from the patient before starting after confirming oral anticoagulation use. The patient was made aware of the risk of synchronized cardioversion including benefits and alternatives Procedure: After consent obtained, cardioversion pads were attached in anteroposterior configuration and the patient was sedated by the anesthesia team. Once adequate sedation achieved, patient was delivered 200 joules of biphasic synchronized energy in anteroposterior configuration Complications: Developed brief hypoxemia, probably related to obstruction, corrected quickly by anesthesia team Impression: Successful conversion to sinus rhythm with PACs Recommendations: 1. 12 lead EKG 2. IV amiodarone protocol for 1 day to boost therapeutic levels with bolus does 3. Continue full oral anticoagulation Eliquis. Will follow with her
--- NOTE | 2023-08-31 14:13 | ECG_ITS ---
Test Reason : s/p cardioversion Blood Pressure : / mmHG Vent. Rate : 073 BPM Atrial Rate : 073 BPM P-R Int : 200 ms QRS Dur : 150 ms QT Int : 472 ms P-R-T Axes : 008 -54 100 degrees QTc Int : 519 ms Normal sinus rhythm with sinus arrhythmia Left axis deviation Left bundle branch block Abnormal ECG When compared with ECG of 24-AUG-2023 14:33, Sinus rhythm has replaced Atrial fibrillation Vent. rate has decreased BY 60 BPM Left bundle branch block has replaced Non-specific intra-ventricular conduction block Referred By: Thuan Fine Electronically Signed By:THUAN FINE MD
--- NOTE | 2023-08-31 14:50 | PC.NURSE ---
Patient back on floor from PACU at this time?
[2023-08-31] MEDS: Amiodarone/Dextrose 150 MG/100 ML PLAST..BAG 600 MG IV (15:34)
[2023-08-31] MEDS: Amiodarone HCL 900 MG in 0.9 % Sodium Chloride 500 ML 34.53 MG IVCONT (17:36)
[2023-09-01] VITALS: BP 106/53; PULSE 69; RESP 20; TEMP 36.1; O2SAT 96
[2023-09-01 04:00] VITALS: BP 97/61; PULSE 65; RESP 18; TEMP 36.2; O2SAT 94
[2023-09-01] MEDS: Amiodarone HCL 900 MG in 0.9 % Sodium Chloride 500 ML 17.27 MG IVCONT (04:36)
[2023-09-01] MEDS: LEVOTHYROXINE SODIUM 137 MCG PO (04:36)
[2023-09-01 06:00] VITALS: BMI 44.3
[2023-09-01 07:22] VITALS: BP 103/49; PULSE 65; RESP 13; TEMP 36.3; O2SAT 95
[2023-09-01 07:23] LABS: Anion Gap 16 (12-20); Blood Urea Nitrogen 31 mg/dL (9-16); Calcium 9.2 mg/dL (8.4-10.2); Carbon Dioxide 33 mmol/L (22-29); Chloride 95 mmol/L (96-108); Creatinine Clr Calc Pharmacy 48.1; Estimated Glomerular Filt Rate 36; Glucose Random 95 mg/dL (60-115); Potassium 4.6 mmol/L (3.3-5.1); Sodium 139 mmol/L (135-145)
[2023-09-01] MEDS: Apixaban 5 MG TABLET PO (07:35)
[2023-09-01] MEDS: Sacubitril/Valsartan 24/26 1 TAB TABLET PO (07:35)
[2023-09-01] MEDS: Metoprolol Succinate ER 25 MG TAB.ER.24H PO (07:35)
[2023-09-01] MEDS: Potassium Chloride ER 20 MEQ TAB.ER.PRT 40 MEQ PO (07:35)
[2023-09-01] MEDS: Spironolactone 25 MG TABLET PO (07:35)
[2023-09-01] MEDS: 0.9 % Sodium Chloride Flush 3 ML SYRINGE IVFLUSH (07:37)
[2023-09-01 08:49] LABS: Magnesium 1.9 mg/dL (1.6-2.6)
[2023-09-01 09:42] LABS: INTERNATIONAL NORM RATIO 3.6 (0.9-1.1); Prothrombin Time 43.9 SEC (11.1-13.3)
--- NOTE | 2023-09-01 10:32 | PM.PNCARD ---
Subjective Subjective Date of Service: 09/01/23 Principal diagnosis: Cardiomyopathy, atrial fibrillation. Interval history: Patient status post cardioversion yesterday. Maintaining rhythm. Blood pressure is optimized. Overall negative balance of 14 L. No shortness of breath. Review of Systems Constitutional: Reports weakness Cardiovascular: Reports no additional cardiovascular complaints Respiratory: Reports no additional respiratory complaints Reports system reviewed and no additional complaints, except as documented and Reports weakness Physical Exam Vital Signs: Last Vital Signs Temp 97.3 F 09/01/23 07:22 Pulse 65 09/01/23 07:22 Resp 13 09/01/23 07:22 BP 103/49 L 09/01/23 07:22 Pulse Ox 95 09/01/23 07:22 O2 Del Method Nasal Cannula 09/01/23 07:22 O2 Flow Rate 2 09/01/23 07:22 FiO2 30 08/25/23 11:49 Oxygen Flow Rate 2 08/24/23 14:14 BMI result Body Mass Index 44.3 GENERAL APPEARANCE: In no distress. On supplemental oxygen. NECK: no carotid bruit, + jugular venous distention. SKIN: no suspicious lesions, warm and dry. HEART: no murmurs, regular rhythm LUNGS: Crackles at bases. ABDOMEN: soft, nontender. EXTREMITIES: 1+ edema. PERIPHERAL PULSES: equal. NEUROLOGIC: No gross deficits, AAO X 3 Objective Labs and Meds 08/24/23 14:36 09/01/23 06:18 Lab results: Laboratory Results - last 24 hr 08/31/23 08/31/23 09/01/23 06:35 10:16 06:18 PT INR Sodium 138 139 Potassium 4.0 4.6 Chloride 91 L 95 L Carbon Dioxide 38 H 33 H Anion Gap 13 16 BUN 34 H 31 H Creatinine 1.58 H 1.41 H Estim Creat Clear Calc 44.5 48.1 Estimated GFR 32 36 Random Glucose 96 95 Calcium 9.5 9.2 Magnesium 1.9 B-Natriuretic Peptide 193 H 09/01/23 09:17 PT 43.9 H D INR 3.6 H Sodium Potassium Chloride Carbon Dioxide Anion Gap BUN Creatinine Estim Creat Clear Calc Estimated GFR Random Glucose Calcium Magnesium B-Natriuretic Peptide Progress Note: A&P Assessment and plan (1) Atrial fibrillation: Status: Acute Assessment and Plan: Atrial fibrillation with rapid ventricular response status post cardioversion yesterday. Currently maintaining rhythm. Continue amiodarone loading for total of 14 days followed by 200 mg daily for maintenance. Continue full oral anticoagulation with Eliquis 5 mg b.i.d.. Follow up in the office after Holter monitor. (2) Decompensated heart failure: Status: Acute Assessment and Plan: Severe decompensated congestive heart failure. Patient has severe LV systolic dysfunction. Doing well at this point time with 40 L of negative balance discussed with patient about management of heart failure. Daily weight monitoring avoidance of salt loading was discussed. [facility]. Continue current neurohormonal modulation with Entresto, spironolactone, metoprolol. Please restart loop diuretics, start on Bumex 2 mg daily. Will sign of the case and follow-up as outpatient Time Spent With Patient Time: Total time managing care of this patient today ____ minutes. Progress Note: Quality Stroke Does the patient have a stroke diagnosis?: No Procedures Date of Service Date of Service: 09/01/23
[2023-09-01 11:42] VITALS: BP 108/51; PULSE 65; RESP 18; TEMP 36.3; O2SAT 99
[2023-09-01 12:05] VITALS: O2SAT 95
--- NOTE | 2023-09-01 12:20 | HO.POSTANES ---
Post Anesthesia Evaluation Post Anesthesia Evaluation Date of Service: 09/01/23 Vital Signs: Vital Signs Temp Pulse Resp BP Pulse Ox O2 Del Method O2 Flow Rate 09/01/23 12:05 95 Room Air 09/01/23 11:42 97.4 F 65 18 108/51 L 99 Room Air 09/01/23 07:22 97.3 F 65 13 103/49 L 95 Nasal Cannula 2 09/01/23 04:00 97.2 F 65 18 97/61 94 Nasal Cannula 1 Anesthesia: Monitored Mental Status: Awake Pain Control: Satisfactory Nausea/Vomiting: None Hydration: Adequate Anesthesia-Related Issues: No Anes. Related Issues
--- NOTE | 2023-09-01 13:11 | MHC.CM.PN ---
Second IMM 09/01/23, pt has been medically cleared for DC, she will go to [facility] for STR via ambulance this afternoon.
--- NOTE | 2023-09-01 13:38 | P.DS_ITS ---
DS: Providers Provider Date of Service: 09/01/23 Date of admission: 08/24/23 17:16 Date of discharge: 09/01/23 Primary care physician: Karson Frank PA-C Consults: 08/24/23 17:16 Consult to Cardiology Routine Consulting Provider: [facility] [place] Cardiovascular Services Reason for consultation: New AFIB, new chf Has provider been notified: Yes 08/26/23 19:43 Consult to Wound Care Routine Reason for consultation: Fungal rash groin, thighs, breasts, redness DS: Diagnosis Discharge Diagnosis (1) Atrial fibrillation: Status: Acute (2) Decompensated heart failure: Status: Acute (3) Acute HFrEF (heart failure with reduced ejection fraction): Status: Acute (4) Morbid obesity: Status: Acute DS: Summary Hospital Course Hospital Course: From the history and physical by the admitting hospitalist, Drew Arambula MD 08/24/23: 78 year old female with h/o HTN, HLD, PE in 2013 on coumadin, INR 3 today, Hypothyroidism on replacement therapy. She presents to the ED following 2 weeks of onset of shortness of breath that is progressing, worse with exertion and not longer able to go up the stairs to her bedroom and consequently sleeping in couch. Her symptoms have become more pronounced and additionally, today she had sudden onset of palpitation. She unsure of weight gain, but has noted increased leg edema as well. +PND and orthopnea. Work up in ED has revealed new AFIB with RVR, clinicaly finding of heart failure--BNP 649. CXR cardiolmegally and vascu lar congestion. ED treatement: IV Lasix, calcium gluconate, IV metoprolol She was admitted to the telemetry unit for new-onset AF with RVR and new-onset HFrEF. Hospital course by problem: acute HFrEF - TTE 08/25/23: - Mildly increased left ventricular cavity size. There is mildly increased left ventricular wall thickness. The left ventricular systolic function is moderate to severely decreased. The visually estimated ejection fraction is between 25-30%. - LV is dilated. - Mildly increased right ventricular cavity size. There is normal right ventricular systolic function. - There is moderate tricuspid valve regurgitation. Significantly elevated right atrial pressure. Mild pulmonary hypertension is present. - There is a moderate pleural effusion. Cardiology was consulted. She was diuresed total net negative 14L with IV furos emide then changed to bumetanide 2 mg PO daily. Lisinopril was changed to Entresto and atenolol was changed to metoprolol succinate. She was also started on spironolactone. She will need Cardiology follow- up in 2 weeks. new-onset AF/RVR - Loaded with amiodarone PO. She underwent DC cardioversion on 08/31/23. She will need amiodarone 400 mg bid for 8 more days, then switch to 200 mg daily for maintenance dosing. Anticoagulation was switched from warfarin to apixaban. Cardiology follow-up as above. JESSIE/CKD3 - Likely some degree of cardiorenal syndrome. To recheck BMP in 1 week. She was discharged to [facility] for short-term rehabilitation. Time Attestation Discharge coordination time: Greater than 30 minutes Quality: Safe Use of Opioids Does Pt have an Active Cancer Diagnosis on the Problem List?: No Quality: Stroke Does the patient have a stroke diagnosis?: No Physical Exam Vital Signs: Vital Signs: Last Vital Signs Temp 97.4 F 09/01/23 11:42 Pulse 65 09/01/23 11:42 Resp 18 09/01/23 11:42 BP 108/51 L 09/01/23 11:42 Pulse Ox 95 09/01/23 12:05 O2 Del Method Room Air 09/01/23 12:05 O2 Flow Rate 2 09/01/23 07:22 FiO2 30 08/25/23 11:49 Oxygen Flow Rate 2 08/24/23 14:14 BMI result Body Mass Index 44.3 Gen: in no acute distress HEENT: sclera anicteric, moist mucus membranes Neck: supple Lungs: clear to auscultation bilaterally Heart: regular rate and rhythm, no murmurs, obese Abd: soft, non-tender, non-distended Ext: 1+ bilateral leg edema Skin: warm/well-perfused Neuro: alert and oriented x3, no focal findings Psych: appropriate affect DS: Data Data Completed and Pending Completed studies during hospitalization [Text1]: Laboratory Results WBC 7.0 X10*3/uL (4.8-10.8) 08/24/23 14:36 RBC 3.96 X10*6/uL (4.20-5.50) L 08/24/23 14:36 Hgb 12.2 g/dl (12.0-16.0) 08/24/23 14:36 Hct 38.1 % (37.0-47.0) 08/24/23 14:36 MCV 96.2 fL (80.0-98.0) 08/24/23 14:36 MCH 30.8 pg (27.0-33.0) 08/24/23 14:36 MCHC 32.0 g/dl (31.0-35.0) 08/24/23 14:36 RDW 15.2 % (11.0-16.0) 08/24/23 14:36 Plt Count 179 X10*3/uL (160-400) 08/24/23 14:36 MPV 12.2 fL (9.4-12.3) 08/24/23 14:36 Immature Gran % (Auto) 0.3 % (0.0-0.4) 08/24/23 14:36 Neut % (Auto) 74.5 % (45-73) H 08/24/23 14:36 Lymph % (Auto) 16.4 % (20-40) L 08/24/23 14:36 [place] % (Auto) 6.2 % (2-11) 08/24/23 14:36 Eos % (Auto) 1.7 % (0-4) 08/24/23 14:36 Baso % (Auto) 0.9 % (0-2) 08/24/23 14:36 Lymph # (Auto) 1.1 X10*3/uL (1.2-4.9) L 08/24/23 14:36 [place] # (Auto) 0.4 X10*3/uL (0.1-1.2) 08/24/23 14:36 Eos # (Auto) 0.1 X10*3/uL (0.0-0.4) 08/24/23 14:36 Baso # (Auto) 0.1 X10*3/uL (0.0-0.2) 08/24/23 14:36 Abs Immat Gran (auto) 0.02 X10*3/uL (0.00-0.03) 08/24/23 14:36 Absolute Neuts (auto) 5.2 x10*3/uL (2.0-8.3) 08/24/23 14:36 Absolute Nucleated RBC 0.000 X10*3/uL (0.0-0.012) 08/24/23 14:36 Nucleated RBC % (auto) 0.0 /100WBC (0.0-0.2) 08/24/23 14:36 Hold Purple Top SEE NOTE 08/31/23 06:35 PT 43.9 SEC (11.1-13.3) H D 09/01/23 09:17 INR 3.6 (0.9-1.1) H 09/01/23 09:17 Sodium 139 mmol/L (135-145) 09/01/23 06:18 Potassium 4.6 mmol/L (3.3-5.1) 09/01/23 06:18 Chloride 95 mmol/L (96-108) L 09/01/23 06:18 Carbon Dioxide 33 mmol/L (22-29) H 09/01/23 06:18 Anion Gap 16 (12-20) 09/01/23 06:18 BUN 31 mg/dL (9-16) H 09/01/23 06:18 Creatinine 1.41 mg/dL (0.5-1.4) H 09/01/23 06:18 Estim Creat Clear Calc 48.1 09/01/23 06:18 Estimated GFR 36 09/01/23 06:18 Random Glucose 95 mg/dL (60-115) 09/01/23 06:18 Calcium 9.2 mg/dL (8.4-10.2) 09/01/23 06:18 Magnesium 1.9 mg/dL (1.6-2.6) 09/01/23 06:18 Total Bilirubin 1.3 mg/dL (0.0-1.0) H 08/24/23 15:40 Direct Bilirubin 0.6 mg/dL (0.0-0.5) H 08/24/23 15:40 AST 19 U/L (5-31) 08/24/23 15:40 ALT 14 U/L (0-31) 08/24/23 15:40 Alkaline Phosphatase 82 U/L (39-117) 08/24/23 15:40 Troponin I High Sens 8.0 ng/L (<3.5-17.0) 08/24/23 14:36 B-Natriuretic Peptide 193 pg/mL (<100) H 08/31/23 06:35 Total Protein 7.1 g/dL (6.5-8.0) 08/24/23 15:40 Albumin 3.8 g/dL (3.5-5.0) 08/24/23 15:40 TSH 3.24 uIU/mL (0.32-4.0) 08/24/23 15:40 Ethyl Alcohol < 10 mg/dL 08/24/23 14:36 Influenza Type A (MADELINE) Negative (Negative) 08/24/23 15:34 Influenza Type B (MADELINE) Negative (Negative) 08/24/23 15:34 Influenza A & B Note See Note 08/24/23 15:34 Impressions Chest X-Ray 08/24/23 15:45 IMPRESSION: Cardiomegaly with mild pulmonary vascular congestion. Discharge Plan Discharge Anticipated Discharge Date/Time: 09/01/23 13:11 Patient Disposition: [facility] SN[facility] Discharge Diagnosis: CHF atrial fibrillation Referrals: [facility] [Outside] - 1 Week Karson Frank PA-C [Primary Care Provider] - 1 Week Thuan Fine MD [Physician] - 2 Weeks Discharge Medications: New spironolactone 25 mg Tablet 25 mg PO BID Qty: 1 0RF Protocol: Hold for SBP< HOLD for SBP < : 90 metoprolol succinate 25 mg Tablet Extended Release 24 Hr 25 mg PO DAILY Qty: 1 0RF Protocol: Hold for SBP/HR < HOLD for SBP < : 90 HOLD for HR < : 60 Eliquis 5 mg Tablet 5 mg PO BID Qty: 1 0RF Entresto 24-26 mg Tablet 1 tab PO BID Qty: 1 0RF Protocol: Hold for SBP< HOLD for SBP < : 90 amiodarone 200 mg tablet See Rx Instructions .ROUTE .COMPLEX Qty: 1 0RF Rx Instructions: 400 mg [two tabs] twice daily for 8 days, then 200 mg once daily bumetanide 2 mg tablet 2 mg PO DAILY Qty: 1 0RF Continued (DME) Ultra-Light Rollator Misc See Rx Instructions .Route Qty: 1 0RF Rx Instructions: As directed levothyroxine 137 mcg tablet 137 mcg PO DAILY@0600 potassium chloride 20 mEq tablet,ER particles/crystals 40 meq PO DAILY@1200 (DME) blood pressure kit-extra large Kit See Rx Instructions .Route Qty: 1 0RF Rx Instructions: As directed diphenhydramine HCl [Benadryl] 25 mg capsule 25 mg PO TID PRN (Reason: allergies) Discontinued furosemide 20 mg tablet 20 mg PO DAILY Qty: 90 2RF lisinopril 40 mg tablet 40 mg PO DAILY 90 Days Qty: 90 1RF atenolol 50 mg tablet 50 mg PO BEDTIME warfarin 5 mg tablet 5 mg PO SUTUTHSA@1800 warfarin 5 mg tablet 2.5 mg PO MOWEFR@1800 Protocol: Dose Management Condition: Wednesday (Week One) Dose/Route: 5 mg Instruction: 1 x 5 mg tablet Condition: Wednesday Dose/Route: 2.5 mg Instruction: 0.5 x 5 mg tablets Condition: Wednesday Dose/Route: 0 mg Instruction: 0 tablets Condition: Wednesday Dose/Route: 2.5 mg Instruction: 0.5 x 5 mg tablets Condition: Dose/Route: 5 mg Instruction: 1 x 5 mg tablet Condition: Wednesday Dose/Route: 2.5 mg Instruction: 0.5 x 5 mg tablets Condition: Wednesday Dose/Route: 5 mg Instruction: 1 x 5 mg tablet Condition: Wednesday (Week Two) Dose/Route: 5 mg Instruction: 1 x 5 mg tablet Condition: Wednesday Dose/Route: 2.5 mg Instruction: 0.5 x 5 mg tablets Condition: Wednesday Dose/Route: 5 mg Instruction: 1 x 5 mg tablet Condition: Wednesday Dose/Route: 2.5 mg Instruction: 0.5 x 5 mg tablets Condition: Dose/Route: 5 mg Instruction: 1 x 5 mg tablet Condition: Wednesday Dose/Route: 2.5 mg Instruction: 0.5 x 5 mg tablets Condition: Wednesday Dose/Route: 5 mg Instruction: 1 x 5 mg tablet Protocol Text: Adjustment Start Date: Wednesday08/17/23 INR Value: Pending INR Date: 08/17/23 Recheck Date: 08/24/23 Additional Instructions: hold warfarin today, then reduce weekly dosing eat greens to lower inr, no reds for 2-3 days Discharge Orders: Discharge Order (Routine); Ordered 09/01/23 Ordered By: Helen Caro Diet: Advance to usual diet Activity on Discharge: As tolerated Stand Alone Forms: Patient Portal Discharge page Other Ambulatory Orders: Basic Metabolic Panel (Routine) Timeframe: 1 Week Facility: [facility] - Location: Laboratory Ordered By: Helen Caro Care Plan Goals: cardiac health Health Concerns: CHF atrial fibrillation Plan of Treatment: change warfarin to apixaban [Eliquis] 5 mg twice daily change lisinopril to Entresto 24/26 mg twice daily change atenolol to metoprolol succinate 25 mg once daily change furosemide to bumetanide 2 mg once daily start spironolactone 25 mg twice daily start amiodarone 400 mg twice daily for 8 days, then 200 mg once daily recheck BMP in 1 week Low-sodium diet: less than 2000 mg of sodium daily. Weigh yourself daily and call your doctor if your weight goes up by more than 3 lb/day or 5 lb/week. follow up with [facility] [place] Cardiology in 2 weeks Please follow up with your primary care doctor within 1 week of discharge from short-term rehabilitation. Return to the hospital if you experience recurrent or worsening symptoms. Assessment: See Discharge Summary.
[2023-09-01 15:05] VITALS: BP 110/48; PULSE 72; RESP 16; TEMP 36.2; O2SAT 98
== END 2023-09-01 16:30 | disposition skilled nursing facility (03) | DRG 291 ==
LOC: HO.ED 17:03 → HO.EDOVER 17:31 → HO.IMC 08-26 17:53
PROVIDERS: Internal Medicine Cardiovascular Disease; Admitting Provider Internal Medicine; Emergency Provider Emergency Medicine; PCP Physician Assistant; Visit Provider Family Medicine
PROC: 5A2204Z Restoration of Cardiac Rhythm, Single (ICD-10-PCS; principal; 2023-08-31 13:30)
DX: I13.0 Hypertensive heart and chronic kidney disease with heart failure and stage 1 through stage 4 chronic kidney disease, or unspecified chronic kidney disease (principal); I50.21 Acute systolic (congestive) heart failure; Z68.41 Body mass index [BMI] 40.0-44.9, adult; N17.9 Acute kidney failure, unspecified; I42.9 Cardiomyopathy, unspecified; I07.1 Rheumatic tricuspid insufficiency; N18.32 Chronic kidney disease, stage 3b; I27.20 Pulmonary hypertension, unspecified; E66.01 Morbid (severe) obesity due to excess calories; I44.7 Left bundle-branch block, unspecified; I48.91 Unspecified atrial fibrillation; Z71.3 Dietary counseling and surveillance; E03.9 Hypothyroidism, unspecified; E87.6 Hypokalemia; Z23 Encounter for immunization; Z86.711 Personal history of pulmonary embolism; Z79.01 Long term (current) use of anticoagulants; Z79.890 Hormone replacement therapy; Z79.899 Other long term (current) drug therapy
CPT/HCPCS: 36415; 71045; 80048; 80076; 80307; 83735; 83880; 84443; 84484; 85025; 85610; 87502; 90686; 92950; 92960; 93005; 93306; 94660; 97162; 99285; C1758; J0282; J0283; J0613; J1160; J1940; J2371; J2704; Q9957

== ENCOUNTER 2023-08-24 17:16 | Outpatient (BNV) | payer MEDICARE, SELFPAY | END 2023-08-25 07:00 | PROVIDERS: Admitting Provider Internal Medicine; Emergency Provider Emergency Medicine; PCP Physician Assistant; Visit Provider Internal Medicine Cardiovascular Disease | DX: I36.1 Nonrheumatic tricuspid (valve) insufficiency (principal) | CPT/HCPCS: 93306 ==

== ENCOUNTER → 2023-08-24 17:16 | Outpatient (BNV) | payer MEDICARE, SELFPAY | PROVIDERS: Admitting Provider Internal Medicine; Emergency Provider Emergency Medicine; PCP Physician Assistant; Visit Provider Internal Medicine Cardiovascular Disease | DX: I42.9 Cardiomyopathy, unspecified (principal); I50.9 Heart failure, unspecified; I48.91 Unspecified atrial fibrillation; I44.7 Left bundle-branch block, unspecified | CPT/HCPCS: 92960; 93010; 99223; 99233 ==

== ENCOUNTER → 2023-08-24 17:16 | Outpatient (BNV) | payer MEDICARE, SELFPAY | PROVIDERS: Admitting Provider Internal Medicine; Emergency Provider Emergency Medicine; PCP Physician Assistant; Visit Provider Internal Medicine | DX: I50.9 Heart failure, unspecified (principal); I48.91 Unspecified atrial fibrillation | CPT/HCPCS: 99223; 99232; 99233; 99239 ==

== ENCOUNTER 2023-09-15 10:56 | Outpatient (AMB) | payer MEDICARE, SELFPAY ==
[2023-09-15 11:04] VITALS: BP 136/60; PULSE 42; O2SAT 99; BMI 40.6
--- NOTE | 2023-09-15 11:04 | A.OFFPC_ITS ---
Vital Signs 09/15/23 11:04 Height 5 ft 8 in Weight 121.109 kg BMI 40.6 BP 136/60 Blood Pressure Location Lt brachial Position Sitting Pulse 42 L Pulse Source Pulse Oximeter Pulse Oximetry (%) 99 Oxygen Delivery Method Room Air Intake Visit Reasons: [facility] 09/10 Cabin Agent Required: No Interior Painter: Not Required per policy Accompanied by: Self / Same As Patient Allergies No Known Allergies Allergy (Verified 09/15/23 11:05) Tobacco use date assessed: 09/15/23 Fall risk assessment: No Falls in past year Last assessed Fall Risk: 09/15/23 Dental Screening Dental Screen Date: 09/15/23 Did you have a dental visit in the last 12 months?: No Did you have a dental problem in the last 6 months where you did not have access to dental care?: No Was dental information given to patient?: Patient has dentist HPI HPI Comments History of Present Illness Details 78-year-old female with history of hyper tension, hyperlipidemia, pulmonary embolism in 2013 on Coumadin, hypothyroidism presents to the office today for hospital discharge follow-up. She was admitted to [facility] from 08/24-09/01 due to new onset atrial fibrillation with rapid ventricular rate as well as new onset heart failure with reduced ejection fraction. Echocardiogram 08/25 showed mildly increased left ventricular cavity size with mildly increased left ventricular wall thickness, moderate to severely reduced LV systolic function with EF 25-30% as well as moderate tricuspid valve regurgitation and significantly elevated right atrial pressures with mild pulmonary hypertension present. CXR has shown cardiomegaly with mild pulmonary vascular congestion. She was diuresed with IV Lasix for total net negative of 14 L and was changed to Bumex 2 mg daily. Lisinopril was changed to Entresto and atenolol was changed to metoprolol. She was also started on spironolactone. For the atrial fibrillation, she was loaded with amiodarone and underwent cardioversion 08/31. She did convert to normal sinus rhythm and was advised to continue amiodarone for wondered mg twice daily for 8 additional days and then switch to 200 mg daily for maintenance dosing. Her Coumadin was also changed to apixaban. On admission, there had also been acute kidney injury but this was likely secondary to cardiorenal syndrome and resolved with IV diuresis. She was evaluated by physical therapy recommending discharge today [facility] for short-term rehab. She states since discharge she is feeling slightly stronger, ambulating with a walker. She now has [facility]NA in home for ongoing PT/OT. She still has some BLE edema, but this has greatly improved. Denies any significant bower though did have some bower walking into our office today. Denies orhopnea but sleeps in a recliner. No CP, palps, lightheadedness. She has been restricting fluids. She has upcoming cardiology appointment on 10/24 and needs to call to schedule nuclear stress test and Holter monitor. Feeling well overall. 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 1. Little interest or pleasure in doing things: several days 2. Feeling down, depressed, or hopeless: several days 3. Trouble falling or staying asleep, or sleeping too much: not at all 4. Feeling tired or having little energy: several days 5. Poor appetite or overeating: several days 6. Feeling bad about yourself - or that you are a failure or have let yourself or your family down: not at all 7. Trouble concentrating on things, such as reading the newspaper or watching television: not at all 8. Moving or speaking so slowly that other people could have noticed. Or the opposite - being so fidgety or restless that you have been moving around a lot more than usual: not at all 9. Thoughts that you would be better off or of hurting yourself in some way: not at all Total score: 4 Depression Screening Interpretation: Positive Depression Screening Follow-up: Existing condition Depression Screening Done: Yes Source: Developed by Drs. Remy Kirby, Bren Pro, Tony Orona and colleagues, with an educational siri from [employer]. Thrive Questionnaire Date Thrive assessed: 09/15/23 I am a: Patient What is your living situation today?: I have a steady place to live Within the past 12 months, did the food you bought not last and you didn't have the money to get more?: Never true Within the past 12 months, did you worry whether your food would run out before you got money to buy more?: Never true Do you have trouble paying for medicines?: No Do you have trouble getting transportation to medical appointments?: No Do you have trouble paying your heating and electricity bill?: No Do you have trouble taking care of your child, family member or friend?: No Do you have trouble with day-to-day activities such as bathing, preparing meals, shopping, managing finances, etc.?: No Are you currently unemployed and looking for a job?: No Are you interested in more education?: No Please select the resources that you would like help with: None Currently or been in a relationship where the following occur: no concerns reported THRIVE Score: 0 AUDIT C Alcohol Use Questionnaire (AUDIT-C) 1. How often do you have a drink containing alcohol?: Never 3. How often do you have six or more drinks on one occasion?: Never Total Score: 0 NOÉ-7 AMB Questionnaire NOÉ-7 Date NOÉ - 7 assessed: 09/15/23 Feeling nervous, anxious, or on edge: 0 = Not at all Not being able to stop or control worryin = Not at all Worrying too much about different things: 0 = Not at all Trouble relaxin = Not at all Being so restless that it is hard to sit still: 0 = Not at all Becoming easily annoyed or irritable: 0 = Not at all Feeling afraid as if something awful might happen: 0 = Not at all Total NOÉ-7 score (0-4 normal; 5-9 mild; 10-14 moderate; 15-21 severe): 0 Source: Developed by Drs. Remy Kirby, Bren Pro, Tony Orona and colleagues, with an educational siri from [employer]. Physical exam (Primary Care) Vital Signs: Last Vital Signs Pulse 42 L 09/15/23 11:04 BP 136/60 09/15/23 11:04 Pulse Ox 99 09/15/23 11:04 Oxygen Delivery Method Room Air 09/15/23 11:04 BMI result Body Mass Index 40.6 Tobacco/Smoking Status: Tobacco use Status Tobacco use date assessed 09/15/23 09/15/23 11:06 Patient Tobacco Use Status Never used Tobacco 09/15/23 11:06 e-Cigarette/Vaping Use Never Used 09/15/23 11:06 PHQ-9: PHQ-9 Score PHQ-9: Total score 4 09/15/23 11:40 Depression Screening Interpretation: Positive Depression Screening Follow-up: Existing condition Thrive Assessment: Date of Thrive Assessment Date Thrive assessed 09/15/23 09/15/23 11:06 Currently or been in a relationship where the following occur: no concerns rep orted Const Other: Constitutional - Awake and Alert, No apparent distress Eyes - PERRLA, EOMI Cardiovascular - S1S2, RRR, 1+ ble edema Respiratory - Normal lung expansion, Normal respiratory effort, No respiratory distress, CTA bilaterally Extremities - no calf tenderness bilaterally, no swelling Skin - Warm/Dry Neurological - Alert & oriented x3 Psychological - Appropriate affect Results Reviewed Results Reviewed: cbc, bmp, echo, cxr, h&p, discharge summary, cardiology consult, cardioversion procedure now Assessment and Plan Assessment & Plan (1) Decompensated heart failure: Code(s): I50.9 - Heart failure, unspecified Plan: Negative 14L during admission. Symptoms greatly improved and stable overall. Continue entresto, metoprolol, spironolactone. Blood pressure normal in office at 136/60. HR on recheck 72. Fluid restrict to 1.2L daily, limit sodium to 2g daily. Daily weights. FOllow up with cardiology as scheduled / and call to schedule nuclear stress test as advised. She is also referred to [facility] for further assistance (2) Cardiomyopathy: Code(s): I42.9 - Cardiomyopathy, unspecified Plan: As above (3) Atrial fibrillation with RVR: Code(s): I48.91 - Unspecified atrial fibrillation Plan: Rate controlled, 72 on recheck in office. Asymptomatic. Continue eliquis for anticoagulation. Continue metoprolol for rate control. Call to schedule Holter monitor as advised. Follow-up with Cardiology on 10/24 (4) HTN (hypertension): Code(s): I10 - Essential (primary) hypertension Qualifiers: Hypertension type: essential hypertension Qualified Code(s): I10 - Essential (primary) hypertension Plan: Controlled with blood pressure 136/60 in the office today. Continue Entresto, spironolactone, metoprolol. Low-sodium diet as above. (5) CKD (chronic kidney disease), stage III: Code(s): N18.30 - Chronic kidney disease, stage 3 unspecified Plan: Stable. (6) Left paraspinal back pain: Code(s): M54.89 - Other dorsalgia Plan: Avoid nsaids due to Eliquis use. Limited improvement with Tylenol. Recommend lidocaine patches. She is also given short course of prednisone. Counseled on side effects of the medication. Recommend gentle exercises and work with physical therapy at home. Orders: Referrals Nurse Navigator Referral I50.21 - Acute systolic (congestive) heart failure, I50.9 - Heart failure, unspecified Assistant Loan Processor Nutrition Referral I50.9 - Heart failure, unspecified, I50.21 - Acute systolic (congestive) heart failure Medications: New amiodarone 200 mg PO DAILY 90 tabs 0RF levothyroxine 137 mcg PO DAILY@0600 90 tabs 0RF potassium chloride ER 40 mEq (2 x 20 mEq) PO DAILY@1200 90 tabs 0RF prednisone Take 40mg daily x 3 days, then 30mg daily x 3 days, then 20mg daily x 3 days, then 10mg daily x3 days 10 mg PO DIRECTED 30 tabs 0RF Refilled bumetanide 2 mg PO DAILY 90 tabs 0RF sacubitril-valsartan 24-26 mg (Entresto) 1 tab See Protocol PO BID 180 tabs 0RF apixaban (Eliquis) 5 mg PO BID 180 tabs 0RF spironolactone 25 mg See Protocol PO BID 180 tabs 0RF Coding Level of Care Code Est Pt Level 5 (04110) Diagnoses Decompensated heart failure I50.9 Cardiomyopathy I42.9 Atrial fibrillation with RVR I48.91 Essential hypertension I10 Hypertension type: essential hypertension CKD (chronic kidney disease), stage III N18.30 Left paraspinal back pain M54.89 Time Spent (min) 47 Comment time spent reviewing, interview with pt, documentation time
== END 2023-09-15 11:54 | disposition home or self-care (01) ==
PROVIDERS: PCP Physician Assistant; Visit Provider Physician Assistant
DX: I13.0 Hypertensive heart and chronic kidney disease with heart failure and stage 1 through stage 4 chronic kidney disease, or unspecified chronic kidney disease (principal); I50.9 Heart failure, unspecified; N18.30 Chronic kidney disease, stage 3 unspecified; I48.91 Unspecified atrial fibrillation; M54.89 Other dorsalgia
CPT/HCPCS: 99215

== ENCOUNTER 2023-10-22 13:15 | Inpatient (IN) | payer MEDICARE, OTHER, SELFPAY ==
[2023-10-22] VITALS (13 sets, daily range): BP systolic 104–201; BP diastolic 47–97; PULSE 61–165; RESP 16–20; TEMP 35.9–36.5; O2SAT 94–98; BMI 37.3
--- NOTE | 2023-10-22 | ECG_ITS ---
Test Reason : ?afib with rvr Blood Pressure : / mmHG Vent. Rate : 121 BPM Atrial Rate : 089 BPM P-R Int : 000 ms QRS Dur : 156 ms QT Int : 334 ms P-R-T Axes : 000 -48 111 degrees QTc Int : 474 ms Artifact in tracing Atrial fibrillation Left bundle branch block Abnormal ECG When compared with ECG of 31-AUG-2023 14:10, Rhythm change Referred By: Theodora Adams Electronically Signed By:CODI AVITIA
--- NOTE | ~2023-10-22 | CT_ITS ---
EXAMINATION: CT HEAD WITHOUT CONTRAST CLINICAL INFORMATION: Mechanical fall. Blunt head trauma without loss of consciousness, significant head injury and posttraumatic headache. COMPARISON: None available. TECHNIQUE: Contiguous axial imaging was performed from the skull base to vertex without intravenous administration of contrast. This CT examination was performed using dose optimization techniques as appropriate, variously including the following: *Automated exposure control *Adjustment of mA and/or kV according to patient size (this includes techniques or standardized protocols for targeted exams where dose is matched to indication/reason for exam; i.e. extremities or head) *Use of iterative reconstruction technique DLP: 640.74 mGy-cm FINDINGS: Ventricles, sulci and cisterns are dilated. There is no midline shift, no abnormal intra- or extra- axial fluid accumulation. Polanco and white matter differentiation is normal. Bone window images show no evidence of skull fracture. CT/CT head/brain wo IV con IMPRESSION: 1. Age related cerebral atrophy and ventriculomegaly. 2. No intracranial hemorrhage or skull fracture is seen. 3. No evidence of space occupying lesion could be found. 4. The current plain CT scan of the brain shows no diagnostic evidence of acute cerebral infarction.
--- NOTE | ~2023-10-22 | CT_ITS ---
EXAMINATION: CT CERVICAL SPINE WITHOUT CONTRAST CLINICAL INFORMATION: Mechanical fall, neck injury and pain COMPARISON: None available. TECHNIQUE: Multiple 3.0 and 0.6 mm axial images were obtained from base of skull to T1 levels without IV contrast enhancement. Sagittal and coronal 2.0 mm bone window images were reconstructed from axial image data. This CT examination was performed using dose optimization techniques as appropriate, variously including the following: *Automated exposure control *Adjustment of mA and/or kV according to patient size (this includes techniques or standardized protocols for targeted exams where dose is matched to indication/reason for exam; i.e. extremities or head) *Use of iterative reconstruction technique DLP: 344.96 mGy-cm FINDINGS: C1/C2: Bony structures are intact with normal alignment. There is no spinal stenosis. C2/C3: Bony structures are intact with normal alignment. There is no spinal stenosis. Bilateral C2/C3 neuroforamina are patent. Bilateral apophyseal joints are intact with normal alignment. C3/C4: Bony structures are intact with normal alignment. There is no spinal stenosis. Bilateral C3/C4 neuroforamina are patent. Bilateral apophyseal joints are intact with normal alignment. C4/C5: Bony structures are intact with normal alignment. There is no spinal stenosis. Bilateral C4/C5 neuroforamina are patent. Bilateral apophyseal joints are intact with normal alignment. C5/C6: Bony structures are intact with normal alignment. There is marked decrease in intervertebral disc height. Anterior sharp syndesmophytes are present. There is no spinal stenosis. Bilateral C5/C6 neuroforamina are patent. Bilateral apophyseal joints are intact with normal alignment. C6/C7: Bony structures are intact with normal alignment. There is marked decrease in intervertebral disc height. Anterior sharp syndesmophytes are present. There is no spinal stenosis. Bilateral C6/C7 neuroforamina are patent. Bilateral apophyseal joints are intact with normal alignment. C7/T1: Bony structures are intact with normal alignment. There is no spinal stenosis. Bilateral C7/T1 neuroforamina are patent. Bilateral apophyseal joints are intact with normal alignment. Multilevel bilateral apophyseal joint and uncovertebral joint osteoarthritis with loss of joint space, sclerosis, facet hypertrophy and osteophytosis are seen. CT/CT cervical spine wo IV con IMPRESSION: 1. No evidence of acute fracture or traumatic subluxation of the cervical spine. 2. Cervical spondylosis, C5-C6 and C6-C7 degenerative cervical disc disease are seen.
--- NOTE | ~2023-10-22 | XR_ITS ---
EXAMINATION: XR HIP, RIGHT CLINICAL INFORMATION: Fell down, right hip injury and pain COMPARISON: None available. TECHNIQUE: Frontal x-ray of the pelvis, Frontal and Frog leg lateral x-rays of right hip. FINDINGS: BONES: Bony structures are intact. There is no focal bone destruction or periosteal reaction seen. JOINTS: Alignment of hip joint is normal. SOFT TISSUE: Soft tissue is normal. No radiopaque foreign body or abnormal air collection is seen. XR/XR hip RT w PEL1V IMPRESSION: 1. Normal pelvis x-ray. No fracture or dislocation is seen. 2. Normal x-ray of right hip. No fracture or dislocation or signs of avascular necrosis are seen.
--- NOTE | ~2023-10-22 | CT_ITS ---
EXAMINATION: CT HEAD WITHOUT CONTRAST CT FACIAL BONES WITHOUT CONTRAST CLINICAL INFORMATION: Facial trauma, fall COMPARISON: None. TECHNIQUE: Imaging was performed from the skull base to vertex without intravenous administration of contrast. In addition, helical noncontrast CT imaging was acquired through the facial bones and source images were reviewed along with axial reconstructions and sagittal and coronal MPRs. This CT examination was performed using dose optimization techniques as appropriate, variously including the following: *Automated exposure control. *Adjustment of mA and/or kV according to patient size (this includes techniques or standardized protocols for targeted exams where dose is matched to indication/reason for exam; i.e. extremities or head). *Use of iterative reconstruction technique. DLP: 208.51 mGy-cm FINDINGS: Examination limited due to motion Maxillofacial Bones: No evidence of maxillofacial bone fractures. The zygomatic arches remain intact. No nasal bone fracture. The nasal septum remains midline. No evidence of mandibular or maxillary fracture. The mandibular condyles remain well-seated in their respective temporal articular grooves. Normal appearance of the intraconal and extraconal fat. No evidence of traumatic injury to the extraocular musculature or globes. The mastoid air cells and visualized paranasal sinuses are clear. No layering fluid collections. CT/CT facial bones wo IV con IMPRESSION: No acute intracranial, maxillofacial bone, or cervical abnormalities.
--- NOTE | ~2023-10-22 | CT_ITS ---
EXAMINATION: CT CHEST WITHOUT CONTRAST CLINICAL INFORMATION: Fall, head strike and pain. COMPARISON: None available. TECHNIQUE: Multidetector volumetric CT imaging of the chest was done. Axial MIP volume rendering provided. Sagittal and coronal reformatted images were obtained. This CT examination was performed using dose optimization techniques as appropriate, variously including the following: *Automated exposure control *Adjustment of mA and/or kV according to patient size (this includes techniques or standardized protocols for targeted exams where dose is matched to indication/reason for exam; i.e. extremities or head) *Use of iterative reconstruction technique DLP: 309 mGy-cm FINDINGS: [employer]MENT SUPERVISOR: Well-expanded lungs. LUNGS: There is a 3 mm nodule right middle lobe axial image 321/6, 2 nodule left lower lobe superior segment axial image 251/6. The lungs are well-expanded and clear of acute process. Mild groundglass haziness seen in both lower lobes. MEDIASTINUM: The thyroid lobes are symmetric and normal. The central trachea and bronchi are widely patent. Heart size and the great vessels are normal caliber. No abnormal size mediastinal or hilar lymphadenopathy. CORONARY ARTERY CALCIFICATION: None visualized on this study. PLEURA: There is no pleural effusion. No pleural mass or thickening. AXILLA: Small shotty lymph nodes are seen axilla. The chest wall is unremarkable. UPPER ABDOMEN: Visualized liver, spleen, pancreas and bilateral adrenal glands unremarkable. The gallbladder has been surgically removed. OSSEOUS STRUCTURES: No aggressive lytic or sclerotic process seen. There is mild dextroscoliosis. CT/CT chest wo IV con IMPRESSION: 1. 2 small pulmonary nodules in the right middle lobe and left lower lobe superior segment. 2. No abnormal mediastinal or axillary lymphadenopathy. 3. Mild groundglass haziness in both lower lobes. No acute consolidation. Fleischner guidelines were followed.
--- NOTE | 2023-10-22 13:22 | ED_ITS ---
HPI - General Adult General Chief complaint: Fall Stated complaint: R SIDE LEG PAIN AFTER FALL Time Seen by Provider: 10/22/23 13:21 Source: patient and EMS Mode of arrival: EMS Limitations: no limitations History of Present Illness HPI narrative: Patient is a 78 yo female with a history of HFrEF, cardiomyopathy, HTN, HLD, lymphedema, A FIB w/ RVR, LBBB, Hx of PE, CKD (stage III), and hypothyroidism presents to the ED with R hip and left flank pain after being transported by EMS for a fall. Patient was attempting to scare away squirrels in her attic when she tripped and fell landing on her right side. Patient does not report hitting her head or losing consciousness. Patient is on intermediate designer anticoagulation for various cardiac diagnoses and ASCVD risk. MD complaint: R hip and rib pain Onset (ago): hour(s) Severity: mild Severity scale (1-10): 4 Quality: constant Pain Consistency: constant Relieving factors: none Exacerbating factors: none Associated symptoms: denies other symptoms Treatments prior to arrival: none Related Data Home Medications Medication Instructions Recorded Confirmed diphenhydramine HCl 25 mg capsule 25 mg PO TID PRN allergies 01/16/22 08/24/23 (Benadryl) Previous Rx's Medication Instructions Recorded blood pressure kit-extra large #1 ea 07/13/22 sujata (Ultra-Light Rollator misc) #1 ea 01/28/23 metoprolol succinate 25 mg 25 mg PO DAILY #1 tab 09/01/23 tablet,extended release 24 hr amiodarone 200 mg tablet 200 mg PO DAILY #90 tabs 09/15/23 apixaban 5 mg tablet (Eliquis) 5 mg PO BID #180 tabs 09/15/23 bumetanide 2 mg tablet 2 mg PO DAILY #90 tabs 09/15/23 levothyroxine 137 mcg tablet 137 mcg PO DAILY@0600 #90 tabs 09/15/23 potassium chloride 20 mEq 40 meq (2 x 20 mEq) PO DAILY@1200 09/15/23 tablet,extended release(part/cryst) #90 tabs prednisone 10 mg tablet 10 mg PO DIRECTED #30 tabs 09/15/23 sacubitril 24 mg-valsartan 26 mg 1 tab PO BID #180 tabs 09/15/23 tablet (Entresto) spironolactone 25 mg tablet 25 mg PO BID #180 tabs 09/15/23 miscellaneous medical supply 1 ea miscellaneous DAILY 99 days 10/14/23 #1 ea miscellaneous medical supply #1 ea 10/14/23 (Blood Pressure Cuff) nystatin 100,000 unit/gram topical 1 appl topical BID 30 days #30 10/19/23 cream grams Allergies Allergy/AdvReac Type Severity Reaction Status Date / Time No Known Allergies Allergy Verified 09/15/23 11:05 Review of Systems 2 Constitutional: Constitutional: Reports no additional constitutional complaints, Denies chills, Denies fever(s) and Denies night sweats Eyes: Eyes: Reports no additional eye complaints, Denies blurry vision, Denies change in vision, Denies diplopia, Denies eye discharge, Denies loss of vision and Denies eye pain ENT: Denies dizziness Cardiovascular: Cardiovascular: Reports no additional cardiovascular complaints, Denies chest pain, Denies lightheadedness, Denies Loss of Consciousness and Denies dyspnea Respiratory: Respiratory: Reports no additional respiratory complaints and Denies dyspnea Gastrointestinal: Gastrointestinal: Reports no additional gastrointestinal complaints, Denies abdominal pain, Denies melena, Denies hematochezia, Denies change in bowel habits and Denies change in stool character Genitourinary: Genitourinary: Denies hematuria, Denies urinary frequency, Denies dysuria, Denies urinary incontinence, Denies urinary hesitancy and Denies urinary urgency Musculoskeletal: Musculoskeletal: Reports no additional musculoskeletal complaints, Denies numbness and Denies tingling Comments: left rib pain and right hip pain Neurologic: Denies dizziness, Denies loss of vision, Denies numbness and Denies tingling Psychiatric: Psychiatric: Reports no additional psychiatric complaints Endocrine: Endocrine: Reports no additional endocrine complaints Hematologic/Lymphatic: Hematologic/Lymphatic: Reports no additional hematologic/lymphatic complaints Allergic/Immunologic: Allergic/Immunologic: Reports no additional allergic/immunologic complaints PMFSH Past Medical History Attestation statement: The following information was validated with the patient. 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[employer]) Alcohol intake: unknown Comment: [place]/eduardo Patient Tobacco Use Status: Never used Tobacco Smoked in Last 30 Days: No e-Cigarette/Vaping Use: Never Used Use of substances other than those prescribed or required for medical reasons: No Advance Directives: Yes Advance Directives on File: Yes Advance Directives Date on File: 08/26/23 service: No Current occupational status: retired Cognitive needs: Yes (Pt has a walker) Hearing needs: No Vision needs: No Physical Exam ED Vital Signs: Vital Signs - 24 hr 10/22/23 13:30 10/22/23 13:31 10/22/23 14:27 Temperature 97.6 F 97.6 F Pulse Rate 108 H 108 H Respiratory Rate 18 16 Blood Pressure 117/76 Pulse Oximetry 95 95 Oxygen Delivery Method Room Air Room Air 10/22/23 16:35 10/22/23 18:53 Temperature 97.7 F Pulse Rate 61 100 Respiratory Rate 16 16 Blood Pressure 107/47 L 119/57 L Pulse Oximetry 98 98 Oxygen Delivery Method Room Air Room Air BMI result Body Mass Index 37.3 Const General: cooperative, no acute distress, alert and awake Nutritional Appearance: well nourished Orientation/consciousness: patient oriented x3 Limitations: no limitations HENMT Head: Yes normal to inspection and Yes atraumatic Ears: hearing grossly normal bilaterally and external ears normal General nose exam: Normal external nose present, no nasal discharge noted and no epistaxis Face and sinus: Yes normal facial exam, No abrasion and No laceration Mouth: Normal oral and palatal mucosa present, no drooling and no muffled voice Eyes General: appearance normal, both eyes and all related structures Periorbital: periorbital findings normal Eyelids: Yes eyelids normal Conjunctivae: conjunctivae normal Pupils: Equal, round and reactive pupils present EOM: EOMs intact bilaterally Neck Neck: Yes normal visual inspection, Yes full ROM and Yes no lymphadenopathy Chest Chest palpation & inspection: normal inspection of the chest Resp Effort & Inspection: normal respiratory effort and able to speak in complete sentences Auscultation: clear to auscultation bilaterally GI Inspection: Yes normal to inspection Neuro General: patient oriented x3 and moves all extremities Cranial nerves: Yes Equal, round and reactive pupils present Cognition (Neuro): normal cognition Motor exam (neuro): 5/5 motor strength present throughout Sensory Exam: Normal double simultaneous stimulation for sensation Coordination: [id number] test normal Extrem General: Yes normal to inspection, Yes full ROM and Yes capillary refill normal Psych Appearance: grossly normal Mental Status: mental status grossly normal Affect: normal affect Attitude: cooperative Thought process: Normal thought process present Thought content: Normal thought content present Insight: Good insight present (Psych) Medications Administered Discontinued Medications Generic Name Dose Route Start Last Admin Trade Name Freq PRN Reason Stop Dose Admin Cyclobenzaprine HCl 5 mg 10/22/23 17:29 10/22/23 18:10 Cyclobenzaprine Hcl 5 Mg Tablet PO 10/22/23 17:30 5 mg ONCE ONE Administration Diazepam 5 mg 10/22/23 18:15 10/22/23 18:51 Diazepam 10 Mg/2 Ml Cartridge IVPUSH 10/22/23 18:16 5 mg STAT STA Administration Ondansetron HCl 4 mg 10/22/23 13:28 10/22/23 14:42 Ondansetron Odt 4 Mg Tab.Rapdis TRANSLINGU 10/22/23 13:29 4 mg ONCE ONE Administration Medical Decision Making Medical Decision Making MDM Narrative: Patient is a 78 year old assigned female at with a history of HTN, CKD, atrial fib, and CHF presenting to the emergency department today after a fall. Patient's physical exam was unremarkable. Patient's blood work showed an elevated BUN + CR consistent with an JESSIE. Patient's right hip x-ray showed no acute process. Patient's head, C-Spine, and chest CTs were all negative. I spoke to the hospitalist team who agreed to admission. I explained my physical exam findings as well as all test results to the patient. I answered all questions asked by the patient. Patient verbalized agreement and understanding with this treatment plan and admission. Differential Diagnosis Differential Diagnoses: The differential diagnosis associated with the presentation includes JESSIE Fall Muscle spasms Hip pain Rib pain Admission/Observation Consideration of admission/observation: Escalation of care including admission/observation considered Patient admitted. Consult Healthcare Provider Management of the patient was discussed with: Hospitalist (agreed to admission) Lab Data MDM Lab Attestation statement: I reviewed the patient's lab results. My interpretation of these results are in the MDM Rationale portion of this note. 10/22/23 18:42 10/22/23 18:42 Labs: Lab Results 10/22/23 10/22/23 Range/Units 18:06 18:42 WBC 10.9 H (4.8-10.8) X10*3/uL RBC 4.43 (4.20-5.50) X10*6/uL Hgb 13.8 (12.0-16.0) g/dl Hct 41.8 (37.0-47.0) % MCV 94.4 (80.0-98.0) fL MCH 31.2 (27.0-33.0) pg MCHC 33.0 (31.0-35.0) g/dl RDW 15.9 (11.0-16.0) % Plt Count 254 D (160-400) X10*3/uL MPV 10.6 (9.4-12.3) fL Immature Gran % (Auto) 0.4 (0.0-0.4) % Neut % (Auto) 88.1 H (45-73) % Lymph % (Auto) 4.8 L (20-40) % Rains % (Auto) 6.0 (2-11) % Eos % (Auto) 0.2 (0-4) % Baso % (Auto) 0.5 (0-2) % Lymph # (Auto) 0.5 L (1.2-4.9) X10*3/uL Rains # (Auto) 0.7 (0.1-1.2) X10*3/uL Eos # (Auto) 0.0 (0.0-0.4) X10*3/uL Baso # (Auto) 0.1 (0.0-0.2) X10*3/uL Abs Immat Gran (auto) 0.04 H (0.00-0.03) X10*3/uL Absolute Neuts (auto) 9.7 H (2.0-8.3) x10*3/uL Absolute Nucleated RBC 0.000 (0.0-0.012) X10*3/uL Nucleated RBC % (auto) 0.0 (0.0-0.2) /100WBC Sodium 139 (135-145) mmol/L Potassium 4.9 (3.3-5.1) mmol/L Chloride 110 H (96-108) mmol/L Carbon Dioxide 18 L (22-29) mmol/L Anion Gap 16 (12-20) BUN 78 H (9-16) mg/dL Creatinine 2.49 H (0.5-1.4) mg/dL Estim Creat Clear Calc 26.4 Estimated GFR 19 POC Glucose 119 H (60-115) mg/dL Random Glucose 125 H (60-115) mg/dL Calcium 10.5 H D (8.4-10.2) mg/dL Total Bilirubin 0.7 (0.0-1.0) mg/dL AST 13 (5-31) U/L ALT 9 (0-31) U/L Alkaline Phosphatase 74 (39-117) U/L Total Protein 7.6 (6.5-8.0) g/dL Albumin 4.0 (3.5-5.0) g/dL Independent Interpretation I performed an independent interpretation of an: Plain X-Ray and CT Scan Interpretation: My interpretation is in agreement with the radiologist's impression of these imaging studies. - EXAMINATION: CT CHEST WITHOUT CONTRAST CLINICAL INFORMATION: Fall, head strike and pain. COMPARISON: None available. TECHNIQUE: Multidetector volumetric CT imaging of the chest was done. Axial MIP volume rendering provided. Sagittal and coronal reformatted images were obtained. This CT examination was performed using dose optimization techniques as appropriate, variously including the following: *Automated exposure control *Adjustment of mA and/or kV according to patient size (this includes techniques or standardized protocols for targeted exams where dose is matched to indication/reason for exam; i.e. extremities or head) *Use of iterative reconstruction technique DLP: 309 mGy-cm FINDINGS: EQUIPMENT SERVICE LEAD: Well-expanded lungs. LUNGS: There is a 3 mm nodule right middle lobe axial image 321/6, 2 nodule left lower lobe superior segment axial image 251/6. The lungs are well-expanded and clear of acute process. Mild groundglass haziness seen in both lower lobes. MEDIASTINUM: The thyroid lobes are symmetric and normal. The central trachea and bronchi are widely patent. Heart size and the great vessels are normal caliber. No abnormal size mediastinal or hilar lymphadenopathy. CORONARY ARTERY CALCIFICATION: None visualized on this study. PLEURA: There is no pleural effusion. No pleural mass or thickening. AXILLA: Small shotty lymph nodes are seen axilla. The chest wall is unremarkable. UPPER ABDOMEN: Visualized liver, spleen, pancreas and bilateral adrenal glands unremarkable. The gallbladder has been surgically removed. OSSEOUS STRUCTURES: No aggressive lytic or sclerotic process seen. There is mild dextroscoliosis. CT/CT chest wo IV con IMPRESSION: 1. 2 small pulmonary nodules in the right middle lobe and left lower lobe superior segment. 2. No abnormal mediastinal or axillary lymphadenopathy. 3. Mild groundglass haziness in both lower lobes. No acute consolidation. Fleischner guidelines were followed. Dictated By: Luc Walter MD Signed By: Electronically signed by Luc Walter MD 10/22/23 0643 - EXAMINATION: CT HEAD WITHOUT CONTRAST CLINICAL INFORMATION: Mechanical fall. Blunt head trauma without loss of consciousness, significant head injury and posttraumatic headache. COMPARISON: None available. TECHNIQUE: Contiguous axial imaging was performed from the skull base to vertex without intravenous administration of contrast. This CT examination was performed using dose optimization techniques as appropriate, variously including the following: *Automated exposure control *Adjustment of mA and/or kV according to patient size (this includes techniques or standardized protocols for targeted exams where dose is matched to indication/reason for exam; i.e. extremities or head) *Use of iterative reconstruction technique DLP: 640.74 mGy-cm FINDINGS: Ventricles, sulci and cisterns are dilated. There is no midline shift, no abnormal intra- or extra- axial fluid accumulation. Polanco and white matter differentiation is normal. Bone window images show no evidence of skull fracture. CT/CT head/brain wo IV con IMPRESSION: 1. Age related cerebral atrophy and ventriculomegaly. 2. No intracranial hemorrhage or skull fracture is seen. 3. No evidence of space occupying lesion could be found. 4. The current plain CT scan of the brain shows no diagnostic evidence of acute cerebral infarction. Dictated By: Mee Teague Signed By: Electronically signed by Mee Teague 10/22/23 1525 - EXAMINATION: CT HEAD WITHOUT CONTRAST CT FACIAL BONES WITHOUT CONTRAST CLINICAL INFORMATION: Facial trauma, fall COMPARISON: None. TECHNIQUE: Imaging was performed from the skull base to vertex without intravenous administration of contrast. In addition, helical noncontrast CT imaging was acquired through the facial bones and source images were reviewed along with axial reconstructions and sagittal and coronal MPRs. This CT examination was performed using dose optimization techniques as appropriate, variously including the following: *Automated exposure control. *Adjustment of mA and/or kV according to patient size (this includes techniques or standardized protocols for targeted exams where dose is matched to indication/reason for exam; i.e. extremities or head). *Use of iterative reconstruction technique. DLP: 208.51 mGy-cm FINDINGS: Examination limited due to motion Maxillofacial Bones: No evidence of maxillofacial bone fractures. The zygomatic arches remain intact. No nasal bone fracture. The nasal septum remains midline. No evidence of mandibular or maxillary fracture. The mandibular condyles remain well-seated in their respective temporal articular grooves. Normal appearance of the intraconal and extraconal fat. No evidence of traumatic injury to the extraocular musculature or globes. The mastoid air cells and visualized paranasal sinuses are clear. No layering fluid collections. CT/CT facial bones wo IV con IMPRESSION: No acute intracranial, maxillofacial bone, or cervical abnormalities. Dictated By: Babs Messer MD Signed By: Electronically signed by Babs Messer MD 10/22/23 1555 - EXAMINATION: CT CERVICAL SPINE WITHOUT CONTRAST CLINICAL INFORMATION: Mechanical fall, neck injury and pain COMPARISON: None available. TECHNIQUE: Multiple 3.0 and 0.6 mm axial images were obtained from base of skull to T1 levels without IV contrast enhancement. Sagittal and coronal 2.0 mm bone window images were reconstructed from axial image data. This CT examination was performed using dose optimization techniques as appropriate, variously including the following: *Automated exposure control *Adjustment of mA and/or kV according to patient size (this includes techniques or standardized protocols for targeted exams where dose is matched to indication/reason for exam; i.e. extremities or head) *Use of iterative reconstruction technique DLP: 344.96 mGy-cm FINDINGS: C1/C2: Bony structures are intact with normal alignment. There is no spinal stenosis. C2/C3: Bony structures are intact with normal alignment. There is no spinal stenosis. Bilateral C2/C3 neuroforamina are patent. Bilateral apophyseal joints are intact with normal alignment. C3/C4: Bony structures are intact with normal alignment. There is no spinal stenosis. Bilateral C3/C4 neuroforamina are patent. Bilateral apophyseal joints are intact with normal alignment. C4/C5: Bony structures are intact with normal alignment. There is no spinal stenosis. Bilateral C4/C5 neuroforamina are patent. Bilateral apophyseal joints are intact with normal alignment. C5/C6: Bony structures are intact with normal alignment. There is marked decrease in intervertebral disc height. Anterior sharp syndesmophytes are present. There is no spinal stenosis. Bilateral C5/C6 neuroforamina are patent. Bilateral apophyseal joints are intact with normal alignment. C6/C7: Bony structures are intact with normal alignment. There is marked decrease in intervertebral disc height. Anterior sharp syndesmophytes are present. There is no spinal stenosis. Bilateral C6/C7 neuroforamina are patent. Bilateral apophyseal joints are intact with normal alignment. C7/T1: Bony structures are intact with normal alignment. There is no spinal stenosis. Bilateral C7/T1 neuroforamina are patent. Bilateral apophyseal joints are intact with normal alignment. Multilevel bilateral apophyseal joint and uncovertebral joint osteoarthritis with loss of joint space, sclerosis, facet hypertrophy and osteophytosis are seen. CT/CT cervical spine wo IV con IMPRESSION: 1. No evidence of acute fracture or traumatic subluxation of the cervical spine. 2. Cervical spondylosis, C5-C6 and C6-C7 degenerative cervical disc disease are seen. Dictated By: Mee Teague Signed By: Electronically signed by Mee Teague 10/22/23 1534 - EXAMINATION: XR HIP, RIGHT CLINICAL INFORMATION: Fell down, right hip injury and pain COMPARISON: None available. TECHNIQUE: Frontal x-ray of the pelvis, Frontal and Frog leg lateral x-rays of right hip. FINDINGS: BONES: Bony structures are intact. There is no focal bone destruction or periosteal reaction seen. JOINTS: Alignment of hip joint is normal. SOFT TISSUE: Soft tissue is normal. No radiopaque foreign body or abnormal air collection is seen. XR/XR hip RT w PEL1V IMPRESSION: 1. Normal pelvis x-ray. No fracture or dislocation is seen. 2. Normal x-ray of right hip. No fracture or dislocation or signs of avascular necrosis are seen. Dictated By: Mee Teague Signed By: Electronically signed by Mee Teague 10/22/23 6520 Radiology Impression Discussion of test interpretation with radiology: I have reviewed the radiologist's reading. Independent Historian Clinical information obtained from an independent historian. History obtained from or confirmed by: EMS (EMS provided additional history and confirmed the history provided by the patient.) Critical Care Time Critical Care Time Critical Care Time: Yes Total Critical Care Time: 55 Attestation: I spent 55 minutes of Critical Care Time with this patient. This does not include time spent on separately reported billable procedures. Discharge Plan Discharge Clinical Impression: JESSIE (acute kidney injury), Fall, Muscle spasm Patient Disposition: Admitted As Inpatient
--- NOTE | 2023-10-22 13:30 | PC.NURSE ---
unable to obtain triage bp as radiology took pt w/o asking RN if ready to go for testing. no distress. breathing and talking well w/o dizziness, sob or cp reported
--- NOTE | 2023-10-22 13:46 | PC.NURSE ---
remains in xray
[2023-10-22] MEDS: Ondansetron ODT 4 MG TAB.RAPDIS TRANSLINGU (14:42)
[2023-10-22 18:10] LABS: Glucose, Whole Blood 119 mg/dL (60-115)
[2023-10-22] MEDS: Cyclobenzaprine HCl 5 MG TABLET PO (18:10)
[2023-10-22 18:47] LABS: MANUAL DIFF FLAG NO
[2023-10-22 18:49] LABS: Basophils Absolute Auto 0.1 X10*3/uL (0.0-0.2); Basophils Percent Auto 0.5 % (0-2); Eosinophils Percent Auto 0.2 % (0-4); Hematocrit 41.8 % (37.0-47.0); Hemoglobin 13.8 g/dl (12.0-16.0); Imm Gran Abs Auto 0.04 X10*3/uL (0.00-0.03); Imm Gran Pct Auto 0.4 % (0.0-0.4); Lymphocytes Absolute Auto 0.5 X10*3/uL (1.2-4.9); Lymphocytes Percent Auto 4.8 % (20-40); Mean Corpuscular Hemoglobin 31.2 pg (27.0-33.0); Mean Corpuscular Volume 94.4 fL (80.0-98.0); Mean Platelet Volume 10.6 fL (9.4-12.3); Monocytes Absolute Auto 0.7 X10*3/uL (0.1-1.2); Neutrophils Absolute Auto 9.7 x10*3/uL (2.0-8.3); Neutrophils Percent Auto 88.1 % (45-73); Platelet Count 254 X10*3/uL (160-400); Red Blood Count 4.43 X10*6/uL (4.20-5.50); Red Cell Distribution Width 15.9 % (11.0-16.0); White Blood Count 10.9 X10*3/uL (4.8-10.8)
[2023-10-22] MEDS: diazePAM 10 MG/2 ML CARTRIDGE 5 MG IVPUSH (18:51)
[2023-10-22 19:01] LABS: Alanine Aminotransferase 9 U/L (0-31); Alkaline Phosphatase 74 U/L (39-117); Anion Gap 16 (12-20); Aspartate Amino Transferase 13 U/L (5-31); Bilirubin Total 0.7 mg/dL (0.0-1.0); Blood Urea Nitrogen 78 mg/dL (9-16); Calcium 10.5 mg/dL (8.4-10.2); Carbon Dioxide 18 mmol/L (22-29); Chloride 110 mmol/L (96-108); Creatinine Clr Calc Pharmacy 26.4; Estimated Glomerular Filt Rate 19; Glucose Random 125 mg/dL (60-115); Potassium 4.9 mmol/L (3.3-5.1); Sodium 139 mmol/L (135-145); Total Protein 7.6 g/dL (6.5-8.0)
--- NOTE | 2023-10-22 19:24 | MHC.CM.ED ---
Addendum entered by Gabby Tolliver 10/22/23 21:04: 16 local referrals placed. [facility] is first choice. Awaiting transport to room 350. Addendum entered by Gabby Tolliver 10/22/23 20:54: THRIVE assessment negative. Addendum entered by Gabby Tolliver 10/22/23 20:50: 3/1 IMM reviewed and signed. Original given. Copy to medical records. Addendum entered by Gabby Tolliver 10/22/23 19:40: Pt will be admitted. Awaiting hospitalist. Original Note: CM met with patient at the request of Patti PATEL. Pt is A&Ox4. Lives alone. Uses a walker. Has home services through [facility] from [facility] with [employer] 2 hours/twice a week. Has MOW. Has been accepted into Elderly [facility] at [facility] [address] with scheduled move in date of January 21. Pt is very excited about this, as she has been on a waiting list for 1.5 years. Pt has help from her neighbor who is at the bedside. HCP is on file. HCP #1/daughter Isatu Allen ([phone]) lives in [place] and HCP#2/daughter Kristen Bhandari ([phone]) lives in [place]. Per patient, her daughter Kristen has limited contact with her. Pt was recently [facility] [place]/CHF from 08/24-09/01/23 and was discharged to [facility]. Pt states she was at rehab for about 2 weeks and then had home PT/OT. Her home services have been D/C'd, and she does not remember what agency provided home services. Pt is agreeable to additional STR. Pt had fall today and is having severe muscle spasms. PT is pending. First choice for STR is [facility]. Pt states she came home in September from STR, but doesn't remember the date. This should be a qualifying stay. Local referrals placed. CM will follow for discharge planning.
--- NOTE | 2023-10-22 19:30 | PHA.MEDREC ---
Pharmacy Consult ? Medication Reconciliation Pharmacy has completed the medication reconciliation. Patient had rx bottle with her. Able to confirm when she takes each medicaiton. Glenis Bui, FideD
--- NOTE | 2023-10-22 19:40 | MHC.EDTECH ---
Patient repositioned and bed pad changed
[2023-10-22 19:51] LABS: B Type Natriuretic Peptide 205 pg/mL (<100)
--- NOTE | 2023-10-22 20:15 | PM.IMHP ---
History of Present Illness Date of Service: 10/22/23 Attending physician on admission: Susana Adams Chief Complaint: Fall at home Pt is a 78-year-old female with a PMH significant for?HTN, HLD, PE in 2013, paroxysmal AFib on Eliquis, HFrEF, hypothyroidism, and CKD 3 who presents to the ED after suffering fall at home. Patient states she was chasing a scrotal out of her house when she fell in her bathroom on her right side and got stuck between the door and the toilet. Reports took 30 minutes or so before she was able to become unstuck. Patient currently complaining of painful left-sided back spasms that occur every 1-2 minutes. Reports a long history of similar back spasms but less severe in pain and length. Has also had constant nausea with a little bit of vomiting since the incident. In the ED patient received Ativan and Flexeril, but patient states these have not relieved her symptoms. Denies chest pain/pressure, palpitations. No shortness of breath. Denies fever, chills, abdominal pain. No headache. Of note, patient was admitted to the hospital on 08/24-09/01 for new onset AFib with RVR and HFrEF. Patient was cardioverted during her stay and discharged on amiodarone, metoprolol, Entresto, and diuretics. Reports she was doing well up till today's incident. Reports she has been very careful not to drink too much fluid, and counts every fluid else she drinks. Denies increasing shortness of breath, lower leg edema, and worsening orthopnea. In the ED pt was tachycardic up to 108, with soft BP as low as 107/47. Labs were significant for BUN 78 with creatinine 2.49, and BNP slightly elevated at 205. CT?of head, face, and cervical spine found no acute intracranial, maxillofacial bone, or cervical abnormalities. CTA of chest found 2 small pulmonary nodules in right middle lobe and left lower lobe, as well as mild ground-glass haziness in both lower lobes with no acute consolidation. Pt was treated with IVF, Valium, Flexeril, and ondansetron. Pt will be admitted to the hospital for treatment and further evaluation of JESSIE in the setting of likely dehydration, as well as treatment for intractable muscle spasms and pain. Review of Systems Review of Systems: Left-sided painful back spasms Nausea, vomiting Denies increasing shortness of breath No lower leg edema Denies chest pain/pressure, palpitations No fever, chills, abdominal pain PMF Medical History HFrEF (heart failure with reduced ejection fraction) Atrial fibrillation Lymphedema Hypothyroidism History of pulmonary embolism HTN (hypertension) Current use of anticoagulant therapy Family History Father CVD (cardiovascular disease) Mother Medical history unknown Surgical History History of laparoscopic cholecystectomy Social History Household Members: None Housing: House Do you presently have visiting nurse or other home services: Yes ([employer]/ [employer]) Alcohol intake: unknown Comment: rings appropriately- A/ox4 Patient Tobacco Use Status: Never used Tobacco Smoked in Last 30 Days: No e-Cigarette/Vaping Use: Never Used Use of substances other than those prescribed or required for medical reasons: No Advance Directives: Yes Advance Directives on File: Yes Advance Directives Date on File: 08/26/23 service: No Current occupational status: retired Cognitive needs: Yes (Pt has a walker) Hearing needs: No Vision needs: No Meds Allergies Allergy/AdvReac Type Severity Reaction Status Date / Time No Known Allergies Allergy Verified 09/15/23 11:05 Active Medications: Current Medications Acetaminophen (Acetaminophen 325 Mg Tablet) 650 mg PO Q6H PRN PRN Reason: Pain, Mild (Pain Scale 1-3) Amiodarone HCl (Amiodarone Hcl 200 Mg Tablet) 200 mg PO DAILY HUSEYIN Apixaban (Apixaban 5 Mg Tablet) 5 mg PO BID HUSEYIN Sodium Chloride (Ns) 1,000 mls @ 999 mls/hr IV .Q1H1M HUSEYIN Stop: 10/22/23 20:15 Levothyroxine Sodium 112 mcg/ (Levothyroxine Sodium 25 mcg) 137 mcg PO DAILY@0600 HUSEYIN Melatonin (Melatonin 3 Mg Tablet) 6 mg PO BEDTIME PRN PRN Reason: Insomnia Metoprolol Succinate (Metoprolol Succinate Er 25 Mg Tab.Er.24h) 25 mg PO DAILY HUSEYIN; Protocol Nystatin (Nystatin Cream 15 Gm Tube) 1 appl TOPICAL BID HUSEYIN; Protocol Ondansetron HCl (Ondansetron Hcl 4 Mg/2 Ml Vial) 4 mg IVPUSH Q8H PRN PRN Reason: Nausea and Vomiting Potassium Chloride (Potassium Chloride Er 20 Meq Tab.Er.Prt) 40 meq PO DAILY@1200 HUSEYIN Sodium Chloride (0.9 % Sodium Chloride Flush 3 Ml Syringe) 3 ml IVFLUSH QSHIFT [facility] Home Medications Medication Instructions Recorded Confirmed Last Taken Type acetaminophen 325 mg tablet 650 mg PO Q6H PRN Pain 10/22/23 10/22/23 10/22/23 History Physical Exam Vital Signs and Narrative: Vital Signs: Last Vital Signs Temp 97.7 F 10/22/23 16:35 Pulse 100 10/22/23 18:53 Resp 16 10/22/23 18:53 BP 119/57 L 10/22/23 18:53 Pulse Ox 98 10/22/23 18:53 O2 Del Method Room Air 10/22/23 18:53 BMI result Body Mass Index 37.3 Constitutional: Alert, uncomfortable, constantly having to sit forward and shift in the bed. In no acute distress. Mental Status: Oriented to person, place and time. Eyes: Pupils are equal, round, and reactive to light. Ear, Nose, and Throat: Oropharynx clear, mucous membranes dry. Ears and nose without deformities. Trachea midline. Respiratory: Clear to auscultation bilaterally. No wheezing, rales, or rhonchi. Cardiovascular: Irregularly irregular rhythm. Gastrointestinal: Abdomen soft, non-tender, non-distended. Normal bowel sounds. Neurologic: Cranial nerves II-XII are grossly intact bilaterally. No focal neurological deficits. Moves all extremities spontaneously. Skin: Warm, dry. Musculoskeletal: Left-sided of back diffusely tender all the way to upper left thigh. Extremities: No edema. Psychiatric: Normal mood and affect. Results Labs 10/22/23 18:42 10/22/23 18:42 Labs: Laboratory Results - last 24 hr 10/22/23 10/22/23 18:06 18:42 MCV 94.4 MCH 31.2 MCHC 33.0 RDW 15.9 Plt Count 254 D MPV 10.6 Immature Gran % (Auto) 0.4 Neut % (Auto) 88.1 H Lymph % (Auto) 4.8 L [place] % (Auto) 6.0 Eos % (Auto) 0.2 Baso % (Auto) 0.5 Lymph # (Auto) 0.5 L [place] # (Auto) 0.7 Eos # (Auto) 0.0 Baso # (Auto) 0.1 Abs Immat Gran (auto) 0.04 H Absolute Neuts (auto) 9.7 H Absolute Nucleated RBC 0.000 Nucleated RBC % (auto) 0.0 Anion Gap 16 Estim Creat Clear Calc 26.4 Estimated GFR 19 POC Glucose 119 H Random Glucose 125 H Calcium 10.5 H D Total Bilirubin 0.7 AST 13 ALT 9 Alkaline Phosphatase 74 Total Creatine Kinase 40 B-Natriuretic Peptide 205 H Total Protein 7.6 Albumin 4.0 Imaging Radiologist's Impressions: Impressions Hip/Pelvis X-Ray 10/22/23 14:00 IMPRESSION: 1. Normal pelvis x-ray. No fracture or dislocation is seen. 2. Normal x-ray of right hip. No fracture or dislocation or signs of avascular necrosis are seen. Cervical Spine CT 10/22/23 14:15 IMPRESSION: 1. No evidence of acute fracture or traumatic subluxation of the cervical spine. 2. Cervical spondylosis, C5-C6 and C6-C7 degenerative cervical disc disease are seen. Face CT 10/22/23 14:15 IMPRESSION: No acute intracranial, maxillofacial bone, or cervical abnormalities. Head CT 10/22/23 14:15 IMPRESSION: 1. Age related cerebral atrophy and ventriculomegaly. 2. No intracranial hemorrhage or skull fracture is seen. 3. No evidence of space occupying lesion could be found. 4. The current plain CT scan of the brain shows no diagnostic evidence of acute cerebral infarction. Chest CT 10/22/23 14:49 IMPRESSION: 1. 2 small pulmonary nodules in the right middle lobe and left lower lobe superior segment. 2. No abnormal mediastinal or axillary lymphadenopathy. 3. Mild groundglass haziness in both lower lobes. No acute consolidation. Fleischner guidelines were followed. Assessment and Plan (1) Muscle spasm: Status: Acute (2) JESSIE (acute kidney injury): Status: Acute Plan Pt is a 78-year-old female with a PMH significant for?HTN, HLD, PE in 2014, paroxysmal AFib on Eliquis, HFrEF, hypothyroidism, and CKD 3 who presents to the ED after suffering fall at home. Pt will be admitted to the hospital for treatment and further evaluation of JESSIE in the setting of likely dehydration, as well as treatment for intractable muscle spasms and pain. JESSIE Creatinine 2.49 at time of presentation, up from 1.41 on 09/01/2023 Likely secondary to dehydration from reduced p.o. intake after HFrEF diagnosis while continuing to take multiple diuretics Patient received 1 L IVF in ED Will hold Entresto, bumetanide, spironolactone Patient will likely need to be re-educated on the amount of fluid she can drink per day Follow BMP Muscle spasms Patient experiencing painful muscle spasms since fall at home All imaging negative for acute fractures or dislocations Received Flexeril and Ativan in ED to little effect Will treat with Robaxin Analgesics for pain management Nausea/vomiting Etiology unclear: pt not complaining of abd pain Seems to have started once arrived to the ED Will treat with ondansetron, Compazine Paroxysmal AFib Recently diagnosed on 08/25/2023 Underwent cardioversion on 08/31/2023 EKG shows AFib RVR of 123 with chronic LBBB Consider cardiology consult if patient goes back in AFib and RVR Continuous cardiac monitoring HFrEF Not in acute exacerbation Holding diuretics and Entresto secondary to JESSIE Hypothyroidism Continue levothyroxine Full Code Attending:?Dr. Adams DVT Prophylaxis: On Eliquis Pt will require a hospitalization of at least two nights for treatment of?JESSIE in setting of likely dehydration and intractable painful pack spasms. Given patient's significant comorbidities including paroxysmal AFib, CKD 3, and history of heart failure, patient require hospitalization for treatment with IVF, IV antiemetics, and close monitoring of creatinine and cardiac function. Quality Stroke Does the patient have a stroke diagnosis?: No VTE Prior VTE?: No VTE Risk Level:: Medical - moderate - high VTE Device Contraindication: Treatment Not Indicated VTE Drug Contraindication: N/A - Med Ordered
[2023-10-22] MEDS: 0.9 % Sodium Chloride Flush 3 ML SYRINGE IVFLUSH (21:25)
[2023-10-22] MEDS: Prochlorperazine Edisylate 10 MG/2 ML VIAL 5 MG IVPUSH (21:27)
[2023-10-22] MEDS: Apixaban 5 MG TABLET PO (21:28)
[2023-10-22] MEDS: methocarbamoL 500 MG TABLET PO (21:28)
[2023-10-22] MEDS: 0.9 % Sodium Chloride 1,000 ML 999 ML IV (21:28)
--- NOTE | 2023-10-22 22:11 | PM.EVENT ---
Event Note Date of Service: 10/22/23 Event Note: Patient with heart rate sustaining over 140s. In AFib with RVR. Will administer IV Lopressor. Consulting Cardiology, appreciate assistance Time Spent With Patient Time: Total time managing care of this patient today ____ minutes.
[2023-10-22] MEDS: oxyCODONE HCl Immed Release 5 MG TABLET PO (22:20)
[2023-10-22] MEDS: Metoprolol Tartrate 5 MG/5 ML VIAL IVPUSH (22:21)
[2023-10-22 22:31] LABS: Appearance Urine Cloudy; Color Urine Yellow; Glucose Urine UA Negative (Negative); Leukocyte Esterase Urine Small (1+) (Negative); Nitrite Urine Negative (Negative); UMIC TRIGGER UACC YES; Urine Blood Negative (Negative); Urine Ketones Negative (Negative); Urine Protein Negative (Neg-Trace)
--- NOTE | 2023-10-22 22:32 | PC.NURSE ---
pt came up with afib with rvr 130-199, immediately notified to dr. Adams, received new order lopressor 5mg pushed by charge nurse Lily, it went down 112 -156s, it jumps all over lowest 110s. bp 201/97. MD aware of bp will continue to monitor
[2023-10-22 22:42] LABS: Bacteria Urine 2+ (None Seen); Hyaline Casts Urine 0-2 /LPF (0-2); RBC Urine 0-2 /HPF (0-2); Squamous Epithelial Cell Urine 0-2 /HPF (0-2); UACC Culture Trigger YES; WBC Urine 0-5 /HPF (0-5)
[2023-10-22 22:45] LABS: Glucose, Whole Blood 128 mg/dL (60-115)
[2023-10-22] MEDS: Nystatin Cream 15 GM TUBE 1 APPL TOPICAL (22:49)
[2023-10-22] MEDS: dilTIAZem HCL 50 MG/10 ML VIAL 15 MG IVPUSH (22:55)
--- NOTE | 2023-10-22 23:31 | PC.NURSE ---
called RP on 0 after metoprolol pushed bc pt BP 201/97 HR 140s. new meds received given by magnetic prospecting supervisor Camille and transfer to [facility]Tele. report to LAUREANO Lakhani. will closer to monitor.
[2023-10-22 23:32] LABS: Troponin-I High Sensitivity 11.8 ng/L (<3.5-17.0)
[2023-10-23] VITALS (10 sets, daily range): BP systolic 78–121; BP diastolic 48–81; PULSE 76–104; RESP 16–20; TEMP 36–36.3; O2SAT 97–99
--- NOTE | 2023-10-23 | ECG_ITS ---
Test Reason : tachycardia Blood Pressure : / mmHG Vent. Rate : 100 BPM Atrial Rate : 000 BPM P-R Int : 000 ms QRS Dur : 152 ms QT Int : 362 ms P-R-T Axes : 000 -65 100 degrees QTc Int : 466 ms Atrial fibrillation with premature ventricular or aberrantly conducted complexes Left axis deviation Left bundle branch block Abnormal ECG No significant changes when compared with the previous EKG of 22 october 2023 Referred By: Theodora Adams Electronically Signed By:CODI AVITIA
[2023-10-23] MEDS: dilTIAZem HCL 125 MG in 0.9 % Sodium Chloride 100 ML 10 MG IVCONT (00:38)
[2023-10-23] MEDS: Magnesium Sulfate/H2O 2 GM/50 ML PIGGYBACK IV (02:15)
[2023-10-23] MEDS: Levothyroxine Sodium 112 MCG, Levothyroxine Sodium 25 MCG 137 MCG PO (05:41)
[2023-10-23 06:27] LABS: MANUAL DIFF FLAG NO
[2023-10-23 06:39] LABS: Basophils Absolute Auto 0.1 X10*3/uL (0.0-0.2); Basophils Percent Auto 0.7 % (0-2); Eosinophils Absolute Auto 0.1 X10*3/uL (0.0-0.4); Eosinophils Percent Auto 1.8 % (0-4); Hematocrit 39.5 % (37.0-47.0); Hemoglobin 13.1 g/dl (12.0-16.0); Imm Gran Abs Auto 0.06 X10*3/uL (0.00-0.03); Imm Gran Pct Auto 0.8 % (0.0-0.4); Lymphocytes Absolute Auto 0.8 X10*3/uL (1.2-4.9); Lymphocytes Percent Auto 10.7 % (20-40); Mean Corpuscular HGB Conc 33.2 g/dl (31.0-35.0); Mean Corpuscular Hemoglobin 31.6 pg (27.0-33.0); Mean Corpuscular Volume 95.4 fL (80.0-98.0); Mean Platelet Volume 10.8 fL (9.4-12.3); Monocytes Absolute Auto 0.9 X10*3/uL (0.1-1.2); Monocytes Percent Auto 11.2 % (2-11); Neutrophils Absolute Auto 5.7 x10*3/uL (2.0-8.3); Neutrophils Percent Auto 74.8 % (45-73); Platelet Count 233 X10*3/uL (160-400); Red Blood Count 4.14 X10*6/uL (4.20-5.50); Red Cell Distribution Width 16.1 % (11.0-16.0); White Blood Count 7.7 X10*3/uL (4.8-10.8)
[2023-10-23 06:53] LABS: Anion Gap 16 (12-20); Blood Urea Nitrogen 69 mg/dL (9-16); Carbon Dioxide 17 mmol/L (22-29); Chloride 112 mmol/L (96-108); Creatinine Clr Calc Pharmacy 32.8; Estimated Glomerular Filt Rate 24; Glucose Random 87 mg/dL (60-115); Potassium 5.2 mmol/L (3.3-5.1); Sodium 140 mmol/L (135-145)
[2023-10-23 07:10] LABS: Calcium 9.6 mg/dL (8.4-10.2)
[2023-10-23] MEDS: methocarbamoL 500 MG TABLET PO ×4 (08:45→19:39)
[2023-10-23] MEDS: Apixaban 5 MG TABLET PO ×2 (08:45→19:39)
[2023-10-23] MEDS: Metoprolol Succinate ER 25 MG TAB.ER.24H PO (08:45)
[2023-10-23] MEDS: Amiodarone HCL 200 MG TABLET PO (08:46)
--- NOTE | 2023-10-23 09:32 | ECG_ITS ---
Test Reason : afib Blood Pressure : / mmHG Vent. Rate : 079 BPM Atrial Rate : 000 BPM P-R Int : 000 ms QRS Dur : 162 ms QT Int : 438 ms P-R-T Axes : 000 -67 094 degrees QTc Int : 502 ms Atrial fibrillation Left axis deviation Left bundle branch block Abnormal ECG When compared with ECG of 23-OCT-2023 00:06, No significant change was found Referred By: Codi Avitia Electronically Signed By:CODI AVITIA
--- NOTE | 2023-10-23 10:51 | P.PNIM_ITS ---
Subjective Subjective Date of Service: 10/23/23 Interval History: no complaints Physical Exam 2 Vital Signs: Vital Signs: Last Vital Signs Temp 97.3 F 10/23/23 08:00 Pulse 76 10/23/23 08:00 Resp 16 10/23/23 08:00 BP 100/55 L 10/23/23 08:00 Pulse Ox 98 10/23/23 08:00 O2 Del Method Room Air 10/23/23 08:00 BMI result Body Mass Index 37.3 General: AO X 3, no acute distress Resp: CTA bilateral, no accessory muscles used CVS: S1,S2,irregular GI: soft, non tender, non distended Neuro: motor grossly intact, alert Psych: appropriate affect, appropriate insight Objective Data Active Medications Acetaminophen (Acetaminophen 325 Mg Tablet) 650 mg PO Q6H PRN PRN Reason: Pain, Mild (Pain Scale 1-3) Amiodarone HCl (Amiodarone Hcl 200 Mg Tablet) 200 mg PO DAILY [facility] Last Admin: 10/23/23 08:46 Dose: 200 mg Documented By: MOON Apixaban (Apixaban 5 Mg Tablet) 5 mg PO BID [facility] Last Admin: 10/23/23 08:45 Dose: 5 mg Documented By: MOON Diltiazem HCl 125 mg/ Sodium (Chloride) 125 mls @ 0 mls/hr IVCONT .Q0M [facility]; Protocol Last Titration: 10/23/23 09:58 Dose: 5 mg/hr, 5 mls/hr Documented By: MOON Levothyroxine Sodium 112 mcg/ (Levothyroxine Sodium 25 mcg) 137 mcg PO DAILY@0600 [facility] Last Admin: 10/23/23 05:41 Dose: 137 mcg Documented By: KANA Melatonin (Melatonin 3 Mg Tablet) 6 mg PO BEDTIME PRN PRN Reason: Insomnia Methocarbamol (Methocarbamol 500 Mg Tablet) 500 mg PO QID [facility] Last Admin: 10/23/23 08:45 Dose: 500 mg Documented By: MOON Metoprolol Succinate (Metoprolol Succinate Er 25 Mg Tab.Er.24h) 25 mg PO DAILY [facility]; Protocol Last Admin: 10/23/23 08:45 Dose: 25 mg Documented By: MOON Nystatin (Nystatin Cream 15 Gm Tube) 1 appl TOPICAL BID [facility]; Protocol Last Admin: 10/22/23 22:49 Dose: 1 appl Documented By: CAROLYN Ondansetron HCl (Ondansetron Hcl 4 Mg/2 Ml Vial) 4 mg IVPUSH Q8H PRN PRN Reason: Nausea and Vomiting Oxycodone HCl (Oxycodone Hcl Immed Release 5 Mg Tablet) 5 mg PO Q4H PRN PRN Reason: Pain, Severe (Pain Scale 7-10) Last Admin: 10/22/23 22:20 Dose: 5 mg Documented By: CAROLYN Potassium Chloride (Potassium Chloride Er 20 Meq Tab.Er.Prt) 40 meq PO DAILY@1200 [facility] Sodium Chloride (0.9 % Sodium Chloride Flush 3 Ml Syringe) 3 ml IVFLUSH QSHIFT [facility] Last Admin: 10/23/23 08:46 Dose: Not Given Documented By: MOON Non-Admin Reason: IV Running Labs 10/23/23 06:08 10/23/23 06:08 Labs: Laboratory Results - last 24 hr 10/22/23 10/22/23 10/22/23 18:06 18:42 22:00 MCV 94.4 MCH 31.2 MCHC 33.0 RDW 15.9 Plt Count 254 D MPV 10.6 Immature Gran % (Auto) 0.4 Neut % (Auto) 88.1 H Lymph % (Auto) 4.8 L [place] % (Auto) 6.0 Eos % (Auto) 0.2 Baso % (Auto) 0.5 Lymph # (Auto) 0.5 L [place] # (Auto) 0.7 Eos # (Auto) 0.0 Baso # (Auto) 0.1 Abs Immat Gran (auto) 0.04 H Absolute Neuts (auto) 9.7 H Absolute Nucleated RBC 0.000 Nucleated RBC % (auto) 0.0 Anion Gap 16 Estim Creat Clear Calc 26.4 Estimated GFR 19 POC Glucose 119 H Random Glucose 125 H Calcium 10.5 H D Total Bilirubin 0.7 AST 13 ALT 9 Alkaline Phosphatase 74 Total Creatine Kinase 40 Troponin I High Sens B-Natriuretic Peptide 205 H Total Protein 7.6 Albumin 4.0 Urine Color Yellow Urine Appearance Cloudy Urine pH 5.0 Ur Specific [place] 1.010 Urine Protein Negative Urine Glucose (UA) Negative Urine Ketones Negative Urine Blood Negative Urine Nitrite Negative Ur Leukocyte Esterase Small (1+) H Urine RBC 0-2 Urine WBC 0-5 Ur Squamous Epith Cells 0-2 Urine Bacteria 2+ Hyaline Casts 0-2 10/22/23 10/22/23 10/23/23 22:42 23:07 06:08 MCV 95.4 MCH 31.6 MCHC 33.2 RDW 16.1 H Plt Count 233 MPV 10.8 Immature Gran % (Auto) 0.8 H Neut % (Auto) 74.8 H Lymph % (Auto) 10.7 L [place] % (Auto) 11.2 H Eos % (Auto) 1.8 Baso % (Auto) 0.7 Lymph # (Auto) 0.8 L [place] # (Auto) 0.9 Eos # (Auto) 0.1 Baso # (Auto) 0.1 Abs Immat Gran (auto) 0.06 H Absolute Neuts (auto) 5.7 Absolute Nucleated RBC 0.000 Nucleated RBC % (auto) 0.0 Anion Gap 16 Estim Creat Clear Calc 32.8 Estimated GFR 24 POC Glucose 128 H Random Glucose 87 Calcium 9.6 D Total Bilirubin AST ALT Alkaline Phosphatase Total Creatine Kinase Troponin I High Sens 11.8 B-Natriuretic Peptide Total Protein Albumin Urine Color Urine Appearance Urine pH Ur Specific [place] Urine Protein Urine Glucose (UA) Urine Ketones Urine Blood Urine Nitrite Ur Leukocyte Esterase Urine RBC Urine WBC Ur Squamous Epith Cells Urine Bacteria Hyaline Casts Assessment and Plan (1) JESSIE (acute kidney injury): Status: Acute Plan 78F PMH htn, hld, pe, pafib, hfref, hypothyroid, ckd iii, presented with fall, n.v, found to have jessie and rapid afib JESSIE on CKD III due to hypovolemia hodling diuretics and Entresto and Aldactone Monitor Nausea vomiting Antiemetics Paroxysmal atrial fibrillation with rapid ventricular response Continue amiodarone, metoprolol Heart rate now in the 70s Chronic systolic CHF Hypovolemic, holding diuretics, Entresto, Aldactone Hypothyroid Synthroid DVT prophylaxis on Eliquis Full code reason for continued hospitalization: Monitoring for rate control and acute kidney injury Quality Stroke Does the patient have a stroke diagnosis?: No VTE Prior VTE?: No VTE Risk Level:: Medical - moderate - high VTE Device Contraindication: Treatment Not Indicated VTE Drug Contraindication: N/A - Med Ordered
--- NOTE | 2023-10-23 11:27 | PM.CNCAR ---
History of Present Illness History of Present Illness Date of Service: 10/23/23 Chief complaint: Fall Narrative: This is a cardiology consultation regarding atrial fibrillation. Per recent consultation by Dr. Fine, patient apparently had atrial fibrillation rapid ventricular response but had cardioversion and was maintaining sinus rhythm. Then discharged home. She was put on amiodarone. Also on Eliquis. Per the consultation, she also had severe LV dysfunction/CHF. She was supposed to follow-up in the clinic but has not done that as yet. In the interim, she states that she has a hole in the roof at home and that led to squirrels coming inside and bothering her. Hence it seems she was chasing the squirrels and in that process, had a fall. Then she has been admitted to the hospital for diagnosis of JESSIE/dehydration/muscle spasm/pain. In this context, it seems she also had atrial fibrillation and hence we have been consulted. The telemetry is reading heart rates in the 160s extra but it seems that is lot of artifact. When we do the actual EKG, the heart rate is only the 70s but she is in atrial fibrillation. Patient however, does not feel any of that. No other cardiac symptoms at this time. Review of Systems Review of Systems: Yes all other systems are reviewed and are negative Constitutional: Constitutional: Reports as per HPI and Reports no additional constitutional complaints Eyes: Eyes: Reports as per HPI and Denies no additional eye complaints ENT: Denies system reviewed and no additional complaints, except as documented and Reports as per HPI Cardiovascular: Cardiovascular: Reports as per HPI, Reports no additional cardiovascular complaints, Denies acrocyanosis, Denies cool extremities, Denies chest pain, Denies leg edema, Denies lightheadedness, Denies palpitations and Denies dyspnea Respiratory: Respiratory: Reports as per HPI, Denies no additional respiratory complaints and Denies dyspnea Gastrointestinal: Gastrointestinal: Reports as per HPI and Denies no additional gastrointestinal complaints Genitourinary: Genitourinary: Reports as per HPI Musculoskeletal: Musculoskeletal: Reports no additional musculoskeletal complaints and Reports as per HPI Integumentary/Breasts: Skin/Breast: Reports system reviewed and no additional complaints, except as docu Neurologic: Reports system reviewed and no additional complaints, except as documented and Reports as per HPI Psychiatric: Psychiatric: Reports no additional psychiatric complaints and Reports as per HPI Endocrine: Endocrine: Reports no additional endocrine complaints, Reports as per HPI and Denies palpitations Hematologic/Lymphatic: Hematologic/Lymphatic: Reports no additional hematologic/lymphatic complaints and Reports as per HPI Allergic/Immunologic: Allergic/Immunologic: Reports no additional allergic/immunologic complaints and Reports as per HPI PMFSH Past Medical History Medical History HFrEF (heart failure with reduced ejection fraction) Atrial fibrillation Lymphedema Hypothyroidism History of pulmonary embolism HTN (hypertension) Current use of anticoagulant therapy Family History Family History Father CVD (cardiovascular disease) Mother Medical history unknown Surgical History Surgical History History of laparoscopic cholecystectomy Social History Social History Household Members: None Housing: House Do you presently have visiting nurse or other home services: Yes ([employer]/ [employer]) Alcohol intake: unknown Comment: rings appropriately- A/ox4 Patient Tobacco Use Status: Never used Tobacco Smoked in Last 30 Days: No e-Cigarette/Vaping Use: Never Used Patient Interested in Nicotine Replacement: No Patient Given Instructions on How to Stop Smoking: No Second Hand Smoke Exposure: No Use of substances other than those prescribed or required for medical reasons: Unable to respond Currently Displaying Signs/Symptoms of Drug Intoxication Withdrawal: No Any prior treatment program specific to substance use: No Have you been hit, kicked, punched, or otherwise hurt by someone within the past year? 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 2/wk) Advance Directives: Yes Advance Directives on File: Yes Advance Directives Date on File: 08/26/23 Recently lost weight without trying: No Eating poorly because of decreased appetite: No Nutrition Risks: No Nutritional Risk Patient : No : No Poor oral hygiene: No service: No Current occupational status: retired Cognitive needs: Yes (Pt has a walker) Hearing needs: No Vision needs: No Meds Allergies Allergy/AdvReac Type Severity Reaction Status Date / Time No Known Allergies Allergy Verified 09/15/23 11:05 Active Medications: Current Medications Acetaminophen (Acetaminophen 325 Mg Tablet) 650 mg PO Q6H PRN PRN Reason: Pain, Mild (Pain Scale 1-3) Amiodarone HCl (Amiodarone Hcl 200 Mg Tablet) 200 mg PO DAILY [facility] Last Admin: 10/23/23 08:46 Dose: 200 mg Apixaban (Apixaban 5 Mg Tablet) 5 mg PO BID [facility] Last Admin: 10/23/23 08:45 Dose: 5 mg Diltiazem HCl 125 mg/ Sodium (Chloride) 125 mls @ 0 mls/hr IVCONT .Q0M [facility]; Protocol Last Titration: 10/23/23 10:51 Dose: 0 mg/hr, 0 mls/hr Levothyroxine Sodium 112 mcg/ (Levothyroxine Sodium 25 mcg) 137 mcg PO DAILY@0600 [facility] Last Admin: 10/23/23 05:41 Dose: 137 mcg Melatonin (Melatonin 3 Mg Tablet) 6 mg PO BEDTIME PRN PRN Reason: Insomnia Methocarbamol (Methocarbamol 500 Mg Tablet) 500 mg PO QID [facility] Last Admin: 10/23/23 08:45 Dose: 500 mg Metoprolol Succinate (Metoprolol Succinate Er 25 Mg Tab.Er.24h) 25 mg PO DAILY [facility]; Protocol Last Admin: 10/23/23 08:45 Dose: 25 mg Nystatin (Nystatin Cream 15 Gm Tube) 1 appl TOPICAL BID [facility]; Protocol Last Admin: 10/22/23 22:49 Dose: 1 appl Ondansetron HCl (Ondansetron Hcl 4 Mg/2 Ml Vial) 4 mg IVPUSH Q8H PRN PRN Reason: Nausea and Vomiting Oxycodone HCl (Oxycodone Hcl Immed Release 5 Mg Tablet) 5 mg PO Q4H PRN PRN Reason: Pain, Severe (Pain Scale 7-10) Last Admin: 10/22/23 22:20 Dose: 5 mg Potassium Chloride (Potassium Chloride Er 20 Meq Tab.Er.Prt) 40 meq PO DAILY@1200 [facility] Sodium Chloride (0.9 % Sodium Chloride Flush 3 Ml Syringe) 3 ml IVFLUSH QSHIFT [facility] Last Admin: 10/23/23 08:46 Dose: Not Given Home Medications Medication Instructions Recorded Confirmed Last Taken Type acetaminophen 325 mg tablet 650 mg PO Q6H PRN Pain 10/22/23 10/22/23 10/22/23 History Physical Exam Vital Signs: Vital Signs: Last Vital Signs Temp 97.3 F 10/23/23 08:00 Pulse 76 10/23/23 08:00 Resp 16 10/23/23 08:00 BP 100/55 L 10/23/23 08:00 Pulse Ox 98 10/23/23 08:00 O2 Del Method Room Air 10/23/23 08:00 BMI result Body Mass Index 37.3 Const: General: comfortable and no acute distress Orientation/consciousness: patient oriented x3 HEENT: Other: Unremarkable Head: Yes normal to inspection Neck: Neck: Yes normal visual inspection Chest: Chest palpation & inspection: normal inspection of the chest Resp: Auscultation: clear to auscultation bilaterally Cardio: Palpation: normal PMI Heart sounds: S1 normal heart sound present, S2 normal heart sound present, no gallops, no murmurs and no rubs GI: Palpation (GI): Soft to palpation Back/Spine/Pelvis: Other: unremarkable Skin: General skin exam: no rashes or lesions noted Neuro: General: patient oriented x3 Extrem: General: Yes normal to inspection Psych: Mental Status: mental status grossly normal Objective Labs and Meds 10/23/23 06:08 10/23/23 06:08 Lab results: Laboratory Results - last 24 hr 10/22/23 10/22/23 10/22/23 18:06 18:42 22:00 WBC 10.9 H RBC 4.43 Hgb 13.8 Hct 41.8 MCV 94.4 MCH 31.2 MCHC 33.0 RDW 15.9 Plt Count 254 D MPV 10.6 Immature Gran % (Auto) 0.4 Neut % (Auto) 88.1 H Lymph % (Auto) 4.8 L [place] % (Auto) 6.0 Eos % (Auto) 0.2 Baso % (Auto) 0.5 Lymph # (Auto) 0.5 L [place] # (Auto) 0.7 Eos # (Auto) 0.0 Baso # (Auto) 0.1 Abs Immat Gran (auto) 0.04 H Absolute Neuts (auto) 9.7 H Absolute Nucleated RBC 0.000 Nucleated RBC % (auto) 0.0 Sodium 139 Potassium 4.9 Chloride 110 H Carbon Dioxide 18 L Anion Gap 16 BUN 78 H Creatinine 2.49 H Estim Creat Clear Calc 26.4 Estimated GFR 19 POC Glucose 119 H Random Glucose 125 H Calcium 10.5 H D Total Bilirubin 0.7 AST 13 ALT 9 Alkaline Phosphatase 74 Total Creatine Kinase 40 Troponin I High Sens B-Natriuretic Peptide 205 H Total Protein 7.6 Albumin 4.0 Urine Color Yellow Urine Appearance Cloudy Urine pH 5.0 Ur Specific [place] 1.010 Urine Protein Negative Urine Glucose (UA) Negative Urine Ketones Negative Urine Blood Negative Urine Nitrite Negative Ur Leukocyte Esterase Small (1+) H Urine RBC 0-2 Urine WBC 0-5 Ur Squamous Epith Cells 0-2 Urine Bacteria 2+ Hyaline Casts 0-2 10/22/23 10/22/23 10/23/23 22:42 23:07 06:08 WBC 7.7 RBC 4.14 L Hgb 13.1 Hct 39.5 MCV 95.4 MCH 31.6 MCHC 33.2 RDW 16.1 H Plt Count 233 MPV 10.8 Immature Gran % (Auto) 0.8 H Neut % (Auto) 74.8 H Lymph % (Auto) 10.7 L [place] % (Auto) 11.2 H Eos % (Auto) 1.8 Baso % (Auto) 0.7 Lymph # (Auto) 0.8 L [place] # (Auto) 0.9 Eos # (Auto) 0.1 Baso # (Auto) 0.1 Abs Immat Gran (auto) 0.06 H Absolute Neuts (auto) 5.7 Absolute Nucleated RBC 0.000 Nucleated RBC % (auto) 0.0 Sodium 140 Potassium 5.2 H Chloride 112 H Carbon Dioxide 17 L Anion Gap 16 BUN 69 H Creatinine 2.00 H Estim Creat Clear Calc 32.8 Estimated GFR 24 POC Glucose 128 H Random Glucose 87 Calcium 9.6 D Total Bilirubin AST ALT Alkaline Phosphatase Total Creatine Kinase Troponin I High Sens 11.8 B-Natriuretic Peptide Total Protein Albumin Urine Color Urine Appearance Urine pH Ur Specific [place] Urine Protein Urine Glucose (UA) Urine Ketones Urine Blood Urine Nitrite Ur Leukocyte Esterase Urine RBC Urine WBC Ur Squamous Epith Cells Urine Bacteria Hyaline Casts ECG Interpretation: EKG with atrial fibrillation rate of 100/Min; left bundle-branch block pattern. In the repeat EKG, atrial fibrillation still present at 79/Min. In the initial admission EKG, there is artifact but the atrial fibrillation seems to be around 120/Min. Imaging Radiologist's impression: Impressions Hip/Pelvis X-Ray 10/22/23 14:00 IMPRESSION: 1. Normal pelvis x-ray. No fracture or dislocation is seen. 2. Normal x-ray of right hip. No fracture or dislocation or signs of avascular necrosis are seen. Cervical Spine CT 10/22/23 14:15 IMPRESSION: 1. No evidence of acute fracture or traumatic subluxation of the cervical spine. 2. Cervical spondylosis, C5-C6 and C6-C7 degenerative cervical disc disease are seen. Face CT 10/22/23 14:15 IMPRESSION: No acute intracranial, maxillofacial bone, or cervical abnormalities. Head CT 10/22/23 14:15 IMPRESSION: 1. Age related cerebral atrophy and ventriculomegaly. 2. No intracranial hemorrhage or skull fracture is seen. 3. No evidence of space occupying lesion could be found. 4. The current plain CT scan of the brain shows no diagnostic evidence of acute cerebral infarction. Chest CT 10/22/23 14:49 IMPRESSION: 1. 2 small pulmonary nodules in the right middle lobe and left lower lobe superior segment. 2. No abnormal mediastinal or axillary lymphadenopathy. 3. Mild groundglass haziness in both lower lobes. No acute consolidation. Fleischner guidelines were followed. Assessment and Plan (1) Atrial fibrillation with RVR: Status: Acute (2) Cardiomyopathy: Status: Acute (3) LBBB (left bundle branch block): Status: Acute Plan In the echocardiogram from 08/25/2023, LVEF 25-30%. Current admissions for falls and she has atrial fibrillation with slightly rapid rate but currently controlled. We can stop the Cardizem drip and see how she is. For medications, she is on amiodarone/metoprolol ER/Eliquis. Ideally, should be back in normal sinus rhythm considering the severe cardiomyopathy. May require outpatient cardioversion again. If that is still fails, then maybe ablation. Discussed with Dr. Randhawa. Procedures Date of Service Date of Service: 10/23/23
[2023-10-23] MEDS: 0.9 % Sodium Chloride 500 ML 999 ML IV (12:21)
[2023-10-23] MEDS: 0.9 % Sodium Chloride 1,000 ML 999 ML IV (13:55)
[2023-10-23] MEDS: Midodrine HCl 5 MG TABLET PO ×2 (14:17→16:29)
[2023-10-23] MEDS: 0.9 % Sodium Chloride Flush 3 ML SYRINGE IVFLUSH ×2 (16:29→19:39)
[2023-10-24 04:00] VITALS: BP 120/66; PULSE 101; RESP 20; TEMP 36; O2SAT 92
[2023-10-24] MEDS: Levothyroxine Sodium 112 MCG, Levothyroxine Sodium 25 MCG 137 MCG PO (05:04)
[2023-10-24] MEDS: Nystatin Cream 15 GM TUBE 1 APPL TOPICAL ×2 (05:04→08:09)
[2023-10-24 07:14] LABS: Hematocrit 38.4 % (37.0-47.0); Hemoglobin 12.5 g/dl (12.0-16.0); Mean Corpuscular HGB Conc 32.6 g/dl (31.0-35.0); Mean Corpuscular Hemoglobin 31.2 pg (27.0-33.0); Mean Corpuscular Volume 95.8 fL (80.0-98.0); Mean Platelet Volume 10.8 fL (9.4-12.3); Platelet Count 235 X10*3/uL (160-400); Red Blood Count 4.01 X10*6/uL (4.20-5.50); Red Cell Distribution Width 16.4 % (11.0-16.0); White Blood Count 7.9 X10*3/uL (4.8-10.8)
[2023-10-24 07:28] VITALS: BP 103/61; PULSE 100; RESP 18; TEMP 36.3; O2SAT 96
[2023-10-24 07:34] LABS: Anion Gap 12 (12-20); Blood Urea Nitrogen 52 mg/dL (9-16); Calcium 9.1 mg/dL (8.4-10.2); Carbon Dioxide 19 mmol/L (22-29); Chloride 114 mmol/L (96-108); Estimated Glomerular Filt Rate 34; Glucose Fasting 90 mg/dL (60-99); Potassium 4.6 mmol/L (3.3-5.1); Sodium 140 mmol/L (135-145)
[2023-10-24] MEDS: oxyCODONE HCl Immed Release 5 MG TABLET PO (08:06)
[2023-10-24] MEDS: methocarbamoL 500 MG TABLET PO ×4 (08:07→22:11)
[2023-10-24] MEDS: Midodrine HCl 5 MG TABLET PO ×3 (08:07→16:26)
[2023-10-24] MEDS: Amiodarone HCL 200 MG TABLET PO (08:07)
[2023-10-24] MEDS: Apixaban 5 MG TABLET PO ×2 (08:07→22:11)
[2023-10-24] MEDS: Metoprolol Succinate ER 25 MG TAB.ER.24H PO (08:07)
[2023-10-24] MEDS: 0.9 % Sodium Chloride Flush 3 ML SYRINGE IVFLUSH ×3 (08:07→22:12)
--- NOTE | 2023-10-24 09:34 | PM.PNCARD ---
Subjective Subjective Date of Service: 10/24/23 Interval history: Seen and examined. She states she feels okay. No specific cardiac complaints. Review of Systems Review of Systems Yes all other systems are reviewed and are negative Constitutional: Reports as per HPI and Reports no additional constitutional complaints Eyes: Reports as per HPI and Denies no additional eye complaints Denies system reviewed and no additional complaints, except as documented and Reports as per HPI Cardiovascular: Reports as per HPI, Reports no additional cardiovascular complaints, Denies acrocyanosis, Denies cool extremities, Denies chest pain, Denies leg edema, Denies lightheadedness, Denies palpitations and Denies dyspnea Respiratory: Reports as per HPI, Denies no additional respiratory complaints and Denies dyspnea Gastrointestinal: Reports as per HPI and Denies no additional gastrointestinal complaints Genitourinary: Reports as per HPI Musculoskeletal: Reports no additional musculoskeletal complaints and Reports as per HPI Skin/Breast: Reports system reviewed and no additional complaints, except as docu Reports system reviewed and no additional complaints, except as documented and Reports as per HPI Psychiatric: Reports no additional psychiatric complaints and Reports as per HPI Endocrine: Reports no additional endocrine complaints, Reports as per HPI and Denies palpitations Hematologic/Lymphatic: Reports no additional hematologic/lymphatic complaints and Reports as per HPI Allergic/Immunologic: Reports no additional allergic/immunologic complaints and Reports as per HPI Physical Exam Vital Signs: Last Vital Signs Temp 97.4 F 10/24/23 07:28 Pulse 100 10/24/23 07:28 Resp 18 10/24/23 07:28 BP 103/61 10/24/23 07:28 Pulse Ox 96 10/24/23 07:28 O2 Del Method Room Air 10/24/23 07:28 BMI result Body Mass Index 37.3 Const General: comfortable and no acute distress Orientation/consciousness: patient oriented x3 HEENT Other: Unremarkable Head: Yes normal to inspection Neck Neck: Yes normal visual inspection Chest Chest palpation & inspection: normal inspection of the chest Resp Auscultation: clear to auscultation bilaterally Cardio Palpation: normal PMI Heart sounds: S1 normal heart sound present, S2 normal heart sound present, no gallops, no murmurs and no rubs GI Palpation (GI): Soft to palpation Back/Spine/Pelvis Other: unremarkable Skin General skin exam: no rashes or lesions noted Neuro General: patient oriented x3 Extrem General: Yes normal to inspection Psych Mental Status: mental status grossly normal Objective Labs and Meds 10/24/23 06:38 10/24/23 06:38 Lab results: Laboratory Results - last 24 hr 10/24/23 06:38 WBC 7.9 RBC 4.01 L Hgb 12.5 Hct 38.4 MCV 95.8 MCH 31.2 MCHC 32.6 RDW 16.4 H Plt Count 235 MPV 10.8 Absolute Nucleated RBC 0.000 Nucleated RBC % (auto) 0.0 Sodium 140 Potassium 4.6 Chloride 114 H Carbon Dioxide 19 L Anion Gap 12 BUN 52 H Creatinine 1.49 H Estim Creat Clear Calc 44.0 Estimated GFR 34 Fasting Glucose 90 Calcium 9.1 Progress Note: A&P Assessment and plan (1) Atrial fibrillation with RVR: Status: Acute (2) Cardiomyopathy: Status: Acute (3) LBBB (left bundle branch block): Status: Acute Plan In the echocardiogram from 08/25/2023, LVEF 25-30%. Recurrent atrial fibrillation in spite of recent cardioversion. Her blood pressure is also lowish and it seems that she dropped as much into the 80s and 90s but currently slightly higher. Atrial fibrillation right now is just about 100-110/Min. Clinically, she has no overt symptoms. She states that she has been taking Eliquis without any interruptions. Can plan for another cardioversion tomorrow. Keep NPO past midnight. Discussed with hospitalist. Time Spent With Patient Time: Total time managing care of this patient today ____ minutes. Progress Note: Quality Stroke Does the patient have a stroke diagnosis?: No Procedures Date of Service Date of Service: 10/24/23
--- NOTE | 2023-10-24 10:09 | P.PNIM_ITS ---
Subjective Subjective Date of Service: 10/24/23 Interval History: no complaints Physical Exam 2 Vital Signs: Vital Signs: Last Vital Signs Temp 97.4 F 10/24/23 07:28 Pulse 100 10/24/23 07:28 Resp 18 10/24/23 07:28 BP 103/61 10/24/23 07:28 Pulse Ox 96 10/24/23 07:28 O2 Del Method Room Air 10/24/23 07:28 BMI result Body Mass Index 37.3 Const: General: comfortable and no acute distress O rientation/consciousness: patient oriented x3 HEENT: Other: Unremarkable Head: Yes normal to inspection Neck: Neck: Yes normal visual inspection Chest: Chest palpation & inspection: normal inspection of the chest Resp: Auscultation: clear to auscultation bilaterally Cardio: Palpation: normal PMI Heart sounds: S1 normal heart sound present, S2 normal heart sound present, no gallops, no murmurs and no rubs GI: Palpation (GI): Soft to palpation Back/Spine/Pelvis: Other: unremarkable Skin: General skin exam: no rashes or lesions noted Neuro: General: patient oriented x3 Extrem: General: Yes normal to inspection Psych: Mental Status: mental status grossly normal Objective Data Active Medications Acetaminophen (Acetaminophen 325 Mg Tablet) 650 mg PO Q6H PRN PRN Reason: Pain, Mild (Pain Scale 1-3) Amiodarone HCl (Amiodarone Hcl 200 Mg Tablet) 200 mg PO DAILY [facility] Last Admin: 10/24/23 08:07 Dose: 200 mg Documented By: GOYO Apixaban (Apixaban 5 Mg Tablet) 5 mg PO BID [facility] Last Admin: 10/24/23 08:07 Dose: 5 mg Documented By: GOYO Levothyroxine Sodium 112 mcg/ (Levothyroxine Sodium 25 mcg) 137 mcg PO DAILY@0600 [facility] Last Admin: 10/24/23 05:04 Dose: 137 mcg Documented By: KANA Melatonin (Melatonin 3 Mg Tablet) 6 mg PO BEDTIME PRN PRN Reason: Insomnia Methocarbamol (Methocarbamol 500 Mg Tablet) 500 mg PO QID [facility] Last Admin: 10/24/23 08:07 Dose: 500 mg Documented By: GOYO Metoprolol Succinate (Metoprolol Succinate Er 25 Mg Tab.Er.24h) 25 mg PO DAILY [facility]; Protocol Last Admin: 10/24/23 08:07 Dose: 25 mg Documented By: GOYO Midodrine (Midodrine Hcl 5 Mg Tablet) 5 mg PO TIDAC [facility] Last Admin: 10/24/23 08:07 Dose: 5 mg Documented By: GOYO Nystatin (Nystatin Cream 15 Gm Tube) 1 appl TOPICAL BID [facility]; Protocol Last Admin: 10/24/23 08:09 Dose: 1 appl Documented By: GOYO Ondansetron HCl (Ondansetron Hcl 4 Mg/2 Ml Vial) 4 mg IVPUSH Q8H PRN PRN Reason: Nausea and Vomiting Oxycodone HCl (Oxycodone Hcl Immed Release 5 Mg Tablet) 5 mg PO Q4H PRN PRN Reason: Pain, Severe (Pain Scale 7-10) Last Admin: 10/24/23 08:06 Dose: 5 mg Documented By: GOYO Potassium Chloride (Potassium Chloride Er 20 Meq Tab.Er.Prt) 40 meq PO DAILY@1200 [facility] Last Admin: 10/23/23 12:37 Dose: Not Given Documented By: MOON Non-Admin Reason: Physician Held Med Sodium Chloride (0.9 % Sodium Chloride Flush 3 Ml Syringe) 3 ml IVFLUSH QSHIFT [facility] Last Admin: 10/24/23 08:07 Dose: 3 ml Documented By: GOYO Labs 10/24/23 06:38 10/24/23 06:38 Labs: Laboratory Results - last 24 hr 10/24/23 06:38 MCV 95.8 MCH 31.2 MCHC 32.6 RDW 16.4 H Plt Count 235 MPV 10.8 Absolute Nucleated RBC 0.000 Nucleated RBC % (auto) 0.0 Anion Gap 12 Estim Creat Clear Calc 44.0 Estimated GFR 34 Fasting Glucose 90 Calcium 9.1 Microbiology Microbiology Results: Microbiology 10/22/23 Unknown Urine Culture - Preliminary Urine clean catch - Urine gaytan top Culture in progress. Assessment and Plan (1) JESSIE (acute kidney injury): Status: Acute Plan 78F PMH htn, hld, pe, pafib, hfref, hypothyroid, ckd iii, presented with fall, n.v, found to have jessie and rapid afib JESSIE on CKD III due to hypovolemia received ivf about 1.5L on 3/2/24 holding diuretics and Entresto and Aldactone Monitor, improved Nausea vomiting Antiemetics Paroxysmal atrial fibrillation with rapid ventricular response Continue amiodarone, metoprolol cardio following Chronic systolic CHF Hypovolemic, holding diuretics, Entresto, Aldactone Hypothyroid Synthroid DVT prophylaxis on Eliquis Full code reason for continued hospitalization: Monitoring for rate control and acute kidney injury Quality Stroke Does the patient have a stroke diagnosis?: No VTE Prior VTE?: No VTE Risk Level:: Medical - moderate - high VTE Device Contraindication: Treatment Not Indicated VTE Drug Contraindication: N/A - Med Ordered
[2023-10-24 11:37] VITALS: BP 105/62; PULSE 108; RESP 18; TEMP 36.1; O2SAT 97
[2023-10-24 16:00] VITALS: BP 101/74; PULSE 110; RESP 20; TEMP 36.3; O2SAT 100
[2023-10-24 20:00] VITALS: BP 130/61; PULSE 108; RESP 19; TEMP 36.2; O2SAT 99
[2023-10-24 23:31] VITALS: BP 125/77; PULSE 92; RESP 19; TEMP 35.8; O2SAT 98
--- NOTE | 2023-10-25 | ECG_ITS ---
Test Reason : vtach Blood Pressure : / mmHG Vent. Rate : 136 BPM Atrial Rate : 000 BPM P-R Int : 000 ms QRS Dur : 150 ms QT Int : 310 ms P-R-T Axes : 000 -41 118 degrees QTc Int : 466 ms Atrial fibrillation with rapid ventricular response with premature ventricular or aberrantly conducted complexes Left axis deviation Left bundle branch block Abnormal ECG When compared with ECG of 23-OCT-2023 09:39, Vent. rate has increased BY 57 BPM Referred By: Brandon Randhawa Electronically Signed By:Larry May
[2023-10-25 03:14] VITALS: BP 115/55; PULSE 104; RESP 19; TEMP 35.8; O2SAT 97
[2023-10-25] MEDS: Nystatin Cream 15 GM TUBE 1 APPL TOPICAL (05:12)
[2023-10-25 08:00] VITALS: BP 115/70; PULSE 111; RESP 20; TEMP 36; O2SAT 96
[2023-10-25] MEDS: 0.9 % Sodium Chloride Flush 3 ML SYRINGE IVFLUSH ×3 (08:44→21:17)
[2023-10-25] MEDS: Midodrine HCl 5 MG TABLET PO ×3 (08:45→17:05)
[2023-10-25] MEDS: Metoprolol Succinate ER 25 MG TAB.ER.24H PO ×2 (08:45→18:21)
[2023-10-25] MEDS: Amiodarone HCL 200 MG TABLET PO (08:46)
[2023-10-25] MEDS: Apixaban 5 MG TABLET PO ×2 (08:46→21:01)
[2023-10-25] MEDS: methocarbamoL 500 MG TABLET PO ×4 (08:46→21:01)
--- NOTE | 2023-10-25 09:04 | HO.PM.IMPN ---
Subjective Subjective Date of Service: 10/25/23 Interval History: no complaints Physical Exam Vital Signs: Vital Signs: Last Vital Signs Temp 96.8 F 10/25/23 08:00 Pulse 111 H 10/25/23 08:00 Resp 20 10/25/23 08:00 BP 115/70 10/25/23 08:00 Pulse Ox 96 10/25/23 08:00 O2 Del Method Room Air 10/25/23 08:00 BMI result Body Mass Index 37.3 Const: General: comfortable and no acute distress Orientation/consciousness: patient oriented x3 HEENT: Other: Unremarkable Head: Yes normal to inspection Neck: Neck: Yes normal visual inspection Chest: Chest palpation & inspection: normal inspection of the chest Resp: Auscultation: clear to auscultation bilaterally Cardio: Palpation: normal PMI Heart sounds: S1 normal heart sound present, S2 normal heart sound present, no gallops, no murmurs and no rubs GI: Palpation (GI): Soft to palpation Back/Spine/Pelvis: Other: unremarkable Skin: General skin exam: no rashes or lesions noted Neuro: General: patient oriented x3 Extrem: General: Yes normal to inspection Psych: Mental Status: mental status grossly normal Objective Data Active Medications Acetaminophen (Acetaminophen 325 Mg Tablet) 650 mg PO Q6H PRN PRN Reason: Pain, Mild (Pain Scale 1-3) Amiodarone HCl (Amiodarone Hcl 200 Mg Tablet) 200 mg PO DAILY [facility] Last Admin: 10/25/23 08:46 Dose: 200 mg Documented By: JOHN Apixaban (Apixaban 5 Mg Tablet) 5 mg PO BID [facility] Last Admin: 10/25/23 08:46 Dose: 5 mg Documented By: JOHN Levothyroxine Sodium 112 mcg/ (Levothyroxine Sodium 25 mcg) 137 mcg PO DAILY@0600 [facility] Last Admin: 10/25/23 05:13 Dose: Not Given Documented By: MARIA TERESA Non-Admin Reason: NPO Melatonin (Melatonin 3 Mg Tablet) 6 mg PO BEDTIME PRN PRN Reason: Insomnia Methocarbamol (Methocarbamol 500 Mg Tablet) 500 mg PO QID [facility] Last Admin: 10/25/23 08:46 Dose: 500 mg Documented By: JOHN Metoprolol Succinate (Metoprolol Succinate Er 25 Mg Tab.Er.24h) 25 mg PO DAILY [facility]; Protocol Last Admin: 10/25/23 08:45 Dose: 25 mg Documented By: JOHN Midodrine (Midodrine Hcl 5 Mg Tablet) 5 mg PO TIDAC [facility] Last Admin: 10/25/23 08:45 Dose: 5 mg Documented By: JOHN Nystatin (Nystatin Cream 15 Gm Tube) 1 appl TOPICAL BID [facility]; Protocol Last Admin: 10/25/23 05:12 Dose: 1 appl Documented By: MARIA TERESA Ondansetron HCl (Ondansetron Hcl 4 Mg/2 Ml Vial) 4 mg IVPUSH Q8H PRN PRN Reason: Nausea and Vomiting Oxycodone HCl (Oxycodone Hcl Immed Release 5 Mg Tablet) 5 mg PO Q4H PRN PRN Reason: Pain, Severe (Pain Scale 7-10) Last Admin: 10/24/23 08:06 Dose: 5 mg Documented By: GOYO Potassium Chloride (Potassium Chloride Er 20 Meq Tab.Er.Prt) 40 meq PO DAILY@1200 [facility] Last Admin: 10/23/23 12:37 Dose: Not Given Documented By: MOON Non-Admin Reason: Physician Held Med Sodium Chloride (0.9 % Sodium Chloride Flush 3 Ml Syringe) 3 ml IVFLUSH QSHIFT [facility] Last Admin: 10/25/23 08:44 Dose: 3 ml Documented By: JOHN Labs 10/24/23 06:38 10/24/23 06:38 Microbiology Microbiology Results: Microbiology 10/22/23 Unknown Urine Culture - Final Urine clean catch - Urine gaytan top Assessment and Plan (1) JESSIE (acute kidney injury): Status: Acute Plan 78F PMH htn, hld, pe, pafib, hfref, hypothyroid, ckd iii, presented with fall, n.v, found to have jessie and rapid afib JESSIE on CKD III due to hypovolemia received ivf about 1.5L on 10/23/23 holding diuretics and Entresto and Aldactone Monitor, improved Nausea vomiting Antiemetics Paroxysmal atrial fibrillation with rapid ventricular response Continue amiodarone, metoprolol plan for cardioversion today Chronic systolic CHF Hypovolemic, holding diuretics, Entresto, Aldactone Hypothyroid Synthroid DVT prophylaxis on Eliquis Full code reason for continued hospitalization: Monitoring for rate control and acute kidney injury, cardioversion today Quality Stroke Does the patient have a stroke diagnosis?: No VTE Prior VTE?: No VTE Risk Level:: Medical - moderate - high VTE Device Contraindication: Treatment Not Indicated VTE Drug Contraindication: N/A - Med Ordered
--- NOTE | 2023-10-25 11:32 | PM.PNCARD ---
Subjective Subjective Date of Service: 10/25/23 Interval history: Seen examined at bedside. Feeling better. In AFib with RVR. Our plan was cardioversion today but no openings with anesthesia and this will be done tomorrow. Physical Exam Vital Signs: Last Vital Signs Temp 96.8 F 10/25/23 08:00 Pulse 111 H 10/25/23 08:00 Resp 20 10/25/23 08:00 BP 115/70 10/25/23 08:00 Pulse Ox 96 10/25/23 08:00 O2 Del Method Room Air 10/25/23 08:00 BMI result Body Mass Index 37.3 GENERAL APPEARANCE: in no acute distress, pleasant. NECK: no carotid bruit, no jugular venous distention. SKIN: no suspicious lesions, warm and dry. HEART: no murmurs, irregular rate and rhythm. Tachycardic. LUNGS: clear to auscultation bilaterally. ABDOMEN: soft, nontender. EXTREMITIES: no edema. PERIPHERAL PULSES: equal. NEUROLOGIC: No gross deficits, AAO X 3 Objective Labs and Meds 10/24/23 06:38 10/24/23 06:38 Progress Note: A&P Assessment and plan (1) Decompensated heart failure: Status: Acute (2) Atrial fibrillation with RVR: Status: Acute Plan Pleasant 78 year female with decompensated congestive heart failure. She has cardiomyopathy and was diagnosed with atrial fibrillation with rapid ventricular response underwent cardioversion twice at this stage. She again developed AFib and came back with heart failure. Has been diuresed and appears to be fairly euvolemic at this stage. Continue amiodarone and apixaban as before. Our plan will be to do cardioversion tomorrow morning at 10:00. Please keep her NPO after midnight. Thank you for allowing me to participate in the care of your patient. Please feel free to contact me if you have any questions. Time Spent With Patient Time: Total time managing care of this patient today ____ minutes. Progress Note: Quality Stroke Does the patient have a stroke diagnosis?: No Procedures Date of Service Date of Service: 10/25/23
[2023-10-25 11:52] VITALS: BP 137/69; PULSE 70; RESP 20; TEMP 36.1; O2SAT 97
[2023-10-25 14:49] VITALS: BP 132/59; PULSE 134; RESP 20; TEMP 36.7; O2SAT 93
--- NOTE | 2023-10-25 15:23 | MHC.CM.PN ---
EMR reviewed and per MD rounds, pt is not medically cleared for D/C due to ongoing management of A-fib with RVR/getting a cardioversion today, along with management of JESSIE. CM will continue to follow.
[2023-10-25 15:33] LABS: Anion Gap 12 (12-20); Blood Urea Nitrogen 43 mg/dL (9-16); Calcium 9.4 mg/dL (8.4-10.2); Carbon Dioxide 22 mmol/L (22-29); Chloride 112 mmol/L (96-108); Creatinine Clr Calc Pharmacy 44.4; Estimated Glomerular Filt Rate 34; Glucose Random 120 mg/dL (60-115); Magnesium 2.1 mg/dL (1.6-2.6); Potassium 4.8 mmol/L (3.3-5.1); Sodium 141 mmol/L (135-145)
[2023-10-25 20:00] VITALS: BP 109/53; PULSE 72; RESP 20; TEMP 36.6; O2SAT 97
[2023-10-26] VITALS: BP 101/67; PULSE 108; RESP 20; TEMP 36.2; O2SAT 97
[2023-10-26 03:44] VITALS: BP 110/60; PULSE 98; RESP 18; TEMP 36.2; O2SAT 96
[2023-10-26 06:34] LABS: Hematocrit 36.5 % (37.0-47.0); Hemoglobin 12.1 g/dl (12.0-16.0); Mean Corpuscular HGB Conc 33.2 g/dl (31.0-35.0); Mean Corpuscular Hemoglobin 30.9 pg (27.0-33.0); Mean Corpuscular Volume 93.4 fL (80.0-98.0); Mean Platelet Volume 10.8 fL (9.4-12.3); Platelet Count 222 X10*3/uL (160-400); Red Blood Count 3.91 X10*6/uL (4.20-5.50); Red Cell Distribution Width 16.4 % (11.0-16.0); White Blood Count 7.2 X10*3/uL (4.8-10.8)
[2023-10-26 06:52] LABS: Anion Gap 12 (12-20); Blood Urea Nitrogen 40 mg/dL (9-16); Calcium 9.1 mg/dL (8.4-10.2); Carbon Dioxide 19 mmol/L (22-29); Chloride 112 mmol/L (96-108); Creatinine Clr Calc Pharmacy 54.2; Estimated Glomerular Filt Rate 43; Glucose Fasting 85 mg/dL (60-99); Magnesium 2.1 mg/dL (1.6-2.6); Potassium 4.3 mmol/L (3.3-5.1); Sodium 139 mmol/L (135-145)
[2023-10-26 07:25] VITALS: BP 111/72; PULSE 99; RESP 20; TEMP 36.3; O2SAT 98
[2023-10-26] MEDS: methocarbamoL 500 MG TABLET PO ×2 (08:49→12:35)
[2023-10-26] MEDS: 0.9 % Sodium Chloride Flush 3 ML SYRINGE IVFLUSH (08:49)
[2023-10-26] MEDS: Metoprolol Succinate ER 50 MG TAB.ER.24H PO (08:49)
[2023-10-26] MEDS: Amiodarone HCL 200 MG TABLET PO (08:49)
--- NOTE | 2023-10-26 10:40 | PM.DS ---
DS: Providers Provider Date of Service: 10/26/23 Date of admission: 10/22/23 19:51 Primary care physician: Karson Frank PA-C Consults: 10/22/23 17:30 Consult to Case Management Stat Comment: concerns about going home safely, lives alones. 10/22/23 22:11 Consult to Cardiology Routine Consulting Provider: [facility] Reason for consultation: afib with rvr Has provider been notified: Yes DS: Diagnosis Discharge Diagnosis (1) Decompensated heart failure: Status: Acute (2) Atrial fibrillation with RVR: Status: Acute DS: Summary Hospital Course Hospital Course: from initial hpi: 78-year-old female with a PMH significant for?HTN, HLD, PE in 2013, paroxysmal AFib on Eliquis, HFrEF, hypothyroidism, and CKD 3 who presents to the ED after suffering fall at home. Patient states she was chasing a scrotal out of her house when she fell in her bathroom on her right side and got stuck between the door and the toilet. Reports took 30 minutes or so before she was able to become unstuck. Patient currently complaining of painful left-sided back spasms that occur every 1-2 minutes. Reports a long history of similar back spasms but less severe in pain and length. Has also had constant nausea with a little bit of vomiting since the incident. In the ED patient received Ativan and Flexeril, but patient states these have not relieved her symptoms. Denies chest pain/pressure, palpitations. No shortness of breath. Denies fever, chills, abdominal pain. No headache. Of note, patient was admitted to the hospital on 08/24-09/01 for new onset AFib with RVR and HFrEF. Patient was cardioverted during her stay and discharged on amiodarone, metoprolol, Entresto, and diuretics. Reports she was doing well up till today's incident. Reports she has been very careful not to drink too much fluid, and counts every fluid else she drinks. Denies increasing shortness of breath, lower leg edema, and worsening orthopnea. In the ED pt was tachycardic up to 108, with soft BP as low as 107/47. Labs were significant for BUN 78 with creatinine 2.49, and BNP slightly elevated at 205. CT?of head, face, and cervical spine found no acute intracranial, maxillofacial bone, or cervical abnormalities. CTA of chest found 2 small pulmonary nodules in right middle lobe and left lower lobe, as well as mild ground-glass haziness in both lower lobes with no acute consolidation. Pt was treated with IVF, Valium, Flexeril, and ondansetron. Pt will be admitted to the hospital for treatment and further evaluation of JESSIE in the setting of likely dehydration, as well as treatment for intractable muscle spasms and pain. hospital course: Patient was admitted for fall complicated by acute kidney injury on CKD 3. She was noted to be hypotensive, initially thought due to hypovolemia, Her neural hormonals, diuretics, and antihypertensives were held and she was given IV fluids and JESSIE resolved. For paroxysmal atrial fibrillation with rapid ventricular response she was continued on amiodarone and metoprolol, continues to be in AFib in the 120s. For chronic systolic CHF, meds were held as mentioned. For hypothyroidism was continue Synthroid. Course was complicated by several episodes of sustained VT. seen by cardiology, recommended to transfer to [facility] for ischemic work up and possible AICD. Time Attestation Discharge Coordination Time: discharge time of ____ minutes Quality: Safe Use of Opioids Does Pt have an Active Cancer Diagnosis on the Problem List?: No Quality: Stroke Does the patient have a stroke diagnosis?: No Physical Exam Vital Signs: Vital Signs: Last Vital Signs Temp 97.4 F 10/26/23 07:25 Pulse 99 10/26/23 07:25 Resp 20 10/26/23 07:25 BP 111/72 10/26/23 07:25 Pulse Ox 98 10/26/23 07:25 O2 Del Method Room Air 10/26/23 07:25 BMI result Body Mass Index 37.3 GENERAL APPEARANCE: in no acute distress, pleasant. NECK: no carotid bruit, no jugular venous distention. SKIN: no suspicious lesions, warm and dry. HEART: no murmurs, irregular rate and rhythm. Tachycardic. LUNGS: clear to auscultation bilaterally. ABDOMEN: soft, nontender. EXTREMITIES: no edema. PERIPHERAL PULSES: equal. NEUROLOGIC: No gross deficits, AAO X 3 DS: Data Data Completed and Pending Completed studies during hospitalization [Text1]: Procedures Assistance with Respiratory Ventilation, Less than 24 Consecutive Hours, Continuous Positive Airway Pressure (08/24/23) Amish of Cardiac Rhythm, Single (08/24/23) Labs on day of discharge: Laboratory Results - last 24 hr 10/25/23 10/26/23 14:58 06:01 WBC 7.2 RBC 3.91 L Hgb 12.1 Hct 36.5 L MCV 93.4 MCH 30.9 MCHC 33.2 RDW 16.4 H Plt Count 222 MPV 10.8 Absolute Nucleated RBC 0.000 Nucleated RBC % (auto) 0.0 Sodium 141 139 Potassium 4.8 4.3 Chloride 112 H 112 H Carbon Dioxide 22 19 L Anion Gap 12 12 BUN 43 H 40 H Creatinine 1.48 H 1.21 Estim Creat Clear Calc 44.4 54.2 Estimated GFR 34 43 Random Glucose 120 H Fasting Glucose 85 Calcium 9.4 9.1 Magnesium 2.1 2.1 Discharge Plan Discharge Anticipated Discharge Date/Time: 10/26/23 10:38 Patient Disposition: Xfer Acute Care Hospital Discharge Diagnosis: jessie, fall, nsvt, afib rvr Referrals: Karson Frank PA-C [Primary Care Provider] - 1 Week Discharge Medications: Continued (DME) Ultra-Light Rollator Misc See Rx Instructions .Route Qty: 1 0RF Rx Instructions: As directed (DME) Blood Pressure Cuff Misc See Rx Instructions .ROUTE .MEDSUPPLY Qty: 1 0RF Rx Instructions: As directed nystatin 100,000 unit/gram cream 1 appl topical BID 30 Days Qty: 30 3RF acetaminophen 325 mg Tablet 650 mg PO Q6H PRN (Reason: Pain) metoprolol succinate 25 mg Tablet Extended Release 24 Hr 25 mg PO DAILY Qty: 1 0RF Protocol: Hold for SBP/HR < HOLD for SBP < : 90 HOLD for HR < : 60 (DME) blood pressure kit-extra large Kit See Rx Instructions .Route Qty: 1 0RF Rx Instructions: As directed amiodarone 200 mg tablet 200 mg PO DAILY Qty: 90 0RF levothyroxine 137 mcg tablet 137 mcg PO DAILY@0600 Qty: 90 0RF Held Eliquis 5 mg tablet 5 mg PO BID Qty: 180 0RF Hold Instructions: Resume on 10/28/23. Discontinued bumetanide 2 mg tablet 2 mg PO DAILY Qty: 90 0RF potassium chloride 20 mEq tablet,ER particles/crystals 40 meq PO DAILY@1200 Qty: 90 0RF Entresto 24-26 mg tablet 1 tab PO BID Qty: 180 0RF Protocol: Hold for SBP< HOLD for SBP < : 90 spironolactone 25 mg tablet 25 mg PO BID Qty: 180 0RF Protocol: Hold for SBP< HOLD for SBP < : 90 Diet: Advance to usual diet Activity on Discharge: As tolerated Stand Alone Forms: Patient Portal Discharge page Care Plan Goals: recovery Health Concerns: vt Plan of Treatment: trasnfer to [facility] Assessment: see above
--- NOTE | 2023-10-26 10:45 | HO.PM.IMPN ---
Subjective Subjective Date of Service: 10/26/23 Interval History: no complaints, was asymptomatic during VT Physical Exam Vital Signs: Vital Signs: Last Vital Signs Temp 97.4 F 10/26/23 07:25 Pulse 99 10/26/23 07:25 Resp 20 10/26/23 07:25 BP 111/72 10/26/23 07:25 Pulse Ox 98 10/26/23 07:25 O2 Del Method Room Air 10/26/23 07:25 BMI result Body Mass Index 37.3 GENERAL APPEARANCE: in no acute distress, pleasant. NECK: no carotid bruit, no jugular venous distention. SKIN: no suspicious lesions, warm and dry. HEART: no murmurs, irregular rate and rhythm. Tachycardic. LUNGS: clear to auscultation bilaterally. ABDOMEN: soft, nontender. EXTREMITIES: no edema. PERIPHERAL PULSES: equal. NEUROLOGIC: No gross deficits, AAO X 3 Objective Data Active Medications Acetaminophen (Acetaminophen 325 Mg Tablet) 650 mg PO Q6H PRN PRN Reason: Pain, Mild (Pain Scale 1-3) Amiodarone HCl (Amiodarone Hcl 200 Mg Tablet) 200 mg PO DAILY [facility] Last Admin: 10/26/23 08:49 Dose: 200 mg Documented By: ELBERT Apixaban (Apixaban 5 Mg Tablet) 5 mg PO BID [facility] Last Admin: 10/25/23 21:01 Dose: 5 mg Documented By: MARIA TERESA Levothyroxine Sodium 112 mcg/ (Levothyroxine Sodium 25 mcg) 137 mcg PO DAILY@0600 [facility] Last Admin: 10/26/23 05:39 Dose: Not Given Documented By: MARIA TERESA Non-Admin Reason: NPO Melatonin (Melatonin 3 Mg Tablet) 6 mg PO BEDTIME PRN PRN Reason: Insomnia Methocarbamol (Methocarbamol 500 Mg Tablet) 500 mg PO QID [facility] Last Admin: 10/26/23 08:49 Dose: 500 mg Documented By: ELBERT Metoprolol Succinate (Metoprolol Succinate Er 50 Mg Tab.Er.24h) 50 mg PO DAILY [facility]; Protocol Last Admin: 10/26/23 08:49 Dose: 50 mg Documented By: ELBERT Nystatin (Nystatin Cream 15 Gm Tube) 1 appl TOPICAL BID [facility]; Protocol Last Admin: 10/26/23 08:52 Dose: Not Given Documented By: ELBERT Non-Admin Reason: Med Not Available Ondansetron HCl (Ondansetron Hcl 4 Mg/2 Ml Vial) 4 mg IVPUSH Q8H PRN PRN Reason: Nausea and Vomiting Oxycodone HCl (Oxycodone Hcl Immed Release 5 Mg Tablet) 5 mg PO Q4H PRN PRN Reason: Pain, Severe (Pain Scale 7-10) Last Admin: 10/24/23 08:06 Dose: 5 mg Documented By: GOYO Potassium Chloride (Potassium Chloride Er 20 Meq Tab.Er.Prt) 40 meq PO DAILY@1200 [facility] Last Admin: 10/23/23 12:37 Dose: Not Given Documented By: MOON Non-Admin Reason: Physician Held Med Sodium Chloride (0.9 % Sodium Chloride Flush 3 Ml Syringe) 3 ml IVFLUSH QSHIFT [facility] Last Admin: 10/26/23 08:49 Dose: 3 ml Documented By: ELBERT Labs 10/26/23 06:01 10/26/23 06:01 Labs: Laboratory Results - last 24 hr 10/25/23 10/26/23 14:58 06:01 MCV 93.4 MCH 30.9 MCHC 33.2 RDW 16.4 H Plt Count 222 MPV 10.8 Absolute Nucleated RBC 0.000 Nucleated RBC % (auto) 0.0 Anion Gap 12 12 Estim Creat Clear Calc 44.4 54.2 Estimated GFR 34 43 Random Glucose 120 H Fasting Glucose 85 Calcium 9.4 9.1 Magnesium 2.1 2.1 Assessment and Plan (1) JESSIE (acute kidney injury): Status: Acute Plan 78F PMH htn, hld, pe, pafib, hfref, hypothyroid, ckd iii, presented with fall, n.v, found to have jessie and rapid afib sustained VT episodes amio, metoprolol transfer to [facility] [place] JESSIE on CKD III resolved Nausea vomiting Antiemetics Paroxysmal atrial fibrillation with rapid ventricular response Continue amiodarone, metoprolol Chronic systolic CHF Hypovolemic, holding diuretics, Entresto, Aldactone Hypothyroid Synthroid DVT prophylaxis on Eliquis Full code reason for continued hospitalization: [place] [facility] [place] Quality Stroke Does the patient have a stroke diagnosis?: No VTE Prior VTE?: No VTE Risk Level:: Medical - moderate - high VTE Device Contraindication: Treatment Not Indicated VTE Drug Contraindication: N/A - Med Ordered
[2023-10-26 11:15] VITALS: BP 123/70; PULSE 109; RESP 18; TEMP 36.2; O2SAT 98
--- NOTE | 2023-10-26 11:52 | PM.PNCARD ---
Subjective Subjective Date of Service: 10/26/23 Interval history: Seen examined at bedside. Was NPO at the time of interview because she was due to get cardioversion today. She had episode of sustained VT last evening which lasted for approximately 1 minute and was self-limiting. She had frequent premature ventricular complexes on telemetry. Denying any symptoms and overall stable today. Physical Exam Vital Signs: Last Vital Signs Temp 97.1 F 10/26/23 11:15 Pulse 109 H 10/26/23 11:15 Resp 18 10/26/23 11:15 BP 123/70 10/26/23 11:15 Pulse Ox 98 10/26/23 11:15 O2 Del Method Room Air 10/26/23 11:15 BMI result Body Mass Index 37.3 GENERAL APPEARANCE: in no acute distress, pleasant. NECK: no carotid bruit, no jugular venous distention. SKIN: no suspicious lesions, warm and dry. HEART: no murmurs, irregular rate and rhythm. Tachycardic. LUNGS: clear to auscultation bilaterally. ABDOMEN: soft, nontender. EXTREMITIES: no edema. PERIPHERAL PULSES: equal. NEUROLOGIC: No gross deficits, AAO X 3 Objective Labs and Meds 10/26/23 12:31 10/26/23 06:01 Lab results: Laboratory Results - last 24 hr 10/25/23 10/26/23 14:58 06:01 WBC 7.2 RBC 3.91 L Hgb 12.1 Hct 36.5 L MCV 93.4 MCH 30.9 MCHC 33.2 RDW 16.4 H Plt Count 222 MPV 10.8 Absolute Nucleated RBC 0.000 Nucleated RBC % (auto) 0.0 Sodium 141 139 Potassium 4.8 4.3 Chloride 112 H 112 H Carbon Dioxide 22 19 L Anion Gap 12 12 BUN 43 H 40 H Creatinine 1.48 H 1.21 Estim Creat Clear Calc 44.4 54.2 Estimated GFR 34 43 Random Glucose 120 H Fasting Glucose 85 Calcium 9.4 9.1 Magnesium 2.1 2.1 Progress Note: A&P Assessment and plan (1) Acute HFrEF (heart failure with reduced ejection fraction): Status: Acute (2) LBBB (left bundle branch block): Status: Acute (3) Cardiomyopathy: Status: Acute (4) Ventricular tachycardia: Status: Acute Plan Very pleasant 78-year-old female who got admitted recently with congestive heart failure in the setting of left bundle-branch block and atrial fibrillation. She was diuresed and underwent cardioversion and was discharged home. She subsequently had a fall and got admitted and was noticed to be in congestive heart failure again. She was back in atrial fibrillation. Our plan was to do cardioversion on her today but she developed monomorphic sustained VT last evening. She was asymptomatic and this was self-limiting. She has been on amiodarone since recent admission in the hospital. She was on apixaban for anticoagulation. I had a detailed discussion with electrophysiology and we have decided to transfer her for ICD placement. Given the fact that she has a wide QRS left bundle-branch block with QRS duration 150 milliseconds, they will consider doing DIGITAL PHOTOGRAPHIC PRINTER-D for her. I would hold off on cardioversion because she will need a diagnostic cardiac catheterization before they could do ICD placement. Post cardioversion interruption on anticoagulation has consequences including stroke and I feel the safest think would be to do diagnostic angiography and ICD placement and then pursue cardioversion she may need DOUG cardioversion or if she stabilizes then we can cardiovert her in 4 weeks. Alternatively EP may consider AV ese ablation during the procedure 2. Thank you for allowing me to participate in the care of your patient. Please feel free to contact me if you have any questions. Time Spent With Patient Time: Total time managing care of this patient today ____ minutes. Progress Note: Quality Stroke Does the patient have a stroke diagnosis?: No Procedures Date of Service Date of Service: 10/26/23
[2023-10-26 12:15] VITALS: BMI 36.9
--- NOTE | 2023-10-26 12:17 | MHC.CM.PN ---
Pt is being medically transferred to [facility].
[2023-10-26] MEDS: Heparin Sodium,Porcine/1/2NS 25,000 UNIT/250 ML IV.SOLN 16.35 UNIT IVCONT (12:35)
[2023-10-26 12:38] LABS: Hematocrit 39.2 % (37.0-47.0); Hemoglobin 12.9 g/dl (12.0-16.0); Mean Corpuscular HGB Conc 32.9 g/dl (31.0-35.0); Mean Corpuscular Hemoglobin 31.1 pg (27.0-33.0); Mean Corpuscular Volume 94.5 fL (80.0-98.0); Mean Platelet Volume 10.4 fL (9.4-12.3); Platelet Count 245 X10*3/uL (160-400); Red Blood Count 4.15 X10*6/uL (4.20-5.50); Red Cell Distribution Width 16.1 % (11.0-16.0); White Blood Count 8.6 X10*3/uL (4.8-10.8)
[2023-10-26 12:47] LABS: INTERNATIONAL NORM RATIO 1.8 (0.9-1.1); Prothrombin Time 21.7 SEC (11.1-13.3)
[2023-10-26 12:50] LABS: PTT Heparin Drip 35.2 SEC (53-77.9)
== END 2023-10-26 14:30 | disposition short-term general hospital (02) | DRG 292 ==
LOC: HO.ED 19:18 → HO.EDOVER 20:02 → HO.S3 20:24 → HO.IMC 22:38
PROVIDERS: Physician Assistant Medical; Admitting Provider Student in an Organized Health Care Education/Training Program; Emergency Provider Emergency Medicine Emergency Medical Services; PCP Physician Assistant; Visit Provider Internal Medicine
DX: I13.0 Hypertensive heart and chronic kidney disease with heart failure and stage 1 through stage 4 chronic kidney disease, or unspecified chronic kidney disease (principal); I47.20 Ventricular tachycardia, unspecified; I50.22 Chronic systolic (congestive) heart failure; N18.30 Chronic kidney disease, stage 3 unspecified; E86.1 Hypovolemia; I44.7 Left bundle-branch block, unspecified; I42.9 Cardiomyopathy, unspecified; E03.9 Hypothyroidism, unspecified; M62.830 Muscle spasm of back; I48.0 Paroxysmal atrial fibrillation; Z86.711 Personal history of pulmonary embolism; Z79.01 Long term (current) use of anticoagulants; Z79.890 Hormone replacement therapy; Z79.899 Other long term (current) drug therapy
CPT/HCPCS: 36415; 70450; 70486; 71250; 72125; 73502; 80048; 80053; 81001; 82550; 82947; 83735; 83880; 84484; 85025; 85027; 85610; 85730; 87086; 92950; 93005; 97162; 99285; J0737; J1644; J3360; J3475

== ENCOUNTER 2023-10-22 19:51 | Outpatient (BNV) | payer MEDICARE, SELFPAY | END 2023-10-25 14:43 | PROVIDERS: Admitting Provider Student in an Organized Health Care Education/Training Program; Emergency Provider Emergency Medicine Emergency Medical Services; PCP Physician Assistant; Visit Provider Internal Medicine Cardiovascular Disease | DX: I47.20 Ventricular tachycardia, unspecified (principal); I48.0 Paroxysmal atrial fibrillation; I44.7 Left bundle-branch block, unspecified; I44.4 Left anterior fascicular block | CPT/HCPCS: 93010 ==

== ENCOUNTER 2023-10-22 19:51 | Outpatient (BNV) | payer MEDICARE, SELFPAY | END 2023-10-23 00:06 | PROVIDERS: Admitting Provider Student in an Organized Health Care Education/Training Program; Emergency Provider Emergency Medicine Emergency Medical Services; PCP Physician Assistant; Visit Provider Internal Medicine | DX: I48.91 Unspecified atrial fibrillation (principal); I44.4 Left anterior fascicular block; I44.7 Left bundle-branch block, unspecified | CPT/HCPCS: 93010 ==

== ENCOUNTER → 2023-10-22 19:51 | Outpatient (BNV) | payer MEDICARE, MEDICAID, SELFPAY | PROVIDERS: Admitting Provider Student in an Organized Health Care Education/Training Program; Emergency Provider Emergency Medicine Emergency Medical Services; PCP Physician Assistant; Visit Provider Student in an Organized Health Care Education/Training Program | DX: I50.9 Heart failure, unspecified (principal); I48.91 Unspecified atrial fibrillation; N17.9 Acute kidney failure, unspecified; N18.30 Chronic kidney disease, stage 3 unspecified | CPT/HCPCS: 99223; 99232; 99233; 99238 ==

== ENCOUNTER → 2023-10-22 19:51 | Outpatient (BNV) | payer MEDICARE, MEDICAID, SELFPAY | PROVIDERS: Admitting Provider Student in an Organized Health Care Education/Training Program; Emergency Provider Emergency Medicine Emergency Medical Services; PCP Physician Assistant; Visit Provider Internal Medicine | DX: I50.21 Acute systolic (congestive) heart failure (principal); I44.7 Left bundle-branch block, unspecified; I42.9 Cardiomyopathy, unspecified; I47.20 Ventricular tachycardia, unspecified | CPT/HCPCS: 93010; 99223; 99232; 99233 ==

== ENCOUNTER → 2023-10-27 23:59 | Outpatient (BNV) | payer MEDICARE, MEDICAID, SELFPAY | PROVIDERS: PCP Physician Assistant; Visit Provider Internal Medicine Cardiovascular Disease | DX: I50.20 Unspecified systolic (congestive) heart failure (principal); I42.9 Cardiomyopathy, unspecified | CPT/HCPCS: 93458; 99152 ==

== ENCOUNTER 2023-11-15 07:46 | Outpatient (AMB) | payer MEDICARE, MEDICAID, SELFPAY ==
[2023-11-15 07:53] VITALS: BP 122/62; PULSE 89; O2SAT 98; BMI 37.0
--- NOTE | 2023-11-15 07:53 | MHC.PC.OV ---
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: No Accompanied by: Self / Same As Patient Allergies No Known Allergies Allergy (Verified 11/15/23 08:12) Medication List - Last Reconciled 11/15/23 by Karson Frank PA-C acetaminophen 650 mg PO Q6H PRN amiodarone 200 mg PO DAILY apixaban (Eliquis) 5 mg PO BID baclofen 5 mg PO DAILY PRN 14 days blood pressure kit-extra large As directed bumetanide 2 mg PO DAILY levothyroxine 137 mcg PO DAILY@0600 metoprolol succinate ER 25 mg See Protocol PO DAILY miscellaneous medical supply (Blood Pressure Cuff) As directed miscellaneous medical supply 1 ea miscellaneous DAILY 99 days nystatin 1 appl topical BID 30 days sacubitril-valsartan 24-26 mg (Entresto) 1 tab PO BID spironolactone 25 mg PO BID tramadol 50 mg PO BID PRN 7 days walker (Ultra-Light Rollator misc) As directed Tobacco use date assessed: 09/15/23 Fall risk assessment: 1 Fall in past year Last assessed Fall Risk: 11/15/23 Dental Screening Dental Screen Date: 11/15/23 Did you have a dental visit in the last 12 months?: No Did you have a dental problem in the last 6 months where you did not have access to dental care?: No Was dental information given to patient?: Patient has dentist [facility] HPI Details Patient is a 78 female here today for a rehab discharge follow-up. Patient has a past medical history significant for hypertension, hyperlipidemia, hypothyroidism and CKD stage 3. She was admitted to the hospital in early October 2023 for acute heart failure and rapid AFib. She was found to have a reduced ejection fraction of 25 30%. She did undergo cardiac catheterization on 10/27/[address] May that revealed normal coronary arteries. Patient did undergo a cardioversion and an ICD placement on October 28. She does report having trouble with erratic blood pressures. She was to hold metoprolol if systolic blood pressures under 110. Also has some decreased range of motion of the left shoulder secondary to ICD placement. Will work with home physical therapy She has been recently discharged from [facility]. Has PT and nursing at home Has upcoming appt with cardiology tomorrow. [facility] Medical History (Updated 11/15/23 @ 08:16 by Karson Frank PA-C) HFrEF (heart failure with reduced ejection fraction) Atrial fibrillation Lymphedema Hypothyroidism History of pulmonary embolism HTN (hypertension) Current use of anticoagulant therapy Surgical History History of cardiac pacemaker History of laparoscopic cholecystectomy Family History Father CVD (cardiovascular disease) Mother Medical history unknown Social History Household Members: None Housing: House Do you presently have visiting nurse or other home services: Yes ([employer]/ [employer]) Alcohol intake: unknown Comment: rings appropriately- A/ox4 Patient Tobacco Use Status: Never used Tobacco e-Cigarette/Vaping Use: Never Used Second Hand Smoke Exposure: No Advance Directives Date on File: 08/26/23 service: No Current occupational status: retired Cognitive needs: Yes (Pt has a walker) Hearing needs: No Vision needs: No Questionnaire Thrive Questionnaire Date Thrive assessed: 09/15/23 NOÉ-7 AMB Questionnaire NOÉ-7 Date NOÉ - 7 assessed: 09/15/23 Source: Developed by Drs. Remy Kirby, Bren Pro, Tony Orona and colleagues, with an educational siri from [employer]. Review of Systems Const Denies headache(s) Eyes Denies loss of vision ENT Denies vertigo, Denies dizziness, Denies headache(s) and Denies sore throat Card Denies chest pain, Denies leg edema and Denies lightheadedness Resp Denies cough, Denies hemoptysis and Denies wheezing GI Denies abdominal pain, Denies melena, Denies constipation, Denies diarrhea and Denies vomiting Denies urinary frequency, Denies dysuria and Denies urinary urgency Musc Denies arthralgias, Denies joint swelling, Denies numbness and Denies tingling Neuro Denies Abnormal speech present, Denies behavioral changes, Denies vertigo, Denies dizziness, Denies headache(s), Denies loss of vision, Denies memory loss, Denies numbness and Denies tingling Psych Denies anxiety, Denies behavioral changes, Denies depression, Denies memory loss and Denies panic attacks Arian/Lymph Denies easy bleeding and Denies easy bruising Aller/Immun Denies wheezing Physical exam (Primary Care) Vital Signs: Last Vital Signs Pulse 89 11/15/23 07:53 BP 122/62 11/15/23 07:53 Pulse Ox 98 11/15/23 07:53 Oxygen Delivery Method Room Air 11/15/23 07:53 BMI result Body Mass Index 37.0 Tobacco/Smoking Status: Tobacco use Status Tobacco use date assessed 09/15/23 11/15/23 08:03 Patient Tobacco Use Status Never used Tobacco 11/15/23 08:03 e-Cigarette/Vaping Use Never Used 11/15/23 08:03 Thrive Assessment: Date of Thrive Assessment Date Thrive assessed 09/15/23 11/15/23 08:03 Const Other: Obese General: healthy appearing, no acute distress, alert and awake Nutritional Appearance: well nourished Orientation/consciousness: oriented to person, oriented to place and oriented to time HENMT Ears: TM's normal bilaterally General nose exam: Normal nasal mucous membranes and turbinates present Eyes Conjunctivae: conjunctivae normal Sclerae: sclerae normal Pupils: Equal, round and reactive pupils present Neck Neck: Yes no lymphadenopathy and Yes no JVD Thyroid: Thyroid normal Carotids: no bruits Resp Effort & Inspection: normal respiratory effort and not tachypneic Auscultation: no crackles, no rales, no rhonchi and no wheezes Cardio Rate: regular rate Rhythm: regular rhythm Heart sounds: no murmurs and normal S1 and S2 GI Palpation (GI): Soft to palpation, nontender, no hepatomegaly and no splenomegaly Auscultation: normal bowel sounds Back/Spine/Pelvis Other: USING WALKER FOR AMBULATORY ASSISTANCE. Skin General skin exam: no rashes or lesions noted and dry skin Neuro General: oriented to person, oriented to place and oriented to time Cranial nerves: Yes Equal, round and reactive pupils present Speech: No Abnormal speech present Gait exam (Neuro): Normal gait present Motor exam (neuro): no tremor noted Extrem Right upper extremity: full ROM Left upper extremity: full ROM Right lower extremity: full ROM; no edema Left lower extremity: full ROM; no edema Psych Mental Status: mental status grossly normal Speech and movement: Normal speech and movement present Affect: normal affect Attitude: cooperative Thought process: Normal thought process present Assessment and Plan Assessment & Plan (1) CKD (chronic kidney disease), stage III: Code(s): N18.30 - Chronic kidney disease, stage 3 unspecified Qualifiers: Chronic kidney disease stage 3 subtype: unspecified whether 3a or 3b Qualified Code(s): N18.30 - Chronic kidney disease, stage 3 unspecified Plan: Did have acute kidney injury during hospitalization. She does have follow-up with a rpg programmer. Will continue to follow renal function. (2) Congestive heart failure: Code(s): I50.9 - Heart failure, unspecified Qualifiers: Heart failure type: systolic Heart failure chronicity: chronic Qualified Code(s): I50.22 - Chronic systolic (congestive) heart failure Plan: As per HPI patient was found to have heart failure with reduced ejection fraction. She does have an ICD placed (3) Atrial fibrillation with RVR: Code(s): I48.91 - Unspecified atrial fibrillation Plan: Continues to have irregular rhythm. Will follow-up with [facility]. Now on amiodarone and metoprolol. Also continues on Eliquis without any overt signs of bleeding. (4) HTN (hypertension): Code(s): I10 - Essential (primary) hypertension Qualifiers: Hypertension type: essential hypertension Qualified Code(s): I10 - Essential (primary) hypertension Plan: Blood pressure acceptable today in office. Goal blood pressures to be below 140/90 and above 100/60 (5) ICD (implantable cardioverter-defibrillator) in place: Code(s): Z95.810 - Presence of automatic (implantable) cardiac defibrillator Plan: As above (6) Muscle spasm: Code(s): M62.838 - Other muscle spasm Plan: She does report excruciating back spasms. Does have lidocaine patch and diclofenac topical analgesics available to her though is not able to apply them herself. Will give low-dose muscle relaxer and tramadol to use on a as needed basis for back pain. Orders: Orders Comprehensive [place]. Panel Fast Today N18.30 - Chronic kidney disease, stage 3 unspecified Karson Frank PA-C TSH reflex Free T4 Today E03.9 - Hypothyroidism, unspecified Karson Frank PA-C Microalbumin, Random (w Creat) Today I10 - Essential (primary) hypertension Karson Frank PA-C Lipid Panel Today E78.2 - Mixed hyperlipidemia Karson Frank PA-C Vitamin D 25-OH Total Today E55.9 - Vitamin D deficiency, unspecified Karson Frank PA-C Medications: New miscellaneous medical supply 1 ea miscellaneous DAILY 99 days 1 ea 0RF I50.22 - Chronic systolic (congestive) heart failure Karson Frank PA-C sacubitril-valsartan 24-26 mg (Entresto) 1 tab PO BID 90 days 180 tabs 1RF I50.22 - Chronic systolic (congestive) heart failure Karson Frank PA-C baclofen 5 mg PO DAILY 14 days PRN 14 tabs 0RF muscle spasm M62.838 - Other muscle spasm Karson Frank PA-C tramadol 50 mg PO BID 7 days PRN 14 tabs 0RF pain M62.838 - Other muscle spasm Karson Frank PA-C spironolactone 25 mg PO BID 90 days 180 tabs 1RF I50.22 - Chronic systolic (congestive) heart failure Karson Frank PA-C Changed From metoprolol succinate ER 25 mg See Protocol PO DAILY 1 tab 0RF To metoprolol succinate ER 25 mg See Protocol PO DAILY Karson Frank PA-C Refilled miscellaneous medical supply (Blood Pressure Cuff) As directed 1 ea 0RF I10 - Essential (primary) hypertension, I50.9 - Heart failure, unspecified Karson Frank PA-C levothyroxine 137 mcg PO DAILY@0600 90 tabs 0RF I50.22 - Chronic systolic (congestive) heart failure Karson Frank PA-C Resumed apixaban (Eliquis) 5 mg PO BID 180 tabs 1RF I48.91 - Unspecified atrial fibrillation Karson Frank PA-C apixaban (Eliquis) 5 mg PO BID 180 tabs 0RF JORGE Willis Coding Level of Care Code Est Pt Level 4 (83290) Diagnoses Stage 3 chronic kidney disease, unspecified whether stage 3a or 3b CKD N18.30 Chronic kidney disease stage 3 subtype: unspecified whether 3a or 3b Chronic systolic congestive heart failure I50.22 Heart failure type: systolic Heart failure chronicity: chronic Atrial fibrillation with RVR I48.91 Essential hypertension I10 Hypertension type: essential hypertension ICD (implantable cardioverter-defibrillator) in place Z95.810 Muscle spasm M62.838
== END 2023-11-15 08:43 | disposition home or self-care (01) ==
PROVIDERS: PCP Physician Assistant; Visit Provider Physician Assistant
DX: I13.0 Hypertensive heart and chronic kidney disease with heart failure and stage 1 through stage 4 chronic kidney disease, or unspecified chronic kidney disease (principal); N18.30 Chronic kidney disease, stage 3 unspecified; I50.22 Chronic systolic (congestive) heart failure; I48.91 Unspecified atrial fibrillation; Z95.810 Presence of automatic (implantable) cardiac defibrillator; M62.838 Other muscle spasm
CPT/HCPCS: 99214

== ENCOUNTER 2023-11-16 14:36 | Outpatient (AMB) | payer MEDICARE, MEDICAID, SELFPAY ==
--- NOTE | 2023-11-16 15:21 | MHC.OFFVIS ---
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 Social Security Assessor Required: No Allergies No Known Allergies Allergy (Verified 11/16/23 15:25) Medication List - Last Reconciled 11/16/23 by Nidhi Sheets NP-C acetaminophen 650 mg PO Q6H PRN amiodarone 200 mg PO DAILY apixaban (Eliquis) 5 mg PO BID baclofen 5 mg PO DAILY PRN 14 days blood pressure kit-extra large As directed bumetanide 2 mg PO DAILY levothyroxine 137 mcg PO DAILY@0600 metoprolol succinate ER 25 mg See Protocol PO DAILY miscellaneous medical supply (Blood Pressure Cuff) As directed miscellaneous medical supply 1 ea miscellaneous DAILY 99 days nystatin 1 appl topical BID 30 days sacubitril-valsartan 24-26 mg (Entresto) 1 tab PO BID 90 days spironolactone 25 mg PO BID 90 days tramadol 50 mg PO BID PRN 7 days walker (Ultra-Light Rollator misc) As directed HPI Cardiac cath 3/6- needs 2 wk fu KM or SUPERVISOR 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 She did have cardioversion during her 1st admission. She then had recurrent AFib and plan was for repeat cardioversion however she had NSVT and was transferred to [facility] for cardiac catheterization. While there she had cardioversion and Bi V ICD placed. She now presents here for follow-up. Today she states that following her hospital discharge she went to rehab and was discharged over a week later. She is now at home and has visiting nurse services come in. She will be starting home physical therapy soon. She says her breathing has been comfortable. No PND, orthopnea. She does have chronic leg edema and states her legs are currently looking very good. She has no chest discomfort at rest or with activity. She has not felt any recent heart palpitations. When she had the AFib she felt shortness of breath and heart palpitations. No lightheadedness, presyncope, syncope, falls. She has minor soreness at her left upper chest ICD site. She has been taking all her meds as directed. She was brought in today by her neighbor and he will assist her in getting home. 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[employer]) Alcohol intake: unknown Comment: rings appropriately- A/ox4 Patient Tobacco Use Status: Never used Tobacco e-Cigarette/Vaping Use: Never Used Second Hand Smoke Exposure: No Advance Directives Date on File: 08/26/23 service: No Current occupational status: retired Cognitive needs: Yes (Pt has a walker) Hearing needs: No Vision needs: No Review of Systems Const All systems reviewed & are unremarkable except as noted in HPI and below Reports weakness ENT Denies dizziness Card Details: Leg edema improve what had been Denies chest pain, Denies chest pain at rest, Denies chest pain with activity, Denies rapid heart rate, Denies pedal edema, Denies edema, Reports leg edema, Denies lightheadedness, Denies palpitations, Denies dyspnea, Denies dyspnea on exertion and Denies orthopnea Resp Denies cough, Denies dyspnea and Denies dyspnea on exertion GI Denies hematochezia and Denies change in stool character Musc Denies abnormal gait, Reports limited range of motion, Reports muscle cramps, Denies muscle weakness, Denies numbness, Denies radiating pain into limb, Denies stiffness and Denies tingling Neuro Denies abnormal gait, Denies dizziness, Denies numbness, Denies tingling and Reports weakness Endo Denies palpitations Physical Exam Vital Signs: Last Vital Signs Pulse 82 11/16/23 15:22 BP 100/62 11/16/23 15:22 Const Other: Morbidly obese, sitting in a wheelchair General: cooperative, comfortable and no acute distress Orientation/consciousness: patient oriented x3 Neck Neck: Yes normal visual inspection and Yes no JVD Chest Other: Pacemaker site left upper chest, dressing removed and incision fully approximated, skin glue intact, swelling still present, no redness, drainage noted. Dry dressing reapplied at her request Resp Effort & Inspection: normal respiratory effort Auscultation: clear to auscultation bilaterally, no rales, no rhonchi and no wheezes Cardio Jugular venous distension: no JVD Rate: regular rate Rhythm: regular rhythm Heart sounds: S1 normal heart sound present, S2 normal heart sound present, no murmurs and no rubs Neuro General: patient oriented x3 Extrem Other: Nonpitting leg edema present, looks like this is a decrease from prior swelling as skin has deflated look Psych Appearance: grossly normal Mental Status: mental status grossly normal Speech and movement: Normal speech and movement present Office Procedures EKG Details: Today, read by me, atrial sensed, ventricular paced rhythm with some a paced beats, PVCs noted on tracing, rate 82, QTC falsely prolonged due to wide QRS, 516 milliseconds [id number], Complete Assessment & Plan Assessment & Plan (1) Atrial fibrillation with RVR: Code(s): I48.91 - Unspecified atrial fibrillation Plan: History of AFiib and was on Coumadin for anticoagulation. [facility] admission 08/24/2023 with shortness of breath and heart palpitations. EKG confirmed AFib RVR. She was found to have Congestive heart failure and was diuresed 14 L. Her echocardiogram showed EF 25-30%. Her Coumadin was changed over to Eliquis. She was put on amiodarone in underwent cardioversion. Following that discharge she was to be seen in our office however she did not present for follow-up. She was readmitted to [facility] on 10/22/2023 after a fall at home with finding of JESSIE. She then went into atrial fibrillation which initially was treated with rate control. Plan was to do a cardioversion again however she had a 1 minute run of NSVT which prompted transferred to [facility] for cardiac catheterization. While at [facility] she did have a cardioversion and was continued on her amiodarone and Eliquis. She has not had recurrent heart palpitations since that time. Her EKG done today is showing ventricular and AV paced rhythm, rate 82. Will have her continue amiodarone, low-dose metoprolol for rhythm and rate control. Continue Eliquis for anticoagulation. (2) Cardiomyopathy: Code(s): I42.9 - Cardiomyopathy, unspecified Plan: Newer finding of cardiomyopathy, EF 25-30%. She did have a 1 minute run of NSVT during last [facility] admission. She was transferred to [facility] and underwent cardiac catheterization on 10/27/2023 showing normal coronary arteries. Her EKG does show a left bundle branch block. May be tachycardia mediated or related to her left bundle branch block. While at [facility] she underwent a Bi V ICD placement. Unclear at present which company her device was from. She will call us when she reviews her paperwork at home. EKG from today shows that she is V pacing and at times AV pacing, PVCs noted on EKG tracings as well. She has not had any palpitations, presyncope, syncope. Blood pressure on low side, asymptomatic. Will have her continue on metoprolol XL, Entresto and Aldactone for neurohormonal modulation. Arranging for cardiology follow-up in 1 month. Will have her check lab work at that time if not already completed. (3) Acute HFrEF (heart failure with reduced ejection fraction): Code(s): I50.21 - Acute systolic (congestive) heart failure Plan: As above. On exam today she does not appear grossly fluid overloaded. Her legs do have a deflated appearance. Her lungs are clear on exam. Continue Bumex 2 mg daily. Signs and symptoms of heart failure reviewed with her. Reviewed home weight monitoring if able. Follow low-salt diet. (4) LBBB (left bundle branch block): Code(s): I44.7 - Left bundle-branch block, unspecified Plan: Chronic, Noted on EKGs as far back as 2014. . (5) S/P cardiac catheterization: Comment: 10/27/2023, normal coronary arteries Code(s): Z98.890 - Other specified postprocedural states Plan: As above (6) History of cardiac pacemaker: Code(s): Z95.0 - Presence of cardiac pacemaker Plan: New Bi V ICD placed while at [facility] recently. Unknown type of device. Patient will call us with this information when she reviews her records. Will plan for device interrogation next visit. Pacemaker site is healing well with no signs of infection. There is mild swelling however wound well approximated and intact. Dry dressing placed over it at patient's request. 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 No med changes made (9) Hospital discharge follow-up: Code(s): Z09 - Encounter for follow-up examination after completed treatment for conditions other than malignant neoplasm Plan Time spent on chart review, documentation, interview and assessment Coding Level of Care Code Est Pt Level 4 (70452) Diagnoses Atrial fibrillation with RVR I48.91 Cardiomyopathy I42.9 Acute HFrEF (heart failure with reduced ejection fraction) I50.21 LBBB (left bundle branch block) I44.7 S/P cardiac catheterization Z98.890 History of cardiac pacemaker Z95.0 Current use of anticoagulant therapy Z79.01 Essential hypertension I10 Hypertension type: essential hypertension Hospital discharge follow-up Z09 CPT Codes EKG - CPT: 29578-[id number], Complete ([id number]) Time Spent (min) 30
[2023-11-16 15:22] VITALS: BP 100/62; PULSE 82
== END 2023-11-16 16:18 | disposition home or self-care (01) ==
PROVIDERS: PCP Physician Assistant; Visit Provider Nurse Practitioner Family
DX: I48.91 Unspecified atrial fibrillation (principal); I42.9 Cardiomyopathy, unspecified; I50.21 Acute systolic (congestive) heart failure; I44.7 Left bundle-branch block, unspecified; Z98.890 Other specified postprocedural states; Z95.0 Presence of cardiac pacemaker; Z79.01 Long term (current) use of anticoagulants; I10 Essential (primary) hypertension; Z09 Encounter for follow-up examination after completed treatment for conditions other than malignant neoplasm
CPT/HCPCS: 93010; 99214

== ENCOUNTER → 2023-11-16 14:36 | Outpatient (BNVA) | payer MEDICARE, MEDICAID, SELFPAY | PROVIDERS: PCP Physician Assistant; Visit Provider Nurse Practitioner Family | DX: Z09 Encounter for follow-up examination after completed treatment for conditions other than malignant neoplasm (principal); I42.9 Cardiomyopathy, unspecified; I11.0 Hypertensive heart disease with heart failure; I50.21 Acute systolic (congestive) heart failure; I44.7 Left bundle-branch block, unspecified; I48.91 Unspecified atrial fibrillation; E78.5 Hyperlipidemia, unspecified; E66.01 Morbid (severe) obesity due to excess calories; R60.0 Localized edema; Z95.0 Presence of cardiac pacemaker; Z79.01 Long term (current) use of anticoagulants; Z98.890 Other specified postprocedural states | CPT/HCPCS: 93005; 99212 ==

== ENCOUNTER 2023-11-29 13:17 | Outpatient (AMB) | payer MEDICARE, SELFPAY ==
[2023-11-29 13:43] VITALS: BMI 37.6
--- NOTE | 2023-11-29 13:43 | A.OFFVIS_ITS ---
Intake VS Expanded 11/29/23 13:43 Height 5 ft 10 in Weight 262 lb BMI 37.6 Intake Visit Reasons: Heart Failure/Obesity/CONFIRMED Allergies No Known Allergies Allergy (Verified 11/16/23 15:25) HPI Nutrition Presentation Details Pt presents for MNT for obesity, heart failure. The Pt was referred by Jose Miguel Hurtado Pt reports she participates from meals on wheels Pt reports needing instruction on low sodium diet related to CHF. B: Juice, fruit and toast L: salad or toast or sandwich (egg to tuna salad on low sodium deli ham, citizen of [place] cheese Dinner: low sodium meals on wheels snack : unsalted chips , crackers, peanut butter ZAN-Pwvgjye-Fp.Jeor Equation Height 5 ft 10 in Weight 262 lb Resting Metabolic Rate 1758.63 Calculated Activity Level Sedentary Calories Needed to Maintain Weight 2110.36 Diagnosis Nutrition problem #1 food nutri know defi As related to (etiology) #1 diagnosis As evidenced by (sign/symptom) #1 knowledge deficit of diet Monitoring/Goals Nutrition problem monitoring level of knowledge/skill Outcome comment Low sodium concepts Outcome progress verbalized understanding Learning/Education Readiness to learn good Most Recent Diabetes Results: Creatinine 1.21 mg/dL (0.5-1.4) 10/26/23 Blood Urea Nitrogen 40 mg/dL (9-16) H 10/26/23 Sodium 139 mmol/L (135-145) 10/26/23 Potassium 4.3 mmol/L (3.3-5.1) 10/26/23 Chloride 112 mmol/L (96-108) H 10/26/23 Carbon Dioxide 19 mmol/L (22-29) L 10/26/23 Calcium 9.1 mg/dL (8.4-10.2) 10/26/23 AST 13 U/L (5-31) 10/22/23 ALT 9 U/L (0-31) 10/22/23 Total Protein 7.6 g/dL (6.5-8.0) 10/22/23 Albumin 4.0 g/dL (3.5-5.0) 10/22/23 [facility] Medical History (Updated 11/23/23 @ 00:03 by Background Daemon) HFrEF (heart failure with reduced ejection fraction) Atrial fibrillation Lymphedema Hypothyroidism History of pulmonary embolism HTN (hypertension) Current use of anticoagulant therapy Surgical History (Updated 11/16/23 @ 19:00 by SHERWIN Napier) History of cardiac pacemaker History of laparoscopic cholecystectomy Family History Father CVD (cardiovascular disease) Mother Medical history unknown Social History Household Members: None Housing: House Do you presently have visiting nurse or other home services: 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[employer]) Alcohol intake: unknown Comment: tan Alvarado Patient Tobacco Use Status: Never used Tobacco e-Cigarette/Vaping Use: Never Used Second Hand Smoke Exposure: No Advance Directives Date on File: 08/26/23 service: No Current occupational status: retired Cognitive needs: Yes (Pt has a walker) Hearing needs: No Vision needs: No Assessment & Plan Assessment & Plan (1) Morbid obesity: Code(s): E66.01 - Morbid (severe) obesity due to excess calories Plan: Wt: 119 Kg ( 11/2023 ) Est kcal needs as per MSJ: 2100 (40% carb, 30% protein/fat) Est fluid needs as per 30 ml/d: 3600 Est prot per day as per 1 g/kg bw: 119 Recommend fiber intake : 8-10 g per day and gradually increase to 25-28 g per day for women and 35-38 g for men or as tolerated Recommend sodium intake per day : less than 2000 mg Educated patient on: ( R = reviewed V = verbalizes understanding N/R = needs review N/A = not applicable * Food sources of carbohydrate, adequate serving sizes and its role in various health conditions: N/R * Differences between complex carbohydrates a simple carbohydrates, role of fiber in diet: N/R * Lower sodium Lean protein sources of foods: R * Differences between types of fats and role in diet (mono on saturated fat fatty acids, saturated fatty acids, trans fats): R * Food sources of sodium in salt and healthy modifications for heart health in kidney health: R * Vitamins and minerals: N/R * Healthy plate method concept: R * Physical activity: Benefits a precaution: N/R * (2) Congestive heart failure: Code(s): I50.9 - Heart failure, unspecified Qualifiers: Heart failure chronicity: chronic Heart failure type: systolic Qualified Code(s): I50.22 - Chronic systolic (congestive) heart failure Plan: discuss low sodium food concepts, balancing meals Patient Instructions: Choose fruit/yogurt in place of pastries for lower sodium options Must read food label, reduce snack to less than 200 mg sodium (2 snacks per day) and at least 2 meals with less than 500 mg of sodium . See list of meal and food choices lower in salt/sodium (condiments, sauces, br jessica, cereals, reduce on processed meats/foods) Coding Level of Care Code Nutr Indiv Intake (02059) Diagnoses Morbid obesity E66.01 Chronic systolic congestive heart failure I50.22 Heart failure chronicity: chronic Heart failure type: systolic Time Spent (min) 30
[2023-12-02 12:55] VITALS: BMI 37.6
== END 2023-11-29 14:23 | disposition home or self-care (01) ==
PROVIDERS: PCP Physician Assistant; Visit Provider Dietitian, Registered
DX: E66.01 Morbid (severe) obesity due to excess calories (principal); I50.22 Chronic systolic (congestive) heart failure

== ENCOUNTER → 2023-11-29 13:17 | Outpatient (BNVA) | payer MEDICARE, SELFPAY | PROVIDERS: PCP Physician Assistant; Visit Provider Dietitian, Registered | DX: I50.22 Chronic systolic (congestive) heart failure (principal); E66.01 Morbid (severe) obesity due to excess calories; Z68.37 Body mass index [BMI] 37.0-37.9, adult | CPT/HCPCS: 97802 ==

== ENCOUNTER 2023-12-28 13:23 | Outpatient (AMB) | payer MEDICARE, SELFPAY ==
[2023-12-28 13:32] VITALS: BMI 37.3
--- NOTE | 2023-12-28 13:32 | A.OFFVIS_ITS ---
VS Expanded 12/28/23 13:32 Height 5 ft 10 in Weight 260 lb BMI 37.3 Intake Visit Reasons: Congestive heart failure/CONFIRMED Allergies No Known Allergies Allergy (Verified 01/03/24 15:38) Nutrition Presentation Details: Pt presents for MNT f/u for CHF Pt reports choosing low sodium cereals, reading food labels . Pt reports feeling comfortable with diet modification and low sodium options. 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) Alcohol intake: unknown Comment: tan guerra- A/ox4 Patient Tobacco Use Status: Never used Tobacco e-Cigarette/Vaping Use: Never Used Second Hand Smoke Exposure: No Advance Directives Date on File: 08/26/23 service: No Current occupational status: retired Cognitive needs: Yes (Pt has a walker) Hearing needs: No Vision needs: No Assessment & Plan Assessment & Plan (1) Morbid obesity: Code(s): E66.01 - Morbid (severe) obesity due to excess calories Category: Medical Plan: Wt: 119 Kg ( 11/2023 ), 118 kg(12/2023) Est kcal needs as per MSJ: 2100 (40% carb, 30% protein/fat) Est fluid needs as per 30 ml/d: 3500 Est prot per day as per 1 g/kg bw: 119 Recommend fiber intake : 8-10 g per day and gradually increase to 25-28 g per day for women and 35-38 g for men or as tolerated Recommend sodium intake per day : less than 2000 mg Educated patient on: ( R = reviewed V = verbalizes understanding N/R = needs review N/A = not applicable * Food sources of carbohydrate, adequate serving sizes and its role in various health conditions: N/R * Differences between complex carbohydrates a simple carbohydrates, role of fiber in diet: R * Lower sodium Lean protein sources of foods: R * Differences between types of fats and role in diet (mono on saturated fat fatty acids, saturated fatty acids, trans fats): R * Food sources of sodium in salt and healthy modifications for heart health in kidney health: R * Healthy plate method concept: R * Physical activity: Benefits a precaution: N/R * (2) Congestive heart failure: Code(s): I50.9 - Heart failure, unspecified Category: Medical Qualifiers: Heart failure chronicity: chronic Heart failure type: systolic Qualified Code(s): I50.22 - Chronic systolic (congestive) heart failure Plan: discuss low sodium food concepts, balancing meals Patient Instructions: Continue working on following healthy plate method , choosing low sodium options be mindful of sodium in beverage and pastries , including diet beverages and pastries, choose fruit instead or yogurt and choose fruit/herbs infused water less than 2000 mg/day unless otherwise specified by your doctor Coding Level of Care Code Nutr Indiv Subseq (59364) Diagnoses Morbid obesity E66.01 Chronic systolic congestive heart failure I50.22 Heart failure chronicity: chronic Heart failure type: systolic Time Spent (min) 20
== END 2023-12-28 14:00 | disposition home or self-care (01) ==
PROVIDERS: PCP Physician Assistant; Visit Provider Dietitian, Registered
DX: E66.01 Morbid (severe) obesity due to excess calories (principal); I50.22 Chronic systolic (congestive) heart failure

== ENCOUNTER → 2023-12-28 13:23 | Outpatient (BNVA) | payer MEDICARE, SELFPAY | PROVIDERS: PCP Physician Assistant; Visit Provider Dietitian, Registered | DX: E66.01 Morbid (severe) obesity due to excess calories (principal); Z68.37 Body mass index [BMI] 37.0-37.9, adult; I50.9 Heart failure, unspecified; Z71.3 Dietary counseling and surveillance | CPT/HCPCS: 97803 ==

== ENCOUNTER 2024-01-03 15:09 | Outpatient (AMB) | payer MEDICARE, MEDICAID, SELFPAY ==
--- NOTE | 2024-01-03 15:24 | A.OFFVIS_ITS ---
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 Allergies No Known Allergies Allergy (Verified 01/03/24 15:38) Medication List - Last Reconciled 01/03/24 by PETE NapierC acetaminophen 650 mg PO Q6H PRN amiodarone 200 mg PO DAILY apixaban (Eliquis) 5 mg PO BID baclofen 5 mg PO DAILY PRN 14 days blood pressure kit-extra large As directed bumetanide 2 mg PO DAILY levothyroxine 137 mcg PO DAILY@0600 metoprolol succinate ER 25 mg See Protocol PO DAILY 90 days miscellaneous medical supply (Blood Pressure Cuff) As directed miscellaneous medical supply 1 ea miscellaneous DAILY 99 days nystatin 1 appl topical BID 30 days sacubitril-valsartan 24-26 mg (Entresto) 1 tab PO BID 90 days spironolactone 25 mg PO BID 90 days tramadol 50 mg PO BID PRN 7 days walker (Ultra-Light Rollator misc) As directed HPI HPI F/u: Details: Cara is a 78-year-old female with past medical history of hypertension, hyperlipidemia, morbid obesity, newer finding of atrial fibrillation with [facility] admission x2. She did have cardioversion during her 1st admission. She then had recurrent AFib and plan was for repeat cardioversion however she had NSVT and was transferred to [facility] for cardiac catheterization. While there she had cardioversion and Bi V ICD placed. She now presents here for device check and follow-up. Today she reports she has been doing well since her last visit. She denies any chest discomfort at rest or with activity. No concerning shortness of breath, PND, orthopnea. She does have some chronic leg edema. No lightheadedness, presyncope, syncope, falls. She completed home physical therapy and ambulates with a walker. For this visit she is sitting in a wheelchair. Her pacemaker site is feeling well. Taking all meds as directed. No bleeding issues reported. 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/ Meals on wheels) Alcohol intake: unknown Comment: rings appropriately- A/ox4 Patient Tobacco Use Status: Never used Tobacco e-Cigarette/Vaping Use: Never Used Second Hand Smoke Exposure: No Advance Directives Date on File: 08/26/23 service: No Current occupational status: retired Cognitive needs: Yes (Pt has a walker) Hearing needs: No Vision needs: No Review of Systems Const All systems reviewed & are unremarkable except as noted in HPI and below Card Details: chronic leg swelling Denies chest pain, Denies chest pain at rest, Denies chest pain with activity, Denies syncope, Denies rapid heart rate, Denies irregular heart rhythm, Denies palpitations, Reports dyspnea on exertion and Denies orthopnea Resp Reports dyspnea on exertion Musc Details: uses walker, in wheelchair at this visit Reports abnormal gait Neuro Reports abnormal gait and Denies syncope Endo Denies palpitations Physical Exam Vital Signs: Last Vital Signs Pulse 88 01/03/24 15:33 BP 114/62 01/03/24 15:33 BMI result Body Mass Index 37.7 Const Other: Morbidly obese, sitting in wheelchair General: cooperative, healthy appearing, comfortable and no acute distress Orientation/consciousness: patient oriented x3 Neck Neck: Yes normal visual inspection Chest Other: Pacer site left upper chest benign Resp Effort & Inspection: normal respiratory effort Auscultation: clear to auscultation bilaterally, no rales, no rhonchi and no wheezes Cardio Jugular venous distension: no JVD Rate: regular rate Rhythm: regular rhythm Heart sounds: S1 normal heart sound present, S2 normal heart sound present, no murmurs and no rubs Neuro General: patient oriented x3 Extrem Other: nonpitting leg edema Psych Appearance: grossly normal Mental Status: mental status grossly normal Speech and movement: Normal speech and movement present Office Procedures Cardiac Device Check Cardiac Device Check Details: Medtronic Bi V ICD in place, battery 8.2 years, DDD mode, low rate 70, 80 AF 0.4% of time, episodes of brief AF RVR noted as well as for VT, 2 appear to be NSVT with 2nd duration, no therapies, right atrial threshold 1 volt at 0.4 milliseconds, RV threshold 1 volt at 0.4 milliseconds, LV 1 volt at 0.4 milliseconds [id number] Cardiac Device Check, multi lead implantable defibrillator Procedure code (CPT) selection complete Assessment & Plan Assessment & Plan (1) Atrial fibrillation with RVR: Code(s): I48.91 - Unspecified atrial fibrillation Category: Medical Plan: History of paroxysmal AFiib and was on Coumadin for anticoagulation. [facility] admission 08/24/2023 with shortness of breath and heart palpitations. EKG confirmed AFib RVR. She was found to have Congestive heart failure and was diuresed 14 L. Her echocardiogram showed EF 25-30%. Her Coumadin was changed o buster to Eliquis. She was put on amiodarone in underwent cardioversion. Following that discharge she was to be seen in our office however she did not present for follow-up. She was readmitted to [facility] on 10/22/2023 after a fall at home with finding of JESSIE. She then went into atrial fibrillation which initially was treated with rate control. Plan was to do a cardioversion again however she had a 1 minute run of NSVT which prompted transferred to [facility] for cardiac catheterization. While at [facility] she did have a cardioversion and was continued on her amiodarone and Eliquis. She has not had recurrent heart palpitations since that time. Her EKG done today is showing AV paced beats along with frequent PVCs, rate 88, QTC 491 milliseconds. Device interrogation today shows brief episodes of 80 AF as well as brief NSVT, Bi V pacing 83.8% her blood pressure is on the lower side at 114/62. Will have her increase metoprolol XL up to 25 mg b.i.d. from once daily. At this time will have her reduce spironolactone down to 25 mg once daily. If she has increasing edema she is to go back to b.i.d.. Will continue with remote monitoring to see if effective MEDIATOR pacing increases. Continue Eliquis for anticoagulation. Cardiology follow-up in 3 months, sooner if needed (2) Cardiomyopathy: Code(s): I42.9 - Cardiomyopathy, unspecified Category: Medical Plan: Newer finding of cardiomyopathy, EF 25-30%. She did have a 1 minute run of NSVT during last [facility] admission. She was transferred to [facility] and underwent cardiac catheterization on 10/27/2023 showing normal coronary arteries. Her prior EKG shows a left bundle branch block. Cardiomyopathy May be tachycardia mediated or related to her left bundle branch block. While at [facility] she underwent a Bi V ICD placement. At this time her effective MEDIATOR pacing is below desired amount. Increasing metoprolol dose. She has not had any palpitations, presyncope, syncope. Blood pressure on low side, asymptomatic. Will have her continue on metoprolol XL at higher dose, continue Entresto and Aldactone for neurohormonal modulation. Updated lab work is pending. (3) Acute HFrEF (heart failure with reduced ejection fraction): Code(s): I50.21 - Acute systolic (congestive) heart failure Category: Medical Plan: As above. On exam today she does not appear grossly fluid overloaded. Her legs do have a deflated appearance with nonpitting edema. Her lungs are clear on e xam. Continue Bumex 2 mg daily. Signs and symptoms of heart failure reviewed with her. Reviewed home weight monitoring if able. Follow low-salt diet. (4) LBBB (left bundle branch block): Code(s): I44.7 - Left bundle-branch block, unspecified Category: Medical Plan: Chronic, Noted on EKGs as far back as 2014. . (5) S/P cardiac catheterization: Comment: 10/27/2023, normal coronary arteries Code(s): Z98.890 - Other specified postprocedural states Category: Surgical Plan: As above (6) History of cardiac pacemaker: Code(s): Z95.0 - Presence of cardiac pacemaker Category: Surgical Plan: New Medtronic Bi V ICD placed while at [facility] recently. Interrogation today shows device is functioning normally. She is having short runs of 80 AF, burden 0.4%, for NSVT episodes, brief, effective MEDIATOR pacing 83.8%. Remote monitoring in use. Next office interrogation due in 6 months. Pacer site benign. 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 Increasing metoprolol. Plan Time spent on chart review, documentation, interview and assessment Medications: Changed From metoprolol succinate ER 25 mg See Protocol PO DAILY 90 days 90 tabs 1RF I47.20 - Ventricular tachycardia, unspecified To metoprolol succinate ER dose increased 25 mg See Protocol PO BID 180 tabs 1RF 90 days I47.20 - Ventricular tachycardia, unspecified Coding Level of Care Code Est Pt Level 4 (85625) Diagnoses Atrial fibrillation with RVR I48.91 Cardiomyopathy I42.9 Acute HFrEF (heart failure with reduced ejection fraction) I50.21 LBBB (left bundle branch block) I44.7 S/P cardiac catheterization Z98.890 History of cardiac pacemaker Z95.0 Current use of anticoagulant therapy Z79.01 Essential hypertension I10 Hypertension type: essential hypertension CPT Codes Cardiac Device Check - Cardiac Device 6: [id number] Cardiac Device Check, multi lead implantable defibrillator ([id number]) Time Spent (min) 30
[2024-01-03 15:33] VITALS: BP 114/62; PULSE 88; BMI 37.7
== END 2024-01-03 16:02 | disposition home or self-care (01) ==
PROVIDERS: PCP Physician Assistant; Visit Provider Nurse Practitioner Family
DX: I48.91 Unspecified atrial fibrillation (principal); Z95.810 Presence of automatic (implantable) cardiac defibrillator
CPT/HCPCS: 93284; 99214

== ENCOUNTER → 2024-01-03 15:09 | Outpatient (BNVA) | payer MEDICARE, MEDICAID, SELFPAY | PROVIDERS: PCP Physician Assistant; Visit Provider Nurse Practitioner Family | DX: Z45.02 Encounter for adjustment and management of automatic implantable cardiac defibrillator (principal); I48.91 Unspecified atrial fibrillation; I42.9 Cardiomyopathy, unspecified; I50.21 Acute systolic (congestive) heart failure; I44.7 Left bundle-branch block, unspecified; I10 Essential (primary) hypertension; Z79.01 Long term (current) use of anticoagulants; Z98.890 Other specified postprocedural states | CPT/HCPCS: 99212 ==

== ENCOUNTER 2024-01-05 10:04 | Outpatient (REF) | payer MEDICARE, MEDICAID, SELFPAY ==
[2024-01-05 11:34] LABS: Alanine Aminotransferase 11 U/L (0-31); Alkaline Phosphatase 83 U/L (39-117); Aspartate Amino Transferase 19 U/L (5-31); Bilirubin Total 0.9 mg/dL (0.0-1.0); Blood Urea Nitrogen 22 mg/dL (9-16); Calcium 9.6 mg/dL (8.4-10.2); Cholesterol 196 mg/dL (<200); Estimated Glomerular Filt Rate 30; Glucose Fasting 102 mg/dL (60-99); HDL Cholesterol 55 mg/dL (>40); LDL Cholesterol Calculated 115 mg/dL (<100); Total Protein 7.3 g/dL (6.5-8.0); Triglycerides 130 mg/dL (<150)
[2024-01-05 11:50] LABS: TSH reflex Free T4 2.21 uIU/mL (0.32-4.0); Vitamin D 25-OH Total 11.4 ng/mL (>30)
[2024-01-05 11:53] LABS: Anion Gap 18 (12-20); Carbon Dioxide 23 mmol/L (22-29); Chloride 103 mmol/L (96-108); Potassium 2.7 mmol/L (3.3-5.1); Sodium 141 mmol/L (135-145)
== END 2024-01-05 10:05 | disposition home or self-care (01) ==
LOC: HO.LAB 10:04
PROVIDERS: PCP Physician Assistant; Visit Provider Physician Assistant
DX: N18.30 Chronic kidney disease, stage 3 unspecified (principal); E03.9 Hypothyroidism, unspecified; E78.2 Mixed hyperlipidemia; E55.9 Vitamin D deficiency, unspecified
CPT/HCPCS: 36415; 80053; 80061; 82306; 84443

== ENCOUNTER 2024-01-10 13:55 | Outpatient (AMB) | payer MEDICARE, MEDICAID, SELFPAY ==
[2024-01-10 14:07] VITALS: BP 118/78; PULSE 64; O2SAT 99; BMI 36.9
--- NOTE | 2024-01-10 14:07 | MHC.PC.OV ---
Vital Signs 01/10/24 14:07 Height 5 ft 10 in Weight 257 lb 6 oz BMI 36.9 BP 118/78 Blood Pressure Location Lt brachial Position Sitting Pulse 64 Pulse Source Pulse Oximeter Pulse Oximetry (%) 99 Oxygen Delivery Method Room Air Intake Visit Reasons: F/U afib/ CHF/ hypothyroid Compensation Consultant Required: No Accompanied by: Self / Same As Patient Allergies No Known Allergies Allergy (Verified 01/10/24 14:23) Medication List - Last Reconciled 01/10/24 by Karson Frank PA-C acetaminophen 650 mg PO Q6H PRN amiodarone 200 mg PO DAILY apixaban (Eliquis) 5 mg PO BID baclofen 5 mg PO DAILY PRN 14 days blood pressure kit-extra large As directed bumetanide 2 mg PO DAILY levothyroxine 137 mcg PO DAILY@0600 metoprolol succinate ER 50 mg PO DAILY miscellaneous medical supply (Blood Pressure Cuff) As directed miscellaneous medical supply 1 ea miscellaneous DAILY 99 days nystatin 1 appl topical BID 30 days potassium chloride ER (Klor-Con) 10 mEq PO DAILY 15 days sacubitril-valsartan 24-26 mg (Entresto) 1 tab PO BID 90 days spironolactone 25 mg PO BID 90 days tramadol 50 mg PO BID PRN 7 days walker (Ultra-Light Rollator misc) As directed Tobacco use date assessed: 09/15/23 Fall risk assessment: No Falls in past year Last assessed Fall Risk: 01/10/24 Dental Screening Dental Screen Date: 11/15/23 HPI F/U afib/ CHF/ hypothyroid HPI Details Patient is a 78 female here today for a follow-up visit. Patient has a past medical history significant for hypertension, hyperlipidemia, hypothyroidism and CKD stage 3, AFib and Congestive heart failure with reduced ejection fraction. Congestive heart failure/AFib: She was admitted to the hospital in early October 2023 for acute heart failure and rapid AFib. She was found to have a reduced ejection fraction of 25 30%. She did undergo cardiac catheterization on 10/27/[address] May that revealed normal coronary arteries. Patient did undergo a cardioversion and an ICD placement on October 28. --- >Currently doing well, vitals today are stable. She still has some exertional fatigue though has been working through it. Hypokalemia: Most recently found to potassium of 2.7. Was placed back on Klor-Con. Likely related to her Bumex dosing. Advised to recheck potassium CHASIDY. .. Hypothyroidism: Patient continues on levothyroxine and has been clinically and chemically euthyroid for quite awhile. Laboratory Tests 10/23/23 10/25/23 10/26/23 06:08 14:58 06:01 RBC Hgb Potassium 4.3 Creatinine 2.00 H 1.48 H 1.21 Fasting Glucose 10/26/23 01/05/24 12:31 10:30 RBC 4.15 L Hgb 12.9 Potassium 2.7 L* D Creatinine 1.65 H Fasting Glucose 102 H [facility] Medical History HFrEF (heart failure with reduced ejection fraction) Atrial fibrillation Lymphedema Hypothyroidism History of pulmonary embolism HTN (hypertension) Current use of anticoagulant therapy Surgical History History of cardiac pacemaker History of laparoscopic cholecystectomy Family History Father CVD (cardiovascular disease) Mother Medical history unknown Social History Household Members: None Housing: House Do you presently have visiting nurse or other home services: Yes (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 Remy Kirby, Bren Pro, Tony Orona and colleagues, with an educational siri from [employer]. Review of Systems Const Denies headache(s) Eyes Denies loss of vision ENT Denies vertigo, Denies dizziness, Denies headache(s) and Denies sore throat Card Denies chest pain, Denies leg edema and Denies lightheadedness Resp Denies cough, Denies hemoptysis and Denies wheezing GI Denies abdominal pain, Denies melena, Denies constipation, Denies diarrhea and Denies vomiting Denies urinary frequency, Denies dysuria and Denies urinary urgency Musc Denies arthralgias, Denies joint swelling, Denies numbness and Denies tingling Neuro Denies Abnormal speech present, Denies behavioral changes, Denies vertigo, Denies dizziness, Denies headache(s), Denies loss of vision, Denies memory loss, Denies numbness and Denies tingling Psych Denies anxiety, Denies behavioral changes, Denies depression, Denies memory loss and Denies panic attacks Arian/Lymph Denies easy bleeding and Denies easy bruising Aller/Immun Denies wheezing Physical exam (Primary Care) Vital Signs: Last Vital Signs Pulse 64 01/10/24 14:07 BP 118/78 01/10/24 14:07 Pulse Ox 99 01/10/24 14:07 Oxygen Delivery Method Room Air 01/10/24 14:07 BMI result Body Mass Index 36.9 Tobacco/Smoking Status: Tobacco use Status Tobacco use date assessed 09/15/23 01/10/24 14:10 Patient Tobacco Use Status Never used Tobacco 01/10/24 14:10 e-Cigarette/Vaping Use Never Used 01/10/24 14:10 Thrive Assessment: Date of Thrive Assessment Date Thrive assessed 09/15/23 01/10/24 14:10 Const General: healthy appearing, no acute distress, alert and awake Nutritional Appearance: well nourished Orientation/consciousness: oriented to person, oriented to place and oriented to time [facility] Ears: TM's normal bilaterally General nose exam: Normal nasal mucous membranes and turbinates present Eyes Conjunctivae: conjunctivae normal Sclerae: sclerae normal Pupils: Equal, round and reactive pupils present Neck Neck: Yes no lymphadenopathy and Yes no JVD Thyroid: Thyroid normal Carotids: no bruits Resp Effort & Inspection: normal respiratory effort and not tachypneic Auscultation: no crackles, no rales, no rhonchi and no wheezes Cardio Rate: regular rate Rhythm: regular rhythm Heart sounds: no murmurs and normal S1 and S2 GI Palpation (GI): Soft to palpation, nontender, no hepatomegaly and no splenomegaly Auscultation: normal bowel sounds Skin General skin exam: no rashes or lesions noted and dry skin Neuro General: oriented to person, oriented to place and oriented to time Cranial nerves: Yes Equal, round and reactive pupils present Speech: No Abnormal speech present Gait exam (Neuro): Normal gait present Motor exam (neuro): no tremor noted Extrem Right upper extremity: full ROM Left upper extremity: full ROM Right lower extremity: full ROM; no edema Left lower extremity: full ROM; no edema Psych Mental Status: mental status grossly normal Speech and movement: Normal speech and movement present Affect: normal affect Attitude: cooperative Thought process: Normal thought process present Assessment and Plan Assessment & Plan (1) CKD (chronic kidney disease), stage III: Code(s): N18.30 - Chronic kidney disease, stage 3 unspecified Qualifiers: Chronic kidney disease stage 3 subtype: unspecified whether 3a or 3b Qualified Code(s): N18.30 - Chronic kidney disease, stage 3 unspecified Plan: Did have acute kidney injury during hospitalization. Patient creatinine remains 1.4-1.6. She does have follow-up with a multimedia developer. Will continue to follow renal function. Will continue to avoid nephrotoxins. (2) Congestive heart failure: Code(s): I50.9 - Heart failure, unspecified Qualifiers: Heart failure chronicity: chronic Heart failure type: systolic Qualified Code(s): I50.22 - Chronic systolic (congestive) heart failure Plan: Seems while compensated at this time. She continues on Bumex 2 mg and Entresto. As per HPI patient was found to have heart failure with reduced ejection fraction (30%). She does have an ICD placed (3) Atrial fibrillation with RVR: Code(s): I48.91 - Unspecified atrial fibrillation Plan: Has had several attempts on cardioversion recently. Will follow-up with [facility]. Now on amiodarone and metoprolol. Also continues on Eliquis without any overt signs of bleeding. (4) HTN (hypertension): Code(s): I10 - Essential (primary) hypertension Qualifiers: Hypertension type: essential hypertension Qualified Code(s): I10 - Essential (primary) hypertension Plan: Blood pressure acceptable today in office. Goal blood pressures to be below 140/90 and above 100/60 (5) ICD (implantable cardioverter-defibrillator) in place: Code(s): Z95.810 - Presence of automatic (implantable) cardiac defibrillator Plan: As above (6) Hypokalemia: Code(s): E87.6 - Hypokalemia Plan: Most recent potassium at 2.7. Will Re-evaluate potassium. Hypokalemia likely due to diuretic use. Will continue Klor-Con 10 mEq for now. Orders: Orders Comprehensive Met. Panel 01/10/24 I10 - Essential (primary) hypertension NT-proBNP 01/10/24 I42.9 - Cardiomyopathy, unspecified Medications: Changed From bumetanide 2 mg PO DAILY I50.22 - Chronic systolic (congestive) heart failure To bumetanide 2 mg PO DAILY 90 days 90 tabs 1RF I50.22 - Chronic systolic (congestive) heart failure Patient Instructions: Goal: Blood pressure to remain below 140/90, control AFib Barriers: Adherence to healthy eating habits and physical activity Coding Level of Care Code Est Pt Level 4 (72774) Diagnoses Stage 3 chronic kidney disease, unspecified whether stage 3a or 3b CKD N18.30 Chronic kidney disease stage 3 subtype: unspecified whether 3a or 3b Chronic systolic congestive heart failure I50.22 Heart failure chronicity: chronic Heart failure type: systolic Atrial fibrillation with RVR I48.91 Essential hypertension I10 Hypertension type: essential hypertension ICD (implantable cardioverter-defibrillator) in place Z95.810 Hypokalemia E87.6
== END 2024-01-10 14:46 | disposition home or self-care (01) ==
PROVIDERS: PCP Physician Assistant; Visit Provider Physician Assistant
DX: I13.0 Hypertensive heart and chronic kidney disease with heart failure and stage 1 through stage 4 chronic kidney disease, or unspecified chronic kidney disease (principal); N18.30 Chronic kidney disease, stage 3 unspecified; I50.22 Chronic systolic (congestive) heart failure; I48.91 Unspecified atrial fibrillation; Z95.810 Presence of automatic (implantable) cardiac defibrillator; E87.6 Hypokalemia
CPT/HCPCS: 99214

== ENCOUNTER 2024-01-13 12:04 | Outpatient (REF) | payer MEDICARE, MEDICAID, SELFPAY ==
[2024-01-13 14:18] LABS: Alanine Aminotransferase 12 U/L (0-31); Albumin Level 4.1 g/dL (3.5-5.0); Alkaline Phosphatase 77 U/L (39-117); Anion Gap 14 (12-20); Aspartate Amino Transferase 18 U/L (5-31); Bilirubin Total 0.8 mg/dL (0.0-1.0); Blood Urea Nitrogen 26 mg/dL (9-16); Calcium 9.8 mg/dL (8.4-10.2); Carbon Dioxide 26 mmol/L (22-29); Chloride 105 mmol/L (96-108); Estimated Glomerular Filt Rate 34; Glucose Random 93 mg/dL (60-115); Potassium 2.6 mmol/L (3.3-5.1); Sodium 142 mmol/L (135-145); Total Protein 7.3 g/dL (6.5-8.0)
[2024-01-13 14:21] LABS: Creatinine Urine 61.06 mg/dL; Microalbum/Creatinine Ratio Ur 31.1 ug/mg cr (<30)
[2024-01-18 22:38] LABS: NT-proBNP 404 pg/mL (<450)
== END 2024-01-13 12:05 | disposition home or self-care (01) ==
LOC: HO.LAB 12:04
PROVIDERS: PCP Physician Assistant; Visit Provider Physician Assistant
DX: I10 Essential (primary) hypertension (principal); I42.9 Cardiomyopathy, unspecified
CPT/HCPCS: 36415; 80053; 82043; 82570; 83880

== ENCOUNTER → 2024-01-28 23:59 | Outpatient (BNV) | payer MEDICARE, SELFPAY ==
--- NOTE | 2024-02-20 19:58 | MHC.OFFVIS ---
Intake Visit Reasons: Remote device ck-Medtronic Allergies No Known Allergies Allergy (Verified 01/10/24 14:23) [facility] Medical History HFrEF (heart failure with reduced ejection fraction) Atrial fibrillation Lymphedema Hypothyroidism History of pulmonary embolism HTN (hypertension) Current use of anticoagulant therapy Surgical History History of cardiac pacemaker History of laparoscopic cholecystectomy Family History Father CVD (cardiovascular disease) Mother Medical history unknown Social History Household Members: None Housing: House Do you presently have visiting nurse or other home services: Yes (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 [id number] Cardiac Device Check, multi lead implantable defibrillator Procedure code (CPT) selection complete Assessment & Plan Assessment & Plan (1) Ventricular tachycardia: Code(s): I47.20 - Ventricular tachycardia, unspecified Category: Medical Plan: (2) ICD (implantable cardioverter-defibrillator) in place: Code(s): Z95.810 - Presence of automatic (implantable) cardiac defibrillator Category: Medical Plan: Coding Level of Care Code Procedure Only Diagnoses Ventricular tachycardia I47.20 ICD (implantable cardioverter-defibrillator) in place Z95.810 CPT Codes Cardiac Device Check - Cardiac Device 6: [id number] Cardiac Device Check, multi lead implantable defibrillator ([id number])
== END ==
PROVIDERS: PCP Physician Assistant; Visit Provider Internal Medicine Cardiovascular Disease
DX: I47.20 Ventricular tachycardia, unspecified (principal); Z95.810 Presence of automatic (implantable) cardiac defibrillator
CPT/HCPCS: 93295

== ENCOUNTER → 2024-01-28 23:59 | Outpatient (BNV) | payer MEDICARE, MEDICAID, SELFPAY ==
--- NOTE | 2024-02-20 20:00 | MHC.OFFVIS ---
Intake Visit Reasons: Remote HF Device Check- Medtronic Allergies No Known Allergies Allergy (Verified 01/10/24 14:23) [facility] Medical History HFrEF (heart failure with reduced ejection fraction) Atrial fibrillation Lymphedema Hypothyroidism History of pulmonary embolism HTN (hypertension) Current use of anticoagulant therapy Surgical History History of cardiac pacemaker History of laparoscopic cholecystectomy Family History Father CVD (cardiovascular disease) Mother Medical history unknown Social History Household Members: None Housing: House Do you presently have visiting nurse or other home services: 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 [id number] Cardiac Device Interrogation, cardio physiologic monitor Procedure code (CPT) selection complete Assessment & Plan Assessment & Plan (1) History of cardiac pacemaker: Code(s): Z95.0 - Presence of cardiac pacemaker Category: Surgical Plan: Coding Level of Care Code Procedure Only Diagnoses History of cardiac pacemaker Z95.0 CPT Codes Cardiac Device Check - Cardiac Device 15: [id number] Cardiac Device Interrogation, cardio physiologic monitor ([id number])
== END ==
PROVIDERS: PCP Physician Assistant; Visit Provider Internal Medicine Cardiovascular Disease
DX: Z45.018 Encounter for adjustment and management of other part of cardiac pacemaker (principal)
CPT/HCPCS: 93297

== ENCOUNTER 2024-02-09 08:41 | Outpatient (REF) | payer MEDICARE, MEDICAID, SELFPAY | END 2024-02-09 08:42 | disposition home or self-care (01) | LOC: HO.LAB 08:41 | PROVIDERS: PCP Physician Assistant; Visit Provider Physician Assistant | DX: E87.6 Hypokalemia (principal) | CPT/HCPCS: 36415; 84132 ==

== ENCOUNTER 2024-02-23 09:34 | Outpatient (REF) | payer MEDICARE, SELFPAY ==
[2024-02-23 10:57] LABS: Potassium 4.1 mmol/L (3.3-5.1)
== END 2024-02-23 09:35 | disposition home or self-care (01) ==
LOC: HO.LAB 09:34
PROVIDERS: PCP Physician Assistant; Visit Provider Physician Assistant
DX: E87.6 Hypokalemia (principal)
CPT/HCPCS: 36415; 84132

== ENCOUNTER 2024-04-11 13:20 | Outpatient (AMB) | payer MEDICARE, MEDICAID, SELFPAY ==
[2024-04-11 13:25] VITALS: BP 108/62; PULSE 71; BMI 34.9
--- NOTE | 2024-04-11 13:25 | A.OFFVIS_ITS ---
Vital Signs 04/11/24 13:25 Height 5 ft 10 in Weight 242 lb 15.19 oz BMI 34.9 BP 108/62 Blood Pressure Location Lt brachial Position Sitting Pulse 71 Pulse Source Monitor Intake Visit Reasons: 3m follow up Rehabilitation Coordinator Required: No Allergies No Known Allergies Allergy (Verified 04/11/24 13:28) Medication List - Last Reconciled 04/11/24 by Nidhi Sheets NP-C acetaminophen 650 mg PO Q6H PRN amiodarone 200 mg PO DAILY apixaban (Eliquis) 5 mg PO BID baclofen 5 mg PO DAILY PRN 14 days blood pressure kit-extra large As directed bumetanide 2 mg PO DAILY 90 days levothyroxine 137 mcg PO DAILY@0600 metoprolol succinate ER 50 mg PO DAILY miscellaneous medical supply (Blood Pressure Cuff) As directed miscellaneous medical supply 1 ea miscellaneous DAILY 99 days nystatin 1 appl topical BID 30 days potassium chloride ER (Klor-Con M) 20 mEq PO BID 30 days sacubitril-valsartan 24-26 mg (Entresto) 1 tab PO BID 90 days spironolactone 25 mg PO BID 90 days tramadol 50 mg PO BID PRN 7 days walker (Ultra-Light Rollator misc) As directed HPI HPI 3m follow up: Details: Cara is a 78-year-old female with past medical history of hypertension, hyperlipidemia, morbid obesity, newer finding of atrial fibrillation with [facility] admission x2. She did have cardioversion during her 1st admission. She then had recurrent AFib and plan was for repeat cardioversion however she had NSVT and was transferred to [facility] for cardiac catheterization which showed normal coronaries. While there she had cardioversion and Bi V ICD placed. She now presents for follow-up. Today she reports she has been doing quite well since her last visit in December. She has lost 19 lb. She has been more physically active and is able to walk with a willing walker. She has not had concerning shortness of breath, PND, orthopnea or edema. She denies any chest discomfort at rest or with activity. No lightheadedness, presyncope, syncope, falls. Her pacemaker site is feeling well. Taking all meds as directed. No bleeding issues reported. [facility] Medical History HFrEF (heart failure with reduced ejection fraction) Atrial fibrillation Lymphedema Hypothyroidism History of pulmonary embolism HTN (hypertension) Current use of anticoagulant therapy Surgical History History of cardiac pacemaker History of laparoscopic cholecystectomy Family History Father CVD (cardiovascular disease) Mother Medical history unknown Social History Household Members: None Housing: House Do you presently have visiting nurse or other home services: Yes ([employer]/ [employer]) Alcohol intake: unknown Comment: rings appropriately- A/ox4 Patient Tobacco Use Status: Never used Tobacco e-Cigarette/Vaping Use: Never Used Second Hand Smoke Exposure: No Advance Directives Date on File: 08/26/23 service: No Current occupational status: retired Cognitive needs: Yes (Pt has a walker) Hearing needs: No Vision needs: No Review of Systems Const All systems reviewed & are unremarkable except as noted in HPI and below Reports fatigue ENT Denies dizziness Card Denies chest pain, Denies chest pain at rest, Denies chest pain with activity, Denies rapid heart rate, Denies pedal edema, Denies edema, Denies leg edema, Denies lightheadedness, Denies palpitations, Denies dyspnea, Denies dyspnea on exertion and Denies orthopnea Resp Denies cough, Denies dyspnea and Denies dyspnea on exertion GI Denies hematochezia and Denies change in stool character Musc Denies abnormal gait, Denies limited range of motion, Denies muscle cramps, Denies muscle weakness, Denies numbness, Denies radiating pain into limb, Denies stiffness and Denies tingling Neuro Denies abnormal gait, Denies dizziness, Denies numbness and Denies tingling Endo Reports fatigue and Denies palpitations Physical Exam Vital Signs: Last Vital Signs Pulse 71 04/11/24 13:25 BP 108/62 04/11/24 13:25 BMI result Body Mass Index 34.9 Const Other: Obese, Ambulating with rolling walker General: cooperative, healthy appearing, comfortable and no acute distress Orientation/consciousness: patient oriented x3 Neck Neck: Yes normal visual inspection Chest Other: Pacer site left upper chest benign Resp Effort & Inspection: normal respiratory effort Auscultation: clear to auscultation bilaterally, no rales, no rhonchi and no wheezes Cardio Jugular venous distension: no JVD Rate: regular rate Rhythm: regular rhythm Heart sounds: S1 normal heart sound present, S2 normal heart sound present, no murmurs and no rubs Neuro General: patient oriented x3 Extrem Other: no pitting edema in lower legs Psych Appearance: grossly normal Mental Status: mental status grossly normal Speech and movement: Normal speech and movement present Office Procedures EKG Details: Today, read by me, V paced rhythm, QTC 475 milliseconds, rate 73 [id number], Complete Assessment & Plan Assessment & Plan (1) Atrial fibrillation with RVR: Code(s): I48.91 - Unspecified atrial fibrillation Category: Medical Plan: History of paroxysmal AFiib and was on Coumadin for anticoagulation. [facility] admission 08/24/2023 with shortness of breath and heart palpitations. EKG confirmed AFib RVR. She was found to have Congestive heart failure and was diuresed 14 L. Her echocardiogram showed EF 25-30%. Her Coumadin was changed over to Eliquis. She was put on amiodarone in underwent cardioversion. Following that discharge she was to be seen in our office however she did not present for follow-up. She was readmitted to [facility] on after a fall at home with finding of JESSIE. She then went into atrial fibrillation which initially was treated with rate control. Plan was to do a cardioversion again however she had a 1 minute run of NSVT which prompted transferred to [facility] for cardiac catheterization. While at [facility] she did have a cardioversion and was continued on her amiodarone and Eliquis. She has not had recurrent heart palpitations since that time. Her EKG done today is showing V paced rhythm, rate 73. Can not entirely exclude underlying AFib however no recent AF alerts have come through on her remote monitoring. She is currently pleased with how she is feeling. Will have her continue on current med management including metoprolol XL 50 mg daily for heart rate control, amiodarone 200 mg daily for rhythm control and Eliquis 5 mg b.i.d. for anticoagulation. Will continue to follow her device with remote monitoring. Will update echo prior to her next visit. Cardiology follow-up in 3 months, sooner if needed (2) Cardiomyopathy: Code(s): I42.9 - Cardiomyopathy, unspecified Category: Medical Plan: Newer finding of cardiomyopathy, EF 25-30%. She did have a 1 minute run of NSVT during last [facility] admission. She was transferred to [facility] and underwent cardiac catheterization on 10/27/2023 showing normal coronary arteries. Her prior EKG shows a left bundle branch block. Cardiomyopathy May be t achycardia mediated or related to her left bundle branch block. While at [facility] she underwent a Bi V ICD placement. She has not had any palpitations, presyncope, syncope. Blood pressure on low side, asymptomatic. Will have her continue on metoprolol XL, Entresto and Aldactone for neurohormonal modulation. Updated lab work is pending. (3) Acute HFrEF (heart failure with reduced ejection fraction): Code(s): I50.21 - Acute systolic (congestive) heart failure Category: Medical Plan: As above. On exam today she does not appear grossly fluid overloaded. Her legs do have a deflated appearance with no pitting edema. Her lungs are clear on exam. Continue Bumex 2 mg daily. Signs and symptoms of heart failure reviewed with her. Reviewed home weight monitoring if able. Follow low-salt diet. (4) LBBB (left bundle branch block): Code(s): I44.7 - Left bundle-branch block, unspecified Category: Medical Plan: Chronic, Noted on EKGs as far back as 2014. . (5) S/P cardiac catheterization: Comment: 10/27/2023, normal coronary arteries Code(s): Z98.890 - Other specified postprocedural states Category: Surgical Plan: As above (6) History of cardiac pacemaker: Code(s): Z95.0 - Presence of cardiac pacemaker Category: Surgical Plan: New Medtronic Bi V ICD placed while at [facility] recently. Interrogation last visit shows device is functioning normally. Remote monitoring in use. Next remote interrogation due early April. Her effective GLAZE GRINDER pacing is about 80 6%. Previously known to have brief PAF which can account for the the low number in GLAZE GRINDER pacing. Next office interrogation due in 3 months. Pacer site benign. (7) Current use of anticoagulant therapy: Code(s): Z79.01 - senior care (current) use of anticoagulants Category: Medical Plan: Currently on Eliquis (8) HTN (hypertension): Code(s): I10 - Essential (primary) hypertension Category: Medical Qualifiers: Hypertension type: essential hypertension Qualified Code(s): I10 - Essential (primary) hypertension Plan: On low side today, asymptomatic. No med changes made Plan Time spent on chart review, documentation, interview and assessment Orders: Orders CA echo transthoracic complete 2 Months I42.9 - Cardiomyopathy, unspecified, Z95.810 - Presence of automatic (implantable) cardiac defibrillator Coding Level of Care Code Est Pt Level 4 (46942) Diagnoses Atrial fibrillation with RVR I48.91 Cardiomyopathy I42.9 Acute HFrEF (heart failure with reduced ejection fraction) I50.21 LBBB (left bundle branch block) I44.7 S/P cardiac catheterization Z98.890 History of cardiac pacemaker Z95.0 Current use of anticoagulant therapy Z79.01 Essential hypertension I10 Hypertension type: essential hypertension CPT Codes EKG - CPT: 93814-[id number], Complete ([id number]) Time Spent (min) 30
== END 2024-04-11 13:57 | disposition home or self-care (01) ==
PROVIDERS: PCP Physician Assistant; Visit Provider Nurse Practitioner Family
DX: I48.91 Unspecified atrial fibrillation (principal); I42.9 Cardiomyopathy, unspecified; I50.21 Acute systolic (congestive) heart failure; I44.7 Left bundle-branch block, unspecified; Z98.890 Other specified postprocedural states; Z95.0 Presence of cardiac pacemaker; Z79.01 Long term (current) use of anticoagulants; I10 Essential (primary) hypertension
CPT/HCPCS: 93010; 99214

== ENCOUNTER → 2024-04-11 13:20 | Outpatient (BNVA) | payer MEDICARE, MEDICAID, SELFPAY | PROVIDERS: PCP Physician Assistant; Visit Provider Nurse Practitioner Family | DX: I48.91 Unspecified atrial fibrillation (principal); I42.9 Cardiomyopathy, unspecified; I11.0 Hypertensive heart disease with heart failure; I50.21 Acute systolic (congestive) heart failure; I44.7 Left bundle-branch block, unspecified; Z95.0 Presence of cardiac pacemaker; Z79.01 Long term (current) use of anticoagulants; Z98.890 Other specified postprocedural states | CPT/HCPCS: 93005; 99212 ==

== ENCOUNTER → 2024-04-28 23:59 | Outpatient (BNV) | payer MEDICARE, MEDICAID, SELFPAY ==
--- NOTE | 2024-05-16 19:42 | A.OFFVIS_ITS ---
Intake Visit Reasons: Remote HF monitoring- Medtronic Allergies No Known Allergies Allergy (Verified 04/11/24 13:28) [facility] Medical History HFrEF (heart failure with reduced ejection fraction) Atrial fibrillation Lymphedema Hypothyroidism History of pulmonary embolism HTN (hypertension) Current use of anticoagulant therapy Surgical History History of cardiac pacemaker History of laparoscopic cholecystectomy Family History Father CVD (cardiovascular disease) Mother Medical history unknown Social History Household Members: None Housing: House Do you presently have visiting nurse or other home services: Yes ([employer]/ [employer]) Alcohol intake: unknown Comment: tan [place]/eduardo Patient Tobacco Use Status: Never used Tobacco e-Cigarette/Vaping Use: Never Used Second Hand Smoke Exposure: No Advance Directives Date on File: 08/26/23 service: No Current occupational status: retired Cognitive needs: Yes (Pt has a walker) Hearing needs: No Vision needs: No Office Procedures Cardiac Device Check Cardiac Device Check Details: HF monitoring Stable thoracic impedance. [id number] Cardiac Device Interrogation, cardio physiologic monitor Procedure code (CPT) selection complete Assessment & Plan Assessment & Plan (1) Cardiomyopathy: Code(s): I42.9 - Cardiomyopathy, unspecified Category: Medical Plan: Coding Level of Care Code Procedure Only Diagnoses Cardiomyopathy I42.9 CPT Codes Cardiac Device Check - Cardiac Device 15: [id number] Cardiac Device Interrogation, cardio physiologic monitor ([id number])
== END ==
PROVIDERS: PCP Physician Assistant; Visit Provider Internal Medicine Cardiovascular Disease
DX: I42.9 Cardiomyopathy, unspecified (principal); Z95.810 Presence of automatic (implantable) cardiac defibrillator
CPT/HCPCS: 93297

== ENCOUNTER → 2024-04-28 23:59 | Outpatient (BNV) | payer MEDICARE, MEDICAID, SELFPAY ==
--- NOTE | 2024-05-16 19:39 | MHC.OFFVIS ---
Intake Visit Reasons: Remote ICD check- Medtronic Allergies No Known Allergies Allergy (Verified 04/11/24 13:28) [facility] Medical History HFrEF (heart failure with reduced ejection fraction) Atrial fibrillation Lymphedema Hypothyroidism History of pulmonary embolism HTN (hypertension) Current use of anticoagulant therapy Surgical History History of cardiac pacemaker History of laparoscopic cholecystectomy Family History Father CVD (cardiovascular disease) Mother Medical history unknown Social History Household Members: None Housing: House Do you presently have visiting nurse or other home services: Yes ([employer]/ [employer]) Alcohol intake: unknown Comment: tan spangler A/parker4 Patient Tobacco Use Status: Never used Tobacco e-Cigarette/Vaping Use: Never Used Second Hand Smoke Exposure: No Advance Directives Date on File: 08/26/23 service: No Current occupational status: retired Cognitive needs: Yes (Pt has a walker) Hearing needs: No Vision needs: No Office Procedures Cardiac Device Check Cardiac Device Check Details: [employer] D Good battery life Biv Paced 97%. No new alerts. [id number] Cardiac Device Check, multi lead implantable defibrillator Procedure code (CPT) selection complete Assessment & Plan Assessment & Plan (1) ICD (implantable cardioverter-defibrillator) in place: Code(s): Z95.810 - Presence of automatic (implantable) cardiac defibrillator Category: Medical Plan: Coding Level of Care Code Procedure Only Diagnoses ICD (implantable cardioverter-defibrillator) in place Z95.810 CPT Codes Cardiac Device Check - Cardiac Device 6: [id number] Cardiac Device Check, multi lead implantable defibrillator ([id number])
== END ==
PROVIDERS: PCP Physician Assistant; Visit Provider Internal Medicine Cardiovascular Disease
DX: Z45.02 Encounter for adjustment and management of automatic implantable cardiac defibrillator (principal)
CPT/HCPCS: 93295

== ENCOUNTER 2024-05-09 16:17 | Outpatient (AMB) | payer MEDICARE, MEDICAID, SELFPAY ==
[2024-05-09 16:18] VITALS: BP 110/60; PULSE 95; O2SAT 96; BMI 34.3
--- NOTE | 2024-05-09 16:18 | HO.NEPHOV_ITS ---
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 Required: No Accompanied by: Self / Same As Patient Allergies No Known Allergies Allergy (Verified 04/11/24 13:28) Medication List - Last Reconciled 05/09/24 by Romain Cuenca MD acetaminophen 650 mg PO Q6H PRN amiodarone 200 mg PO DAILY apixaban (Eliquis) 5 mg PO BID baclofen 5 mg PO DAILY PRN 14 days blood pressure kit-extra large As directed bumetanide 2 mg PO DAILY 90 days levothyroxine 137 mcg PO DAILY@0600 metoprolol succinate ER 50 mg PO DAILY miscellaneous medical supply (Blood Pressure Cuff) As directed miscellaneous medical supply 1 ea miscellaneous DAILY 99 days nystatin 1 appl topical BID 30 days potassium chloride ER (Klor-Con M) 20 mEq PO BID 30 days sacubitril-valsartan 24-26 mg (Entresto) 1 tab PO BID 90 days spironolactone 25 mg PO BID 90 days tramadol 50 mg PO BID PRN 7 days walker (Ultra-Light Rollator misc) As directed HPI Comments Details: Elderly woman with a history of?HTN, HLD, PE in 2013, paroxysmal AFib on Eliquis , HFrEF, EF of 20-25% , hypothyroidism, and CKD 3 Baseline creatinine is around 1.4 mg/dL. She is on high dose of Bumex 2 mg along with spironolactone 25 mg twice a day. There has been some fluctuation in serum creatinine and she has had episodes of hypokalemia. Currently she is on potassium supplementation and the reason potassium was in the normal range. She has been referred for evaluation of chronic kidney disease. Cara seems to be compliant with her diet. She is on low-salt diet. She has lost significant weight. Leg edema has improved. She continues have dyspnea on exertion. No dyspnea at rest. Appetite is fair. No nausea or vomiting. No urinary symptoms. No rash PFSH Medical History HFrEF (heart failure with reduced ejection fraction) Atrial fibrillation Lymphedema Hypothyroidism History of pulmonary embolism HTN (hypertension) Current use of anticoagulant therapy Surgical History History of cardiac pacemaker History of laparoscopic cholecystectomy Family History Father CVD (cardiovascular disease) Mother Medical history unknown Social History Household Members: None Housing: House Do you presently have visiting nurse or other home services: Yes ([employer]/ [employer]) Alcohol intake: unknown Comment: rings appropriately- A/ox4 Patient Tobacco Use Status: Never used Tobacco e-Cigarette/Vaping Use: Never Used Second Hand Smoke Exposure: No Advance Directives Date on File: 08/26/23 service: No Current occupational status: retired Cognitive needs: Yes (Pt has a walker) Hearing needs: No Vision needs: No Physical Exam Vital Signs: Last Vital Signs Pulse 95 05/09/24 16:18 BP 110/60 05/09/24 16:18 Pulse Ox 96 05/09/24 16:18 Oxygen Delivery Method Room Air 05/09/24 16:18 BMI result Body Mass Index 34.3 Obese Const General: comfortable; No acute distress Orientation/consciousness: patient oriented x3 Eyes General: appearance normal, both eyes and all related structures Visual Oconnell: normal visual oconnell by confrontation Neck Neck: Yes supple and Yes no JVD Resp Effort & Inspection: normal respiratory effort and respiratory effort not decreased Auscultation: rhonchi Cardio Palpation: no palpable S3 and no palpable S4 Heart sounds: no rubs GI Inspection: Yes normal to inspection Palpation (GI): Soft to palpation Percussion: Yes normal to percussion Auscultation: normal bowel sounds General: Yes no CVA tenderness Back/Spine/Pelvis Back: no CVA tenderness Skin General skin exam: no petechiae and no purpura Neuro General: patient oriented x3 and no focal motor deficits Extrem General: No clubbing and No edema Results Reviewed Nephrology Results: Sodium 142 mmol/L (135-145) 01/13/24 Potassium 4.1 mmol/L (3.3-5.1) 02/23/24 Chloride 105 mmol/L (96-108) 01/13/24 Carbon Dioxide 26 mmol/L (22-29) 01/13/24 BUN 26 mg/dL (9-16) H 01/13/24 Creatinine 1.47 mg/dL (0.5-1.4) H 01/13/24 Calcium 9.8 mg/dL (8.4-10.2) 01/13/24 Urine Creatinine 61.06 mg/dL 01/13/24 Assessment & Plan Assessment & Plan (1) CKD (chronic kidney disease), stage III: Code(s): N18.30 - Chronic kidney disease, stage 3 unspecified Category: Medical Qualifiers: Chronic kidney disease stage 3 subtype: unspecified whether 3a or 3b Qualified Code(s): N18.30 - Chronic kidney disease, stage 3 unspecified Plan Chronic kidney disease in the setting of obesity and congestive heart failure. She has had episodes of acute kidney injury due to hypoperfusion in the setting of heart failure. Baseline serum creatinine is around 1.4 mg/dL. Goal is to slow the progression of renal disease. Optimize cardiac function. Currently she is on Entresto and spironolactone. Encouraged to stay on low-sodium diet. Continue with current dose of diuretics. Continue to monitor renal function and serum potassium. Continue to avoid nephrotoxic agents including NSAIDs. I have ordered baseline investigations including renal panel. Recent urinalysis was benign without any significant proteinuria. Further workup will depend on the outcome of the baseline investigations. I have reassured her answered all her questions. Orders: Orders Basic Metabolic Panel Today N18.30 - Chronic kidney disease, stage 3 unspecified Complete Blood Count Auto Diff Today N18.30 - Chronic kidney disease, stage 3 unspecified Parathyroid Hormone Intact Today N18.30 - Chronic kidney disease, stage 3 unspecified Coding Level of Care Code New Pt Level 4 (65127) Complex EM visit Add On G2211 Diagnoses Stage 3 chronic kidney disease, unspecified whether stage 3a or 3b CKD N18.30 Chronic kidney disease stage 3 subtype: unspecified whether 3a or 3b
== END 2024-05-09 16:38 | disposition home or self-care (01) ==
PROVIDERS: PCP Physician Assistant; Referring Provider Physician Assistant; Visit Provider Internal Medicine Hypertension Specialist
DX: N18.30 Chronic kidney disease, stage 3 unspecified (principal); I50.20 Unspecified systolic (congestive) heart failure
CPT/HCPCS: 99204; G2211

== ENCOUNTER → 2024-05-09 16:17 | Outpatient (BNVA) | payer MEDICARE, SELFPAY | PROVIDERS: PCP Physician Assistant; Referring Provider Physician Assistant; Visit Provider Internal Medicine Hypertension Specialist | DX: I12.9 Hypertensive chronic kidney disease with stage 1 through stage 4 chronic kidney disease, or unspecified chronic kidney disease (principal); N18.30 Chronic kidney disease, stage 3 unspecified; I48.0 Paroxysmal atrial fibrillation; E78.5 Hyperlipidemia, unspecified; Z79.01 Long term (current) use of anticoagulants | CPT/HCPCS: 99202 ==

== ENCOUNTER 2024-05-10 08:34 | Outpatient (REF) | payer MEDICARE, MEDICAID, SELFPAY ==
[2024-05-10 10:59] LABS: MANUAL DIFF FLAG NO
[2024-05-10 11:06] LABS: Basophils Absolute Auto 0.1 X10*3/uL (0.0-0.2); Basophils Percent Auto 0.7 % (0-2); Eosinophils Absolute Auto 0.2 X10*3/uL (0.0-0.4); Eosinophils Percent Auto 1.7 % (0-4); Hemoglobin 11.5 g/dl (12.0-16.0); Imm Gran Abs Auto 0.08 X10*3/uL (0.00-0.03); Imm Gran Pct Auto 0.9 % (0.0-0.4); Lymphocytes Absolute Auto 1.3 X10*3/uL (1.2-4.9); Mean Corpuscular HGB Conc 33.8 g/dl (31.0-35.0); Mean Corpuscular Hemoglobin 33.5 pg (27.0-33.0); Mean Corpuscular Volume 99.1 fL (80.0-98.0); Mean Platelet Volume 11.9 fL (9.4-12.3); Monocytes Absolute Auto 1.3 X10*3/uL (0.1-1.2); Monocytes Percent Auto 14.5 % (2-11); Neutrophils Percent Auto 67.2 % (45-73); Platelet Count 165 X10*3/uL (160-400); Red Blood Count 3.43 X10*6/uL (4.20-5.50); Red Cell Distribution Width 14.8 % (11.0-16.0); White Blood Count 8.9 X10*3/uL (4.8-10.8)
[2024-05-10 12:29] LABS: Parathyroid Hormone Intact 109.5 pg/mL (8.7-77.1)
[2024-05-10 15:46] LABS: Anion Gap 19 (12-20); Blood Urea Nitrogen 82 mg/dL (9-16); Calcium 9.5 mg/dL (8.4-10.2); Carbon Dioxide 16 mmol/L (22-29); Chloride 104 mmol/L (96-108); Estimated Glomerular Filt Rate 10; Glucose Random 105 mg/dL (60-115); Potassium 4.2 mmol/L (3.3-5.1); Sodium 135 mmol/L (135-145)
== END 2024-05-10 08:35 | disposition home or self-care (01) ==
LOC: HO.10HDL 08:34
PROVIDERS: Visit Provider Internal Medicine Hypertension Specialist
DX: N18.30 Chronic kidney disease, stage 3 unspecified (principal)
CPT/HCPCS: 36415; 80048; 83970; 85025

== ENCOUNTER 2024-05-15 08:23 | Outpatient (REF) | payer MEDICARE, MEDICAID, SELFPAY ==
[2024-05-15 11:05] LABS: Anion Gap 15 (12-20); Blood Urea Nitrogen 66 mg/dL (9-16); Calcium 9.2 mg/dL (8.4-10.2); Carbon Dioxide 18 mmol/L (22-29); Chloride 114 mmol/L (96-108); Estimated Glomerular Filt Rate 24; Glucose Random 115 mg/dL (60-115); Sodium 143 mmol/L (135-145)
== END 2024-05-15 08:24 | disposition home or self-care (01) ==
LOC: HO.10HDL 08:23
PROVIDERS: Visit Provider Internal Medicine Hypertension Specialist
DX: N17.9 Acute kidney failure, unspecified (principal)
CPT/HCPCS: 36415; 80048

== ENCOUNTER 2024-05-17 14:14 | Outpatient (AMB) | payer MEDICARE, SELFPAY ==
[2024-05-17 14:20] VITALS: BP 100/62; PULSE 70; O2SAT 98; BMI 34.9
--- NOTE | 2024-05-17 14:20 | A.OFFPC_ITS ---
Vital Signs 05/17/24 14:20 Height 5 ft 10 in Weight 243 lb BMI 34.9 BP 100/62 Blood Pressure Location Lt brachial Position Sitting Pulse 70 Pulse Source Pulse Oximeter Pulse Oximetry (%) 98 Oxygen Delivery Method Room Air Intake Visit Reasons: Follow Up Pin Inserter Required: No Accompanied by: Self / Same As Patient Allergies No Known Allergies Allergy (Verified 05/17/24 14:33) Medication List - Last Reconciled 05/17/24 by Karson Frank PA-C acetaminophen 650 mg PO Q6H PRN amiodarone 200 mg PO DAILY apixaban (Eliquis) 5 mg PO BID baclofen 5 mg PO DAILY PRN 14 days blood pressure kit-extra large As directed levothyroxine 137 mcg PO DAILY@0600 metoprolol succinate ER 50 mg PO DAILY miscellaneous medical supply (Blood Pressure Cuff) As directed miscellaneous medical supply 1 ea miscellaneous DAILY 99 days nystatin 1 appl topical BID 30 days sacubitril-valsartan 24-26 mg (Entresto) 1 tab PO BID 90 days tramadol 50 mg PO BID PRN 7 days walker (Ultra-Light Rollator misc) As directed Tobacco use date assessed: 09/15/23 Fall risk assessment: No Falls in past year Last assessed Fall Risk: 05/17/24 Dental Screening Dental Screen Date: 11/15/23 HPI Follow Up HPI Details Patient is a 79 female here today for a follow-up visit. Patient has a past medical history significant for hypertension, hyperlipidemia, hypothyroidism and CKD stage 3, AFib and Congestive heart failure with reduced ejection fraction. Congestive heart failure/AFib: She was admitted to the hospital in early October 2023 for acute heart failure and rapid AFib. She was found to have a reduced ejection fraction of 25 30%. She did undergo cardiac catheterization on 10/27/[address] May that revealed normal coronary arteries. Patient did undergo a cardioversion and an ICD placement on October 28. --- >Currently doing well, vitals today are stable. She still has some exertional fatigue though has been working through it. .. Renal impairment: Is followed by [place] [facility]. Most recent renal functions appear to be impaired. She was told to hold her Bumex and spironolactone. Repeat testing showed improved renal function. .. Hypothyroidism: Patient continues on levothyroxine and has been clinically and chemically euthyroid for quite awhile. Laboratory Tests 10/26/23 05/10/24 05/15/24 12:31 08:40 08:30 Hgb 12.9 11.5 L Hct 39.2 34.0 L BUN 82 H 66 H Creatinine 4.25 H* 2.03 H [facility] Medical History HFrEF (heart failure with reduced ejection fraction) Atrial fibrillation Lymphedema Hypothyroidism History of pulmonary embolism HTN (hypertension) Current use of anticoagulant therapy Surgical History History of cardiac pacemaker History of laparoscopic cholecystectomy Family History Father CVD (cardiovascular disease) Mother Medical history unknown Social History Household Members: None Housing: House Do you presently have visiting nurse or other home services: Yes ([employer]/ [employer] wheels) Alcohol intake: unknown Comment: tan guerra- A/ox4 Patient Tobacco Use Status: Never used Tobacco e-Cigarette/Vaping Use: Never Used Second Hand Smoke Exposure: No Advance Directives Date on File: 08/26/23 service: No Current occupational status: retired Cognitive needs: Yes (Pt has a walker) Hearing needs: No Vision needs: No Questionnaire PHQ-9 Over the last 2 weeks, how often have you been bothered by any of the following problems? 1. Little interest or pleasure in doing things: several days 2. Feeling down, depressed, or hopeless: several days 3. Trouble falling or staying asleep, or sleeping too much: not at all 4. Feeling tired or having little energy: several days 5. Poor appetite or overeating: several days 6. Feeling bad about yourself - or that you are a failure or have let yourself or your family down: not at all 7. Trouble concentrating on things, such as reading the newspaper or watching television: not at all 8. Moving or speaking so slowly that other people could have noticed. Or the opposite - being so fidgety or restless that you have been moving around a lot more than usual: not at all 9. Thoughts that you would be better off or of hurting yourself in some way: not at all Total score: 4 Depression Screening Interpretation: Positive Depression Screening Follow-up: Existing condition Depression Screening Done: Yes 57436 - PHQ-9 Billing: Yes Source: Developed by Drs. Remy Kirby, Bren Pro, Tony Orona and colleagues, with an educational siri from [employer]. Thrive Questionnaire Date Thrive assessed: 05/17/24 I am a: Patient What is your living situation today?: I have a steady place to live Within the past 12 months, did the food you bought not last and you didn't have the money to get more?: Never true Within the past 12 months, did you worry whether your food would run out before you got money to buy more?: Never true Do you have trouble paying for medicines?: No Do you have trouble getting transportation to medical appointments?: No Do you have trouble paying your heating and electricity bill?: No Do you have trouble taking care of your child, family member or friend?: No Do you have trouble with day-to-day activities such as bathing, preparing meals, shopping, managing finances, etc.?: No Are you currently unemployed and looking for a job?: No Are you interested in more education?: No Please select the resources that you would like help with: None Currently or been in a relationship where the following occur: No concerns reported THRIVE Score: 0 AUDIT C Alcohol Use Questionnaire (AUDIT-C) 1. How often do you have a drink containing alcohol?: Never 3. How often do you have six or more drinks on one occasion?: Never Total Score: 0 NOÉ-7 AMB Questionnaire NOÉ-7 Date NOÉ - 7 assessed: 05/17/24 Feeling nervous, anxious, or on edge: 0 = Not at all Not being able to stop or control worryin = Not at all Worrying too much about different things: 0 = Not at all Trouble relaxin = Not at all Being so restless that it is hard to sit still: 0 = Not at all Becoming easily annoyed or irritable: 0 = Not at all Feeling afraid as if something awful might happen: 0 = Not at all Total NOÉ-7 score (0-4 normal; 5-9 mild; 10-14 moderate; 15-21 severe): 0 Source: Developed by Drs. Remy Kirby, Bren Pro, Tony Orona and colleagues, with an educational siri from [employer]. NOÉ-7 Assessment Billing NOÉ-7 Assessment Tool: NOÉ-7 Assessment 40526 Review of Systems Const Denies headache(s) Eyes Denies loss of vision ENT Denies vertigo, Denies dizziness, Denies headache(s) and Denies sore throat Card Denies chest pain, Denies leg edema and Denies lightheadedness Resp Denies cough, Denies hemoptysis and Denies wheezing GI Denies abdominal pain, Denies melena, Denies constipation, Denies diarrhea and Denies vomiting Denies urinary frequency, Denies dysuria and Denies urinary urgency Musc Denies arthralgias, Denies joint swelling, Denies numbness and Denies tingling Neuro Denies Abnormal speech present, Denies behavioral changes, Denies vertigo, Denie s dizziness, Denies headache(s), Denies loss of vision, Denies memory loss, Denies numbness and Denies tingling Psych Denies anxiety, Denies behavioral changes, Denies depression, Denies memory loss and Denies panic attacks Arian/Lymph Denies easy bleeding and Denies easy bruising Aller/Immun Denies wheezing Physical exam (Primary Care) Vital Signs: Last Vital Signs Pulse 70 05/17/24 14:20 BP 100/62 05/17/24 14:20 Pulse Ox 98 05/17/24 14:20 Oxygen Delivery Method Room Air 05/17/24 14:20 BMI result Body Mass Index 34.9 Tobacco/Smoking Status: Tobacco use Status Tobacco use date assessed 09/15/23 05/17/24 14:20 Patient Tobacco Use Status Never used Tobacco 05/17/24 14:20 e-Cigarette/Vaping Use Never Used 05/17/24 14:20 PHQ-9: PHQ-9 Score PHQ-9: Total score 4 05/17/24 14:54 Depression Screening Interpretation: Positive Depression Screening Follow-up: Existing condition Thrive Assessment: Date of Thrive Assessment Date Thrive assessed 05/17/24 05/17/24 14:29 Currently or been in a relationship where the following occur: No concerns reported Const General: healthy appearing, no acute distress, alert and awake Nutritional Appearance: well nourished Orientation/consciousness: oriented to person, oriented to place and oriented to time HENMT Ears: TM's normal bilaterally General nose exam: Normal nasal mucous membranes and turbinates present Eyes Conjunctivae: conjunctivae normal Sclerae: sclerae normal Pupils: Equal, round and reactive pupils present Neck Neck: Yes no lymphadenopathy and Yes no JVD Thyroid: Thyroid normal Carotids: no bruits Resp Effort & Inspection: normal respiratory effort and not tachypneic Auscultation: no crackles, no rales, no rhonchi and no wheezes Cardio Rate: regular rate Rhythm: regular rhythm Heart sounds: no murmurs and normal S1 and S2 GI Palpation (GI): Soft to palpation, nontender, no hepatomegaly and no splenomegaly Auscultation: normal bowel sounds Skin General skin exam: no rashes or lesions noted and dry skin Neuro General: oriented to person, oriented to place and oriented to time Cranial nerves: Yes Equal, round and reactive pupils present Speech: No Abnormal speech present Gait exam (Neuro): Normal gait present Motor exam (neuro): no tremor noted Extrem Right upper extremity: full ROM Left upper extremity: full ROM Right lower extremity: full ROM; no edema Left lower extremity: full ROM; no edema Psych Mental Status: mental status grossly normal Speech and movement: Normal speech and movement present Affect: normal affect Attitude: cooperative Thought process: Normal thought process present Immunizations pneumoc 20-sonali conj-dip cr(PF) 0.5 mL IM syringe Performing Provider: Karson Frank PA-C Performing Location: [facility] Administered by: CHRIS Miller on 05/17/24 14:54 Dose Route Admin Location Dispensed Lot Number Expiration Date [facility] Home Care Associate 0.5 mL IM Left Deltoid 0.5 mL [id number] 07/23/25 6834-1719-34 [employer] VIS Given Date VIS Provided VIS Publication Date 05/17/24 Single Vaccine 21 Eligibility Eligibility Date Funding Source Not [facility] Eligible 05/17/24 Private Assessment and Plan Assessment & Plan (1) Atrial fibrillation with RVR: Code(s): I48.91 - Unspecified atrial fibrillation Plan: Has had several attempts on cardioversion recently. Will follow-up with [facility]. Now on amiodarone and metoprolol. Also continues on Eliquis without any overt signs of bleeding. (2) CKD (chronic kidney disease), stage III: Code(s): N18.30 - Chronic kidney disease, stage 3 unspecified Qualifiers: Chronic kidney disease stage 3 subtype: unspecified whether 3a or 3b Qualified Code(s): N18.30 - Chronic kidney disease, stage 3 unspecified Plan: Patient noted to renal impairment recently, has been taken off his spironolactone and Bumex. Repeat labs showing improved creatinine. She does have follow-up with a healthcare project manager. Will continue to follow renal function. Will continue to avoid nephrotoxins. (3) Congestive heart failure: Code(s): I50.9 - Heart failure, unspecified Qualifiers: Heart failure chronicity: chronic Heart failure type: systolic Qualified Code(s): I50.22 - Chronic systolic (congestive) heart failure Plan: Seems while compensated at this time. Patient's Bumex and spironolactone has been recently held due to decreased renal function. As per HPI patient was found to have heart failure with reduced ejection fraction (30%). She does have an ICD placed that gets interrogated regularly without any noted problems. (4) HTN (hypertension): Code(s): I10 - Essential (primary) hypertension Qualifiers: Hypertension type: essential hypertension Qualified Code(s): I10 - Essential (primary) hypertension Plan: Blood pressure acceptable today in office. Goal blood pressures to be below 140/90 and above 100/60 (5) ICD (implantable cardioverter-defibrillator) in place: Code(s): Z95.810 - Presence of automatic (implantable) cardiac defibrillator Plan: As above Orders: Orders Pneumococcal 20 Immunization 05/17/24 Z23 - Encounter for immunization Comprehensive [place]. Panel Fast 05/17/24 N18.30 - Chronic kidney disease, stage 3 unspecified Lipid Panel 05/17/24 E78.2 - Mixed hyperlipidemia Complete Blood Count no Diff 05/17/24 I10 - Essential (primary) hypertension TSH reflex Free T4 05/17/24 E03.9 - Hypothyroidism, unspecified Medications: New nystatin 1 appl topical DAILY PRN 60 grams 3RF itch 30 days B35.9 - Dermatophytosis, unspecified Refilled baclofen 5 mg PO DAILY PRN 14 tabs 0RF muscle spasm 14 days M62.838 - Other muscle spasm sacubitril-valsartan 24-26 mg (Entresto) 1 tab PO BID 180 tabs 1RF 90 days I50.22 - Chronic systolic (congestive) heart failure tramadol 50 mg PO BID PRN 14 tabs 0RF pain 7 days M62.838 - Other muscle spasm apixaban (Eliquis) 5 mg PO BID 180 tabs 1RF I48.91 - Unspecified atrial fibrillation levothyroxine 137 mcg PO DAILY@0600 90 tabs 0RF I50.22 - Chronic systolic (congestive) heart failure metoprolol succinate ER 50 mg PO DAILY 90 tabs 3RF nystatin 1 appl topical BID 30 grams 3RF 30 days B35.9 - Dermatophytosis, unspecified Coding Level of Care Code Est Pt Level 4 (72910) Diagnoses Atrial fibrillation with RVR I48.91 Stage 3 chronic kidney disease, unspecified whether stage 3a or 3b CKD N18.30 Chronic kidney disease stage 3 subtype: unspecified whether 3a or 3b Chronic systolic congestive heart failure I50.22 Heart failure chronicity: chronic Heart failure type: systolic Essential hypertension I10 Hypertension type: essential hypertension ICD (implantable cardioverter-defibrillator) in place Z95.810 Additional Codes NOÉ-7 Assessment Billing - NOÉ-7 Assessment Tool: NOÉ-7 Assessment 92229 ([id number])
== END 2024-05-17 15:00 | disposition home or self-care (01) ==
PROVIDERS: PCP Physician Assistant; Visit Provider Physician Assistant
DX: I48.91 Unspecified atrial fibrillation (principal); N18.30 Chronic kidney disease, stage 3 unspecified; I50.22 Chronic systolic (congestive) heart failure; I10 Essential (primary) hypertension; Z95.810 Presence of automatic (implantable) cardiac defibrillator

== ENCOUNTER → 2024-05-17 14:14 | Outpatient (BNVA) | payer MEDICARE, MEDICAID, SELFPAY | PROVIDERS: PCP Physician Assistant; Visit Provider Physician Assistant | DX: Z23 Encounter for immunization (principal); I48.91 Unspecified atrial fibrillation; I13.0 Hypertensive heart and chronic kidney disease with heart failure and stage 1 through stage 4 chronic kidney disease, or unspecified chronic kidney disease; N18.30 Chronic kidney disease, stage 3 unspecified; I50.22 Chronic systolic (congestive) heart failure; Z95.810 Presence of automatic (implantable) cardiac defibrillator | CPT/HCPCS: 90471; 90677; 96127; 99212 ==

== ENCOUNTER → 2024-05-29 23:59 | Outpatient (BNV) | payer MEDICARE, SELFPAY ==
--- NOTE | 2024-06-04 17:54 | MHC.OFFVIS ---
Intake Visit Reasons: Remote HF monitoring- [employer] Allergies No Known Allergies Allergy (Verified 05/17/24 14:33) [facility] Medical History HFrEF (heart failure with reduced ejection fraction) Atrial fibrillation Lymphedema Hypothyroidism History of pulmonary embolism HTN (hypertension) Current use of anticoagulant therapy Surgical History History of cardiac pacemaker History of laparoscopic cholecystectomy Family History Father CVD (cardiovascular disease) Mother Medical history unknown Social History Household Members: None Housing: House Do you presently have visiting nurse or other home services: Yes (REGISTERED MEDICAL ASSISTANT/ Meals on wheels) Alcohol intake: unknown Comment: tan [place]/parker4 Patient Tobacco Use Status: Never used Tobacco e-Cigarette/Vaping Use: Never Used Second Hand Smoke Exposure: No Advance Directives Date on File: 08/26/23 service: No Current occupational status: retired Cognitive needs: Yes (Pt has a walker) Hearing needs: No Vision needs: No Office Procedures Cardiac Device Check Cardiac Device Check Details: [employer]-D Good battery life Optivol showing ongoing fluid overload. [id number] Device Interrogation, cardiac physiologic monitor system Procedure code (CPT) selection complete Assessment & Plan Assessment & Plan (1) ICD (implantable cardioverter-defibrillator) in place: Code(s): Z95.810 - Presence of automatic (implantable) cardiac defibrillator Category: Medical Plan: Orders: Orders AMB Cardiac Device Follow-up 05/29/24 Z95.810 - Presence of automatic (implantable) cardiac defibrillator Coding Level of Care Code Procedure Only Diagnoses ICD (implantable cardioverter-defibrillator) in place Z95.810 CPT Codes Cardiac Device Check - Cardiac Device 10: [id number] Device Interrogation, cardiac physiologic monitor system ([id number])
== END ==
PROVIDERS: PCP Physician Assistant; Visit Provider Internal Medicine Cardiovascular Disease
DX: I50.9 Heart failure, unspecified (principal); Z95.810 Presence of automatic (implantable) cardiac defibrillator
CPT/HCPCS: 93297

== ENCOUNTER 2024-06-07 08:15 | Outpatient (REF) | payer MEDICARE, MEDICAID, SELFPAY ==
[2024-06-07 11:19] LABS: Anion Gap 13 (12-20); Blood Urea Nitrogen 18 mg/dL (9-16); Calcium 9.5 mg/dL (8.4-10.2); Carbon Dioxide 25 mmol/L (22-29); Chloride 108 mmol/L (96-108); Estimated Glomerular Filt Rate 34; Glucose Random 126 mg/dL (60-115); Potassium 3.5 mmol/L (3.3-5.1); Sodium 142 mmol/L (135-145)
== END 2024-06-07 08:16 | disposition home or self-care (01) ==
LOC: HO.10HDL 08:15
PROVIDERS: Visit Provider Internal Medicine Hypertension Specialist
DX: N17.9 Acute kidney failure, unspecified (principal)
CPT/HCPCS: 36415; 80048

== ENCOUNTER → 2024-06-13 12:53 | Outpatient (REF) | payer MEDICARE, MEDICAID, SELFPAY ==
--- NOTE | 2024-06-13 12:56 | CA_ITS ---
Transthoracic Echocardiogram Patient (Last, First, Middle): Cara Hummel, Gender: Female Date of : 1945 Age: 79 Procedure Date: 06/13/2024 Procedure Type: Transthoracic Echocardiogram Location: OP Height: 172.72 cm Weight: 117.94 kg BSA: 2.29 m2 Heart Rate: bpm BP: 118 / 60 mmHg Assembly Machine Tool Setter: MANISHA Referring MD: Nidhi Sheets COMMERCIAL AGENTCarlottaC Symptoms: I42.9 - Cardiomyopathy, unspecified Study Quality: Adequate ECG Rhythm: Sinus Conclusions: - The left ventricular systolic function is low normal. The visually estimated ejection fraction is between 50-55%. - No obvious valvular pathology seen on this study. Findings Left Ventricle Normal left ventricular cavity size. There is mildly increased left ventricular wall thickness. The left ventricular systolic function is low normal. The visually estimated ejection fraction is between 50-55%. There is no evidence of regional wall motion abnormalities. Evidence suggests grade I (mild) diastolic dysfunction. Right Ventricle Mildly increased right ventricular cavity size. There is normal right ventricular systolic function. Atria The left atrium is mildly dilated. The right atrium is normal in size. Aortic Valve There is mild calcification of the aortic valve. There is no aortic valve stenosis. There is no aortic valve regurgitation. Mitral Valve There is mild anterior mitral leaflet thickening. There is mild mitral annular calcification. There is mild mitral valve regurgitation. There is no mitral valve stenosis. Pulmonic Valve The pulmonic valve is likely normal. Tricuspid Valve Normal tricuspid valve structure. There is trace tricuspid valve regurgitation. There is no evidence of pulmonary hypertension. Great Vessels The asc aorta is normal in size. Small plaque is seen in the sino tubular ridge. Venous The inferior vena cava is normal in size and collapses greater than 50% with inspiration. Pericardium/Pleural There is no evidence of pericardial effusion. Prior Study Comparison Changes noted compared to prior study dated: 08/25/2023. Improved LVEF. Recommendations, Care & Conclusions No obvious valvular pathology seen on this study. Measurements 2D Linear Measurements IVSd: 1.05 0.6-0.9/0.6-1.0 cm LVIDd: 5.91 3.9-5.3/4.2-5.9 cm LVIDd Index: 2.58 2.4-3.2/2.2-3.1 cm/m2 LVIDs: 3.72 2.0-3.6 cm LVPWd: 1.11 0.7-1.1 cm Ao Root: 3.10 2.1-3.5 cm LA Diam: 4.40 2.7-3.8/3.0-4.0 cm LAIDs Index: 1.92 1.5-2.3 cm/m2 LV Mass: 331.90 67-162/88-224 g LV Mass Index: 144.93 43-95/49-115 g/m2 LVOT Diam: 2.30 3.0+(-)1.3 cm 2D Systolic Function EF 4C: 41.70 >55% EF 2C: 55.90 >55% EF BiP: 47.30 >55% Mitral Valve MV VTI: 0.36 MV Pk Henry: 1.06 MV Mn Henry: 0.71 MV Pk Grad: 4.00 MV Mn Grad: 2.00 MV Pk E: 0.77 MV PK A: 0.99 MV Decel Time: 180.00 E/A: 0.80 E'Lateral: 3.59 E'Medial: 6.09 E/E' Med: 12.70 E/E' Lat: 21.50 PHT: 53.00 MVA PHT: 4.15 MVA Continuity: 3.19 Decel [place]: 4.28 Aortic Valve AoV Pk Henry: 1.99 AoV Mn Henry: 1.44 AoV VTI: 0.41 AoV Pk Grad: 16.00 Aov Mn Grad: 9.00 QUINCY Cont.VTI: 2.84 LVOT LVOT Pk Henry: 1.11 LVOT Mn Henry: 0.68 LVOT VTI: 0.28 LVOT Pk Grad: 5.00 LVOT Mn Grad: 2.00 LVOT Diam: 2.30 LVOT Area: 4.15 Diastolic Function MV Pk E: 0.77 MV Pk A: 0.99 E/A: 0.80 E'Medial: 6.09 E/E' Med: 12.70 E' Laterial: 3.59 E/E' Lat: 21.50 Right Ventricle TAPSE (mm): 35.00 TVS' Henry: 16.00 Tricuspid Valve TR Pk Henry: 2.36 TR Pk Grad: 22.00 RA Press: 3.00 RVSP: 25.00 Great Vessels Aorta Ao Root-2D: 3.10 2.0-3.7 cm Ao Asc: 3.50 2.1-3.4 cm Pulmonary Valve PV Pk Henry: 1.44 Peak PV Grad: 8.00 Updated in Other Vendor System with Status of Final Nicholas Murphy MD electronically signed on 06/14/2024 9:11:13 AM with status of Final
== END ==
LOC: HO.CARD 12:53
PROVIDERS: PCP Physician Assistant; Visit Provider Nurse Practitioner Family
DX: I42.9 Cardiomyopathy, unspecified (principal); Z95.810 Presence of automatic (implantable) cardiac defibrillator
CPT/HCPCS: 93306

== ENCOUNTER → 2024-06-13 12:56 | Outpatient (BNV) | payer MEDICARE, MEDICAID, SELFPAY | PROVIDERS: PCP Physician Assistant; Visit Provider Internal Medicine | DX: I34.0 Nonrheumatic mitral (valve) insufficiency (principal); I35.8 Other nonrheumatic aortic valve disorders; I34.81 Nonrheumatic mitral (valve) annulus calcification | CPT/HCPCS: 93306 ==

== ENCOUNTER → 2024-06-29 23:59 | Outpatient (BNV) | payer MEDICARE, SELFPAY ==
--- NOTE | 2024-07-15 20:36 | MHC.OFFVIS ---
Intake Visit Reasons: Remote HF monitoring- Medtronic Allergies No Known Allergies Allergy (Verified 07/10/24 10:28) [facility] Medical History HFrEF (heart failure with reduced ejection fraction) Atrial fibrillation Lymphedema Hypothyroidism History of pulmonary embolism HTN (hypertension) Current use of anticoagulant therapy Surgical History History of cardiac pacemaker History of laparoscopic cholecystectomy Family History Father CVD (cardiovascular disease) Mother Medical history unknown Social History Household Members: None Housing: House Do you presently have visiting nurse or other home services: 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 [id number] Cardiac Device Interrogation, cardio physiologic monitor Procedure code (CPT) selection complete Assessment & Plan Assessment & Plan (1) ICD (implantable cardioverter-defibrillator) in place: Code(s): Z95.810 - Presence of automatic (implantable) cardiac defibrillator Category: Medical Plan: Coding Level of Care Code Procedure Only Diagnoses ICD (implantable cardioverter-defibrillator) in place Z95.810 CPT Codes Cardiac Device Check - Cardiac Device 15: [id number] Cardiac Device Interrogation, cardio physiologic monitor ([id number])
== END ==
PROVIDERS: PCP Physician Assistant; Visit Provider Internal Medicine Cardiovascular Disease
DX: Z45.02 Encounter for adjustment and management of automatic implantable cardiac defibrillator (principal)
CPT/HCPCS: 93297

== ENCOUNTER 2024-06-30 07:48 | Outpatient (REF) | payer MEDICARE, SELFPAY ==
[2024-06-30 10:58] LABS: Hematocrit 34.1 % (37.0-47.0); Hemoglobin 11.2 g/dl (12.0-16.0); Mean Corpuscular HGB Conc 32.8 g/dl (31.0-35.0); Mean Corpuscular Hemoglobin 33.2 pg (27.0-33.0); Mean Corpuscular Volume 101.2 fL (80.0-98.0); Platelet Count 263 X10*3/uL (160-400); Red Blood Count 3.37 X10*6/uL (4.20-5.50); Red Cell Distribution Width 13.4 % (11.0-16.0); White Blood Count 7.2 X10*3/uL (4.8-10.8)
[2024-06-30 12:21] LABS: Alanine Aminotransferase 9 U/L (0-31); Albumin Level 3.8 g/dL (3.5-5.0); Alkaline Phosphatase 89 U/L (39-117); Anion Gap 16 (12-20); Aspartate Amino Transferase 23 U/L (5-31); Bilirubin Total 0.5 mg/dL (0.0-1.0); Blood Urea Nitrogen 15 mg/dL (9-16); Calcium 9.2 mg/dL (8.4-10.2); Carbon Dioxide 24 mmol/L (22-29); Chloride 107 mmol/L (96-108); Cholesterol 179 mg/dL (<200); Estimated Glomerular Filt Rate 31; Glucose Fasting 104 mg/dL (60-99); HDL Cholesterol 54 mg/dL (>40); LDL Cholesterol Calculated 104 mg/dL (<100); Sodium 144 mmol/L (135-145); Total Protein 6.9 g/dL (6.5-8.0); Triglycerides 108 mg/dL (<150)
[2024-06-30 13:24] LABS: Free T4 (Free Thyroxine) 1.38 ng/dL (0.71-1.85)
== END 2024-06-30 07:49 | disposition home or self-care (01) ==
LOC: HO.10HDL 07:48
PROVIDERS: Visit Provider Physician Assistant
DX: E78.2 Mixed hyperlipidemia (principal); E03.9 Hypothyroidism, unspecified; I12.9 Hypertensive chronic kidney disease with stage 1 through stage 4 chronic kidney disease, or unspecified chronic kidney disease; N18.30 Chronic kidney disease, stage 3 unspecified
CPT/HCPCS: 36415; 80053; 80061; 84439; 84443; 85027

== ENCOUNTER 2024-07-03 12:43 | Outpatient (AMB) | payer MEDICARE, SELFPAY ==
[2024-07-03 13:13] VITALS: BP 134/72; PULSE 79; BMI 37.8
--- NOTE | 2024-07-03 13:13 | MHC.OFFVIS ---
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 Allergies No Known Allergies Allergy (Verified 07/03/24 13:15) Medication List - Last Reconciled 07/03/24 by SHERWIN Napier acetaminophen 650 mg PO Q6H PRN amiodarone 200 mg PO DAILY apixaban (Eliquis) 5 mg PO BID baclofen 5 mg PO DAILY PRN 14 days blood pressure kit-extra large As directed levothyroxine 137 mcg PO DAILY@0600 metoprolol succinate ER 50 mg PO DAILY miscellaneous medical supply (Blood Pressure Cuff) As directed miscellaneous medical supply 1 ea miscellaneous DAILY 99 days nystatin 1 appl topical DAILY PRN 30 days nystatin 1 appl topical BID 30 days potassium chloride ER (Klor-Con M) 20 mEq PO DAILY 30 days sacubitril-valsartan 24-26 mg (Entresto) 1 tab PO BID 90 days tramadol 50 mg PO BID PRN 7 days walker (Ultra-Light Rollator misc) As directed HPI HPI 3 mth w/ medtronic: Details: Cara is a 79-year-old female with past medical history of hypertension, hyperlipidemia, morbid obesity, newer finding of atrial fibrillation with [facility] admission x2. She did have cardioversion during her 1st admission. She then had recurrent AFib and plan was for repeat cardioversion however she had NSVT and was transferred to [facility] for cardiac catheterization which showed normal coronaries. While there she had cardioversion and Bi V ICD placed. She was on diuretics for Congestive heart failure and following last visit she had labs showing JESSIE. Her spironolactone was discontinued and Bumex dose reduced by Nephrology. Her recent labs showed creatinine 1.6 which is greatly improved. She now presents for follow-up. Today she reports she has been doing okay since her last visit in March. She has been noticing weight gain and feeling bloated. Her leg edema has returned. She is still trying to remain physically active and walks routinely with her willing walker. Her breathing is unlabored, no PND, orthopnea. She denies any chest discomfort at rest or with activity. No lightheadedness, presyncope, syncope, falls. Her pacemaker site is feeling well. Taking all meds as directed. No bleeding issues reported. [facility] Medical History HFrEF (heart failure with reduced ejection fraction) Atrial fibrillation Lymphedema Hypothyroidism History of pulmonary embolism HTN (hypertension) Current use of anticoagulant therapy Surgical History History of cardiac pacemaker History of laparoscopic cholecystectomy Family History Father CVD (cardiovascular disease) Mother Medical history unknown Social History Household Members: None Housing: House Do you presently have visiting nurse or other home services: Yes ([employer]/ [employer] wheels) Alcohol intake: unknown Comment: rings appropriately- A/ox4 Patient Tobacco Use Status: Never used Tobacco e-Cigarette/Vaping Use: Never Used Second Hand Smoke Exposure: No Advance Directives Date on File: 08/26/23 service: No Current occupational status: retired Cognitive needs: Yes (Pt has a walker) Hearing needs: No Vision needs: No Review of Systems Const Details: reports feeling bloated All systems reviewed & are unremarkable except as noted in HPI and below Reports fatigue ENT Denies dizziness Card Denies chest pain, Denies chest pain at rest, Denies chest pain with activity, Denies rapid heart rate, Reports pedal edema, Reports edema, Reports leg edema, Denies lightheadedness, Denies palpitations, Denies dyspnea, Reports dyspnea on exertion and Denies orthopnea Resp Denies cough, Denies dyspnea and Reports dyspnea on exertion GI Denies hematochezia and Denies change in stool character Musc Denies abnormal gait, Denies limited range of motion, Denies muscle cramps, Denies muscle weakness, Denies numbness, Denies radiating pain into limb, Denies stiffness and Denies tingling Neuro Denies abnormal gait, Denies dizziness, Denies numbness and Denies tingling Endo Reports fatigue and Denies palpitations Physical Exam Vital Signs: Last Vital Signs Pulse 79 07/03/24 13:13 BP 134/72 07/03/24 13:13 BMI result Body Mass Index 37.8 Const Other: Obese, Ambulating with rolling walker General: cooperative, healthy appearing, comfortable and no acute distress Orientation/consciousness: patient oriented x3 Neck Neck: Yes normal visual inspection Chest Other: Pacer site left upper chest benign Resp Effort & Inspection: normal respiratory effort Auscultation: clear to auscultation bilaterally, no rales, no rhonchi and no wheezes Cardio Jugular venous distension: no JVD Rate: regular rate Rhythm: regular rhythm Heart sounds: S1 normal heart sound present, S2 normal heart sound present, no murmurs and no rubs Neuro General: patient oriented x3 Extrem Other: firm edema to lower legs bilaterally - right to level of upper calf, left to level of mid calf. edema of feet. Psych Appearance: grossly normal Mental Status: mental status grossly normal Speech and movement: Normal speech and movement present Office Procedures Cardiac Device Check Cardiac Device Check Details: Medtronic Bi V ICD interrogation today, battery 6.1 years, DDDR mode, low rate 60, a paced 87.8%, V paced 97.1% OptiVol elevated since 05/30/2024, RV threshold 1 volt at 0.4 milliseconds, LV threshold 1.5 volts at 0.4 milliseconds, 80 AF burden less than 1 % [id number] Cardiac Device Check, multi lead implantable defibrillator Procedure code (CPT) selection complete EKG Details: Today, read by me, atrial sensed, ventricular paced rhythm, rate 79 [id number], Complete Assessment & Plan Assessment & Plan (1) Atrial fibrillation with RVR: Code(s): I48.91 - Unspecified atrial fibrillation Category: Medical Plan: History of paroxysmal AFiib and was on Coumadin for anticoagulation. [facility] admission 08/24/2023 with shortness of breath and heart palpitations. EKG confirmed AFib RVR. She was found to have Congestive heart failure and was diuresed 14 L. Her echocardiogram showed EF 25-30%. Her Coumadin was changed over to Eliquis. She was put on amiodarone and underwent cardioversion. She was readmitted to [facility] on 10/22/2023 after a fall at home with finding of JESSIE. She then went into atrial fibrillation which initially was treated with rate control. Plan was to do a cardioversion again however she had a 1 minute run of NSVT which prompted transferred to [facility] for cardiac catheterization. While at [facility] she did have a cardioversion and was continued on her amiodarone and Eliquis. She has not had recurrent heart palpitations since that time. Her EKG done today is showing atrial sensed, V paced rhythm, rate 79. No recent atrial fibrillation alerts have come through with remote monitoring. An echocardiogram was done on 06/13/2024 showing EF 50-55%, no regional wall motion abnormality, grade 1 diastolic dysfunction. Will have her continue on current med management including metoprolol XL 50 mg daily for heart rate control, amiodarone 200 mg daily for rhythm control and Eliquis 5 mg b.i.d. for anticoagulation. Will continue to follow her device with remote monitoring. Will update echo prior to her next visit. Cardiology follow-up in 3 months, sooner if needed (2) Cardiomyopathy: Code(s): I42.9 - Cardiomyopathy, unspecified Category: Medical Plan: Newer finding of cardiomyopathy, EF 25-30%. She did have a 1 minute run of NSVT during last [facility] admission. She was transferred to [facility] and underwent cardiac catheterization on 10/27/2023 showing normal coronary arteries. Her prior EKG shows a left bundle branch block. Cardiomyopathy May be tachycardia mediated or related to her left bundle branch block. While at [facility] she underwent a Bi V ICD placement. She has not had any palpitations, presyncope, syncope. Recheck of echo showing EF now 50-55%. Will have her continue on metoprolol XL, Entresto for neurohormonal modulation. Labs done 06/30/2024 showed creatinine 1.6, potassium 3.0. She does take a potassium supplement. Instructed to increase her food potassium intake. (3) Acute HFrEF (heart failure with reduced ejection fraction): Code(s): I50.21 - Acute systolic (congestive) heart failure Category: Medical Plan: History of heart failure with reduced EF. She had been on Bumex 2 mg daily and spironolactone 25 mg b.i.d. along with Entresto. Lab work done 05/10/2024 showed creatinine 4.25. She was seen by Nephrology. She was taken off spironolactone and her Bumex was reduced down to 1 mg daily. She tells me since that time her weight has gone up, leg edema has returned. Since her last visit here she has gained 21 lb. Her lower legs do have tight edema. Her lungs are clear and she denies having shortness of breath. She has an upcoming visit with Nephrology. With her recent significant JESSIE will have her continue on her current diuretic dose and forward this note to Nephrology for review. She will likely need an increase in her Bumex dose. Signs and symptoms of heart failure and the ongoing need for low-salt diet reviewed with her. (4) LBBB (left bundle branch block): Code(s): I44.7 - Left bundle-branch block, unspecified Category: Medical Plan: Chronic, Noted on EKGs as far back as 2014. . (5) S/P cardiac catheterization: Comment: 10/27/2023, normal coronary arteries Code(s): Z98.890 - Other specified postprocedural states Category: Surgical Plan: As above (6) History of cardiac pacemaker: Code(s): Z95.0 - Presence of cardiac pacemaker Category: Surgical Plan: New Medtronic Bi V ICD placed while at [facility] recently. Interrogation today shows device is functioning normally. Remote monitoring in use. Next remote interrogation due in 6 months. Her effective DEICER REPAIRER PNEUMATIC pacing is about 97.1% Pacer site benign. (7) Current use of anticoagulant therapy: Code(s): Z79.01 - halfway (current) use of anticoagulants Category: Medical Plan: Currently on Eliquis (8) HTN (hypertension): Code(s): I10 - Essential (primary) hypertension Category: Medical Qualifiers: Hypertension type: essential hypertension Qualified Code(s): I10 - Essential (primary) hypertension Plan: Normal today. No med changes made Plan Time spent on chart review, documentation, interview and assessment Coding Level of Care Code Est Pt Level 4 (77140) Complex EM visit Add On G2211 Diagnoses Atrial fibrillation with RVR I48.91 Cardiomyopathy I42.9 Acute HFrEF (heart failure with reduced ejection fraction) I50.21 LBBB (left bundle branch block) I44.7 S/P cardiac catheterization Z98.890 History of cardiac pacemaker Z95.0 Current use of anticoagulant therapy Z79.01 Essential hypertension I10 Hypertension type: essential hypertension CPT Codes Cardiac Device Check - Cardiac Device 6: [id number] Cardiac Device Check, multi lead implantable defibrillator ([id number]) EKG - CPT: 20163-[id number], Complete ([id number]) Time Spent (min) 30
== END 2024-07-03 13:57 | disposition home or self-care (01) ==
PROVIDERS: PCP Physician Assistant; Referring Provider Physician Assistant; Visit Provider Nurse Practitioner Family
DX: I50.20 Unspecified systolic (congestive) heart failure (principal); Z95.810 Presence of automatic (implantable) cardiac defibrillator
CPT/HCPCS: 93284; 99214; G2211

== ENCOUNTER → 2024-07-03 12:43 | Outpatient (BNVA) | payer MEDICARE, SELFPAY | PROVIDERS: PCP Physician Assistant; Visit Provider Nurse Practitioner Family | DX: I48.91 Unspecified atrial fibrillation (principal); I11.0 Hypertensive heart disease with heart failure; I50.21 Acute systolic (congestive) heart failure; I42.9 Cardiomyopathy, unspecified; I44.7 Left bundle-branch block, unspecified; Z98.890 Other specified postprocedural states; Z79.01 Long term (current) use of anticoagulants; Z45.02 Encounter for adjustment and management of automatic implantable cardiac defibrillator | CPT/HCPCS: 99212 ==

== ENCOUNTER 2024-07-10 10:24 | Outpatient (AMB) | payer MEDICARE, SELFPAY ==
[2024-07-10 10:26] VITALS: BP 144/68; PULSE 91; O2SAT 96; BMI 38.6
--- NOTE | 2024-07-10 10:26 | HO.NEPHOV ---
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: No Accompanied by: Self / Same As Patient Allergies No Known Allergies Allergy (Verified 07/10/24 10:28) Medication List - Last Reconciled 07/10/24 by Romain Cuenca MD acetaminophen 650 mg PO Q6H PRN amiodarone 200 mg PO DAILY apixaban (Eliquis) 5 mg PO BID baclofen 5 mg PO DAILY PRN 14 days blood pressure kit-extra large As directed levothyroxine 137 mcg PO DAILY@0600 metoprolol succinate ER 50 mg PO DAILY miscellaneous medical supply (Blood Pressure Cuff) As directed miscellaneous medical supply 1 ea miscellaneous DAILY 99 days nystatin 1 appl topical DAILY PRN 30 days nystatin 1 appl topical BID 30 days potassium chloride ER (Klor-Con M) 20 mEq PO DAILY 30 days sacubitril-valsartan 24-26 mg (Entresto) 1 tab PO BID 90 days tramadol 50 mg PO BID PRN 7 days walker (Ultra-Light Rollator misc) As directed HPI Comments Details: Elderly woman with a history of?HTN, HLD, PE in 2013, paroxysmal AFib on Eliquis, HFrEF, EF of 20-25% , hypothyroidism, and CKD 3 Baseline creatinine is around 1.4 mg/dL. She is on high dose of Bumex 2 mg along with spironolactone 25 mg twice a day. There has been some fluctuation in serum creatinine and she has had episodes of hypokalemia. Currently she is on potassium supplementation and the reason potassium was in the normal range. She has been referred for evaluation of chronic kidney disease. Cara seems to be compliant with her diet. She is on low-salt diet. She has lost significant weight. Leg edema has improved. She continues have dyspnea on exertion. No dyspnea at rest. Appetite is fair. No nausea or vomiting. No urinary symptoms. No rash 07/10/24 Due to JESSIE Bumex was decreased and Aldactoen was stopped. 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) Alcohol intake: unknown Comment: tan guerra- A/ox4 Patient Tobacco Use Status: Never used Tobacco e-Cigarette/Vaping Use: Never Used Second Hand Smoke Exposure: No Advance Directives Date on File: 08/26/23 service: No Current occupational status: retired Cognitive needs: Yes (Pt has a walker) Hearing needs: No Vision needs: No Physical Exam Vital Signs: Last Vital Signs Pulse 91 07/10/24 10:26 BP 144/68 H 07/10/24 10:26 Pulse Ox 96 07/10/24 10:26 Oxygen Delivery Method Room Air 07/10/24 10:26 BMI result Body Mass Index 38.6 Obese Const General: comfortable; No acute distress Orientation/consciousness: patient oriented x3 Eyes General: appearance normal, both eyes and all related structures Visual Oconnell: normal visual oconnell by confrontation Neck Neck: Yes supple and Yes no JVD Resp Effort & Inspection: normal respiratory effort and respiratory effort not decreased Auscultation: rhonchi Cardio Palpation: no palpable S3 and no palpable S4 Heart sounds: no rubs GI Inspection: Yes normal to inspection Palpation (GI): Soft to palpation Percussion: Yes normal to percussion Auscultation: normal bowel sounds General: Yes no CVA tenderness Back/Spine/Pelvis Back: no CVA tenderness Skin General skin exam: no petechiae and no purpura Neuro General: patient oriented x3 and no focal motor deficits Extrem General: No clubbing and Yes edema (2+) Results Reviewed Nephrology Results: Hgb 11.2 g/dl (12.0-16.0) L 06/30/24 WBC 7.2 X10*3/uL (4.8-10.8) 06/30/24 Plt Count 263 X10*3/uL (160-400) 06/30/24 Sodium 144 mmol/L (135-145) 06/30/24 Potassium 3.0 mmol/L (3.3-5.1) L 06/30/24 Chloride 107 mmol/L (96-108) 06/30/24 Carbon Dioxide 24 mmol/L (22-29) 06/30/24 BUN 15 mg/dL (9-16) 06/30/24 Creatinine 1.60 mg/dL (0.5-1.4) H 06/30/24 Calcium 9.2 mg/dL (8.4-10.2) 06/30/24 PTH Intact 109.5 pg/mL (8.7-77.1) H 05/10/24 Assessment & Plan Assessment & Plan (1) CKD (chronic kidney disease), stage III: Code(s): N18.30 - Chronic kidney disease, stage 3 unspecified Category: Medical Qualifiers: Chronic kidney disease stage 3 subtype: unspecified whether 3a or 3b Qualified Code(s): N18.30 - Chronic kidney disease, stage 3 unspecified Plan: s/p Super impose dAKI due to volume depletion JESSIE resolved after lowering diuretics Currently appears volume overloaded. INCREASE BUMEX to 2 mg QD Restart Spironolactone 25 mg QD ( Instead of BID) Keep KCL at 20 mew QD Repeat labs 1 a weeks (2) Cardiomyopathy: Code(s): I42.9 - Cardiomyopathy, unspecified Category: Medical Plan: Newer finding of cardiomyopathy, EF 25-30%. underwent cardiac catheterization on 10/27/2023 showing normal coronary arteries. Cardiomyopathy May be tachycardia mediated or related to her left bundle branch block. underwent a Bi V ICD placement. Recheck of echo showing EF now 50-55%. (3) Acute HFrEF (heart failure with reduced ejection fraction): Code(s): I50.21 - Acute systolic (congestive) heart failure Category: Medical Plan: History of heart failure with reduced EF. (4) HTN (hypertension): Code(s): I10 - Essential (primary) hypertension Category: Medical Qualifiers: Hypertension type: essential hypertension Qualified Code(s): I10 - Essential (primary) hypertension Plan: Normal today. No med changes made (5) JESSIE (acute kidney injury): Code(s): N17.9 - Acute kidney failure, unspecified Category: Medical Plan: As above Orders: Orders Basic Metabolic Panel 1 Month N17.9 - Acute kidney failure, unspecified, N18.30 - Chronic kidney disease, stage 3 unspecified Medications: New spironolactone 25 mg PO DAILY 90 tabs 1RF bumetanide 2 mg PO DAILY 90 tabs 1RF Coding Level of Care Code Est Pt Level 4 (96557) Diagnoses Stage 3 chronic kidney disease, unspecified whether stage 3a or 3b CKD N18.30 Chronic kidney disease stage 3 subtype: unspecified whether 3a or 3b Cardiomyopathy I42.9 Acute HFrEF (heart failure with reduced ejection fraction) I50.21 Essential hypertension I10 Hypertension type: essential hypertension JESSIE (acute kidney injury) N17.9
== END 2024-07-10 10:49 | disposition home or self-care (01) ==
PROVIDERS: PCP Physician Assistant; Visit Provider Internal Medicine Hypertension Specialist
DX: I13.0 Hypertensive heart and chronic kidney disease with heart failure and stage 1 through stage 4 chronic kidney disease, or unspecified chronic kidney disease (principal); I50.21 Acute systolic (congestive) heart failure; N18.30 Chronic kidney disease, stage 3 unspecified; I42.9 Cardiomyopathy, unspecified; N17.9 Acute kidney failure, unspecified
CPT/HCPCS: 99214

== ENCOUNTER → 2024-07-10 10:24 | Outpatient (BNVA) | payer MEDICARE, SELFPAY | PROVIDERS: PCP Physician Assistant; Visit Provider Internal Medicine Hypertension Specialist | DX: I13.0 Hypertensive heart and chronic kidney disease with heart failure and stage 1 through stage 4 chronic kidney disease, or unspecified chronic kidney disease (principal); I50.21 Acute systolic (congestive) heart failure; N17.9 Acute kidney failure, unspecified; N18.30 Chronic kidney disease, stage 3 unspecified; I48.0 Paroxysmal atrial fibrillation; I42.9 Cardiomyopathy, unspecified; E78.5 Hyperlipidemia, unspecified; Z79.01 Long term (current) use of anticoagulants | CPT/HCPCS: 99212 ==

== ENCOUNTER 2024-07-12 08:12 | Outpatient (REF) | payer MEDICARE, SELFPAY ==
[2024-07-12 09:25] LABS: Potassium 3.3 mmol/L (3.3-5.1)
== END 2024-07-12 08:13 | disposition home or self-care (01) ==
LOC: HO.LAB 08:12
PROVIDERS: PCP Physician Assistant; Visit Provider Physician Assistant
DX: E87.6 Hypokalemia (principal)
CPT/HCPCS: 36415; 84132

== ENCOUNTER 2024-07-17 08:45 | Outpatient (AMB) | payer MEDICARE, SELFPAY ==
[2024-07-17 08:47] VITALS: BP 126/82; PULSE 66; O2SAT 98; BMI 36.8
--- NOTE | 2024-07-17 08:47 | A.OFFPC_ITS ---
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: No Accompanied by: Self / Same As Patient Allergies No Known Allergies Allergy (Verified 07/17/24 09:02) Medication List - Last Reconciled 07/17/24 by Karson Frank PA-C acetaminophen 650 mg PO Q6H PRN amiodarone 200 mg PO DAILY apixaban (Eliquis) 5 mg PO BID baclofen 5 mg PO DAILY PRN 14 days blood pressure kit-extra large As directed bumetanide 2 mg PO DAILY levothyroxine 137 mcg PO DAILY@0600 metoprolol succinate ER 50 mg PO DAILY miscellaneous medical supply (Blood Pressure Cuff) As directed miscellaneous medical supply 1 ea miscellaneous DAILY 99 days nystatin 1 appl topical DAILY PRN 30 days nystatin 1 appl topical BID 30 days potassium chloride ER (Klor-Con M) 20 mEq PO DAILY 30 days sacubitril-valsartan 24-26 mg (Entresto) 1 tab PO BID 90 days spironolactone 25 mg PO DAILY tramadol 50 mg PO BID PRN 7 days walker (Ultra-Light Rollator misc) As directed Tobacco use date assessed: 07/17/24 Fall risk assessment: No Falls in past year Last assessed Fall Risk: 07/17/24 Dental Screening Dental Screen Date: 07/17/24 Did you have a dental visit in the last 12 months?: No Did you have a dental problem in the last 6 months where you did not have access to dental care?: No Was dental information given to patient?: No HPI f/u HLD/ CM, AFIB/ CKD-3 HPI Details Patient is a 79 female here today for a follow-up visit. Patient has a past medical history significant for hypertension, hyperlipidemia, hypothyroidism and CKD stage 3, AFib and Congestive heart failure with reduced ejection fraction. Congestive heart failure/AFib: She was admitted to the hospital in early October 2023 for acute heart failure and rapid AFib. She was found to have a reduced ejection fraction of 25 30%. She did undergo cardiac catheterization on 10/27/[address] May that revealed normal coronary arteries. She does have an ICD in place that is working and functioning well. --- >Currently doing well, vitals today are stable. Her exercise tolerance has been getting better. She still has some exertional fatigue though has been work ing through it. Have noted hypokalemia was restarted on her potassium supplement. Most recent recheck of her potassium showing stabilization. .. CKD-3: Is followed by [facility]. Most recent renal functions appear to be impaired. She recently had held her Bumex and spironolactone though had gained weight. She recently restarted her Bumex and spironolactone and lost weight. .. Hypothyroidism: Most recent TSH elevated at 9 this has been change. Patient continues on levothyroxine at current dose. Will continue to follow TSH Laboratory Tests 01/05/24 06/30/24 07/12/24 10:30 07:50 08:34 RBC 3.37 L Hgb 11.2 L Potassium 3.0 L 3.3 Fasting Glucose 104 H TSH 2.21 9.00 H PFSH Medical History HFrEF (heart failure with reduced ejection fraction) Atrial fibrillation Lymphedema Hypothyroidism History of pulmonary embolism HTN (hypertension) Current use of anticoagulant therapy Surgical History History of cardiac pacemaker History of laparoscopic cholecystectomy Family History Father CVD (cardiovascular disease) Mother Medical history unknown Social History Household Members: None Housing: House Do you presently have visiting nurse or other home services: Yes (POT [employer]/ Meals on wheels) Alcohol intake: unknown Comment: rings appropriately- A/ox4 Patient Tobacco Use Status: Never used Tobacco e-Cigarette/Vaping Use: Never Used Second Hand Smoke Exposure: No Advance Directives Date on File: 08/26/23 service: No Current occupational status: retired Cognitive needs: Yes (Pt has a walker) Hearing needs: No Vision needs: No Questionnaire PHQ-9 Over the last 2 weeks, how often have you been bothered by any of the following problems? 1. Little interest or pleasure in doing things: several days 2. Feeling down, depressed, or hopeless: several days 3. Trouble falling or staying asleep, or sleeping too much: not at all 4. Feeling tired or having little energy: several days 5. Poor appetite or overeating: several days 6. Feeling bad about yourself - or that you are a failure or have let yourself or your family down: not at all 7. Trouble concentrating on things, such as reading the newspaper or watching television: not at all 8. Moving or speaking so slowly that other people could have noticed. Or the opposite - being so fidgety or restless that you have been moving around a lot more than usual: not at all 9. Thoughts that you would be better off or of hurting yourself in some way: not at all Total score: 4 Depression Screening Interpretation: Positive Depression Screening Follow-up: Existing condition Depression Screening Done: Yes 38294 - PHQ-9 Billing: Yes Source: Developed by Drs. Remy Kirby, Bren Pro, Tony Orona and colleagues, with an educational siri from [employer]. Thrive Questionnaire Date Thrive assessed: 07/17/24 I am a: Patient What is your living situation today?: I have a steady place to live Within the past 12 months, did the food you bought not last and you didn't have the money to get more?: Never true Within the past 12 months, did you worry whether your food would run out before you got money to buy more?: Never true Do you have trouble paying for medicines?: No Do you have trouble getting transportation to medical appointments?: No Do you have trouble paying your heating and electricity bill?: No Do you have trouble taking care of your child, family member or friend?: No Do you have trouble with day-to-day activities such as bathing, preparing meals, shopping, managing finances, etc.?: No Are you currently unemployed and looking for a job?: No Are you interested in more education?: No Please select the resources that you would like help with: None Currently or been in a relationship where the following occur: No concerns reported THRIVE Score: 0 AUDIT C Alcohol Use Questionnaire (AUDIT-C) 1. How often do you have a drink containing alcohol?: Never 3. How often do you have six or more drinks on one occasion?: Never Total Score: 0 NOÉ-7 AMB Questionnaire NOÉ-7 Date NOÉ - 7 assessed: 07/17/24 Feeling nervous, anxious, or on edge: 0 = Not at all Not being able to stop or control worryin = Not at all Worrying too much about different things: 0 = Not at all Trouble relaxin = Not at all Being so restless that it is hard to sit still: 0 = Not at all Becoming easily annoyed or irritable: 0 = Not at all Feeling afraid as if something awful might happen: 0 = Not at all Total NOÉ-7 score (0-4 normal; 5-9 mild; 10-14 moderate; 15-21 severe): 0 Source: Developed by Drs. Remy Kirby, Bren Pro, Tony Orona and colleagues, with an educational siri from [employer]. NOÉ-7 Assessment Billing NOÉ-7 Assessment Tool: NOÉ-7 Assessment 75453 Review of Systems Const Denies headache(s) Eyes Denies loss of vision ENT Denies vertigo, Denies dizziness, Denies headache(s) and Denies sore throat Card Denies chest pain, Denies leg edema and Denies lightheadedness Resp Denies cough, Denies hemoptysis and Denies wheezing GI Denies abdominal pain, Denies melena, Denies constipation, Denies diarrhea and Denies vomiting Denies urinary frequency, Denies dysuria and Denies urinary urgency Musc Denies arthralgias, Denies joint swelling, Denies numbness and Denies tingling Neuro Denies Abnormal speech present, Denies behavioral changes, Denies vertigo, Denies dizziness, Denies headache(s), Denies loss of vision, Denies memory loss, Denies numbness and Denies tingling Psych Denies anxiety, Denies behavioral changes, Denies depression, Denies memory loss and Denies panic attacks Arian/Lymph Denies easy bleeding and Denies easy bruising Aller/Immun Denies wheezing Physical exam (Primary Care) Vital Signs: Last Vital Signs Pulse 66 07/17/24 08:47 BP 126/82 07/17/24 08:47 Pulse Ox 98 07/17/24 08:47 Oxygen Delivery Method Room Air 07/17/24 08:47 BMI result Body Mass Index 36.8 Tobacco/Smoking Status: Tobacco use Status Tobacco use date assessed 07/17/24 07/17/24 08:55 Patient Tobacco Use Status Never used Tobacco 07/17/24 08:48 e-Cigarette/Vaping Use Never Used 07/17/24 08:48 PHQ-9: PHQ-9 Score PHQ-9: Total score 4 07/17/24 08:55 Depression Screening Interpretation: Positive Depression Screening Follow-up: Existing condition Thrive Assessment: Date of Thrive Assessment Date Thrive assessed 07/17/24 07/17/24 08:55 Currently or been in a relationship where the following occur: No concerns reported Const General: healthy appearing, no acute distress, alert and awake Nutritional Appearance: well nourished Orientation/consciousness: oriented to person, oriented to place and oriented to time HENMT Ears: TM's normal bilaterally General nose exam: Normal nasal mucous membranes and turbinates present Eyes Conjunctivae: conjunctivae normal Sclerae: sclerae normal Pupils: Equal, round and reactive pupils present Neck Neck: Yes no lymphadenopathy and Yes no JVD Thyroid: Thyroid normal Carotids: no bruits Resp Effort & Inspection: normal respiratory effort and not tachypneic Auscultation: no crackles, no rales, no rhonchi and no wheezes Cardio Rate: regular rate Rhythm: regular rhythm Heart sounds: no murmurs and normal S1 and S2 GI Palpation (GI): Soft to palpation, nontender, no hepatomegaly and no splenomegaly Auscultation: normal bowel sounds Skin General skin exam: no rashes or lesions noted and dry skin Neuro General: oriented to person, oriented to place and oriented to time Cranial nerves: Yes Equal, round and reactive pupils present Speech: No Abnormal speech present Gait exam (Neuro): Normal gait present Motor exam (neuro): no tremor noted Extrem Right upper extremity: full ROM Left upper extremity: full ROM Right lower extremity: full ROM; no edema Left lower extremity: full ROM; no edema Psych Mental Status: mental status grossly normal Speech and movement: Normal speech and movement present Affect: normal affect Attitude: cooperative Thought process: Normal thought process present Coding Level of Care Code Est Pt Level 4 (77214) Diagnoses Stage 3 chronic kidney disease, unspecified whether stage 3a or 3b CKD N18.30 Chronic kidney disease stage 3 subtype: unspecified whether 3a or 3b Atrial fibrillation with RVR I48.91 Hypokalemia E87.6 ICD (implantable cardioverter-defibrillator) in place Z95.810 Chronic systolic congestive heart failure I50.22 Heart failure chronicity: chronic Heart failure type: systolic Additional Codes NOÉ-7 Assessment Billing - NOÉ-7 Assessment Tool: NOÉ-7 Assessment 38846 ([id number]) PHQ-9 - 68852 - PHQ-9 Billing: Yes ([id number]) Assessment & Plan Assessment & Plan (1) CKD (chronic kidney disease), stage III: Code(s): N18.30 - Chronic kidney disease, stage 3 unspecified Category: Medical Qualifiers: Chronic kidney disease stage 3 subtype: unspecified whether 3a or 3b Qualified Code(s): N18.30 - Chronic kidney disease, stage 3 unspecified Plan: Patient's kidney function stable. Will continue follow Nephrology. Will continue to avoid any nephrotoxins medication. (2) Atrial fibrillation with RVR: Code(s): I48.91 - Unspecified atrial fibrillation Category: Medical Plan: Patient continues to cardiology. Does have ICD in place and gets interrogated quite often. She denies any heart palpitations overt signs of bleeding. She does get somewhat short of breath on physical exertion though has gotten much better. (3) Hypokalemia: Code(s): E87.6 - Hypokalemia Category: Medical Plan: Her hypokalemia has improved since restarting potassium supplement. She continues on Bumex and spironolactone. Continue to follow Nephrology. (4) ICD (implantable cardioverter-defibrillator) in place: Code(s): Z95.810 - Presence of automatic (implantable) cardiac defibrillator Category: Medical Plan: As above (5) Congestive heart failure: Code(s): I50.9 - Heart failure, unspecified Category: Medical Qualifiers: Heart failure chronicity: chronic Heart failure type: systolic Qualified Code(s): I50.22 - Chronic systolic (congestive) heart failure Plan: Patient appears somewhat well compensated unless point. She has less lower extremity edema. Her exercise tolerance has much improved since being back on her diuresis medication. Orders: Orders Complete Blood Count no Diff Today I10 - Essential (primary) hypertension TSH reflex Free T4 Today E03.9 - Hypothyroidism, unspecified Comprehensive [place]. Panel Fast Today I10 - Essential (primary) hypertension Microalbumin, Random (w Creat) Today I10 - Essential (primary) hypertension
== END 2024-07-17 09:35 | disposition home or self-care (01) ==
PROVIDERS: PCP Physician Assistant; Visit Provider Physician Assistant
DX: I48.91 Unspecified atrial fibrillation (principal); N18.30 Chronic kidney disease, stage 3 unspecified; I50.22 Chronic systolic (congestive) heart failure; E87.6 Hypokalemia; Z95.810 Presence of automatic (implantable) cardiac defibrillator

== ENCOUNTER → 2024-07-17 08:45 | Outpatient (BNVA) | payer MEDICARE, SELFPAY | PROVIDERS: PCP Physician Assistant; Visit Provider Physician Assistant | DX: Z23 Encounter for immunization (principal); N18.30 Chronic kidney disease, stage 3 unspecified; I48.91 Unspecified atrial fibrillation; E87.6 Hypokalemia; I50.22 Chronic systolic (congestive) heart failure; Z95.810 Presence of automatic (implantable) cardiac defibrillator | CPT/HCPCS: 90471; 90656; 96127; 99212 ==

== ENCOUNTER → 2024-07-29 23:59 | Outpatient (BNV) | payer MEDICARE, SELFPAY ==
--- NOTE | 2024-08-16 19:47 | MHC.OFFVIS ---
Intake Visit Reasons: Remote ICD check- Medtronic Allergies No Known Allergies Allergy (Verified 08/07/24 14:01) [facility] Medical History HFrEF (heart failure with reduced ejection fraction) Atrial fibrillation Lymphedema Hypothyroidism History of pulmonary embolism HTN (hypertension) Current use of anticoagulant therapy Surgical History History of cardiac pacemaker History of laparoscopic cholecystectomy Family History Father CVD (cardiovascular disease) Mother Medical history unknown Social History Household Members: None Housing: House Do you presently have visiting nurse or other home services: Yes (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 No new alerts. [id number]-[id number] Cardiac Device Check, multi lead implantable defibrillator Procedure code (CPT) selection complete Assessment & Plan Assessment & Plan (1) Cardiomyopathy: Code(s): I42.9 - Cardiomyopathy, unspecified Category: Medical Plan: Coding Level of Care Code Procedure Only Diagnoses Cardiomyopathy I42.9 CPT Codes Cardiac Device Check - Cardiac Device 6: [id number]-[id number] Cardiac Device Check, multi lead implantable defibrillator ([id number])
== END ==
PROVIDERS: PCP Physician Assistant; Visit Provider Internal Medicine Cardiovascular Disease
DX: I42.9 Cardiomyopathy, unspecified (principal); Z95.810 Presence of automatic (implantable) cardiac defibrillator
CPT/HCPCS: 93295

== ENCOUNTER → 2024-07-29 23:59 | Outpatient (BNV) | payer MEDICARE, SELFPAY ==
--- NOTE | 2024-08-16 20:03 | MHC.OFFVIS ---
Intake Visit Reasons: Remote HF monitoring- Medtronic Allergies No Known Allergies Allergy (Verified 08/07/24 14:01) [facility] Medical History HFrEF (heart failure with reduced ejection fraction) Atrial fibrillation Lymphedema Hypothyroidism History of pulmonary embolism HTN (hypertension) Current use of anticoagulant therapy Surgical History History of cardiac pacemaker History of laparoscopic cholecystectomy Family History Father CVD (cardiovascular disease) Mother Medical history unknown Social History Household Members: None Housing: House Do you presently have visiting nurse or other home services: Yes (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 [id number] Device Interrogation, cardiac physiologic monitor system Procedure code (CPT) selection complete Assessment & Plan Assessment & Plan (1) ICD (implantable cardioverter-defibrillator) in place: Code(s): Z95.810 - Presence of automatic (implantable) cardiac defibrillator Category: Medical Plan: Coding Level of Care Code Procedure Only Diagnoses ICD (implantable cardioverter-defibrillator) in place Z95.810 CPT Codes Cardiac Device Check - Cardiac Device 10: [id number] Device Interrogation, cardiac physiologic monitor system ([id number])
== END ==
PROVIDERS: PCP Physician Assistant; Visit Provider Internal Medicine Cardiovascular Disease
DX: Z45.02 Encounter for adjustment and management of automatic implantable cardiac defibrillator (principal)
CPT/HCPCS: 93297

== ENCOUNTER 2024-08-07 09:27 | Outpatient (REF) | payer MEDICARE, SELFPAY ==
--- OUTSIDE RECORDS SUMMARY | 2024-08-07 09:33 | XMS_ITS | Clinical Summary ---
Author Organization Unknown Care Team Providers Care Dial Polisher Name Role Phone DORIS PATEL, CHRISTIANNE Unavailable Unavailable CORDELL CLAIM SERVICE REPRESENTATIVE, TOMAS Unavailable Unavailabl libby VINSON PT, SANCHO Unavailable Unavailable SPAMAIK OT, EDWIN Unavailable Unavailable GARVEY POWER SHOVEL ENGINEER, CHI Unavailable Unavailable GUMARO CARTER/NANNETTE, CANDIS Unavailable Unavail able MOODY TINSLEY, EMILIE Unavailable Unavailab le Payers Payer Name Policy Type Policy Number Effective Date Expira tion Date MEDICARE.NGS.PDGM [id number] Problems Condition Name Condition Details Condition Category Status Onset Date Resolution Date Last Treatment Date Treating Clinician Comments ENCNTR FOR SURGICAL AFTCR FOLLOWING SURGERY ON THE CIRC SYS Active 11-12 00:00: 00 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 1-4/UNSP CHR KDNY Active 11-12 00:00: 00 ACUTE ON CHRONIC SYSTOLIC (CONGESTIVE) HEART FAILURE Active 11-12 00:00: 00 CHRONIC KIDNEY DISEASE, STAGE 3A Active 11-12 00:00: 00 NON-ST ELEVATION (NSTEMI) MYOCARDIAL INFARCTION Active 11-12 00:00: 00 ATHSCL HEART DISEASE OF [place] CORONARY ARTERY W/O ANG PCTRS Active 11-12 00:00: 00 UNSPECIFIED ATRIAL FIBRILLATION Active 11-12 00:00: 00 CARDIOMYOPAT HY, UNSPECIFIED Active 11-12 00:00: 00 LEFT BUNDLE-BRANC H BLOCK, UNSPECIFIED Active 11-12 00:00: 00 LYMPHEDEMA, NOT ELSEWHERE CLASSIFIED Active 11-12 00:00: 00 HYPOTHYROIDI SM, UNSPECIFIED Active 11-12 00:00: 00 OTHER THROMBOPHILI A Active 11-12 00:00: 00 VITAMIN D DEFICIENCY, UNSPECIFIED Active 11-12 00:00: 00 DEFICIENCY OF OTHER SPECIFIED B GROUP VITAMINS Active 11-12 00:00: 00 OTHER VENTRICULAR TACHYCARDIA Active 11-12 00:00: 00 HYPOKALEMIA Active 11-12 00:00: 00 PRESENCE OF AUTOMATIC (IMPLANTABLE ) CARDIAC DEFIBRILLATO R Active 11-12 00:00: 00 MCFP (CURRENT) USE OF ANTICOAGULAN TS Active 11-12 00:00: 00 PERSONAL HISTORY OF PULMONARY EMBOLISM Active 11-12 00:00: 00 Allergies, Adverse Reactions, Alerts Allergy Name Allergy Type Status Severity Reaction(s) Onset Date Inactive Date Treating Clinician Comments NO KNOWN ALLERGIES Propensity to adverse reactions Active 11-08 09:16: 49 Medications Ordered Medication Name Filled Medication Name Start Date Stop Date Current Medication? Ordering Clinician Indication Dosage Frequency Signature (SIG) Comments Components potassium chloride ER 20 mEq tablet,exte nded release(par t/cryst) 11-04 00:00: 00 11-09 23:59 :00 No [id number] SUPPLEMENT 1 tablet DAILY 1 tablet DAILY (route: oral) Med Classific ation: Electroly te Balance-N utritiona l Products nystatin 100,000 unit/gram topical cream 10-19 00:00: 00 Yes [id number] Unavailable Per instruc tions TWICE DAILY Per instructio ns TWICE DAILY (route: topical) Med Classific ation: Dermatolo gical Entresto 24 mg-26 mg tablet 10-15 00:00: 00 Yes [id number] CHF Per instruc tions TWICE DAILY Per instructio ns TWICE DAILY (route: oral) Med Classific ation: Cardiovas cular Therapy Agents acetaminoph en 500 mg tablet 11-12 00:00: 00 Yes [id number] PAIN 1 tablet 3 TIMES DAILY 1 tablet 3 TIMES DAILY (route: oral) Med Classific ation: Analgesic , Anti-infl ammatory or Antipyret ic amiodarone 200 mg tablet 11-12 00:00: 00 Yes [id number] ARRYTHMIA 1 tablet DAILY 1 tablet DAILY (route: oral) Med Classific ation: Cardiovas cular Therapy Agents bumetanide 2 mg tablet 11-12 00:00: 00 12-09 23:59 :00 No [id number] CHF 1 tablet 2 TIMES DAILY 1 tablet 2 TIMES DAILY (route: oral) Med Classific ation: Cardiovas cular Therapy Agents Eliquis 5 mg tablet 11-12 00:00: 00 Yes [id number] BLOOD THINNER 1 tablet 2 TIMES DAILY 1 tablet 2 TIMES DAILY (route: oral) Med Classific ation: Hematolog ical Agents levothyroxi ne 137 mcg tablet 11-12 00:00: 00 Yes [id number] SUPPLEMENT 1 tablet DAILY 1 tablet DAILY (route: oral) Med Classific ation: Endocrine Lidoderm 5 % topical patch 11-12 00:00: 00 12-02 23:59 :00 No [id number] PAIN 1 adhesiv e patch, medicat ed EVERY 12 HOURS 1 adhesive patch, medicated EVERY 12 HOURS (route: topical) Med Classific ation: Dermatolo gical spironolact one 25 mg tablet 11-12 00:00: 00 01-05 23:59 :00 No [id number] CHF 1 tablet 2 TIMES DAILY 1 tablet 2 TIMES DAILY (route: oral) Med Classific ation: Cardiovas cular Therapy Agents metoprolol succinate ER 25 mg tablet,exte nded release 24 hr 12-02 00:00: 00 01-05 23:59 :00 No [id number] HTN, S/P PACEMAKER 1 tablet DAILY 1 tablet DAILY (route: oral) Med Classific ation: Cardiovas cular Therapy Agents bumetanide 2 mg tablet 12-09 00:00: 00 Yes [id number] HEAET FAILURR 1 tablet DAILY 1 tablet DAILY (route: oral) Med Classific ation: Cardiovas cular Therapy Agents baclofen 5 mg tablet 12-09 00:00: 00 Yes [id number] MUSCLE SPASM 1 tablet DAILY 1 tablet DAILY (route: oral) Med Classific ation: Locomotor System tramadol 50 mg tablet 12-09 00:00: 00 Yes [id number] PAIN 1 tablet 2 TIMES DAILY 1 tablet 2 TIMES DAILY (route: oral) Med Classific ation: Analgesic , Anti-infl ammatory or Antipyret ic metoprolol succinate ER 50 mg tablet,exte nded release 24 hr 01-05 00:00: 00 Yes [id number] HTN/AFIB 1 tablet DAILY 1 tablet DAILY (route: oral) Med Classific ation: Cardiovas cular Therapy Agents potassium chloride ER 10 mEq tablet,exte nded release 01-05 00:00: 00 Yes [id number] SUPPLEMENT 1 tablet DAILY 1 tablet DAILY (route: oral) Med Classific ation: Electroly te Balance-N utritiona l Products spironolact one 25 mg tablet 01-05 00:00: 00 Yes [id number] EDEMA 1 tablet DAILY 1 tablet DAILY (route: oral) Med Classific ation: Cardiovas cular Therapy Agents Vital Signs Vital Name Observation Time Observation Value Commen ts Temperature 2024-01-06 13:22:00.000 97.9 [degF] Temperature 2023-12-27 10:28:00.000 97 [degF] Temperature 2023-12-17 09:23:00.000 97.7 [degF] Temperature 2023-12-10 13:20:00.000 97.2 [degF] Temperature 2023-12-06 12:15:00.000 97.3 [degF] Temperature 2023-12-03 09:12:00.000 97.9 [degF] Temperature 2023-12-03 09:04:00.000 97.9 [degF] Temperature 2023-12-01 14:30:00.000 97.1 [degF] Temperature 2023-11-26 14:49:00.000 97.6 [degF] Temperature 2023-11-26 09:05:00.000 97.9 [degF] Temperature 2023-11-25 13:40:00.000 97.3 [degF] Temperature 2023-11-18 14:25:00.000 97.6 [degF] Temperature 2023-11-17 12:06:00.000 97.5 [degF] Temperature 2023-11-17 09:33:00.000 97.7 [degF] Temperature 2023-11-15 14:13:00.000 97.6 [degF] Temperature 2023-11-13 09:14:00.000 97.4 [degF] BMI (%) 2023-11-13 09:14:00.000 39 kg/m2 Height 2023-11-13 09:14:00.000 68 [in_us] Pulse 2024-01-06 13:25:00.000 72 /min Pulse 2023-12-27 10:28:00.000 64 /min Pulse 2023-12-17 09:23:00.000 61 /min Pulse 2023-12-10 13:20:00.000 83 /min Pulse 2023-12-06 12:15:00.000 72 /min Pulse 2023-12-03 09:12:00.000 77 /min Pulse 2023-12-03 09:04:00.000 77 /min Pulse 2023-12-01 14:30:00.000 60 /min Pulse 2023-11-26 14:49:00.000 77 /min Pulse 2023-11-26 09:05:00.000 64 /min Pulse 2023-11-25 13:40:00.000 61 /min Pulse 2023-11-18 14:25:00.000 74 /min Pulse 2023-11-17 12:06:00.000 62 /min Pulse 2023-11-17 09:33:00.000 62 /min Pulse 2023-11-15 14:13:00.000 65 /min Pulse 2023-11-13 09:14:00.000 60 /min O2 Saturation (%) 2024-01-06 13:22:00.000 100 % O2 Saturation (%) 2023-12-27 10:34:00.000 99 % O2 Saturation (%) 2023-12-17 09:23:00.000 98 % O2 Saturation (%) 2023-12-10 13:20:00.000 99 % O2 Saturation (%) 2023-12-06 12:15:00.000 97 % O2 Saturation (%) 2023-12-03 09:12:00.000 97 % O2 Saturation (%) 2023-12-03 09:04:00.000 97 % O2 Saturation (%) 2023-12-01 14:30:00.000 97 % O2 Saturation (%) 2023-11-26 14:49:00.000 100 % O2 Saturation (%) 2023-11-26 09:05:00.000 99 % O2 Saturation (%) 2023-11-25 13:40:00.000 97 % O2 Saturation (%) 2023-11-18 14:25:00.000 97 % O2 Saturation (%) 2023-11-17 12:05:00.000 99 % O2 Saturation (%) 2023-11-17 09:33:00.000 97 % Respirations 2024-01-06 13:22:00.000 18 /min Respirations 2023-12-27 10:28:00.000 16 /min Respirations 2023-12-17 09:23:00.000 18 /min Respirations 2023-12-10 13:20:00.000 18 /min Respirations 2023-12-06 12:15:00.000 18 /min Respirations 2023-12-03 09:12:00.000 18 /min Respirations 2023-12-03 09:04:00.000 18 /min Respirations 2023-12-01 14:30:00.000 18 /min Respirations 2023-11-26 14:49:00.000 17 /min Respirations 2023-11-26 09:05:00.000 18 /min Respirations 2023-11-25 13:40:00.000 18 /min Respirations 2023-11-18 14:25:00.000 18 /min Respirations 2023-11-17 12:06:00.000 16 /min Respirations 2023-11-17 09:33:00.000 18 /min Respirations 2023-11-15 14:13:00.000 18 /min Respirations 2023-11-13 09:14:00.000 18 /min Weight (lbs) 2024-01-06 13:22:00.000 263 [lb_av] Weight (lbs) 2023-12-27 10:37:00.000 262 [lb_av] Weight (lbs) 2023-12-17 09:36:00.000 261 [lb_av] Weight (lbs) 2023-12-10 13:23:00.000 260 [lb_av] Weight (lbs) 2023-12-06 12:15:00.000 262 [lb_av] Weight (lbs) 2023-12-03 09:25:00.000 261 [lb_av] Weight (lbs) 2023-12-03 09:12:00.000 260 [lb_av] Weight (lbs) 2023-12-01 14:31:00.000 261 [lb_av] Weight (lbs) 2023-11-26 14:49:00.000 261 [lb_av] Weight (lbs) 2023-11-26 09:10:00.000 261 [lb_av] Weight (lbs) 2023-11-25 13:40:00.000 262 [lb_av] Weight (lbs) 2023-11-18 14:25:00.000 258 [lb_av] Weight (lbs) 2023-11-17 12:06:00.000 261 [lb_av] Weight (lbs) 2023-11-17 09:33:00.000 261 [lb_av] Weight (lbs) 2023-11-15 14:13:00.000 258 [lb_av] Weight (lbs) 2023-11-13 09:14:00.000 261 [lb_av] Systolic Blood Pressure 2024-01-06 13:22:00.000 120 mm [Hg] Systolic Blood Pressure 2023-12-27 10:28:00.000 118 mm [Hg] Systolic Blood Pressure 2023-12-17 09:23:00.000 120 mm [Hg] Systolic Blood Pressure 2023-12-10 13:20:00.000 110 mm [Hg] Systolic Blood Pressure 2023-12-06 12:15:00.000 120 mm [Hg] Systolic Blood Pressure 2023-12-03 09:12:00.000 122 mm [Hg] Systolic Blood Pressure 2023-12-03 09:04:00.000 121 mm [Hg] Systolic Blood Pressure 2023-12-01 14:30:00.000 122 mm [Hg] Systolic Blood Pressure 2023-11-26 14:49:00.000 128 mm [Hg] Systolic Blood Pressure 2023-11-26 09:05:00.000 108 mm [Hg] Systolic Blood Pressure 2023-11-25 13:40:00.000 131 mm [Hg] Systolic Blood Pressure 2023-11-18 14:25:00.000 120 mm [Hg] Systolic Blood Pressure 2023-11-17 12:06:00.000 110 mm [Hg] Systolic Blood Pressure 2023-11-17 09:33:00.000 108 mm [Hg] Systolic Blood Pressure 2023-11-15 14:13:00.000 110 mm [Hg] Systolic Blood Pressure 2023-11-13 09:14:00.000 124 mm [Hg] Diastolic Blood Pressure 2024-01-06 13:22:00.000 74 mm [Hg] Diastolic Blood Pressure 2023-12-27 10:28:00.000 68 mm [Hg] Diastolic Blood Pressure 2023-12-17 09:23:00.000 78 mm [Hg] Diastolic Blood Pressure 2023-12-10 13:20:00.000 60 mm [Hg] Diastolic Blood Pressure 2023-12-06 12:15:00.000 62 mm [Hg] Diastolic Blood Pressure 2023-12-03 09:12:00.000 88 mm [Hg] Diastolic Blood Pressure 2023-12-03 09:04:00.000 89 mm [Hg] Diastolic Blood Pressure 2023-12-01 14:30:00.000 70 mm [Hg] Diastolic Blood Pressure 2023-11-26 14:49:00.000 84 mm [Hg] Diastolic Blood Pressure 2023-11-26 09:05:00.000 54 mm [Hg] Diastolic Blood Pressure 2023-11-25 13:40:00.000 62 mm [Hg] Diastolic Blood Pressure 2023-11-18 14:25:00.000 70 mm [Hg] Diastolic Blood Pressure 2023-11-17 12:06:00.000 70 mm [Hg] Diastolic Blood Pressure 2023-11-17 09:33:00.000 58 mm [Hg] Diastolic Blood Pressure 2023-11-15 14:13:00.000 74 mm [Hg] Diastolic Blood Pressure 2023-11-13 09:14:00.000 70 mm [Hg] Plan of Treatment Planned Activity Planned Date Details Comments Future Scheduled Test MEDICATION MANAGEMENT; REGISTERED NURSE/LICENSED PRACTICAL NURSE TO REVIEW MEDICATIONS FOR INTERACTIONS, EFFECTIVENESS OF DRUG THERAPY, AND SIGNS/SYMPTOMS OF ADVERSE REACTIONS. MAY INSTRUCT AND REINFORCE MEDICATION TEACHING RELATED TO THE USE OF MEDICATIONS, DOSAGE, FREQUENCY, PURPOSE, SIDE EFFECTS, AND TO REPORT COMPLICATIONS. [code = MEDICATION MANAGEMENT; REGISTERED NURSE/LICENSED PRACTICAL NURSE TO REVIEW MEDICATIONS FOR INTERACTIONS, EFFECTIVENESS OF DRUG THERAPY, AND SIGNS/SYMPTOMS OF ADVERSE REACTIONS. MAY INSTRUCT AND REINFORCE MEDICATION TEACHING RELATED TO THE USE OF MEDICATIONS, DOSAGE, FREQUENCY, PURPOSE, SIDE EFFECTS, AND TO REPORT COMPLICATIONS.] Future Scheduled Test FALL REDUC TION MANAGEMENT; REGISTERED NURSE TO ASSESS AND TEACH/LICENSED PRACTICAL NURSE TO OBSERVE AND TEACH ON EDUCATION AND INTERVENTION TO IDENTIFY FALL RISK FACTORS SUCH MEDICATIONS THAT MAY CAUSE DIZZINESS, CHRONIC DISEASES, PSYCHOLOGICAL FACTORS, AND EMPOWER/EDUCATE PATIENT/CAREGIVER TO MINIMIZE FALL RISK. [code = FALL REDUCTION MANAGEMENT; REGISTERED NURSE TO ASSESS AND TEACH/LICENSED PRACTICAL NURSE TO OBSERVE AND TEACH ON EDUCATION AND INTERVENTION TO IDENTIFY FALL RISK FACTORS SUCH MEDICATIONS THAT MAY CAUSE DIZZINESS, CHRONIC DISEASES, PSYCHOLOGICAL FACTORS, AND EMPOWER/EDUCATE PATIENT/CAREGIVER TO MINIMIZE FALL RISK.] Future Scheduled Test RN TO OBSE RVE, ASSESS, EVALUATE, AND DEVELOP AN INDIVIDUALIZED PLAN OF CARE. AGENCY MAY ACCEPT ORDERS FROM CONSULTING PHYSICIANS REGISTERED NURSETO OBSERVE AND ASSESS/LICENSED PRACTICAL NURSE TO OBSERVE FOR RISK FOR FALLS AND INSTRUCT IN FALL PREVENTION, HOME SAFETY, MEDICATION MANAGEMENT, INFECTION PREVENTION, AND NUTRITION MANAGEMENT. REGISTERED NURSE/LICENSED PRACTICAL NURSE MAY PERFORM O2 SATURATION LEVEL ON ADMISSION AND PRN FOR RESP STATUS CHANGES FOR RN TO ASSESS/CLAIM SERVICE REPRESENTATIVE TO OBSERVE PATIENT, WITH NOTIFICATION TO THE PHYSICIAN IF SATURATION IS 90% IN THE ABSENCE OF MORE SPECIFIC PARAMETERS FROM THE PHYSICIAN. AGENCY MAY PERFORM A RESUMPTION OF CARE VISIT FOLLOWING ANY HOSPITAL ADMISSION. REGISTERED NURSE/LICENSED PRACTICAL NURSE TO MONITOR CO-MORBID CONDITIONS LISTED ON THE PLAN OF CARE AND ANY NEW CONDITIONS THAT PRESENT THEMSELVES DURING THIS EPISODE TO IDENTIFY CHANGES AND INTERVENE TO MINIMIZE COMPLICATIONS. [code = RN TO OBSERVE, ASSESS, EVALUATE, AND DEVELOP AN INDIVIDUALIZED PLAN OF CARE. AGENCY MAY ACCEPT ORDERS FROM CONSULTING PHYSICIANS REGISTERED NURSETO OBSERVE AND ASSESS/LICENSED PRACTICAL NURSE TO OBSERVE FOR RISK FOR FALLS AND INSTRUCT IN FALL PREVENTION, HOME SAFETY, MEDICATION MANAGEMENT, INFECTION PREVENTION, AND NUTRITION MANAGEMENT. REGISTERED NURSE/LICENSED PRACTICAL NURSE MAY PERFORM O2 SATURATION LEVEL ON ADMISSION AND PRN FOR RESP STATUS CHANGES FOR RN TO ASSESS/CLAIM SERVICE REPRESENTATIVE TO OBSERVE PATIENT, WITH NOTIFICATION TO THE PHYSICIAN IF SATURATION IS 90% IN THE ABSENCE OF MORE SPECIFIC PARAMETERS FROM THE PHYSICIAN. AGENCY MAY PERFORM A RESUMPTION OF CARE VISIT FOLLOWING ANY HOSPITAL ADMISSION. REGISTERED NURSE/LICENSED PRACTICAL NURSE TO MONITOR CO-MORBID CONDITIONS LISTED ON THE PLAN OF CARE AND ANY NEW CONDITIONS THAT PRESENT THEMSELVES DURING THIS EPISODE TO IDENTIFY CHANGES AND INTERVENE TO MINIMIZE COMPLICATIONS.] Future Scheduled Test PAIN MANAG EMENT; REGISTERED NURSE TO ASSESS AND TEACH/LICENSED PRACTICAL NURSE TO OBSERVE AND TEACH AND PROVIDE EDUCATION ON PAIN MANAGEMENT TECHNIQUES. [code = PAIN MANAGEMENT; REGISTERED NURSE TO ASSESS AND TEACH/LICENSED PRACTICAL NURSE TO OBSERVE AND TEACH AND PROVIDE EDUCATION ON PAIN MANAGEMENT TECHNIQUES.] Future Scheduled Test RISK FOR H OSPITALIZATION; REGISTERED NURSE TO ASSESS /TEACH, LICENSED PRACTICAL NURSE TO OBSERVE/TEACH PATIENT/CAREGIVER ON RISK FOR HOSPITALIZATION/EMERGENCY ROOM VISITS, TEACH SIGNS AND SYMPTOMS THAT PUT PATIENT AT RISK, WHEN TO NOTIFY NURSE/PHYSICIAN OF COMPLICATIONS/DECLINE, AND WHEN TO CALL 911. [code = RISK FOR HOSPITALIZATION; REGISTERED NURSE TO ASSESS /TEACH, LICENSED PRACTICAL NURSE TO OBSERVE/TEACH PATIENT/CAREGIVER ON RISK FOR HOSPITALIZATION/EMERGENCY ROOM VISITS, TEACH SIGNS AND SYMPTOMS THAT PUT PATIENT AT RISK, WHEN TO NOTIFY NURSE/PHYSICIAN OF COMPLICATIONS/DECLINE, AND WHEN TO CALL 911.] Future Scheduled Test CARDIOVASC ULAR SYSTEM; REGISTERED NURSE TO ASSESS /TEACH, LICENSED PRACTICAL NURSE TO OBSERVE/TEACH RELATED TO ALTERED CARDIOVASCULAR STATUS TO MINIMIZE COMPLICATIONS AND REDUCE HOSPITALIZATION. [code = CARDIOVASCULAR SYSTEM; REGISTERED NURSE TO ASSESS /TEACH, LICENSED PRACTICAL NURSE TO OBSERVE/TEACH RELATED TO ALTERED CARDIOVASCULAR STATUS TO MINIMIZE COMPLICATIONS AND REDUCE HOSPITALIZATION.] Future Scheduled Test HEART FAIL URE; REGISTERED NURSE TO ASSESS /TEACH, LICENSED PRACTICAL NURSE TO OBSERVE/TEACH CARDIOPULMONARY SYSTEM TO IDENTIFY SIGNS OF DECOMPENSATION AND INTERVENE TO MINIMIZE THE SEVERITY OF FLUID OVERLOAD. OBSERVE PATIENT ABILITY TO MONITOR AND RECORD DAILY WEIGHTS AND VITAL SIGNS, INCLUDING PULSE AND BLOOD PRESSURE; RECORD PATIENT REPORTED WEIGHT, OR WEIGH PATIENT NEEDED. REPORT INCREASED EDEMA OR WEIGHT GAIN OF >2 LBS IN 1 DAY OR >5 LBS IN 1 WEEK OR 5LBS OR MORE OVER TARGET WEIGHT. MAY MEASURE ABDOMINAL GIRTH IF UNABLE TO WEIGH. SCALES AND BP MONITOR TO BE PROVIDED IF NEEDED. [code = HEART FAILURE; REGISTERED NURSE TO ASSESS /TEACH, LICENSED PRACTICAL NURSE TO OBSERVE/TEACH CARDIOPULMONARY SYSTEM TO IDENTIFY SIGNS OF DECOMPENSATION AND INTERVENE TO MINIMIZE THE SEVERITY OF FLUID OVERLOAD. OBSERVE PATIENT ABILITY TO MONITOR AND RECORD DAILY WEIGHTS AND VITAL SIGNS, INCLUDING PULSE AND BLOOD PRESSURE; RECORD PATIENT REPORTED WEIGHT, OR WEIGH PATIENT NEEDED. REPORT INCREASED EDEMA OR WEIGHT GAIN OF >2 LBS IN 1 DAY OR >5 LBS IN 1 WEEK OR 5LBS OR MORE OVER TARGET WEIGHT. MAY MEASURE ABDOMINAL GIRTH IF UNABLE TO WEIGH. SCALES AND BP MONITOR TO BE PROVIDED IF NEEDED.] Future Scheduled Test PACEMAKER MANAGEMENT; REGISTERED NURSE/LICENSED PRACTICAL NURSE TO PROVIDE SKILLED TEACHING AND ASSIST WITH MANAGEMENT OF PACEMAKER. [code = PACEMAKER MANAGEMENT; REGISTERED NURSE/LICENSED PRACTICAL NURSE TO PROVIDE SKILLED TEACHING AND ASSIST WITH MANAGEMENT OF PACEMAKER.] Future Scheduled Test SKIN INTEG RITY REGISTERED NURSE TO ASSESS AND TEACH/LICENSED PRACTICAL NURSE TO OBSERVE AND TEACH INTEGUMENTARY STATUS TO IDENTIFY CHANGES AND INTERVENE TO MINIMIZE COMPLICATIONS. PROVIDE SKILLED TEACHING OF GENERAL WOUND AND SKIN CARE AND PREVENTION RELATED TO POTENTIAL FOR OR ACTUAL ALTERED SKIN INTEGRITY ASSESS LKU CHEST PACEMAKER SITE FOR S/S INFECTION,DRESSING TO BE REMOVED BY SURGEON. [code = SKIN INTEGRITY REGISTERED NURSE TO ASSESS AND TEACH/LICENSED PRACTICAL NURSE TO OBSERVE AND TEACH INTEGUMENTARY STATUS TO IDENTIFY CHANGES AND INTERVENE TO MINIMIZE COMPLICATIONS. PROVIDE SKILLED TEACHING OF GENERAL WOUND AND SKIN CARE AND PREVENTION RELATED TO POTENTIAL FOR OR ACTUAL ALTERED SKIN INTEGRITY ASSESS LKU CHEST PACEMAKER SITE FOR S/S INFECTION,DRESSING TO BE REMOVED BY SURGEON. ] Future Scheduled Test AGENCY MAY PERFORM A RESUMPTION OF CARE VISIT FOLLOWING ANY HOSPITAL ADMISSION. PHYSICAL THERAPY TO EVALUATE, ASSESS AND MONITOR, PROVIDE SKILLED THERAPEUTIC INTERVENTION, ACTIVITY, EDUCATION, AND TRAINING TO ADDRESS: TRANSFER TRAINING (PT) GAIT TRAINING (PT) NEUROMUSCULAR RE-EDUCATION / BALANCE RETRAINING (PT) THERAPEUTIC EXERCISES (PT) OXYGEN SATURATION (PT). NOTIFY MD IF 02SATS BELOW 90% AFTER 10 MIN OF REST. PAIN MANAGEMENT (PT) PHYSICAL THERAPY TO OBSERVE WOUND/INCISION AND/OR INTACT DRESSING ON LEFT CHEST AND REPORT EARLY SIGNS AND SYMPTOMS OF WOUND DETERIORATION, COMPLICATIONS, OR INFECTION TO RN CLINICAL PHYSICAL EDUCATION DEPARTMENT CHAIR AND/OR PHYSICIAN. HEART FAILURE SELF-MANAGEMENT ( PT) IDENTIFY FALL RISK FACTORS AND ESTABLISH HOME EXERCISE PROGRAM TO MINIMIZE FALL RISK. MAY TEACH THE PATIENT FLOOR RECOVERY WHEN CLINICALLY APPROPRIATE (PT) [code = AGENCY MAY PERFORM A RESUMPTION OF CARE VISIT FOLLOWING ANY HOSPITAL ADMISSION. PHYSICAL THERAPY TO EVALUATE, ASSESS AND MONITOR, PROVIDE SKILLED THERAPEUTIC INTERVENTION, ACTIVITY, EDUCATION, AND TRAINING TO ADDRESS: TRANSFER TRAINING (PT) GAIT TRAINING (PT) NEUROMUSCULAR RE-EDUCATION / BALANCE RETRAINING (PT) THERAPEUTIC EXERCISES (PT) OXYGEN SATURATION (PT). NOTIFY MD IF 02SATS BELOW 90% AFTER 10 MIN OF REST. PAIN MANAGEMENT (PT) PHYSICAL THERAPY TO OBSERVE WOUND/INCISION AND/OR INTACT DRESSING ON LEFT CHEST AND REPORT EARLY SIGNS AND SYMPTOMS OF WOUND DETERIORATION, COMPLICATIONS, OR INFECTION TO RN CLINICAL PHYSICAL EDUCATION DEPARTMENT CHAIR AND/OR PHYSICIAN. HEART FAILURE SELF-MANAGEMENT ( PT) IDENTIFY FALL RISK FACTORS AND ESTABLISH HOME EXERCISE PROGRAM TO MINIMIZE FALL RISK. MAY TEACH THE PATIENT FLOOR RECOVERY WHEN CLINICALLY APPROPRIATE (PT)] Future Scheduled Test AGENCY MAY PERFORM A RESUMPTION OF CARE VISIT FOLLOWING ANY HOSPITAL ADMISSION. OT TO EVALUATE, OBSERVE / ASSESS, AND MONITOR, EMMA TO OBSERVE AND MONITOR, PROVIDE SKILLED THERAPEUTIC INTERVENTION, ACTIVITY, EDUCATION, AND TRAINING TO ADDRESS; TOILETING HYGIENE (OT/EMMA) ACTIVITIES OF DAILY LIVING (OT/ORACLE SOLUTIONS ARCHITECT) MEAL PREPARATION AND CLEANUP (OT/ORACLE SOLUTIONS ARCHITECT) TOILET TRANSFER (OT/ORACLE SOLUTIONS ARCHITECT) ENERGY CONSERVATION/ACTIVITY DEMAND (OT/ORACLE SOLUTIONS ARCHITECT) OT / ORACLE SOLUTIONS ARCHITECT TO EDUCATE ON PACEMAKER SELF-MANAGEMENT OT TO ASSESS / ORACLE SOLUTIONS ARCHITECT TO MONITOR FOR HEART FAILURE EXACERBATION AND RECORD PATIENT REPORTED WEIGHT, AND NOTIFY THE PHYSICIAN AND/OR THE RN CLINICAL PHYSICAL EDUCATION DEPARTMENT CHAIR FOR PHYSICIAN NOTIFICATION OF HF EXACERBATION (2LB WEIGHT GAIN IN 1 DAY, 5LBS IN A WEEK OR 5 LBS OVER BASELINE; INCREASED SOB, EDEMA, NEEDING MORE PILLOWS AT NIGHT, CRACKLES IN BASIS OF THE LUNGS OR PMI SHIFT). OT/ORACLE SOLUTIONS ARCHITECT TO MONITOR AND EDUCATE ON OXYGEN SATURATION DURING ADLS/IADLS, NOTIFY PHYSICIAN AND/OR THE RN CLINICAL PHYSICAL EDUCATION DEPARTMENT CHAIR FOR PHYSICIAN NOTIFICATION AND IF O2 SATS BELOW 90% AFTER 10 MIN OF REST. OT / EMMA TO IDENTIFY FALL RISK FACTORS; EDUCATE THE PATIENT/CAREGIVER ON WAYS TO REDUCE FALL RISK FACTORS AND ESTABLISH HOME EXERCISE PROGRAM TO MINIMIZE FALL RISK. MAY TEACH THE PATIENT FLOOR RECOVERY WHEN CLINICALLY APPROPRIATE. [code = AGENCY MAY PERFORM A RESUMPTION OF CARE VISIT FOLLOWING ANY HOSPITAL ADMISSION. OT TO EVALUATE, OBSERVE / ASSESS, AND MONITOR, ORACLE SOLUTIONS ARCHITECT TO OBSERVE AND MONITOR, PROVIDE SKILLED THERAPEUTIC INTERVENTION, ACTIVITY, EDUCATION, AND TRAINING TO ADDRESS; TOILETING HYGIENE (OT/EMMA) ACTIVITIES OF DAILY LIVING (OT/ORACLE SOLUTIONS ARCHITECT) MEAL PREPARATION AND CLEANUP (OT/EMMA) TOILET TRANSFER (OT/ORACLE SOLUTIONS ARCHITECT) ENERGY CONSERVATION/ACTIVITY DEMAND (OT/EMMA) OT / EMMA TO EDUCATE ON PACEMAKER SELF-MANAGEMENT OT TO ASSESS / EMMA TO MONITOR FOR HEART FAILURE EXACERBATION AND RECORD PATIENT REPORTED WEIGHT, AND NOTIFY THE PHYSICIAN AND/OR THE RN CLINICAL PHYSICAL EDUCATION DEPARTMENT CHAIR FOR PHYSICIAN NOTIFICATION OF HF EXACERBATION (2LB WEIGHT GAIN IN 1 DAY, 5LBS IN A WEEK OR 5 LBS OVER BASELINE; INCREASED SOB, EDEMA, NEEDING MORE PILLOWS AT NIGHT, CRACKLES IN BASIS OF THE LUNGS OR PMI SHIFT). OT/[employer] ARCHITECT TO MONITOR AND EDUCATE ON OXYGEN SATURATION DURING ADLS/IADLS, NOTIFY PHYSICIAN AND/OR THE RN CLINICAL PHYSICAL EDUCATION DEPARTMENT CHAIR FOR PHYSICIAN NOTIFICATION AND IF O2 SATS BELOW 90% AFTER 10 MIN OF REST. OT / [employer] ARCHITECT TO IDENTIFY FALL RISK FACTORS; EDUCATE THE PATIENT/CAREGIVER ON WAYS TO REDUCE FALL RISK FACTORS AND ESTABLISH HOME EXERCISE PROGRAM TO MINIMIZE FALL RISK. MAY TEACH THE PATIENT FLOOR RECOVERY WHEN CLINICALLY APPROPRIATE.] Goal 2024-01-06 Patient Goal - TO GET STRONG ER Goal Provider Goal - PATIENT/CAREGIVER TO VERBALIZE, AND CONSISTENTLY DEMONSTRATE EFFECTIVE, SAFE MANAGEMENT OF MEDICATION INCLUDING KNOWLEDGE OF EFFECTIVENESS, POTENTIAL SIDE EFFECTS AND DRUG REACTIONS AND WHEN TO CONTACT THE APPROPRIATE CARE PROVIDER. PATIENT/CAREGIVER WILL BE ABLE TO VERBALIZE UNDERSTANDING OF MEDICATION REGIMEN AND ACCURATELY TAKE MEDICATIONS PRESCRIBED WITHOUT ADVERSE EFFECTS BY 01/11/24 Goal Provider Goal - PATIENT/CAREGIVER ABLE TO IDENTIFY FALL RISK FACTORS AND IMPLEMENT STRATEGIES TO MINIMIZE FALL RISK. PATIENT/CAREGIVER WILL VERBALIZE/DEMONSTRATE AN ABILITY TO ADHERE TO FALL REDUCTION SELF MANAGEMENT AND LIFE-STYLE CHANGES AT DISCHARGE. PERSONAL GOAL(S) STATED BY PATIENT/CAREGIVER WILL BE MET BY 01/11/24 Goal Provider Goal - A PLAN OF CARE WILL BE ESTABLISHED THAT MEETS THE PATIENTS NEEDS. PATIENT WILL DEMONSTRATE OXYGEN SATURATION WITHIN NORMAL LIMITS OR PATIENTS OPTIMAL LEVEL ESTABLISHED BY THE PHYSICIAN THROUGHOUT CARE. CHANGES TO CO-MORBID CONDITIONS AND ANY NEW CONDITIONS WILL BE IDENTIFIED AND REPORTED TO THE PHYSICIAN. Goal Provider Goal - PATIENT / CAREGIVER WILL VERBALIZE / DEMONSTRATE UNDERSTANDING OF PAIN CONTROL MEASURES BY 01/11/24 Goal Provider Goal - PATIENT/CAREGIVER WILL VERBALIZE UNDERSTANDING OF SIGNS AND SYMPTOMS THAT PUT THE PATIENT AT RISK FOR HOSPITALIZATION /EMERGENCY ROOM VISITS, WHEN TO NOTIFY NURSE/PHYSICIAN OF COMPLICATIONS/DECLINE AND WHEN TO CALL 911. Goal Provider Goal - PATIENT / CAREGIVER WILL VERBALIZE/DEMONSTRATE UNDERSTANDING OF MEASURES TO MANAGE ALTERED CARDIOVASCULAR STATUS BY 01/11/24 Goal Provider Goal - PATIENT / CAREGIVER WILL VERBALIZE/DEMONSTRATE AN ABILITY TO ADHERE TO SELF-MANAGEMENT OF HF TO MINIMIZE COMPLICATIONS AND AVOID HOSPITALIZATION BY END OF EPISODE. Goal Provider Goal - PATIENT / CAREGIVER WILL VERBALIZE/DEMONSTRATE UNDERSTANDING OF CARE AND MANAGEMENT OF PACEMAKER BY END OF EPISODE. Goal Provider Goal - CHANGES IN SKIN INTEGRITY STATUS WILL BE IDENTIFIED AND REPORTED TO THE PHYSICIAN FOR PROMPT INTERVENTION. PATIENT / CAREGIVER WILL VERBALIZE/DEMONSTRATE ADEQUATE KNOWLEDGE OF INTEGUMENTARY STATUS AND APPROPRIATE MEASURES TO PROMOTE SKIN INTEGRITY AND PREVENT INJURY BY EOE Goal Provider Goal - PT STG: PATIENT WILL DEMONSTRATE IMPROVED TRANSFERS FROM SBA TO INDEPENDENT WITH UE ASSIST WITHIN 3 WEEKS PT LTG: PATIENT WILL DEMONSTRATE IMPROVED AMBULATION FROM SBA TO INDEPENDENT WITH ROLLATOR WITHIN 6 WEEKS PT LTG: PATIENT WILL DEMONSTRATE REDUCED FALL RISK EVIDENCED BY IMPROVED SELF- SELECTED WALKING SPEED (SSWS CUT SCORE 0.6 TO 0.9 INDICATES MODERATE FALL RISK, 0.6 M/S INDICATES HIGH FALL RISK) FROM 0.9M/SEC TO >1.1M/SEC WITHIN 6 WEEKS PT LTG: PATIENT WILL DEMONSTRATE REDUCED FALL RISK EVIDENCED BY TUG TEST (CUT SCORE >11 SECONDS INDICATES INCREASED FALL RISK) IMPROVING FROM 17 SECONDS TO 11 SECONDS WITHIN 6 WEEKS PT STG: PATIENT WILL DEMONSTRATE INDEPENDENCE WITH LOWER EXTREMITY HOME EXERCISE PROGRAM WITHIN 4 WEEKS PT LTG: PATIENT WILL DEMONSTRATE IMPROVED FUNCTIONAL STRENGTH EVIDENCED BY FIVE TIMES SIT TO STAND TEST (CUT SCORE >12 SECONDS INDICATES AN INCREASED FALL RISK) IMPROVING FROM 21 SECONDS TO 13 SECONDS WITHIN 6 WEEKS PT LTG: PATIENT WILL DEMONSTRATE INCREASED STRENGTH OF BILATERAL LES FROM 3+/5 TO 4+/5 WITHIN 6 WEEKS IN ORDER TO IMPROVE SAFETY AND STABILITY WITH GAIT AND RAMP MOBILITY PATIENT WILL MAINTAIN OXYGEN SATURATION WITHIN PHYSICIAN ORDERED PARAMETERS THROUGHOUT EPISODE OF CARE PT GOAL: PATIENT/CAREGIVER WILL VERBALIZE UNDERSTANDING OF PAIN MANAGEMENT BY END OF EPISODE. THE PATIENT WILL NOT DEMONSTRATE ANY WOUND COMPLICATIONS DURING THE EPISODE OF CARE. PT GOAL: PATIENT/CAREGIVER WILL BE ABLE TO IDENTIFY SIGNS OF EXACERBATION OF HEART FAILURE AND WILL VERBALIZE/DEMONSTRATE AN ABILITY TO ADHERE TO HEART FAILURE SELF-MANAGEMENT AND LIFE-STYLE CHANGES BY END OF EPISODE. PATIENT/CAREGIVER WILL DEMONSTRATE ADHERENCE TO FALL REDUCTION SELF MANAGEMENT TO MINIMIZE FALL BY END OF EPISODE. Goal Provider Goal - OT LTG: PATIENT WILL DEMONSTRATE IMPROVED ABILITY TO PERFORM TOILET HYGIENE AND REDUCE THE RISK OF DEVELOPING A UTI FROM MIN A TO MODIFIED INDEPENDENCE WITHIN 5 WEEKS OT LTG: PATIENT WILL DEMONSTRATE IMPROVEMENT IN MODIFIED SELIN INDEX SCORE FROM 77/100 TO 85/100 INDICATING DECREASED DEPENDENCY ON CAREGIVER ASSISTANCE WITH ACTIVITIES OF DAILY LIVING WITHIN 5 WEEKS. OT LTG: PATIENT WILL DEMONSTRATE THE ABILITY TO COMPLETE MEAL PREPARATION AND CLEANUP TO REDUCE CAREGIVER BURDEN FROM MIN A TO MODIFIED INDEPENDENCE WITHIN 5 WEEKS OT STG: PATIENT WILL DEMONSTRATE IMPROVED ABILITY TO PERFORM TOILET TRANSFERS TO REDUCE FALL RISK AND RISK OF INCONTINENCE AND UTI DEVELOPMENT FROM MIN A TO MODIFIED INDEPENDENCE WITHIN 3 WEEKS OT LTG: PATIENT WILL DEMONSTRATE UNDERSTANDING OF ENERGY CONSERVATION MEASURES, EVIDENCED BY INCREASED ACTIVITY TOLERANCE AND TO UTILIZE ROLLATOR SAFELY TO SIT IN KITCHEN WITH MEAL PREPARATION WITHIN 5 WEEKS OT GOAL: PATIENT/CAREGIVER WILL BE ABLE TO VERBALIZE UNDERSTANDING OF A PACEMAKER, SIGNS/SYMPTOMS TO REPORT, WELL SELF-MANAGEMENT AND LIFE-STYLE CHANGES TO IMPROVE QUALITY OF LIFE AND REDUCE CAREGIVER BURDEN BY END OF EPISODE. LTG OT: PATIENTS HEART FAILURE WILL REMAIN WELL CONTROLLED THROUGHOUT THE EPISODE OF CARE. OT LTG: PATIENT WILL MAINTAIN OXYGEN SATURATION WITHIN PHYSICIAN ORDERED PARAMETERS THROUGHOUT THE EPISODE OF CARE. OT LTG: PATIENT/CAREGIVER WILL BE ABLE TO IMPLEMENT RECOMMENDATIONS SPECIFIC TO FALL REDUCTION FOR IMPROVED ADL/IADL COMPLETION AND HOME SAFETY BY END OF EPISODE. Reason for Visit INDEPENDENT WITH USE OF ASSISTIVE DEVICE Encounters Start Date/Time End Date/Time Encounter Type Admission Type Attending [facility] Facility Care Department Encounter ID Discharge Date Discharge Status Discharge Condition Discharge Reason Percent Goals Met 2023-11-13 00:00:00 2024-01-06 00:00:00 Outpatient NEW ADMISSION EMILIE URIOSTEGUI [facility] [id number] 2024-01-06 00:00:00 DISCHARGE TO HOME OR SELF CARE INDEPENDEN T WITH USE OF ASSISTIVE DEVICE HH OR PAL- GOALS MET 68.42
[2024-08-07 11:54] LABS: Anion Gap 16 (12-20); Blood Urea Nitrogen 36 mg/dL (9-16); Calcium 9.9 mg/dL (8.4-10.2); Carbon Dioxide 24 mmol/L (22-29); Chloride 105 mmol/L (96-108); Estimated Glomerular Filt Rate 31; Glucose Random 105 mg/dL (60-115); Potassium 3.3 mmol/L (3.3-5.1); Sodium 142 mmol/L (135-145)
== END 2024-08-07 09:28 | disposition home or self-care (01) ==
LOC: HO.10HDL 09:27
PROVIDERS: Visit Provider Internal Medicine Hypertension Specialist
DX: N18.30 Chronic kidney disease, stage 3 unspecified (principal); N17.9 Acute kidney failure, unspecified; I48.91 Unspecified atrial fibrillation; E87.6 Hypokalemia; I50.22 Chronic systolic (congestive) heart failure; Z95.810 Presence of automatic (implantable) cardiac defibrillator
CPT/HCPCS: 36415; 80048

== ENCOUNTER 2024-08-07 13:46 | Outpatient (AMB) | payer MEDICARE, SELFPAY ==
--- OUTSIDE RECORDS SUMMARY | 2024-08-07 13:49 | XMS_ITS | Clinical Summary ---
Author Organization Unknown Care Team Providers Care Injection Maintenance Technician Name Role Phone DORIS PATEL, CHRISTIANNE Unavailable Unavailable CORDELL BURR BENCH OPERATOR, TOMAS Unavailable Unavailabl libby VINSON PT, SANCHO Unavailable Unavailable SPAMAIK OT, EDWIN Unavailable Unavailable GARVEY SALON CUSTOMER EXPERIENCE SPECIALIST, CHI Unavailable Unavailable GUMARO CARTER/NANNETTE, CANDIS Unavailable Unavail able MOODY TINSLEY, EMILIE Unavailable Unavailab le Payers Payer Name Policy Type Policy Number Effective Date Expira tion Date MEDICARE.NGS.PDGM [id number] Problems Condition Name Condition Details Condition Category [...] 11-12 00:00: 00 ATHSCL HEART DISEASE OF [place] CORONARY ARTERY W/O ANG PCTRS Active 11-12 [...] CARDIAC DEFIBRILLATO R Active 11-12 00:00: 00 NURSING HOME (CURRENT) USE OF ANTICOAGULAN TS Active 11-12 [...] 11-04 00:00: 00 11-09 23:59 :00 No [id number] SUPPLEMENT 1 tablet DAILY 1 tablet DAILY (route: oral) Med Classific ation: Electroly te Balance-N utritiona l Products nystatin 100,000 unit/gram topical cream 10-19 00:00: 00 Yes [id number] Unavailable Per instruc tions TWICE DAILY Per instructio ns TWICE DAILY (route: topical) Med Classific ation: Dermatolo gical Entresto 24 mg-26 mg tablet 10-15 00:00: 00 Yes [id number] CHF Per instruc tions TWICE DAILY Per instructio ns TWICE DAILY (route: oral) Med Classific ation: Cardiovas cular Therapy Agents acetaminoph en 500 mg tablet 11-12 00:00: 00 Yes [id number] PAIN 1 tablet 3 TIMES DAILY 1 tablet 3 TIMES DAILY (route: oral) Med Classific ation: Analgesic , Anti-infl ammatory or Antipyret ic amiodarone 200 mg tablet 11-12 00:00: 00 Yes [id number] ARRYTHMIA 1 tablet DAILY 1 tablet DAILY (route: oral) Med Classific ation: Cardiovas cular Therapy Agents bumetanide 2 mg tablet 11-12 00:00: 00 12-09 23:59 :00 No [id number] CHF 1 tablet 2 TIMES DAILY 1 tablet 2 TIMES DAILY (route: oral) Med Classific ation: Cardiovas cular Therapy Agents Eliquis 5 mg tablet 11-12 00:00: 00 Yes [id number] BLOOD THINNER 1 tablet 2 TIMES DAILY 1 tablet 2 TIMES DAILY (route: oral) Med Classific ation: Hematolog ical Agents levothyroxi ne 137 mcg tablet 11-12 00:00: 00 Yes [id number] SUPPLEMENT 1 tablet DAILY 1 tablet DAILY (route: oral) Med Classific ation: Endocrine Lidoderm 5 % topical patch 11-12 00:00: 00 12-02 23:59 :00 No [id number] PAIN 1 adhesiv e patch, medicat ed EVERY 12 HOURS 1 adhesive patch, medicated EVERY 12 HOURS (route: topical) Med Classific ation: Dermatolo gical spironolact one 25 mg tablet 11-12 00:00: 00 01-05 23:59 :00 No [id number] CHF 1 tablet 2 TIMES DAILY 1 tablet 2 TIMES DAILY (route: oral) Med Classific ation: Cardiovas cular Therapy Agents metoprolol succinate ER 25 mg tablet,exte nded release 24 hr 12-02 00:00: 00 01-05 23:59 :00 No [id number] HTN, S/P PACEMAKER 1 tablet DAILY 1 tablet DAILY (route: oral) Med Classific ation: Cardiovas cular Therapy Agents bumetanide 2 mg tablet 12-09 00:00: 00 Yes [id number] HEAET FAILURR 1 tablet DAILY 1 tablet DAILY (route: oral) Med Classific ation: Cardiovas cular Therapy Agents baclofen 5 mg tablet 12-09 00:00: 00 Yes [id number] MUSCLE SPASM 1 tablet DAILY 1 tablet DAILY (route: oral) Med Classific ation: Locomotor System tramadol 50 mg tablet 12-09 00:00: 00 Yes [id number] PAIN 1 tablet 2 TIMES DAILY 1 tablet 2 TIMES DAILY (route: oral) Med Classific ation: Analgesic , Anti-infl ammatory or Antipyret ic metoprolol succinate ER 50 mg tablet,exte nded release 24 hr 01-05 00:00: 00 Yes [id number] HTN/AFIB 1 tablet DAILY 1 tablet DAILY (route: oral) Med Classific ation: Cardiovas cular Therapy Agents potassium chloride ER 10 mEq tablet,exte nded release 01-05 00:00: 00 Yes [id number] SUPPLEMENT 1 tablet DAILY 1 tablet DAILY (route: oral) Med Classific ation: Electroly te Balance-N utritiona l Products spironolact one 25 mg tablet 01-05 00:00: 00 Yes [id number] EDEMA 1 tablet DAILY 1 tablet DAILY [...] FOR RESP STATUS CHANGES FOR RN TO ASSESS/BURR BENCH OPERATOR TO OBSERVE PATIENT, WITH NOTIFICATION TO THE [...] FOR RESP STATUS CHANGES FOR RN TO ASSESS/BURR BENCH OPERATOR TO OBSERVE PATIENT, WITH NOTIFICATION TO THE [...] DETERIORATION, COMPLICATIONS, OR INFECTION TO RN CLINICAL GEOTECHNICAL FIELD TECHNICIAN AND/OR PHYSICIAN. HEART FAILURE SELF-MANAGEMENT ( PT) [...] DETERIORATION, COMPLICATIONS, OR INFECTION TO RN CLINICAL GEOTECHNICAL FIELD TECHNICIAN AND/OR PHYSICIAN. HEART FAILURE SELF-MANAGEMENT ( PT) [...] TOILETING HYGIENE (OT/EMMA) ACTIVITIES OF DAILY LIVING (OT/NIKE ATHLETE) MEAL PREPARATION AND CLEANUP (OT/NIKE ATHLETE) TOILET TRANSFER (OT/NIKE ATHLETE) ENERGY CONSERVATION/ACTIVITY DEMAND (OT/NIKE ATHLETE) OT / NIKE ATHLETE TO EDUCATE ON PACEMAKER SELF-MANAGEMENT OT TO ASSESS / NIKE ATHLETE TO MONITOR FOR HEART FAILURE EXACERBATION AND RECORD PATIENT REPORTED WEIGHT, AND NOTIFY THE PHYSICIAN AND/OR THE RN CLINICAL GEOTECHNICAL FIELD TECHNICIAN FOR PHYSICIAN NOTIFICATION OF HF EXACERBATION (2LB WEIGHT GAIN IN 1 DAY, 5LBS IN A WEEK OR 5 LBS OVER BASELINE; INCREASED SOB, EDEMA, NEEDING MORE PILLOWS AT NIGHT, CRACKLES IN BASIS OF THE LUNGS OR PMI SHIFT). OT/NIKE ATHLETE TO MONITOR AND EDUCATE ON OXYGEN SATURATION DURING ADLS/IADLS, NOTIFY PHYSICIAN AND/OR THE RN CLINICAL GEOTECHNICAL FIELD TECHNICIAN FOR PHYSICIAN NOTIFICATION AND IF O2 SATS [...] TO EVALUATE, OBSERVE / ASSESS, AND MONITOR, NIKE ATHLETE TO OBSERVE AND MONITOR, PROVIDE SKILLED THERAPEUTIC INTERVENTION, ACTIVITY, EDUCATION, AND TRAINING TO ADDRESS; TOILETING HYGIENE (OT/EMMA) ACTIVITIES OF DAILY LIVING (OT/NIKE ATHLETE) MEAL PREPARATION AND CLEANUP (OT/EMMA) TOILET TRANSFER (OT/NIKE ATHLETE) ENERGY CONSERVATION/ACTIVITY DEMAND (OT/EMMA) OT / EMMA TO EDUCATE ON PACEMAKER SELF-MANAGEMENT OT TO ASSESS / EMMA TO MONITOR FOR HEART FAILURE EXACERBATION AND RECORD PATIENT REPORTED WEIGHT, AND NOTIFY THE PHYSICIAN AND/OR THE RN CLINICAL GEOTECHNICAL FIELD TECHNICIAN FOR PHYSICIAN NOTIFICATION OF HF EXACERBATION (2LB WEIGHT GAIN IN 1 DAY, 5LBS IN A WEEK OR 5 LBS OVER BASELINE; INCREASED SOB, EDEMA, NEEDING MORE PILLOWS AT NIGHT, CRACKLES IN BASIS OF THE LUNGS OR PMI SHIFT). OT/NIKE ATHLETE TO MONITOR AND EDUCATE ON OXYGEN SATURATION DURING ADLS/IADLS, NOTIFY PHYSICIAN AND/OR THE RN CLINICAL GEOTECHNICAL FIELD TECHNICIAN FOR PHYSICIAN NOTIFICATION AND IF O2 SATS BELOW 90% AFTER 10 MIN OF REST. OT / NIKE ATHLETE TO IDENTIFY FALL RISK FACTORS; EDUCATE THE [...] End Date/Time Encounter Type Admission Type Attending [facility] Facility Care Department Encounter ID Discharge Date Discharge Status Discharge Condition Discharge Reason Percent Goals Met 2023-11-13 00:00:00 2024-01-06 00:00:00 Outpatient NEW ADMISSION EMILIE URIOSTEGUI [facility] [id number] 2024-01-06 00:00:00 DISCHARGE TO HOME OR SELF CARE INDEPENDEN T WITH USE OF ASSISTIVE DEVICE HH OR PAL- GOALS MET 68.42
--- OUTSIDE RECORDS SUMMARY | 2024-08-07 13:49 | XMS_ITS | Clinical Summary ---
Author Organization Unknown Care Team Providers Care Correctional Officer Chief Name Role Phone DORIS PATEL, CHRISTIANNE Unavailable Unavailable CORDELL MARKETING ROTATION ASSOCIATE, TOMAS Unavailable Unavailabl libby VINSON PT, SANCHO Unavailable Unavailable SPAMAIK OT, EDWIN Unavailable Unavailable GARVEY ASSISTANT CONSTRUCTION SUPERINTENDENT, CHI Unavailable Unavailable GUMARO CARTER/NANNETTE, CANDIS Unavailable Unavail able MOODY TINSLEY, EMILIE Unavailable Unavailab le Payers Payer Name Policy Type Policy Number Effective Date Expira tion Date MEDICARE.NGS.PDGM [id number] Problems Condition Name Condition Details Condition Category [...] 11-12 00:00: 00 ATHSCL HEART DISEASE OF [place] CORONARY ARTERY W/O ANG PCTRS Active 11-12 [...] CARDIAC DEFIBRILLATO R Active 11-12 00:00: 00 ASSISTED (CURRENT) USE OF ANTICOAGULAN TS Active 11-12 [...] 11-04 00:00: 00 11-09 23:59 :00 No [id number] SUPPLEMENT 1 tablet DAILY 1 tablet DAILY (route: oral) Med Classific ation: Electroly te Balance-N utritiona l Products nystatin 100,000 unit/gram topical cream 10-19 00:00: 00 Yes [id number] Unavailable Per instruc tions TWICE DAILY Per instructio ns TWICE DAILY (route: topical) Med Classific ation: Dermatolo gical Entresto 24 mg-26 mg tablet 10-15 00:00: 00 Yes [id number] CHF Per instruc tions TWICE DAILY Per instructio ns TWICE DAILY (route: oral) Med Classific ation: Cardiovas cular Therapy Agents acetaminoph en 500 mg tablet 11-12 00:00: 00 Yes [id number] PAIN 1 tablet 3 TIMES DAILY 1 tablet 3 TIMES DAILY (route: oral) Med Classific ation: Analgesic , Anti-infl ammatory or Antipyret ic amiodarone 200 mg tablet 11-12 00:00: 00 Yes [id number] ARRYTHMIA 1 tablet DAILY 1 tablet DAILY (route: oral) Med Classific ation: Cardiovas cular Therapy Agents bumetanide 2 mg tablet 11-12 00:00: 00 12-09 23:59 :00 No [id number] CHF 1 tablet 2 TIMES DAILY 1 tablet 2 TIMES DAILY (route: oral) Med Classific ation: Cardiovas cular Therapy Agents Eliquis 5 mg tablet 11-12 00:00: 00 Yes [id number] BLOOD THINNER 1 tablet 2 TIMES DAILY 1 tablet 2 TIMES DAILY (route: oral) Med Classific ation: Hematolog ical Agents levothyroxi ne 137 mcg tablet 11-12 00:00: 00 Yes [id number] SUPPLEMENT 1 tablet DAILY 1 tablet DAILY (route: oral) Med Classific ation: Endocrine Lidoderm 5 % topical patch 11-12 00:00: 00 12-02 23:59 :00 No [id number] PAIN 1 adhesiv e patch, medicat ed EVERY 12 HOURS 1 adhesive patch, medicated EVERY 12 HOURS (route: topical) Med Classific ation: Dermatolo gical spironolact one 25 mg tablet 11-12 00:00: 00 01-05 23:59 :00 No [id number] CHF 1 tablet 2 TIMES DAILY 1 tablet 2 TIMES DAILY (route: oral) Med Classific ation: Cardiovas cular Therapy Agents metoprolol succinate ER 25 mg tablet,exte nded release 24 hr 12-02 00:00: 00 01-05 23:59 :00 No [id number] HTN, S/P PACEMAKER 1 tablet DAILY 1 tablet DAILY (route: oral) Med Classific ation: Cardiovas cular Therapy Agents bumetanide 2 mg tablet 12-09 00:00: 00 Yes [id number] HEAET FAILURR 1 tablet DAILY 1 tablet DAILY (route: oral) Med Classific ation: Cardiovas cular Therapy Agents baclofen 5 mg tablet 12-09 00:00: 00 Yes [id number] MUSCLE SPASM 1 tablet DAILY 1 tablet DAILY (route: oral) Med Classific ation: Locomotor System tramadol 50 mg tablet 12-09 00:00: 00 Yes [id number] PAIN 1 tablet 2 TIMES DAILY 1 tablet 2 TIMES DAILY (route: oral) Med Classific ation: Analgesic , Anti-infl ammatory or Antipyret ic metoprolol succinate ER 50 mg tablet,exte nded release 24 hr 01-05 00:00: 00 Yes [id number] HTN/AFIB 1 tablet DAILY 1 tablet DAILY (route: oral) Med Classific ation: Cardiovas cular Therapy Agents potassium chloride ER 10 mEq tablet,exte nded release 01-05 00:00: 00 Yes [id number] SUPPLEMENT 1 tablet DAILY 1 tablet DAILY (route: oral) Med Classific ation: Electroly te Balance-N utritiona l Products spironolact one 25 mg tablet 01-05 00:00: 00 Yes [id number] EDEMA 1 tablet DAILY 1 tablet DAILY [...] FOR RESP STATUS CHANGES FOR RN TO ASSESS/MARKETING ROTATION ASSOCIATE TO OBSERVE PATIENT, WITH NOTIFICATION TO THE [...] FOR RESP STATUS CHANGES FOR RN TO ASSESS/MARKETING ROTATION ASSOCIATE TO OBSERVE PATIENT, WITH NOTIFICATION TO THE [...] DETERIORATION, COMPLICATIONS, OR INFECTION TO RN CLINICAL LEAD PRESS OPERATOR AND/OR PHYSICIAN. HEART FAILURE SELF-MANAGEMENT ( PT) [...] DETERIORATION, COMPLICATIONS, OR INFECTION TO RN CLINICAL LEAD PRESS OPERATOR AND/OR PHYSICIAN. HEART FAILURE SELF-MANAGEMENT ( PT) [...] TOILETING HYGIENE (OT/EMMA) ACTIVITIES OF DAILY LIVING (OT/WATER SERVER) MEAL PREPARATION AND CLEANUP (OT/WATER SERVER) TOILET TRANSFER (OT/WATER SERVER) ENERGY CONSERVATION/ACTIVITY DEMAND (OT/WATER SERVER) OT / WATER SERVER TO EDUCATE ON PACEMAKER SELF-MANAGEMENT OT TO ASSESS / WATER SERVER TO MONITOR FOR HEART FAILURE EXACERBATION AND RECORD PATIENT REPORTED WEIGHT, AND NOTIFY THE PHYSICIAN AND/OR THE RN CLINICAL LEAD PRESS OPERATOR FOR PHYSICIAN NOTIFICATION OF HF EXACERBATION (2LB WEIGHT GAIN IN 1 DAY, 5LBS IN A WEEK OR 5 LBS OVER BASELINE; INCREASED SOB, EDEMA, NEEDING MORE PILLOWS AT NIGHT, CRACKLES IN BASIS OF THE LUNGS OR PMI SHIFT). OT/WATER SERVER TO MONITOR AND EDUCATE ON OXYGEN SATURATION DURING ADLS/IADLS, NOTIFY PHYSICIAN AND/OR THE RN CLINICAL LEAD PRESS OPERATOR FOR PHYSICIAN NOTIFICATION AND IF O2 SATS [...] TO EVALUATE, OBSERVE / ASSESS, AND MONITOR, WATER SERVER TO OBSERVE AND MONITOR, PROVIDE SKILLED THERAPEUTIC INTERVENTION, ACTIVITY, EDUCATION, AND TRAINING TO ADDRESS; TOILETING HYGIENE (OT/EMMA) ACTIVITIES OF DAILY LIVING (OT/WATER SERVER) MEAL PREPARATION AND CLEANUP (OT/EMMA) TOILET TRANSFER (OT/WATER SERVER) ENERGY CONSERVATION/ACTIVITY DEMAND (OT/EMMA) OT / EMMA TO EDUCATE ON PACEMAKER SELF-MANAGEMENT OT TO ASSESS / EMMA TO MONITOR FOR HEART FAILURE EXACERBATION AND RECORD PATIENT REPORTED WEIGHT, AND NOTIFY THE PHYSICIAN AND/OR THE RN CLINICAL LEAD PRESS OPERATOR FOR PHYSICIAN NOTIFICATION OF HF EXACERBATION (2LB WEIGHT GAIN IN 1 DAY, 5LBS IN A WEEK OR 5 LBS OVER BASELINE; INCREASED SOB, EDEMA, NEEDING MORE PILLOWS AT NIGHT, CRACKLES IN BASIS OF THE LUNGS OR PMI SHIFT). OT/WATER SERVER TO MONITOR AND EDUCATE ON OXYGEN SATURATION DURING ADLS/IADLS, NOTIFY PHYSICIAN AND/OR THE RN CLINICAL LEAD PRESS OPERATOR FOR PHYSICIAN NOTIFICATION AND IF O2 SATS BELOW 90% AFTER 10 MIN OF REST. OT / WATER SERVER TO IDENTIFY FALL RISK FACTORS; EDUCATE THE [...] End Date/Time Encounter Type Admission Type Attending [facility] Facility Care Department Encounter ID Discharge Date Discharge Status Discharge Condition Discharge Reason Percent Goals Met 2023-11-13 00:00:00 2024-01-06 00:00:00 Outpatient NEW ADMISSION EMILIE URIOSTEGUI [facility] [id number] 2024-01-06 00:00:00 DISCHARGE TO HOME OR SELF CARE INDEPENDEN T WITH USE OF ASSISTIVE DEVICE HH OR PAL- GOALS MET 68.42
[2024-08-07 13:58] VITALS: BP 124/68; PULSE 85; O2SAT 97; BMI 35.3
--- NOTE | 2024-08-07 13:58 | HO.NEPHOV ---
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: No Accompanied by: Self / Same As Patient Allergies No Known Allergies Allergy (Verified 08/07/24 14:01) Medication List - Last Reconciled 08/07/24 by Romain Cuenca MD acetaminophen 650 mg PO Q6H PRN amiodarone 200 mg PO DAILY apixaban (Eliquis) 5 mg PO BID baclofen 5 mg PO DAILY PRN 14 days blood pressure kit-extra large As directed bumetanide 2 mg PO DAILY levothyroxine 137 mcg PO DAILY@0600 metoprolol succinate ER 50 mg PO DAILY miscellaneous medical supply (Blood Pressure Cuff) As directed miscellaneous medical supply 1 ea miscellaneous DAILY 99 days nystatin 1 appl topical DAILY PRN 30 days nystatin 1 appl topical BID 30 days potassium chloride ER (Klor-Con M) 20 mEq PO DAILY 30 days sacubitril-valsartan 24-26 mg (Entresto) 1 tab PO BID 90 days spironolactone 25 mg PO DAILY tramadol 50 mg PO BID PRN 7 days walker (Ultra-Light Rollator misc) As directed HPI Comments Details: Elderly woman with a history of?HTN, HLD, PE in 2013, paroxysmal AFib on Eliquis, HFrEF, EF of 20-25% , hypothyroidism, and CKD 3 Baseline creatinine is around 1.4 mg/dL. She is on high dose of Bumex 2 mg along with spironolactone 25 mg twice a day. There has been some fluctuation in serum creatinine and she has had episodes of hypokalemia. Currently she is on potassium supplementation and the reason potassium was in the normal range. She has been referred for evaluation of chronic kidney disease. Cara seems to be compliant with her diet. She is on low-salt diet. She has lost significant weight. Leg edema has improved. She continues have dyspnea on exertion. No dyspnea at rest. Appetite is fair. No nausea or vomiting. No urinary symptoms. No rash 07/10/24 Due to JESSIE Bumex was decreased and Aldactoen was stopped. 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/ [employer]als [employer] wheels) Alcohol intake: unknown Comment: tan spangler A/parker4 Patient Tobacco Use Status: Never used Tobacco e-Cigarette/Vaping Use: Never Used Second Hand Smoke Exposure: No Advance Directives Date on File: 08/26/23 service: No Current occupational status: retired Cognitive needs: Yes (Pt has a walker) Hearing needs: No Vision needs: No Physical Exam Vital Signs: Last Vital Signs Pulse 85 08/07/24 13:58 BP 124/68 08/07/24 13:58 Pulse Ox 97 08/07/24 13:58 Oxygen Delivery Method Room Air 08/07/24 13:58 BMI result Body Mass Index 35.3 Results Reviewed Nephrology Results: Hgb 11.2 g/dl (12.0-16.0) L 06/30/24 WBC 7.2 X10*3/uL (4.8-10.8) 06/30/24 Plt Count 263 X10*3/uL (160-400) 06/30/24 Sodium 142 mmol/L (135-145) 08/07/24 Potassium 3.3 mmol/L (3.3-5.1) 08/07/24 Chloride 105 mmol/L (96-108) 08/07/24 Carbon Dioxide 24 mmol/L (22-29) 08/07/24 BUN 36 mg/dL (9-16) H 08/07/24 Creatinine 1.63 mg/dL (0.5-1.4) H 12/16/24 Calcium 9.9 mg/dL (8.4-10.2) 08/07/24 Assessment & Plan Assessment & Plan (1) CKD (chronic kidney disease), stage III: Code(s): N18.30 - Chronic kidney disease, stage 3 unspecified Category: Medical Qualifiers: Chronic kidney disease stage 3 subtype: unspecified whether 3a or 3b Qualified Code(s): N18.30 - Chronic kidney disease, stage 3 unspecified Plan: Patient's kidney function stable. Will continue to avoid any nephrotoxins medication including NSAIDS. Monitor renal function while on diuretics (2) Atrial fibrillation with RVR: Code(s): I48.91 - Unspecified atrial fibrillation Category: Medical Plan: Patient continues to cardiology. Does have ICD in place and gets interrogated quite often. She denies any heart palpitations overt signs of bleeding. (3) Hypokalemia: Code(s): E87.6 - Hypokalemia Category: Medical Plan: Her hypokalemia has improved since restarting potassium supplement. She continues on Bumex and spironolactone. (4) ICD (implantable cardioverter-defibrillator) in place: Code(s): Z95.810 - Presence of automatic (implantable) cardiac defibrillator Category: Medical Plan: As above (5) Congestive heart failure: Code(s): I50.9 - Heart failure, unspecified Category: Medical Qualifiers: Heart failure chronicity: chronic Heart failure type: systolic Qualified Code(s): I50.22 - Chronic systolic (congestive) heart failure Plan: Patient appears somewhat well compensated She has less lower extremity edema. Her exercise tolerance has much improved since being back on her diuresis medication. Orders: Orders Basic Metabolic Panel 3 Months E87.6 - Hypokalemia, N18.30 - Chronic kidney disease, stage 3 unspecified Complete Blood Count no Diff Today E87.6 - Hypokalemia, N18.30 - Chronic kidney disease, stage 3 unspecified Coding Level of Care Code Est Pt Level 4 (69566) Diagnoses Stage 3 chronic kidney disease, unspecified whether stage 3a or 3b CKD N18.30 Chronic kidney disease stage 3 subtype: unspecified whether 3a or 3b Atrial fibrillation with RVR I48.91 Hypokalemia E87.6 ICD (implantable cardioverter-defibrillator) in place Z95.810 Chronic systolic congestive heart failure I50.22 Heart failure chronicity: chronic Heart failure type: systolic
== END 2024-08-07 14:15 | disposition home or self-care (01) ==
PROVIDERS: PCP Physician Assistant; Visit Provider Internal Medicine Hypertension Specialist
DX: N18.30 Chronic kidney disease, stage 3 unspecified (principal); I48.91 Unspecified atrial fibrillation; E87.6 Hypokalemia; Z95.810 Presence of automatic (implantable) cardiac defibrillator; I50.22 Chronic systolic (congestive) heart failure
CPT/HCPCS: 99214

== ENCOUNTER 2024-08-28 09:13 | Outpatient (AMB) | payer MEDICARE, SELFPAY ==
[2024-08-28 09:24] VITALS: BP 128/62; PULSE 88; BMI 36.2
--- NOTE | 2024-08-28 09:24 | MHC.OFFVIS ---
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 Allergies No Known Allergies Allergy (Verified 08/28/24 09:30) Medication List - Last Reconciled 08/28/24 by SHERWIN Napier acetaminophen 650 mg PO Q6H PRN amiodarone 200 mg PO DAILY apixaban (Eliquis) 5 mg PO BID baclofen 5 mg PO DAILY PRN 14 days blood pressure kit-extra large As directed bumetanide 2 mg PO DAILY levothyroxine 137 mcg PO DAILY@0600 metoprolol succinate ER 50 mg PO DAILY miscellaneous medical supply (Blood Pressure Cuff) As directed miscellaneous medical supply 1 ea miscellaneous DAILY 99 days nystatin 1 appl topical DAILY PRN 30 days nystatin 1 appl topical BID 30 days potassium chloride ER (Klor-Con M) 20 mEq PO DAILY 30 days sacubitril-valsartan 24-26 mg (Entresto) 1 tab PO BID 90 days spironolactone 25 mg PO DAILY tramadol 50 mg PO BID PRN 7 days walker (Ultra-Light Rollator misc) As directed HPI HPI sooner f/up per KM/ 3mth f/up: Details: Cara is a 79-year-old female with past medical history of hypertension, hyperlipidemia, morbid obesity, paroxysmal atrial fibrillation, October 2023 with NSVT while inpatient then transfer to [facility] for cardiac catheterization which showed normal coronaries. While there she had cardioversion and Bi V ICD placed. She was on diuretics for Congestive heart failure and she developed JESSIE. She now follows with nephrology for Her spironolactone was discontinued and Bumex dose reduced by Nephrology. Her recent remote monitoring of ICD has shows Optivol elevations prompting follow up visit today. Today she reports she has been doing very well. She denies any recent issues with shortness of breath, orthopnea or edema. She feels that her legs are looking better than they have been in awhile. She is still trying to remain physically active and walks routinely with her willing walker. She denies any chest discomfort at rest or with activity. No lightheadedness, presyncope, syncope, falls. Taking all meds as directed. No bleeding issues reported. 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) Alcohol intake: unknown Comment: rings appropriately- A/ox4 Patient Tobacco Use Status: Never used Tobacco e-Cigarette/Vaping Use: Never Used Second Hand Smoke Exposure: No Advance Directives Date on File: 08/26/23 service: No Current occupational status: retired Cognitive needs: Yes (Pt has a walker) Hearing needs: No Vision needs: No Review of Systems Const All systems reviewed & are unremarkable except as noted in HPI and below ENT Denies dizziness and Denies nose pain Card Denies chest pain, Denies chest pain at rest, Denies chest pain with activity, Denies rapid heart rate, Denies pedal edema, Denies edema, Denies leg edema, Denies lightheadedness, Denies palpitations, Denies dyspnea, Denies dyspnea on exertion and Denies orthopnea Resp Denies cough, Denies dyspnea and Denies dyspnea on exertion GI Denies hematochezia and Denies change in stool character Musc Denies abnormal gait, Denies limited range of motion, Denies muscle cramps, Denies muscle weakness, Denies numbness, Denies radiating pain into limb, Denies stiffness and Denies tingling Neuro Denies abnormal gait, Denies dizziness, Denies numbness and Denies tingling Endo Denies palpitations Physical Exam Vital Signs: Last Vital Signs Pulse 88 08/28/24 09:24 BP 128/62 08/28/24 09:24 BMI result Body Mass Index 36.2 Const Other: ambulates with walker General: cooperative, healthy appearing, comfortable and no acute distress Orientation/consciousness: patient oriented x3 HEENT Head: Yes normal to inspection Chest Chest palpation & inspection: normal inspection of the chest Resp Effort & Inspection: normal respiratory effort Auscultation: clear to auscultation bilaterally, no rales, no rhonchi and no wheezes Cardio Jugular venous distension: no JVD Rate: regular rate Rhythm: regular rhythm Heart sounds: S1 normal heart sound present, S2 normal heart sound present, no murmurs and no rubs Neuro General: patient oriented x3 Extrem General: Yes normal to inspection and No no pedal edema Psych Appearance: grossly normal Mental Status: mental status grossly normal Speech and movement: Normal speech and movement present Office Procedures EKG Details: Today, read by me, atrial sensed, ventricular paced, cant exclude prior inferior, anterolateral infarct, rate 88 [id number], Complete Assessment & Plan Assessment & Plan (1) Atrial fibrillation with RVR: Code(s): I48.91 - Unspecified atrial fibrillation Category: Medical Plan: History of paroxysmal AFiib. Currently on Amiodarone for rhythm control. On metoprolol for hearr rate control. On Eliquis for anticoagulation. She has remote monitoring of her ICD and has not had recent episodes of PAF. She denies any recent heart palpitations. No bleeding issues reported. Last echocardiogram was done on 06/13/2024 showing EF 50-55%, no regional wall motion abnormality, grade 1 diastolic dysfunction. EKG today shows atrial sensed and Ventricular paced rhythm, rate 88. Will have her continue on current med management. Labs done in June for amiodarone monitoring. Plan for recheck of labs next visit. Cardiology follow-up in 4 months, sooner if needed (2) Cardiomyopathy: Code(s): I42.9 - Cardiomyopathy, unspecified Category: Medical Plan: Newer finding of cardiomyopathy, EF 25-30% early last year. She did have a 1 minute run of NSVT during last [facility] admission. She was transferred to [facility] and underwent cardiac catheterization on 10/27/2023 showing normal coronary arteries. Her prior EKG shows a left bundle branch block. Cardiomyopathy May be tachycardia mediated or related to her left bundle branch block. While at [facility] she underwent a Bi V ICD placement. She has not had any palpitations, presyncope, syncope. Recheck of echo showed EF now 50-55%. Will have her continue on metoprolol XL, Entresto for neurohormonal modulation. Labs done 06/30/2024 showed creatinine 1.6, potassium 3.0. She does take a potassium supplement. (3) Acute HFrEF (heart failure with reduced ejection fraction): Code(s): I50.21 - Acute systolic (congestive) heart failure Category: Medical Plan: History of heart failure with reduced EF. She had been on Bumex 2 mg daily and spironolactone 25 mg b.i.d. along with Entresto. Lab work done 05/10/2024 showed creatinine 4.25. She was seen by Nephrology. She was taken off spironolactone and her Bumex was reduced down to 1 mg daily. On follow up visit she reported weight has gone up, leg edema, weight was up 21 lb. Her Bumex was then increased to 2 mg daily and she is doing well. She appears compensated on exam. Labs from 08/07/24 shows Cr 1.63 - stable. Signs and symptoms of heart failure and the ongoing need for low-salt diet reviewed with her. No med changs at that time. (4) LBBB (left bundle branch block): Code(s): I44.7 - Left bundle-branch block, unspecified Category: Medical Plan: Chronic, Noted on EKGs as far back as 2014. . (5) S/P cardiac catheterization: Comment: 10/27/2023, normal coronary arteries Code(s): Z98.890 - Other specified postprocedural states Category: Surgical Plan: As above (6) History of cardiac pacemaker: Code(s): Z95.0 - Presence of cardiac pacemaker Category: Surgical Plan: New Medtronic Bi V ICD placed while at [facility] recently. Breif office check today shows optivol has reset. Remote monitoring in use. Next officde interrogation due next visit. Pacer site benign. 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 No med changes made Plan Time spent on chart review, documentation, interview and assessment Coding Level of Care Code Est Pt Level 4 (62533) Complex EM visit Add On G2211 Diagnoses Atrial fibrillation with RVR I48.91 Cardiomyopathy I42.9 Acute HFrEF (heart failure with reduced ejection fraction) I50.21 LBBB (left bundle branch block) I44.7 S/P cardiac catheterization Z98.890 History of cardiac pacemaker Z95.0 Current use of anticoagulant therapy Z79.01 Essential hypertension I10 Hypertension type: essential hypertension CPT Codes EKG - CPT: 45370-[id number], Complete ([id number]) Time Spent (min) 30
== END 2024-08-28 09:55 | disposition home or self-care (01) ==
PROVIDERS: PCP Physician Assistant; Visit Provider Nurse Practitioner Family
DX: I48.91 Unspecified atrial fibrillation (principal); I42.9 Cardiomyopathy, unspecified; I50.21 Acute systolic (congestive) heart failure; I44.7 Left bundle-branch block, unspecified; Z98.890 Other specified postprocedural states; Z95.0 Presence of cardiac pacemaker; Z79.01 Long term (current) use of anticoagulants; I10 Essential (primary) hypertension
CPT/HCPCS: 93010; 99214; G2211

== ENCOUNTER → 2024-08-29 23:59 | Outpatient (BNV) | payer MEDICARE, SELFPAY ==
--- NOTE | 2024-09-10 18:18 | A.OFFVIS_ITS ---
Intake Visit Reasons: Remote HF monitoring- Medtronic Allergies No Known Allergies Allergy (Verified 08/28/24 09:30) [facility] Medical History HFrEF (heart failure with reduced ejection fraction) Atrial fibrillation Lymphedema Hypothyroidism History of pulmonary embolism HTN (hypertension) Current use of anticoagulant therapy Surgical History History of cardiac pacemaker History of laparoscopic cholecystectomy Family History Father CVD (cardiovascular disease) Mother Medical history unknown Social History Household Members: None Housing: House Do you presently have visiting nurse or other home services: 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 [id number] Cardiac Device Interrogation, cardio physiologic monitor Procedure code (CPT) selection complete Assessment & Plan Assessment & Plan (1) ICD (implantable cardioverter-defibrillator) in place: Code(s): Z95.810 - Presence of automatic (implantable) cardiac defibrillator Category: Medical Plan: Coding Level of Care Code Procedure Only Diagnoses ICD (implantable cardioverter-defibrillator) in place Z95.810 CPT Codes Cardiac Device Check - Cardiac Device 15: [id number]-[id number] Cardiac Device Interrogation, cardio physiologic monitor ([id number])
== END ==
PROVIDERS: PCP Physician Assistant; Visit Provider Internal Medicine Cardiovascular Disease
DX: Z45.02 Encounter for adjustment and management of automatic implantable cardiac defibrillator (principal)
CPT/HCPCS: 93297

== ENCOUNTER → 2024-09-29 23:59 | Outpatient (BNV) | payer MEDICARE, MEDICAID, SELFPAY ==
--- NOTE | 2024-10-02 08:49 | MHC.OFFVIS ---
Intake Visit Reasons: Remote HF monitoring- Medtronic Allergies No Known Allergies Allergy (Verified 08/28/24 09:30) [facility] Medical History HFrEF (heart failure with reduced ejection fraction) Atrial fibrillation Lymphedema Hypothyroidism History of pulmonary embolism HTN (hypertension) Current use of anticoagulant therapy Surgical History History of cardiac pacemaker History of laparoscopic cholecystectomy Family History Father CVD (cardiovascular disease) Mother Medical history unknown Social History Household Members: None Housing: House Do you presently have visiting nurse or other home services: Yes (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 [id number] Cardiac Device Interrogation, cardio physiologic monitor Procedure code (CPT) selection complete Assessment & Plan Assessment & Plan (1) ICD (implantable cardioverter-defibrillator) in place: Code(s): Z95.810 - Presence of automatic (implantable) cardiac defibrillator Category: Medical Plan Orders: Orders AMB Cardiac Device Follow-up 09/29/24 Z95.810 - Presence of automatic (implantable) cardiac defibrillator Coding Level of Care Code Procedure Only Diagnoses ICD (implantable cardioverter-defibrillator) in place Z95.810 CPT Codes Cardiac Device Check - Cardiac Device 15: [id number] Cardiac Device Interrogation, cardio physiologic monitor ([id number])
== END ==
PROVIDERS: PCP Physician Assistant; Visit Provider Internal Medicine Cardiovascular Disease
DX: Z45.02 Encounter for adjustment and management of automatic implantable cardiac defibrillator (principal)
CPT/HCPCS: 93297

== ENCOUNTER 2024-10-09 08:30 | Outpatient (REF) | payer MEDICARE, MEDICAID, SELFPAY ==
--- OUTSIDE RECORDS SUMMARY | 2024-10-09 08:33 | XMS_ITS | Clinical Summary ---
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 Active atenolol (TENORMIN) 50 MG tablet Take 50 mg by mouth 1 (one) time each day Active bumetanide (BUMEX) 2 MG tablet Take 2 mg by mouth 1 (one) time each day Active furosemide (LASIX) 40 MG tablet Take 40 mg by mouth in the morning and 40 mg in the evening. Active levothyroxine (SYNTHROID, LEVOTHROID) 175 MCG tablet Take 175 mcg by mouth 1 (one) time each day Active levothyroxine sodium (TIROSINT) 137 MCG capsule Take 137 mcg by mouth 1 (one) time each day Active lisinopril 10 MG tablet Take 10 mg by mouth 1 (one) time each day Active metoprolol tartrate 25 MG tablet Take 25 mg by mouth in the morning and 25 mg in the evening. Active potassium chloride 40 MEQ/15ML (20%) solution Take by mouth Active SACUBITRIL-VALS ITALO PO Take by mouth Active spironolactone (ALDACTONE) 25 MG tablet Take 25 mg by mouth 1 (one) time each day Active warfarin (COUMADIN) 7.5 MG tablet Take 7.5 mg by mouth 1 (one) time each day Take as directed per After Visit Summary. Active warfarin (COUMADIN) 5 MG tablet Take 5 mg by mouth 1 (one) time each day Take as directed per After Visit Summary. Active Active Problems Problem Noted Date Diagnosed Date Hypertension 01/14/2024 Endometrial hyperplasia 01/14/2024 H/O: pulmonary embolus 01/14/2024 Hypothyroidism 01/14/2024 Severe obesity 01/14/2024 Social History Tobacco Use Types Packs/Day Years Used Date Smoking Tobacco: Never Assessed Comments Unknown Sex and Gender Information Value Date Recorded Sex Assigned at Not on file Legal Sex Female 8:41 AM EST Gender Identity Not on file Sexual Orientation Not on file Plan of Treatment Health Maintenance Due Date Last Done Comments Pneumococcal Vaccine: 65+ Ye ars (1 of 1 - PCV) 2011 Influenza Vaccine (#1) 2024 Hepatitis B Vaccine Aged Out No longe r eligible based on patient's age to complete this topic Insurance [place]
[2024-10-09 08:50] LABS: Hematocrit 39.4 % (37.0-47.0); Mean Corpuscular Hemoglobin 31.4 pg (27.0-33.0); Mean Corpuscular Volume 95.2 fL (80.0-98.0); Platelet Count 213 X10*3/uL (160-400); Red Blood Count 4.14 X10*6/uL (4.20-5.50); Red Cell Distribution Width 13.9 % (11.0-16.0)
[2024-10-09 09:22] LABS: Alanine Aminotransferase 11 U/L (0-31); Albumin Level 4.3 g/dL (3.5-5.0); Alkaline Phosphatase 102 U/L (39-117); Anion Gap 15 (12-20); Aspartate Amino Transferase 21 U/L (5-31); Bilirubin Total 0.8 mg/dL (0.0-1.0); Blood Urea Nitrogen 27 mg/dL (9-16); Calcium 9.7 mg/dL (8.4-10.2); Carbon Dioxide 24 mmol/L (22-29); Chloride 106 mmol/L (96-108); Estimated Glomerular Filt Rate 34; Glucose Fasting 106 mg/dL (60-99); Potassium 3.3 mmol/L (3.3-5.1); Sodium 142 mmol/L (135-145)
[2024-10-09 09:40] LABS: TSH reflex Free T4 3.93 uIU/mL (0.32-4.0)
[2024-10-09 10:03] LABS: Creatinine Urine 139.96 mg/dL; Microalbum/Creatinine Ratio Ur 59.3 ug/mg cr (<30)
== END 2024-10-09 08:31 | disposition home or self-care (01) ==
LOC: HO.LAB 08:30
PROVIDERS: Internal Medicine Hypertension Specialist; PCP Physician Assistant; Visit Provider Physician Assistant
DX: E87.6 Hypokalemia (principal); N18.30 Chronic kidney disease, stage 3 unspecified; I10 Essential (primary) hypertension; E03.9 Hypothyroidism, unspecified
CPT/HCPCS: 36415; 80053; 82043; 82570; 84443; 85027

== ENCOUNTER 2024-10-17 09:14 | Outpatient (AMB) | payer MEDICARE, MEDICAID, SELFPAY ==
--- NOTE | 2024-10-17 09:18 | A.OFFPC_ITS ---
Vital Signs 10/17/24 09:19 Height 5 ft 10 in Weight 246 lb 6 oz BMI 35.3 BP 120/80 Blood Pressure Location Lt brachial Position Sitting Pulse 84 Pulse Source Pulse Oximeter Temp 97.3 F Temp Source Temporal Artery Scan Pulse Oximetry (%) 97 Oxygen Delivery Method Room Air Intake Visit Reasons: f/u AFIB/ CKD/ CHF Intake Note: Patient is here to follow up on Afib, CKD, CHF. Botany Laboratory Assistant Required: No Expert Witness: Not Required per policy Accompanied by: Self / Same As Patient Allergies No Known Allergies Allergy (Verified 10/17/24 09:43) Medication List - Last Reconciled 10/17/24 by Karson Frank PA-C acetaminophen 650 mg PO Q6H PRN amiodarone 200 mg PO DAILY apixaban (Eliquis) 5 mg PO BID baclofen 5 mg PO DAILY PRN 14 days blood pressure kit-extra large As directed bumetanide 2 mg PO DAILY levothyroxine 137 mcg PO DAILY@0600 metoprolol succinate ER 50 mg PO DAILY miscellaneous medical supply (Blood Pressure Cuff) As directed miscellaneous medical supply 1 ea miscellaneous DAILY 99 days nystatin 1 appl topical DAILY PRN 30 days nystatin 1 appl topical BID 30 days potassium chloride ER (Klor-Con M) 20 mEq PO DAILY 30 days sacubitril-valsartan 24-26 mg (Entresto) 1 tab PO BID 90 days spironolactone 25 mg PO DAILY tramadol 50 mg PO BID PRN 7 days walker (Ultra-Light Rollator misc) As directed Tobacco use date assessed: 10/17/24 Fall risk assessment: No Falls in past year Last assessed Fall Risk: 10/17/24 Dental Screening Dental Screen Date: 10/17/24 Did you have a dental visit in the last 12 months?: No Did you have a dental problem in the last 6 months where you did not have access to dental care?: No Was dental information given to patient?: No HPI f/u AFIB/ CKD/ CHF HPI Details Patient is a 79 female here today for a follow-up visit. Patient has a past medical history significant for hypertension, hyperlipidemia, hypothyroidism and CKD stage 3, AFib and Congestive heart failure with reduced ejection fraction. Congestive heart failure/AFib: Continues to follow [facility]. Continues to be anticoagulated with Eliquis without any overt signs of bleeding. Continues on amiodarone for rhythm control She does have an ICD in place that is working and functioning well. --- >Currently doing well, vitals today are stable. Her exercise tolerance has been getting better. .. CKD-3: Is followed by [facility]. Most recent renal functions appear to be impaired. Continues on bumetanide 2 mg, Continues on potassium supplementation.. Most recent potassium stabilized. .. Hypothyroidism: Most recent TSH stabilized at 3.9 from 9.0.. Patient continues on levothyroxine 137 mcg at current dose. Will continue to follow TSH Laboratory Tests 01/13/24 06/30/24 08/07/24 12:14 07:50 09:34 RBC Hgb Potassium Creatinine 1.63 H TSH 9.00 H Urine Microalbumin 19.0 10/09/24 10/09/24 08:39 08:42 RBC 4.14 L D Hgb 13.0 Potassium 3.3 Creatinine 1.50 H TSH 3.93 Urine Microalbumin 83.0 PFSH Medical History HFrEF (heart failure with reduced ejection fraction) Atrial fibrillation Lymphedema Hypothyroidism History of pulmonary embolism HTN (hypertension) Current use of anticoagulant therapy Surgical History History of cardiac pacemaker History of laparoscopic cholecystectomy Family History Father CVD (cardiovascular disease) Mother Medical history unknown Social History Household Members: None Housing: House Do you presently have visiting nurse or other home services: Yes (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 1. Little interest or pleasure in doing things: not at all 2. Feeling down, depressed, or hopeless: not at all 3. Trouble falling or staying asleep, or sleeping too much: not at all 4. Feeling tired or having little energy: not at all 5. Poor appetite or overeating: not at all 6. Feeling bad about yourself - or that you are a failure or have let yourself or your family down: not at all 7. Trouble concentrating on things, such as reading the newspaper or watching television: not at all 8. Moving or speaking so slowly that other people could have noticed. Or the opposite - being so fidgety or restless that you have been moving around a lot more than usual: not at all 9. Thoughts that you would be better off or of hurting yourself in some way: not at all Total score: 0 Depression Screening Interpretation: Negative Depression Screening Done: Yes 58249 - PHQ-9 Billing: Yes Source: Developed by Drs. Remy Kirby, Bren Pro, Tony Orona and colleagues, with an educational siri from [employer]. Thrive Questionnaire Date Thrive assessed: 10/17/24 I am a: Patient What is your living situation today?: I have a steady place to live Within the past 12 months, did the food you bought not last and you didn't have the money to get more?: Never true Within the past 12 months, did you worry whether your food would run out before you got money to buy more?: Never true Do you have trouble paying for medicines?: No Do you have trouble getting transportation to medical appointments?: No Do you have trouble paying your heating and electricity bill?: No Do you have trouble taking care of your child, family member or friend?: No Do you have trouble with day-to-day activities such as bathing, preparing meals, shopping, managing finances, etc.?: No Are you currently unemployed and looking for a job?: No Are you interested in more education?: No Please select the resources that you would like help with: None Currently or been in a relationship where the following occur: No concerns reported THRIVE Score: 0 AUDIT C Alcohol Use Questionnaire (AUDIT-C) 1. How often do you have a drink containing alcohol?: Never 3. How often do you have six or more drinks on one occasion?: Never Total Score: 0 NOÉ-7 AMB Questionnaire NOÉ-7 Date NOÉ - 7 assessed: 10/17/24 Feeling nervous, anxious, or on edge: 0 = Not at all Not being able to stop or control worryin = Not at all Worrying too much about different things: 0 = Not at all Trouble relaxin = Not at all Being so restless that it is hard to sit still: 0 = Not at all Becoming easily annoyed or irritable: 0 = Not at all Feeling afraid as if something awful might happen: 0 = Not at all Total NOÉ-7 score (0-4 normal; 5-9 mild; 10-14 moderate; 15-21 severe): 0 Source: Developed by Drs. Remy Kirby, Bren Pro, Tony Orona and colleagues, with an educational siri from [employer]. NOÉ-7 Assessment Billing NOÉ-7 Assessment Tool: NOÉ-7 Assessment 93764 Review of Systems Const Denies headache(s) Eyes Denies loss of vision ENT Denies vertigo, Denies dizziness, Denies headache(s) and Denies sore throat Card Denies chest pain, Denies leg edema and Denies lightheadedness Resp Denies cough, Denies hemoptysis and Denies wheezing GI Denies abdominal pain, Denies melena, Denies constipation, Denies diarrhea and Denies vomiting Denies urinary frequency, Denies dysuria and Denies urinary urgency Musc Denies arthralgias, Denies joint swelling, Denies numbness and Denies tingling Neuro Denies Abnormal speech present, Denies behavioral changes, Denies vertigo, Denies dizziness, Denies headache(s), Denies loss of vision, Denies memory loss, Denies numbness and Denies tingling Psych Denies anxiety, Denies behavioral changes, Denies depression, Denies memory loss and Denies panic attacks Arian/Lymph Denies easy bleeding and Denies easy bruising Aller/Immun Denies wheezing Physical exam (Primary Care) Vital Signs: Last Vital Signs Temp 97.3 F 10/17/24 09:19 Pulse 84 10/17/24 09:19 BP 120/80 10/17/24 09:19 Pulse Ox 97 10/17/24 09:19 Oxygen Delivery Method Room Air 10/17/24 09:19 BMI result Body Mass Index 35.3 Tobacco/Smoking Status: Tobacco use Status Tobacco use date assessed 10/17/24 10/17/24 09:38 Patient Tobacco Use Status Never used Tobacco 10/17/24 09:38 e-Cigarette/Vaping Use Never Used 10/17/24 09:38 PHQ-9: PHQ-9 Score PHQ-9: Total score 0 10/17/24 10:00 Depression Screening Interpretation: Negative Thrive Assessment: Date of Thrive Assessment Date Thrive assessed 10/17/24 10/17/24 09:38 Currently or been in a relationship where the following occur: No concerns reported Const General: healthy appearing, no acute distress, alert and awake Nutritional Appearance: well nourished Orientation/consciousness: oriented to person, oriented to place and oriented to time HENMT Ears: TM's normal bilaterally General nose exam: Normal nasal mucous membranes and turbinates present Eyes Conjunctivae: conjunctivae normal Sclerae: sclerae normal Pupils: Equal, round and reactive pupils present Neck Neck: Yes no lymphadenopathy and Yes no JVD Thyroid: Thyroid normal Carotids: no bruits Resp Effort & Inspection: normal respiratory effort and not tachypneic Auscultation: no crackles, no rales, no rhonchi and no wheezes Cardio Rate: regular rate Rhythm: regular rhythm Heart sounds: no murmurs and normal S1 and S2 GI Palpation (GI): Soft to palpation, nontender, no hepatomegaly and no splenomegaly Auscultation: normal bowel sounds Skin General skin exam: no rashes or lesions noted and dry skin Neuro General: oriented to person, oriented to place and oriented to time Cranial nerves: Yes Equal, round and reactive pupils present Speech: No Abnormal speech present Gait exam (Neuro): Normal gait present Motor exam (neuro): no tremor noted Extrem Right upper extremity: full ROM Left upper extremity: full ROM Right lower extremity: full ROM; no edema Left lower extremity: full ROM; no edema Psych Mental Status: mental status grossly normal Speech and movement: Normal speech and movement present Affect: normal affect Attitude: cooperative Thought process: Normal thought process present Coding Level of Care Code Est Pt Level 4 (49542) Diagnoses Stage 3 chronic kidney disease, unspecified whether stage 3a or 3b CKD N18.30 Chronic kidney disease stage 3 subtype: unspecified whether 3a or 3b Atrial fibrillation with RVR I48.91 ICD (implantable cardioverter-defibrillator) in place Z95.810 Chronic systolic congestive heart failure I50.22 Heart failure chronicity: chronic Heart failure type: systolic Class 2 obesity E66.812 Additional Codes NOÉ-7 Assessment Billing - NOÉ-7 Assessment Tool: NOÉ-7 Assessment 97339 ([id number]) PHQ-9 - 54761 - PHQ-9 Billing: Yes ([id number]) Assessment & Plan Assessment & Plan (1) CKD (chronic kidney disease), stage III: Code(s): N18.30 - Chronic kidney disease, stage 3 unspecified Category: Medical Qualifiers: Chronic kidney disease stage 3 subtype: unspecified whether 3a or 3b Qualified Code(s): N18.30 - Chronic kidney disease, stage 3 unspecified Plan: Patient's kidney function stable. Creatinine at 1.5. Most recent potassium stabilized with potassium supplementation Will continue follow Nephrology. Will continue to avoid any nephrotoxins medication. (2) Atrial fibrillation with RVR: Code(s): I48.91 - Unspecified atrial fibrillation Category: Medical Plan: Patient continues to cardiology. Does have ICD in place and gets interrogated quite often. Continues on amiodarone for rhythm control. She denies any heart palpitations overt signs of bleeding. (3) ICD (implantable cardioverter-defibrillator) in place: Code(s): Z95.810 - Presence of automatic (implantable) cardiac defibrillator Category: Medical Plan: As above (4) Congestive heart failure: Code(s): I50.9 - Heart failure, unspecified Category: Medical Qualifiers: Heart failure chronicity: chronic Heart failure type: systolic Qualified Code(s): I50.22 - Chronic systolic (congestive) heart failure Plan: Patient appears somewhat well compensated . She has less lower extremity edema. Her exercise tolerance has much improved since being back on her diuresis medication. Most recent potassium is stabilized. (5) Class 2 obesity: Code(s): E66.812 - Obesity, class 2 Category: Medical Plan: Patient does understand her BMI is over 35 and will continue working on better eating habits and being more physically active to reduce weight. Orders: Orders Complete Blood Count no Diff 10/17/24 I10 - Essential (primary) hypertension Lipid Panel 10/17/24 E78.2 - Mixed hyperlipidemia Comprehensive [place]. Panel Fast 10/17/24 I10 - Essential (primary) hypertension TSH reflex Free T4 10/17/24 E03.9 - Hypothyroidism, unspecified Patient Instructions: Goal: Blood pressure to remain below 140/90 Barriers: Adherence to physical activity and healthy eating habits
[2024-10-17 09:19] VITALS: BP 120/80; PULSE 84; TEMP 36.3; O2SAT 97; BMI 35.3
== END 2024-10-17 10:00 | disposition home or self-care (01) ==
PROVIDERS: PCP Physician Assistant; Visit Provider Physician Assistant
DX: N18.30 Chronic kidney disease, stage 3 unspecified (principal); I48.91 Unspecified atrial fibrillation; I50.22 Chronic systolic (congestive) heart failure; E66.812 Obesity, class 2; Z68.35 Body mass index [BMI] 35.0-35.9, adult; Z95.810 Presence of automatic (implantable) cardiac defibrillator

== ENCOUNTER → 2024-10-17 09:14 | Outpatient (BNVA) | payer MEDICARE, MEDICAID, SELFPAY | PROVIDERS: PCP Physician Assistant; Visit Provider Physician Assistant | DX: N18.30 Chronic kidney disease, stage 3 unspecified (principal); I48.91 Unspecified atrial fibrillation; I50.22 Chronic systolic (congestive) heart failure; E66.812 Obesity, class 2; Z95.810 Presence of automatic (implantable) cardiac defibrillator | CPT/HCPCS: 96127; 99212 ==

== ENCOUNTER → 2024-10-30 23:59 | Outpatient (BNV) | payer MEDICARE, MEDICAID, SELFPAY ==
--- NOTE | 2024-11-22 20:32 | MHC.OFFVIS ---
Intake Visit Reasons: Remote HF monitoring- [employer] Allergies No Known Allergies Allergy (Verified 10/17/24 09:43) [facility] Medical History HFrEF (heart failure with reduced ejection fraction) Atrial fibrillation Lymphedema Hypothyroidism History of pulmonary embolism HTN (hypertension) Current use of anticoagulant therapy Surgical History History of cardiac pacemaker History of laparoscopic cholecystectomy Family History Father CVD (cardiovascular disease) Mother Medical history unknown Social History Household Members: None Housing: House Do you presently have visiting nurse or 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 Stable thoracic impedance. [id number] Cardiac Device Interrogation, cardio physiologic monitor Procedure code (CPT) selection complete Assessment & Plan Assessment & Plan (1) ICD (implantable cardioverter-defibrillator) in place: Code(s): Z95.810 - Presence of automatic (implantable) cardiac defibrillator Category: Medical Plan: Coding Level of Care Code Procedure Only Diagnoses ICD (implantable cardioverter-defibrillator) in place Z95.810 CPT Codes Cardiac Device Check - Cardiac Device 15: [id number] Cardiac Device Interrogation, cardio physiologic monitor ([id number])
== END ==
PROVIDERS: PCP Physician Assistant; Visit Provider Internal Medicine Cardiovascular Disease
DX: Z45.02 Encounter for adjustment and management of automatic implantable cardiac defibrillator (principal)
CPT/HCPCS: 93297

== ENCOUNTER → 2024-10-30 23:59 | Outpatient (BNV) | payer MEDICARE, MEDICAID, SELFPAY ==
--- NOTE | 2024-11-22 20:24 | MHC.OFFVIS ---
Intake Visit Reasons: Remote ICD check- [employer] Allergies No Known Allergies Allergy (Verified 10/17/24 09:43) [facility] Medical History HFrEF (heart failure with reduced ejection fraction) Atrial fibrillation Lymphedema Hypothyroidism History of pulmonary embolism HTN (hypertension) Current use of anticoagulant therapy Surgical History History of cardiac pacemaker History of laparoscopic cholecystectomy Family History Father CVD (cardiovascular disease) Mother Medical history unknown Social History Household Members: None Housing: House Do you presently have visiting nurse or other home services: Yes (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 Good battery life. No new alerts. V paced 98%. [id number] Cardiac Device Interrogation, pacemaker or defibrillator Procedure code (CPT) selection complete Assessment & Plan Assessment & Plan (1) ICD (implantable cardioverter-defibrillator) in place: Code(s): Z95.810 - Presence of automatic (implantable) cardiac defibrillator Category: Medical Plan: Coding Level of Care Code Procedure Only Diagnoses ICD (implantable cardioverter-defibrillator) in place Z95.810 CPT Codes Cardiac Device Check - Cardiac Device 14: [id number] Cardiac Device Interrogation, pacemaker or defibrillator ([id number])
== END ==
PROVIDERS: PCP Physician Assistant; Visit Provider Internal Medicine Cardiovascular Disease
DX: Z45.02 Encounter for adjustment and management of automatic implantable cardiac defibrillator (principal)
CPT/HCPCS: 93295

== ENCOUNTER → 2024-11-30 23:59 | Outpatient (BNV) | payer MEDICARE, MEDICAID, SELFPAY ==
--- NOTE | 2024-12-27 08:57 | MHC.OFFVIS ---
Intake Visit Reasons: Remote ICD check- Medtronic Allergies No Known Allergies Allergy (Verified 12/12/24 13:17) PFSH Medical History HFrEF (heart failure with reduced ejection fraction) Atrial fibrillation Lymphedema Hypothyroidism History of pulmonary embolism HTN (hypertension) Current use of anticoagulant therapy Surgical History History of cardiac pacemaker History of laparoscopic cholecystectomy Family History Father CVD (cardiovascular disease) Mother Medical history unknown Social History Household Members: None Housing: House Do you presently have visiting nurse or other home services: Yes (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 [id number] Cardiac Device Interrogation, cardio physiologic monitor Procedure code (CPT) selection complete Assessment & Plan Assessment & Plan (1) ICD (implantable cardioverter-defibrillator) in place: Code(s): Z95.810 - Presence of automatic (implantable) cardiac defibrillator Category: Medical Plan Coding Level of Care Code Procedure Only Diagnoses ICD (implantable cardioverter-defibrillator) in place Z95.810 CPT Codes Cardiac Device Check - Cardiac Device 15: [id number] Cardiac Device Interrogation, cardio physiologic monitor ([id number])
== END ==
PROVIDERS: PCP Physician Assistant; Visit Provider Internal Medicine Cardiovascular Disease
DX: Z45.02 Encounter for adjustment and management of automatic implantable cardiac defibrillator (principal)
CPT/HCPCS: 93297

== ENCOUNTER 2024-12-04 08:18 | Outpatient (REF) | payer MEDICARE, MEDICAID, SELFPAY ==
--- OUTSIDE RECORDS SUMMARY | 2024-12-04 08:40 | XMS_ITS | Clinical Summary ---
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
[2024-12-04 10:28] LABS: Anion Gap 15 (12-20); Blood Urea Nitrogen 37 mg/dL (9-16); Calcium 9.5 mg/dL (8.4-10.2); Carbon Dioxide 23 mmol/L (22-29); Chloride 105 mmol/L (96-108); Estimated Glomerular Filt Rate 30; Glucose Random 105 mg/dL (60-115); Potassium 3.1 mmol/L (3.3-5.1); Sodium 140 mmol/L (135-145)
== END 2024-12-04 08:19 | disposition home or self-care (01) ==
LOC: HO.10HDL 08:18
PROVIDERS: Visit Provider Internal Medicine Hypertension Specialist
DX: E87.6 Hypokalemia (principal); N18.30 Chronic kidney disease, stage 3 unspecified
CPT/HCPCS: 36415; 80048

== ENCOUNTER 2024-12-12 13:11 | Outpatient (AMB) | payer MEDICARE, SELFPAY ==
--- NOTE | 2024-12-12 13:11 | HO.NEPHOV_ITS ---
Vital Signs 12/12/24 13:13 Height 5 ft 10 in Weight 246 lb 4 oz BMI 35.3 BP 138/66 Blood Pressure Location Rt brachial Position Sitting Pulse 84 Pulse Source Pulse Oximeter Pulse Oximetry (%) 98 Oxygen Delivery Method Room Air Intake Visit Reasons: CKD/ Conf Allergies No Known Allergies Allergy (Verified 12/12/24 13:17) Medication List - Last Reconciled 12/12/24 by Romain Cuenca MD acetaminophen 650 mg PO Q6H PRN amiodarone 200 mg PO DAILY apixaban (Eliquis) 5 mg PO BID baclofen 5 mg PO DAILY PRN 14 days blood pressure kit-extra large As directed bumetanide 2 mg PO DAILY levothyroxine 137 mcg PO DAILY@0600 metoprolol succinate ER 50 mg PO DAILY miscellaneous medical supply (Blood Pressure Cuff) As directed miscellaneous medical supply 1 ea miscellaneous DAILY 99 days nystatin 1 appl topical DAILY PRN 30 days nystatin 1 appl topical BID 30 days potassium chloride ER (Klor-Con M) 20 mEq PO DAILY 30 days sacubitril-valsartan 24-26 mg (Entresto) 1 tab PO BID 90 days spironolactone 25 mg PO DAILY tramadol 50 mg PO BID PRN 7 days walker (Ultra-Light Rollator misc) As directed HPI Comments Details: Elderly woman with a history of?HTN, HLD, PE in 2013, paroxysmal AFib on Eliquis, HFrEF, EF of 20-25% , hypothyroidism, and CKD 3 Baseline creatinine is around 1.4 mg/dL. She is on high dose of Bumex 2 mg along with spironolactone 25 mg twice a day. There has been some fluctuation in serum creatinine and she has had episodes of hypokalemia. Currently she is on potassium supplementation and the reason potassium was in the normal range. She has been referred for evaluation of chronic kidney disease. Cara seems to be compliant with her diet. She is on low-salt diet. She has lost significant weight. Leg edema has improved. She continues have dyspnea on exertion. No dyspnea at rest. Appetite is fair. No nausea or vomiting. No urinary symptoms. No rash 07/10/24 Due to JESSIE Bumex was decreased and Aldactoen was stopped. Creatinine back to 1.6; Gained 20 lbs 12/12/24 Doing better No dyspnea Weight at 245- no change since July [facility] Medical History HFrEF (heart failure with reduced ejection fraction) Atrial fibrillation Lymphedema Hypothyroidism History of pulmonary embolism HTN (hypertension) Current use of anticoagulant therapy Surgical History History of cardiac pacemaker History of laparoscopic cholecystectomy Family History Father CVD (cardiovascular disease) Mother Medical history unknown Social History Household Members: None Housing: House Do you presently have visiting nurse or other home services: Yes (SENIOR SOFTWARE ARCHITECT/ Meals on wheels) Alcohol intake: never Comment: rings appropriately- A/ox4 Patient Tobacco Use Status: Never used Tobacco e-Cigarette/Vaping Use: Never Used Second Hand Smoke Exposure: No Advance Directives Date on File: 08/26/23 service: No Current occupational status: retired Cognitive needs: Yes (Pt has a walker) Hearing needs: No Vision needs: No Physical Exam Vital Signs: Last Vital Signs Pulse 84 12/12/24 13:13 BP 138/66 12/12/24 13:13 Pulse Ox 98 12/12/24 13:13 Oxygen Delivery Method Room Air 12/12/24 13:13 BMI result Body Mass Index 35.3 Obese Const General: comfortable; No acute distress Orientation/consciousness: patient oriented x3 Eyes General: appearance normal, both eyes and all related structures Visual Oconnell: normal visual oconnell by confrontation Neck Neck: Yes supple and Yes no JVD Resp Effort & Inspection: normal respiratory effort and respiratory effort not decreased Cardio Palpation: no palpable S3 and no palpable S4 Heart sounds: no rubs GI Inspection: Yes normal to inspection Palpation (GI): Soft to palpation Percussion: Yes normal to percussion Auscultation: normal bowel sounds General: Yes no CVA tenderness Back/Spine/Pelvis Back: no CVA tenderness Skin General skin exam: no petechiae and no purpura Neuro General: patient oriented x3 and no focal motor deficits Extrem General: No clubbing and Yes edema (2+) Results Reviewed Nephrology Results: Hgb 13.0 g/dl (12.0-16.0) 10/09/24 WBC 7.0 X10*3/uL (4.8-10.8) 10/09/24 Plt Count 213 X10*3/uL (160-400) 10/09/24 Sodium 140 mmol/L (135-145) 12/04/24 Potassium 3.1 mmol/L (3.3-5.1) L 12/04/24 Chloride 105 mmol/L (96-108) 12/04/24 Carbon Dioxide 23 mmol/L (22-29) 12/04/24 BUN 37 mg/dL (9-16) H 12/04/24 Creatinine 1.65 mg/dL (0.5-1.4) H 12/04/24 Calcium 9.5 mg/dL (8.4-10.2) 12/04/24 Urine Creatinine 139.96 mg/dL 10/09/24 Assessment & Plan Assessment & Plan (1) CKD (chronic kidney disease), stage III: Code(s): N18.30 - Chronic kidney disease, stage 3 unspecified Category: Medical Qualifiers: Chronic kidney disease stage 3 subtype: unspecified whether 3a or 3b Qualified Code(s): N18.30 - Chronic kidney disease, stage 3 unspecified Plan: Patient's kidney function stable. Creatinine is back down to 1.6 Will continue to avoid any nephrotoxins medication including NSAIDS. Monitor renal function while on diuretics (2) Atrial fibrillation with RVR: Code(s): I48.91 - Unspecified atrial fibrillation Category: Medical Plan: Patient continues to cardiology. Does have ICD in place and gets interrogated quite often. She denies any heart palpitations overt signs of bleeding. (3) Hypokalemia: Code(s): E87.6 - Hypokalemia Category: Medical Plan: Her hypokalemia has improved since restarting potassium supplement. She continues on Bumex and spironolactone. REcent K is 3.1 Will increase KCL to 40 meq from 20 meq (4) ICD (implantable cardioverter-defibrillator) in place: Code(s): Z95.810 - Presence of automatic (implantable) cardiac defibrillator Category: Medical Plan: As above (5) Congestive heart failure: Code(s): I50.9 - Heart failure, unspecified Category: Medical Qualifiers: Heart failure chronicity: chronic Heart failure type: systolic Qualified Code(s): I50.22 - Chronic systolic (congestive) heart failure Plan: Patient appears somewhat well compensated She has less lower extremity edema. Her exercise tolerance has much improved since being back on her diuresis medication. Orders: Orders Basic Metabolic Panel 4 Months E87.6 - Hypokalemia, N18.30 - Chronic kidney disease, stage 3 unspecified Medications: Changed From potassium chloride ER (Klor-Con M) 20 mEq PO DAILY 30 days 30 tabs 1RF E87.6 - Hypokalemia To potassium chloride ER (Klor-Con M) 40 mEq (2 x 20 mEq) PO DAILY 90 days 180 tabs 1RF E87.6 - Hypokalemia Coding Level of Care Code Est Pt Level 4 (94165) Diagnoses Stage 3 chronic kidney disease, unspecified whether stage 3a or 3b CKD N18.30 Chronic kidney disease stage 3 subtype: unspecified whether 3a or 3b Atrial fibrillation with RVR I48.91 Hypokalemia E87.6 ICD (implantable cardioverter-defibrillator) in place Z95.810 Chronic systolic congestive heart failure I50.22 Heart failure chronicity: chronic Heart failure type: systolic
[2024-12-12 13:13] VITALS: BP 138/66; PULSE 84; O2SAT 98; BMI 35.3
--- OUTSIDE RECORDS SUMMARY | 2024-12-12 15:38 | XMS_ITS | Clinical Summary ---
Author Organization [facility] Address [address] [facility] [address] [place] [address] Phone Care Team Providers Care Screwmaker Automatic Name Role Phone Unavailable Primary Care Provider [...]
== END 2024-12-12 13:27 | disposition home or self-care (01) ==
LOC: HO.HKA 13:12
PROVIDERS: PCP Physician Assistant; Visit Provider Internal Medicine Hypertension Specialist
DX: N18.30 Chronic kidney disease, stage 3 unspecified (principal); I48.91 Unspecified atrial fibrillation; E87.6 Hypokalemia; Z95.810 Presence of automatic (implantable) cardiac defibrillator; I50.22 Chronic systolic (congestive) heart failure
CPT/HCPCS: 99214

== ENCOUNTER → 2024-12-12 13:11 | Outpatient (BNVA) | payer MEDICARE, SELFPAY | PROVIDERS: PCP Physician Assistant; Visit Provider Internal Medicine Hypertension Specialist | DX: N18.30 Chronic kidney disease, stage 3 unspecified (principal); I48.91 Unspecified atrial fibrillation; E87.6 Hypokalemia; I50.22 Chronic systolic (congestive) heart failure; Z95.810 Presence of automatic (implantable) cardiac defibrillator | CPT/HCPCS: 99212 ==

== ENCOUNTER → 2024-12-31 23:59 | Outpatient (BNV) | payer MEDICARE, MEDICAID, SELFPAY ==
--- NOTE | 2025-02-02 10:13 | A.OFFVIS_ITS ---
Intake Visit Reasons: Remote HF monitoring- Medtronic Allergies No Known Allergies Allergy (Verified 01/29/25 14:07) PFSH Medical History HFrEF (heart failure with reduced ejection fraction) Atrial fibrillation Lymphedema Hypothyroidism History of pulmonary embolism HTN (hypertension) Current use of anticoagulant therapy Surgical History History of cardiac pacemaker History of laparoscopic cholecystectomy Family History Father CVD (cardiovascular disease) Mother Medical history unknown Social History Household Members: None Housing: House Do you presently have visiting nurse or other home services: Yes (NETWORK DIAGNOSTIC SUPPORT SPECIALIST/ Meals on wheels) Alcohol intake: never Comment: rings appropriately- A/ox4 Patient Tobacco Use Status: Never used Tobacco e-Cigarette/Vaping Use: Never Used Second Hand Smoke Exposure: No Advance Directives Date on File: 08/26/23 service: No Current occupational status: retired Cognitive needs: Yes (Pt has a walker) Hearing needs: No Vision needs: No Office Procedures Cardiac Device Check Cardiac Device Check Details: HF monitoring Ongoing volume overload based on thoracic impedance changes. [id number] Cardiac Device Interrogation, cardio physiologic monitor Procedure code (CPT) selection complete Assessment & Plan Assessment & Plan (1) History of cardiac pacemaker: Code(s): Z95.0 - Presence of cardiac pacemaker Category: Surgical Plan Coding Level of Care Code Procedure Only Diagnoses History of cardiac pacemaker Z95.0 CPT Codes Cardiac Device Check - Cardiac Device 15: [id number] Cardiac Device Interrogation, cardio physiologic monitor ([id number])
== END ==
PROVIDERS: PCP Physician Assistant; Visit Provider Internal Medicine Cardiovascular Disease
DX: Z45.018 Encounter for adjustment and management of other part of cardiac pacemaker (principal)
CPT/HCPCS: 93297

== ENCOUNTER 2025-01-29 13:53 | Outpatient (AMB) | payer MEDICARE, MEDICAID, SELFPAY ==
[2025-01-29 14:07] VITALS: BP 124/62; PULSE 70
--- NOTE | 2025-01-29 14:07 | A.OFFVIS_ITS ---
Vital Signs 01/29/25 14:07 Height 5 ft 10 in BP 124/62 Blood Pressure Location Lt brachial Pulse 70 Pulse Source Monitor Intake Visit Reasons: 4 mth fu w device check Cis Coordinator Required: No Allergies No Known Allergies Allergy (Verified 01/29/25 14:07) Medication List - Last Reconciled 01/29/25 by Nidhi Sheets WORKERS COMPENSATION SPECIALIST-C acetaminophen 650 mg PO Q6H PRN amiodarone 200 mg PO DAILY apixaban (Eliquis) 5 mg PO BID baclofen 5 mg PO DAILY PRN 14 days blood pressure kit-extra large As directed bumetanide 2 mg PO DAILY levothyroxine 137 mcg PO DAILY@0600 metoprolol succinate ER 50 mg PO DAILY miscellaneous medical supply (Blood Pressure Cuff) As directed miscellaneous medical supply 1 ea miscellaneous DAILY 99 days nystatin 1 appl topical DAILY PRN 30 days nystatin 1 appl topical BID 30 days potassium chloride ER (Klor-Con M) 40 mEq (2 x 20 mEq) PO DAILY 90 days sacubitril-valsartan 24-26 mg (Entresto) 1 tab PO BID 90 days spironolactone 25 mg PO DAILY tramadol 50 mg PO BID PRN 7 days walker (Ultra-Light Rollator misc) As directed HPI HPI 4 mth fu w device check: Details: Cara is a 79-year-old female with past medical history of hypertension, hyperlipidemia, morbid obesity, paroxysmal atrial fibrillation, CHF, October 2023 with NSVT while inpatient then transfer to [facility] for cardiac catheterization which showed normal coronaries. While there she had cardioversion and Bi V ICD placed. She was on diuretics for Congestive heart failure and she developed JESSIE. She follows with Nephrology and current diure tics include Bumex and Aldactone. Today she reports she has been doing very well since her last visit in August. She denies any recent issues with shortness of breath, orthopnea or edema. She is very happy with the way her legs look, without edema. She ambulates with her wheeling walker but is mostly sedentary.She denies any chest discomfort at rest or with activity. No lightheadedness, presyncope, syncope, falls. Taking all meds as directed. No bleeding issues reported. 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/ Meals on wheels) Alcohol intake: never Comment: rings appropriately- A/ox4 Patient Tobacco Use Status: Never used Tobacco e-Cigarette/Vaping Use: Never Used Second Hand Smoke Exposure: No Advance Directives Date on File: 08/26/23 service: No Current occupational status: retired Cognitive needs: Yes (Pt has a walker) Hearing needs: No Vision needs: No Review of Systems Const All systems reviewed & are unremarkable except as noted in HPI and below ENT Denies dizziness Card Denies chest pain, Denies chest pain at rest, Denies chest pain with activity, Denies rapid heart rate, Denies pedal edema, Denies edema, Denies leg edema, Denies lightheadedness, Denies palpitations, Denies dyspnea, Denies dyspnea on exertion and Denies orthopnea Resp Denies cough, Denies dyspnea and Denies dyspnea on exertion GI Denies hematochezia and Denies change in stool character Musc Reports abnormal gait (uses wheeling walker), Reports limited range of motion, Reports muscle cramps, Denies muscle weakness, Denies numbness, Denies radiating pain into limb, Denies stiffness and Denies tingling Neuro Reports abnormal gait (uses wheeling walker), Denies dizziness, Denies numbness and Denies tingling Endo Denies palpitations Physical Exam Vital Signs: Last Vital Signs BP 124/62 01/29/25 14:07 Const Other: ambulates with walker, obese General: cooperative, healthy appearing, comfortable and no acute distress Orientation/consciousness: patient oriented x3 HEENT Head: Yes normal to inspection Chest Chest palpation & inspection: normal inspection of the chest Resp Effort & Inspection: normal respiratory effort Auscultation: clear to auscultation bilaterally, no rales, no rhonchi and no wheezes Cardio Jugular venous distension: no JVD Rate: regular rate Rhythm: regular rhythm Heart sounds: S1 normal heart sound present, S2 normal heart sound present, no murmurs and no rubs Neuro General: patient oriented x3 Extrem General: Yes normal to inspection and No no pedal edema Psych Appearance: grossly normal Mental Status: mental status grossly normal Speech and movement: Normal speech and movement present Office Procedures Cardiac Device Check Cardiac Device Check Details: Medtronic Bi V ICD interrogation today shows battery 6.4 years, DDDR mode low rate 60, atrial threshold 1.25 volts at 0.4 milliseconds, RV threshold 0.75 volts at 0.4 milliseconds, LV threshold 1.25 volts at 0.4 milliseconds, V pacing 98%, affective 97.7% [id number] Cardiac Device Check, multi lead implantable defibrillator Procedure code (CPT) selection complete EKG Details: Today, read by me, atrial sense, ventricular paced rhythm, rate 62 [id number], Complete Assessment & Plan Assessment & Plan (1) Atrial fibrillation with RVR: Code(s): I48.91 - Unspecified atrial fibrillation Category: Medical Plan: History of paroxysmal AFiib with prior cardioversion. She is now on Amiodarone for rhythm control and metoprolol for heart rate control. On Eliquis for anticoagulation. She has remote monitoring of her ICD and has not had recent episodes of PAF. Last echocardiogram was done on 06/13/2024 showing EF 50-55%, no regional wall motion abnormality, grade 1 diastolic dysfunction. EKG today shows atrial sensed and Ventricular paced rhythm, rate 62. Will have her continue on current med management. Labs 12/04/2024 shows creatinine 1.65, labs 10/09/2024 shows normal AST and ALT, TSH 3.93. She is on levothyroxine. Will order chest x-ray to assess for any signs of amiodarone toxicity. Cardiology follow-up in 6 months, sooner if needed (2) Cardiomyopathy: Code(s): I42.9 - Cardiomyopathy, unspecified Category: Medical Plan: Newer finding of cardiomyopathy, EF 25-30% 08/2023. [place] [facility] [place] she had a 1 minute run of NSVT and was transferred to [facility] for cardiac catheterization on 10/27/2023 showing normal coronary arteries. Her prior EKG showed a left bundle branch block and she underwent Bi V ICD placement at that time. Cardiomyopathy could have been related to her left bundle branch block. Recheck of echo 06/13/2024 showed EF 50-55%. She was put on amiodarone as well to help prevent recurrent NSVT/AFib. Will have her continue on metoprolol XL, Entresto for neurohormonal modulation. (3) Acute HFrEF (heart failure with reduced ejection fraction): Code(s): I50.21 - Acute systolic (congestive) heart failure Category: Medical Plan: History of heart failure with reduced EF, now with improvement in the EF to low normal. She is currently on Bumex 2 mg daily, Aldactone 25 mg daily. She is on metoprolol and Entresto for neurohormonal modulation. She is following with Nephrology. Labs 10/09/2024 showed creatinine 1.65 which is similar to prior values. She does not appear fluid overloaded on exam today. Signs and symptoms of heart failure and the ongoing need for low-salt diet reviewed with her. No med changes made. Will update echo prior to next visit. (4) LBBB (left bundle branch block): Code(s): I44.7 - Left bundle-branch block, unspecified Category: Medical Plan: Chronic, Noted on EKGs as far back as 2014. Now has Bi V ICD. (5) S/P cardiac catheterization: Comment: 10/27/2023, normal coronary arteries Code(s): Z98.890 - Other specified postprocedural states Category: Surgical Plan: As above (6) History of cardiac pacemaker: Code(s): Z95.0 - Presence of cardiac pacemaker Category: Surgical Plan: Medtronic Bi V ICD placed in place. Appears to be functioning normally on interrogation today. Her QRS complex still remains wide on EKG and this was discussed with Medtronic rep. Will arrange for a device check with rep present on next clinic day. Remote monitoring in use. 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 No med changes made (9) On amiodarone therapy: Code(s): Z79.899 - Other intermediate school teacher (current) drug therapy Category: Medical Plan: Will continue amiodarone monitoring for signs of toxicity. Discussed with her. Plan During today's visit, we reviewed the patient's overall heart health management. We discussed that the patient's current regimen includes amiodarone for rhythm control, which requires liver and thyroid function test monitoring as well as chest xray. I have emphasized the stability of the patient's BIVICD and outlined the uncomplicated procedure for future ICD battery replacement. The benefits of using metoprolol and Entresto for reducing heart failure risk were reviewed. We also detailed the EKG findings, concluding the necessity for a device recheck. Consent for continued management was obtained, and she expressed understanding and agreeance with her current treatment course. Orders: Orders XR chest 2V Today Z79.899 - Other fpc (current) drug therapy Patient Instructions: - Continue taking all prescribed medications as directed - Obtain chest xray as ordered - Undergo regular blood tests for liver and thyroid function while on amiodarone - Monitor for any symptoms such as chest pain or unusual heart rhythms, and report them - Anticipate ICD battery check or replacement in 6.5 years - Return for follow-up in six months or sooner if needed Patient was informed and verbally consented to the use of an ambient scribe for clinic note documentation during this visit. Visit time spent on chart review, interview, assessment, orders, documentation. Coding Level of Care Code Est Pt Level 4 (01385) Complex EM visit Add On G2211 Diagnoses Atrial fibrillation with RVR I48.91 Cardiomyopathy I42.9 Acute HFrEF (heart failure with reduced ejection fraction) I50.21 LBBB (left bundle branch block) I44.7 S/P cardiac catheterization Z98.890 History of cardiac pacemaker Z95.0 Current use of anticoagulant therapy Z79.01 Essential hypertension I10 Hypertension type: essential hypertension On amiodarone therapy Z79.899 CPT Codes Cardiac Device Check - Cardiac Device 6: [id number] Cardiac Device Check, multi lead implantable defibrillator ([id number]) EKG - CPT: 29016-[id number], Complete ([id number]) Time Spent (min) 32
--- OUTSIDE RECORDS SUMMARY | 2025-01-29 15:48 | XMS_ITS | Clinical Summary ---
Author Organization [facility] Address [address] [facility] [address] [phone] Phone Care Team Providers Care Principal Hardware Architect Name Role Phone Unavailable Primary Care Provider [...]
== END 2025-01-29 14:55 | disposition home or self-care (01) ==
LOC: HO.HCS 13:54
PROVIDERS: PCP Physician Assistant; Visit Provider Nurse Practitioner Family
DX: I48.91 Unspecified atrial fibrillation (principal); I42.9 Cardiomyopathy, unspecified; I50.21 Acute systolic (congestive) heart failure; I44.7 Left bundle-branch block, unspecified; Z98.890 Other specified postprocedural states; Z95.0 Presence of cardiac pacemaker; Z79.01 Long term (current) use of anticoagulants; I10 Essential (primary) hypertension; Z79.899 Other long term (current) drug therapy
CPT/HCPCS: 93010; 93284; 99214; G2211

== ENCOUNTER → 2025-01-29 13:53 | Outpatient (BNVA) | payer MEDICARE, SELFPAY | PROVIDERS: PCP Physician Assistant; Visit Provider Nurse Practitioner Family | DX: I48.91 Unspecified atrial fibrillation (principal); I42.9 Cardiomyopathy, unspecified; I50.21 Acute systolic (congestive) heart failure; I44.7 Left bundle-branch block, unspecified; I10 Essential (primary) hypertension; Z98.890 Other specified postprocedural states; Z95.0 Presence of cardiac pacemaker; Z79.01 Long term (current) use of anticoagulants; Z79.899 Other long term (current) drug therapy | CPT/HCPCS: 93005; 99212 ==

== ENCOUNTER → 2025-01-29 23:59 | Outpatient (BNV) | payer MEDICARE, MEDICAID, SELFPAY ==
--- NOTE | 2025-02-02 10:54 | MHC.OFFVIS ---
Intake Visit Reasons: Remote ICD check- Medtronic Allergies No Known Allergies Allergy (Verified 01/29/25 14:07) PFSH Medical History HFrEF (heart failure with reduced ejection fraction) Atrial fibrillation Lymphedema Hypothyroidism History of pulmonary embolism HTN (hypertension) Current use of anticoagulant therapy Surgical History History of cardiac pacemaker History of laparoscopic cholecystectomy Family History Father CVD (cardiovascular disease) Mother Medical history unknown Social History Household Members: None Housing: House Do you presently have visiting nurse or other home services: Yes (MANAGER DIALYSIS/ Meals on wheels) Alcohol intake: never Comment: rings appropriately- A/ox4 Patient Tobacco Use Status: Never used Tobacco e-Cigarette/Vaping Use: Never Used Second Hand Smoke Exposure: No Advance Directives Date on File: 08/26/23 service: No Current occupational status: retired Cognitive needs: Yes (Pt has a walker) Hearing needs: No Vision needs: No Office Procedures Cardiac Device Check Cardiac Device Check Details: LABOR RELATIONS OR PERSONNEL NEGOTIATOR-D BP 98% No new alerts. [id number] Cardiac Device Interrogation, pacemaker or defibrillator Procedure code (CPT) selection complete Assessment & Plan Assessment & Plan (1) History of cardiac pacemaker: Code(s): Z95.0 - Presence of cardiac pacemaker Category: Surgical Plan Coding Level of Care Code Procedure Only Diagnoses History of cardiac pacemaker Z95.0 CPT Codes Cardiac Device Check - Cardiac Device 14: [id number] Cardiac Device Interrogation, pacemaker or defibrillator ([id number])
== END ==
PROVIDERS: PCP Physician Assistant; Visit Provider Internal Medicine Cardiovascular Disease
DX: Z45.02 Encounter for adjustment and management of automatic implantable cardiac defibrillator (principal)
CPT/HCPCS: 93295

== ENCOUNTER 2025-02-05 08:46 | Outpatient (REF) | payer MEDICARE, MEDICAID, SELFPAY ==
--- OUTSIDE RECORDS SUMMARY | 2025-02-05 09:11 | XMS_ITS | Clinical Summary ---
Author Organization [facility] Address [address] [facility] [address] [place] [address] Phone Care Team Providers Care Program Facilitator Name Role Phone Unavailable Primary Care Provider [...]
[2025-02-05 10:04] LABS: Hematocrit 38.1 % (37.0-47.0); Hemoglobin 12.9 g/dl (12.0-16.0); Mean Corpuscular HGB Conc 33.9 g/dl (31.0-35.0); Mean Corpuscular Hemoglobin 32.9 pg (27.0-33.0); Mean Corpuscular Volume 97.2 fL (80.0-98.0); Platelet Count 203 X10*3/uL (160-400); Red Blood Count 3.92 X10*6/uL (4.20-5.50); Red Cell Distribution Width 13.2 % (11.0-16.0); White Blood Count 7.6 X10*3/uL (4.8-10.8)
[2025-02-05 10:25] LABS: Alanine Aminotransferase 21 U/L (0-31); Albumin Level 4.3 g/dL (3.5-5.0); Alkaline Phosphatase 93 U/L (39-117); Anion Gap 15 (12-20); Aspartate Amino Transferase 26 U/L (5-31); Bilirubin Total 0.8 mg/dL (0.0-1.0); Blood Urea Nitrogen 40 mg/dL (9-16); Calcium 9.6 mg/dL (8.4-10.2); Carbon Dioxide 23 mmol/L (22-29); Chloride 106 mmol/L (96-108); Cholesterol 156 mg/dL (<200); Estimated Glomerular Filt Rate 28; Glucose Fasting 96 mg/dL (60-99); HDL Cholesterol 49 mg/dL (>40); LDL Cholesterol Calculated 91 mg/dL (<100); Potassium 3.6 mmol/L (3.3-5.1); Sodium 140 mmol/L (135-145); Total Protein 7.2 g/dL (6.5-8.0); Triglycerides 84 mg/dL (<150)
[2025-02-05 10:44] LABS: TSH reflex Free T4 1.34 uIU/mL (0.32-4.0)
== END 2025-02-05 08:47 | disposition home or self-care (01) ==
LOC: HO.10HDL 08:46
PROVIDERS: Visit Provider Physician Assistant
DX: I10 Essential (primary) hypertension (principal); E03.9 Hypothyroidism, unspecified; E78.2 Mixed hyperlipidemia
CPT/HCPCS: 36415; 80053; 80061; 84443; 85027

== ENCOUNTER 2025-02-15 13:51 | Outpatient (AMB) | payer MEDICARE, MEDICAID, SELFPAY ==
[2025-02-15 14:04] VITALS: BP 126/74; PULSE 88; TEMP 35.7; O2SAT 99; BMI 34.2
--- NOTE | 2025-02-15 14:04 | MHC.PC.OV ---
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: No Accompanied by: Self / Same As Patient Allergies No Known Allergies Allergy (Verified 02/15/25 14:12) Medication List - Last Reconciled 02/15/25 by Karson Frank PA-C acetaminophen 650 mg PO Q6H PRN amiodarone 200 mg PO DAILY apixaban (Eliquis) 5 mg PO BID baclofen 5 mg PO DAILY PRN 14 days blood pressure kit-extra large As directed bumetanide 2 mg PO DAILY levothyroxine 137 mcg PO DAILY@0600 metoprolol succinate ER 50 mg PO DAILY miscellaneous medical supply (Blood Pressure Cuff) As directed miscellaneous medical supply 1 ea miscellaneous DAILY 99 days nystatin 1 appl topical DAILY PRN 30 days nystatin 1 appl topical BID 30 days potassium chloride ER (Klor-Con M) 40 mEq (2 x 20 mEq) PO DAILY 90 days sacubitril-valsartan 24-26 mg (Entresto) 1 tab PO BID 90 days spironolactone 25 mg PO DAILY tramadol 50 mg PO BID PRN 7 days walker (Ultra-Light Rollator misc) As directed Tobacco use date assessed: 10/17/24 Fall risk assessment: No Falls in past year Last assessed Fall Risk: 02/15/25 Dental Screening Dental Screen Date: 10/17/24 HPI f/u Hypothyroid / AFIB HPI Details Patient is a 79 female here today for a follow-up visit. Patient has a past medical history significant for hypertension, hyperlipidemia, hypothyroidism and CKD stage 3, AFib and Congestive heart failure with reduced ejection fraction. Congestive heart failure/AFib: Continues to follow [facility]. Continues to be anticoagulated with Eliquis without any overt signs of bleeding. Continues on amiodarone for rhythm control She does have an ICD in place that is working and functioning well although her recent interrogation did show abnormality she will be following closely with Cardiology for --- >Currently doing well, vitals today are stable. Her exercise tolerance has been getting better. .. CKD-3: Is followed by [facility]. Most recent creatinine 1.75. Continues on bumetanide 2 mg, Continues on potassium supplementation.. Most recent potassium stabilized. .. Hypothyroidism: Most recent TSH stabilized and appears appropriate.. Patient continues on levothyroxine 137 mcg at current dose. Will continue to follow TSH Laboratory Tests 12/04/24 02/05/25 08:22 08:50 RBC 3.92 L Hgb 12.9 Creatinine 1.65 H 1.75 H Cholesterol 156 TSH 1.34 PFSH Medical History HFrEF (heart failure with reduced ejection fraction) Atrial fibrillation Lymphedema Hypothyroidism History of pulmonary embolism HTN (hypertension) Current use of anticoagulant therapy Surgical History History of cardiac pacemaker History of laparoscopic cholecystectomy Family History Father CVD (cardiovascular disease) Mother Medical history unknown Social History Household Members: None Housing: House Do you presently have visiting nurse or other home services: Yes (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 1. Little interest or pleasure in doing things: not at all 2. Feeling down, depressed, or hopeless: not at all 3. Trouble falling or staying asleep, or sleeping too much: not at all 4. Feeling tired or having little energy: not at all 5. Poor appetite or overeating: not at all 6. Feeling bad about yourself - or that you are a failure or have let yourself or your family down: not at all 7. Trouble concentrating on things, such as reading the newspaper or watching television: not at all 8. Moving or speaking so slowly that other people could have noticed. Or the opposite - being so fidgety or restless that you have been moving around a lot more than usual: not at all 9. Thoughts that you would be better off or of hurting yourself in some way: not at all Total score: 0 Depression Screening Interpretation: Negative Depression Screening Done: Yes 29615 - PHQ-9 Billing: Yes Source: Developed by Drs. Remy Kirby, Bren Pro, Tony Orona and colleagues, with an educational siri from [employer]. Thrive Questionnaire Date Thrive assessed: 02/15/25 I am a: Patient What is your living situation today?: I have a steady place to live Within the past 12 months, did the food you bought not last and you didn't have the money to get more?: Never true Within the past 12 months, did you worry whether your food would run out before you got money to buy more?: Never true Do you have trouble paying for medicines?: No Do you have trouble getting transportation to medical appointments?: Yes Do you have trouble paying your heating and electricity bill?: No Do you have trouble taking care of your child, family member or friend?: No Do you have trouble with day-to-day activities such as bathing, preparing meals, shopping, managing finances, etc.?: No Are you currently unemployed and looking for a job?: No Are you interested in more education?: No Please select the resources that you would like help with: Transportation Currently or been in a relationship where the following occur: No concerns reported THRIVE Score: 1 AUDIT C Alcohol Use Questionnaire (AUDIT-C) 1. How often do you have a drink containing alcohol?: Never 3. How often do you have six or more drinks on one occasion?: Never Total Score: 0 Score Reviewed/Action Taken: No NOÉ-7 AMB Questionnaire NOÉ-7 Date NOÉ - 7 assessed: 10/17/24 Feeling nervous, anxious, or on edge: 0 = Not at all Not being able to stop or control worryin = Not at all Worrying too much about different things: 0 = Not at all Trouble relaxin = Not at all Being so restless that it is hard to sit still: 0 = Not at all Becoming easily annoyed or irritable: 0 = Not at all Feeling afraid as if something awful might happen: 0 = Not at all Total NOÉ-7 score (0-4 normal; 5-9 mild; 10-14 moderate; 15-21 severe): 0 Source: Developed by Drs. Remy Kirby, Bren Pro, Tony Orona and colleagues, with an educational siri from [employer]. NOÉ-7 Assessment Billing NOÉ-7 Assessment Tool: NOÉ-7 Assessment 56312 Review of Systems Const Denies headache(s) Eyes Denies loss of vision ENT Denies vertigo, Denies dizziness, Denies headache(s) and Denies sore throat Card Denies chest pain, Denies leg edema and Denies lightheadedness Resp Denies cough, Denies hemoptysis and Denies wheezing GI Denies abdominal pain, Denies melena, Denies constipation, Denies diarrhea and Denies vomiting Denies urinary frequency, Denies dysuria and Denies urinary urgency Musc Denies arthralgias, Denies joint swelling, Denies numbness and Denies tingling Neuro Denies Abnormal speech present, Denies behavioral changes, Denies vertigo, Denies dizziness, Denies headache(s), Denies loss of vision, Denies memory loss, Denies numbness and Denies tingling Psych Denies anxiety, Denies behavioral changes, Denies depression, Denies memory loss and Denies panic attacks Arian/Lymph Denies easy bleeding and Denies easy bruising Aller/Immun Denies wheezing Physical exam (Primary Care) Vital Signs: Last Vital Signs Temp 96.3 F L 02/15/25 14:04 Pulse 88 02/15/25 14:04 BP 126/74 02/15/25 14:04 Pulse Ox 99 02/15/25 14:04 Oxygen Delivery Method Room Air 02/15/25 14:04 BMI result Body Mass Index 34.2 Tobacco/Smoking Status: Tobacco use Status Tobacco use date assessed 10/17/24 02/15/25 14:10 Patient Tobacco Use Status Never used Tobacco 02/15/25 14:10 e-Cigarette/Vaping Use Never Used 02/15/25 14:10 PHQ-9: PHQ-9 Score PHQ-9: Total score 0 02/15/25 14:10 Depression Screening Interpretation: Negative Thrive Assessment: Date of Thrive Assessment Date Thrive assessed 02/15/25 02/15/25 14:10 Currently or been in a relationship where the following occur: No concerns reported Const General: healthy appearing, no acute distress, alert and awake Nutritional Appearance: well nourished Orientation/consciousness: oriented to person, oriented to place and oriented to time HENMT Ears: TM's normal bilaterally General nose exam: Normal nasal mucous membranes and turbinates present Eyes Conjunctivae: conjunctivae normal Sclerae: sclerae normal Pupils: Equal, round and reactive pupils present Neck Neck: Yes no lymphadenopathy and Yes no JVD Thyroid: Thyroid normal Carotids: no bruits Resp Effort & Inspection: normal respiratory effort and not tachypneic Auscultation: no crackles, no rales, no rhonchi and no wheezes Cardio Rate: regular rate Rhythm: regular rhythm Heart sounds: no murmurs and normal S1 and S2 GI Palpation (GI): Soft to palpation, nontender, no hepatomegaly and no splenomegaly Auscultation: normal bowel sounds Skin General skin exam: no rashes or lesions noted and dry skin Neuro General: oriented to person, oriented to place and oriented to time Cranial nerves: Yes Equal, round and reactive pupils present Speech: No Abnormal speech present Gait exam (Neuro): Normal gait present Motor exam (neuro): no tremor noted Extrem Right upper extremity: full ROM Left upper extremity: full ROM Right lower extremity: full ROM; no edema Left lower extremity: full ROM; no edema Psych Mental Status: mental status grossly normal Speech and movement: Normal speech and movement present Affect: normal affect Attitude: cooperative Thought process: Normal thought process present Coding Level of Care Code Est Pt Level 4 (57210) Diagnoses Stage 3 chronic kidney disease, unspecified whether stage 3a or 3b CKD N18.30 Chronic kidney disease stage 3 subtype: unspecified whether 3a or 3b Atrial fibrillation with RVR I48.91 ICD (implantable cardioverter-defibrillator) in place Z95.810 Chronic systolic congestive heart failure I50.22 Heart failure chronicity: chronic Heart failure type: systolic Class 1 obesity E66.811 Additional Codes NOÉ-7 Assessment Billing - NOÉ-7 Assessment Tool: NOÉ-7 Assessment 74670 ([id number]) PHQ-9 - 33817 - PHQ-9 Billing: Yes ([id number]) Assessment & Plan Assessment & Plan (1) CKD (chronic kidney disease), stage III: Code(s): N18.30 - Chronic kidney disease, stage 3 unspecified Category: Medical Qualifiers: Chronic kidney disease stage 3 subtype: unspecified whether 3a or 3b Qualified Code(s): N18.30 - Chronic kidney disease, stage 3 unspecified Plan: Patient's kidney function stable. Creatinine at 1.7. Most recent potassium stabilized with potassium supplementation Will continue follow Nephrology. Will continue to avoid any nephrotoxins medication. (2) Atrial fibrillation with RVR: Code(s): I48.91 - Unspecified atrial fibrillation Category: Medical Plan: Patient continues to cardiology. Does have ICD in place and gets interrogated quite often. Continues on amiodarone for rhythm control. She denies any heart palpitations overt signs of bleeding. There has been some abnormalities on her ICD interrogation she will be following up closely with Cardiology. (3) ICD (implantable cardioverter-defibrillator) in place: Code(s): Z95.810 - Presence of automatic (implantable) cardiac defibrillator Category: Medical Plan: As above (4) Congestive heart failure: Code(s): I50.9 - Heart failure, unspecified Category: Medical Qualifiers: Heart failure chronicity: chronic Heart failure type: systolic Qualified Code(s): I50.22 - Chronic systolic (congestive) heart failure Plan: Patient appears somewhat well compensated . She seems to be well compensated at this time, has lost weight since last office visit. Her exercise tolerance has much improved since being back on her diuresis medication. Most recent potassium is stabilized. (5) Class 1 obesity: Code(s): E66.811 - Obesity, class 1 Category: Medical Plan: Patient has lost weight since last office visit, now BMI below 35. She will continue working on lifestyle and dietary modifications Orders: Orders Complete Blood Count no Diff Today I10 - Essential (primary) hypertension Comprehensive [place]. Panel Fast Today I10 - Essential (primary) hypertension Lipid Panel Today E78.2 - Mixed hyperlipidemia Vitamin D 25-OH Total Today E55.9 - Vitamin D deficiency, unspecified TSH reflex Free T4 Today E03.9 - Hypothyroidism, unspecified Medications: Discontinued tramadol Discontinued Reason: Doctor's Order 50 mg PO BID 7 days PRN 14 tabs 0RF pain M62.838 - Other muscle spasm
--- OUTSIDE RECORDS SUMMARY | 2025-02-15 16:42 | XMS_ITS | Patient Health Record ---
Author Organization [facility] Address [address] [place] [address] Care Team Providers Care Press Officer Name Role Phone Gaby(inactive) Je AGUILAR Primary Care Provider U Remy Juilan Unavailable [phone] Ralf AGUILAR, Ernst Unavailable Unavailable Reason For Referral No Information Plan Of Treatment No Information Insurance Providers Payer Name Payer Address Payer Phone Subscriber Number Group Number Insured Name Patient Relationship to Insured Coverage Start Date Coverage End Date MEDICARE OF [place] [address] [place] [address] [phone] [id number] CHARMAINE OSHEA Self - patient is the insured
== END 2025-02-15 14:32 | disposition home or self-care (01) ==
LOC: HO.HMCH 13:52
PROVIDERS: PCP Physician Assistant; Visit Provider Physician Assistant
DX: I48.91 Unspecified atrial fibrillation (principal); N18.30 Chronic kidney disease, stage 3 unspecified; I50.22 Chronic systolic (congestive) heart failure; Z68.34 Body mass index [BMI] 34.0-34.9, adult; E66.811 Obesity, class 1; Z95.810 Presence of automatic (implantable) cardiac defibrillator

== ENCOUNTER → 2025-02-15 13:51 | Outpatient (BNVA) | payer MEDICARE, MEDICAID, SELFPAY | PROVIDERS: PCP Physician Assistant; Visit Provider Physician Assistant | DX: N18.30 Chronic kidney disease, stage 3 unspecified (principal); I48.91 Unspecified atrial fibrillation; I50.22 Chronic systolic (congestive) heart failure; E66.811 Obesity, class 1; Z68.34 Body mass index [BMI] 34.0-34.9, adult; Z95.810 Presence of automatic (implantable) cardiac defibrillator; Z71.3 Dietary counseling and surveillance | CPT/HCPCS: 96127; 99212 ==

== ENCOUNTER 2025-02-26 11:57 | Outpatient (REF) | payer MEDICARE, MEDICAID, SELFPAY ==
--- NOTE | ~2025-02-26 | XR_ITS ---
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 FINDINGS: PA and lateral views of the chest are submitted. There has been interval placement of a left-sided dual-chamber pacemaker with leads in the right atrium and ventricle. The lungs are expanded and clear. There is no pleural effusion, pneumothorax, or pulmonary vascular congestion. The heart is normal in size. The bones are intact. A portion of an IVC filter is seen in the upper abdomen. XR/XR chest 2V IMPRESSION: No acute cardiopulmonary abnormality. Electronically signed by: Remy Rowan MD 02/26/2025 12:55 PM EDT
--- OUTSIDE RECORDS SUMMARY | 2025-02-26 12:51 | XMS_ITS | Clinical Summary ---
Author Organization [facility] Address [address] [facility] [address] [place] [address] Phone Care Team Providers Care Armature [employer] Name Role Phone Unavailable Primary Care Provider [...] of 1 - PCV) 1996 Influenza Vaccine (#1) 2025 Hepatitis B Vaccine Aged Out No longe r eligible based on patient's age to complete this topic Insurance Medicare Medicaid [place]
--- OUTSIDE RECORDS SUMMARY | 2025-02-26 12:51 | XMS_ITS | Patient Health Record ---
Author Organization [facility] Address [address] [place] [address] Care Team Providers Care Emt I/85 Name Role Phone Gaby(inactive) Je AGUILAR Primary Care Provider U Remy Julian Unavailable [phone] Ralf AGUILAR, Ernst Unavailable Unavailable Reason For Referral No Information Plan Of Treatment No Information Insurance Providers Payer Name Payer Address Payer Phone Subscriber Number Group Number Insured Name Patient Relationship to Insured Coverage Start Date Coverage End Date MEDICARE OF [place] [address] [place] [address] [id number] CHARMAINE OSHEA Self - patient is the insured
== END 2025-02-26 11:58 | disposition home or self-care (01) ==
LOC: HO.XRAY 11:57
PROVIDERS: PCP Physician Assistant; Visit Provider Nurse Practitioner Family
DX: Z79.899 Other long term (current) drug therapy (principal)
CPT/HCPCS: 71046

== ENCOUNTER → 2025-02-26 12:01 | Outpatient (BNV) | payer MEDICARE, MEDICAID, SELFPAY | PROVIDERS: PCP Physician Assistant; Visit Provider Radiology Diagnostic Radiology | DX: Z79.899 Other long term (current) drug therapy (principal) | CPT/HCPCS: 71046 ==

== ENCOUNTER → 2025-03-03 23:59 | Outpatient (BNV) | payer MEDICARE, MEDICAID, SELFPAY ==
--- NOTE | 2025-04-08 21:10 | MHC.OFFVIS ---
Intake Visit Reasons: Remote HF monitoring- [employer] Allergies No Known Allergies Allergy (Verified 02/15/25 14:12) [facility] Medical History HFrEF (heart failure with reduced ejection fraction) Atrial fibrillation Lymphedema Hypothyroidism History of pulmonary embolism HTN (hypertension) Current use of anticoagulant therapy Surgical History History of cardiac pacemaker History of laparoscopic cholecystectomy Family History Father CVD (cardiovascular disease) Mother Medical history unknown Social History Household Members: None Housing: House Do you presently have visiting nurse or other home services: Yes (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 [id number] Cardiac Device Interrogation, pacemaker or defibrillator Procedure code (CPT) selection complete Assessment & Plan Assessment & Plan (1) ICD (implantable cardioverter-defibrillator) in place: Code(s): Z95.810 - Presence of automatic (implantable) cardiac defibrillator Category: Medical Plan: Coding Level of Care Code Procedure Only Diagnoses ICD (implantable cardioverter-defibrillator) in place Z95.810 CPT Codes Cardiac Device Check - Cardiac Device 14: [id number] Cardiac Device Interrogation, pacemaker or defibrillator ([id number])
== END ==
PROVIDERS: PCP Physician Assistant; Visit Provider Internal Medicine Cardiovascular Disease
DX: Z45.02 Encounter for adjustment and management of automatic implantable cardiac defibrillator (principal)
CPT/HCPCS: 93297

== ENCOUNTER → 2025-04-03 23:59 | Outpatient (BNV) | payer MEDICARE, MEDICAID, SELFPAY ==
--- NOTE | 2025-04-08 20:22 | A.OFFVIS_ITS ---
Intake Visit Reasons: Remote HF monitoring- [employer] Allergies No Known Allergies Allergy (Verified 02/15/25 14:12) [facility] Medical History HFrEF (heart failure with reduced ejection fraction) Atrial fibrillation Lymphedema Hypothyroidism History of pulmonary embolism HTN (hypertension) Current use of anticoagulant therapy Surgical History History of cardiac pacemaker History of laparoscopic cholecystectomy Family History Father CVD (cardiovascular disease) Mother Medical history unknown Social History Household Members: None Housing: House Do you presently have visiting nurse or other home services: Yes (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 [id number] Cardiac Device Interrogation, cardio physiologic monitor Procedure code (CPT) selection complete Assessment & Plan Assessment & Plan (1) Congestive heart failure: Code(s): I50.9 - Heart failure, unspecified Category: Medical Qualifiers: Heart failure chronicity: chronic Heart failure type: systolic Qualified Code(s): I50.22 - Chronic systolic (congestive) heart failure Plan Coding Level of Care Code Procedure Only Diagnoses Chronic systolic congestive heart failure I50.22 Heart failure chronicity: chronic Heart failure type: systolic CPT Codes Cardiac Device Check - Cardiac Device 15: [id number] Cardiac Device Interrogation, cardio physiologic monitor ([id number])
== END ==
PROVIDERS: PCP Physician Assistant; Visit Provider Internal Medicine Cardiovascular Disease
DX: I50.22 Chronic systolic (congestive) heart failure (principal); Z95.810 Presence of automatic (implantable) cardiac defibrillator
CPT/HCPCS: 93297

== ENCOUNTER 2025-04-04 08:08 | Outpatient (REF) | payer MEDICARE, SELFPAY ==
--- OUTSIDE RECORDS SUMMARY | 2025-04-04 08:12 | XMS_ITS | Clinical Summary ---
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
--- OUTSIDE RECORDS SUMMARY | 2025-04-04 08:12 | XMS_ITS | Patient Health Record ---
Author Organization [facility] Address [address] [place] [address] Care Team Providers Care [place]low Machine Operator Name Role Phone Gaby(inactive) Je AGUILAR Primary Care Provider U Remy Julian Unavailable [phone] Ralf AGUILAR, Ernst Unavailable Unavailable Reason For Referral No Information Plan Of Treatment No Information Insurance Providers Payer Name Payer Address Payer Phone Subscriber Number Group Number Insured Name Patient Relationship to Insured Coverage Start Date Coverage End Date MEDICARE OF [facility] [address] [place] [id number] CHARMAINE OSHEA Self - patient is the insured
[2025-04-04 11:16] LABS: Anion Gap 15 (12-20); Blood Urea Nitrogen 35 mg/dL (9-16); Calcium 9.1 mg/dL (8.4-10.2); Carbon Dioxide 22 mmol/L (22-29); Chloride 107 mmol/L (96-108); Estimated Glomerular Filt Rate 27; Potassium 3.6 mmol/L (3.3-5.1); Sodium 140 mmol/L (135-145)
== END 2025-04-04 08:09 | disposition home or self-care (01) ==
LOC: HO.10HDL 08:08
PROVIDERS: Visit Provider Internal Medicine Hypertension Specialist
DX: E87.6 Hypokalemia (principal); N18.30 Chronic kidney disease, stage 3 unspecified
CPT/HCPCS: 36415; 80048

== ENCOUNTER 2025-04-09 14:27 | Outpatient (AMB) | payer MEDICARE, MEDICAID, SELFPAY ==
[2025-04-09 14:29] VITALS: BP 126/62; PULSE 84; O2SAT 97; BMI 35.3
--- NOTE | 2025-04-09 14:29 | HO.NEPHOV ---
Vital Signs 04/09/25 14:29 Height 5 ft 10 in Weight 246 lb BMI 35.3 BP 126/62 Blood Pressure Location Lt brachial Position Sitting Pulse 84 Pulse Source Pulse Oximeter Pulse Oximetry (%) 97 Oxygen Delivery Method Room Air Intake Visit Reasons: 4 MO FU/ Conf Research Program Manager Required: No Accompanied by: Self / Same As Patient Allergies No Known Allergies Allergy (Verified 04/09/25 14:31) Medication List - Last Reconciled 04/09/25 by Romain Cuenca MD acetaminophen 650 mg PO Q6H PRN amiodarone 200 mg PO DAILY apixaban (Eliquis) 5 mg PO BID baclofen 5 mg PO DAILY PRN 14 days blood pressure kit-extra large As directed bumetanide 2 mg PO DAILY levothyroxine 137 mcg PO DAILY@0600 metoprolol succinate ER 50 mg PO DAILY miscellaneous medical supply (Blood Pressure Cuff) As directed miscellaneous medical supply 1 ea miscellaneous DAILY 99 days nystatin 1 appl topical DAILY PRN 30 days nystatin 1 appl topical BID 30 days potassium chloride ER (Klor-Con M) 40 mEq (2 x 20 mEq) PO DAILY 90 days sacubitril-valsartan 24-26 mg (Entresto) 1 tab PO BID 90 days spironolactone 25 mg PO DAILY tramadol 50 mg PO BID PRN 5 days walker (Ultra-Light Rollator misc) As directed HPI Comments Details: Elderly woman with a history of?HTN, HLD, PE in 2013, paroxysmal AFib on Eliquis, HFrEF, EF of 20-25% , hypothyroidism, and CKD 3 Baseline creatinine is around 1.4 mg/dL. She is on high dose of Bumex 2 mg along with spironolactone 25 mg twice a day. There has been some fluctuation in serum creatinine and she has had episodes of hypokalemia. Currently she is on potassium supplementation and the reason potassium was in the normal range. She has been referred for evaluation of chronic kidney disease. Cara seems to be compliant with her diet. She is on low-salt diet. She has lost significant weight. Leg edema has improved. She continues have dyspnea on exertion. No dyspnea at rest. Appetite is fair. No nausea or vomiting. No urinary symptoms. No rash 07/10/24 Due to JESSIE Bumex was decreased and Aldactoen was stopped. Creatinine back to 1.6; Gained 20 lbs 12/12/24 Doing better No dyspnea Weight at 245- no change since 04/09/25 79-year-old female presenting with chronic kidney disease management. Kidney function is stable with normal fluctuations. Current medications include potassium tablets, Entresto, spironolactone, and Bumex. Hyperkalemia is monitored, with potassium levels in the desired range. 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[employer]) Alcohol intake: never Comment: rings appropriately- A/ox4 Patient Tobacco Use Status: Never used Tobacco e-Cigarette/Vaping Use: Never Used Second Hand Smoke Exposure: No Advance Directives Date on File: 08/26/23 service: No Current occupational status: retired Cognitive needs: Yes (Pt has a walker) Hearing needs: No Vision needs: No Physical Exam Vital Signs: Last Vital Signs Pulse 84 04/09/25 14:29 BP 126/62 04/09/25 14:29 Pulse Ox 97 04/09/25 14:29 Oxygen Delivery Method Room Air 04/09/25 14:29 BMI result Body Mass Index 35.3 Obese Const General: comfortable; No acute distress Orientation/consciousness: patient oriented x3 Eyes General: appearance normal, both eyes and all related structures Visual Oconnell: normal visual oconnell by confrontation Neck Neck: Yes supple and Yes no JVD Resp Effort & Inspection: normal respiratory effort and respiratory effort not decreased Cardio Palpation: no palpable S3 and no palpable S4 Heart sounds: no rubs GI Inspection: Yes normal to inspection Palpation (GI): Soft to palpation Percussion: Yes normal to percussion Auscultation: normal bowel sounds General: Yes no CVA tenderness Back/Spine/Pelvis Back: no CVA tenderness Skin General skin exam: no petechiae and no purpura Neuro General: patient oriented x3 and no focal motor deficits Extrem General: No clubbing and Yes edema (2+) Results Reviewed Nephrology Results: Hgb, (12.0-16.0) 12.9 g/dl 02/05/25 WBC, (4.8-10.8) 7.6 X10*3/uL 02/05/25 Plt Count, (160-400) 203 X10*3/uL 02/05/25 Sodium, (135-145) 140 mmol/L 04/04/25 Potassium, (3.3-5.1) 3.6 mmol/L 04/04/25 Chloride, (96-108) 107 mmol/L 04/04/25 Carbon Dioxide, (22-29) 22 mmol/L 04/04/25 BUN, (9-16) 35 mg/dL H 04/04/25 Creatinine, (0.5-1.4) 1.80 mg/dL H 04/04/25 Calcium, (8.4-10.2) 9.1 mg/dL 04/04/25 Assessment & Plan Assessment & Plan (1) CKD (chronic kidney disease), stage III: Code(s): N18.30 - Chronic kidney disease, stage 3 unspecified Category: Medical Qualifiers: Chronic kidney disease stage 3 subtype: unspecified whether 3a or 3b Qualified Code(s): N18.30 - Chronic kidney disease, stage 3 unspecified Plan: Patient's kidney function is relatively stable. Creatinine is at 1.8 Will continue to avoid any nephrotoxins medication including NSAIDS. Monitor renal function while on diuretics (2) Atrial fibrillation with RVR: Code(s): I48.91 - Unspecified atrial fibrillation Category: Medical Plan: Patient continues to cardiology. Does have ICD in place and gets interrogated quite often. She denies any heart palpitations overt signs of bleeding. (3) Hypokalemia: Code(s): E87.6 - Hypokalemia Category: Medical Plan: Her hypokalemia has improved since restarting potassium supplement. She continues on Bumex and spironolactone. Recent K is 3.6 Keep KCL (4) ICD (implantable cardioverter-defibrillator) in place: Code(s): Z95.810 - Presence of automatic (implantable) cardiac defibrillator Category: Medical Plan: As above (5) Congestive heart failure: Code(s): I50.9 - Heart failure, unspecified Category: Medical Qualifiers: Heart failure chronicity: chronic Heart failure type: systolic Qualified Code(s): I50.22 - Chronic systolic (congestive) heart failure Plan: Patient appears somewhat well compensated She has less lower extremity edema. Her exercise tolerance has much improved since being back on her diuresis medication. Orders: Orders Basic Metabolic Panel 4 Months N18.30 - Chronic kidney disease, stage 3 unspecified Coding Level of Care Code Est Pt Level 4 (85488) Diagnoses Stage 3 chronic kidney disease, unspecified whether stage 3a or 3b CKD N18.30 Chronic kidney disease stage 3 subtype: unspecified whether 3a or 3b Atrial fibrillation with RVR I48.91 Hypokalemia E87.6 ICD (implantable cardioverter-defibrillator) in place Z95.810 Chronic systolic congestive heart failure I50.22 Heart failure chronicity: chronic Heart failure type: systolic
--- OUTSIDE RECORDS SUMMARY | 2025-04-09 15:11 | XMS_ITS | Clinical Summary ---
Author Organization [facility] Address [address] [facility] [facility] [address] [place] [address] Phone Care Team Providers Care Housekeeping Aide Name Role Phone Unavailable Primary Care Provider [...]
--- OUTSIDE RECORDS SUMMARY | 2025-04-09 15:11 | XMS_ITS | Patient Health Record ---
Author Organization [facility] Address [address] [place] [address] Care Team Providers Care Dialysis Social Worker Name Role Phone Gaby(inactive) Je AGUILAR Primary Care Provider U Remy Julian Unavailable [phone] Ralf AGUILAR, Ernst Unavailable Unavailable Reason For Referral No Information Plan Of Treatment No Information Insurance Providers Payer Name Payer Address Payer Phone Subscriber Number Group Number Insured Name Patient Relationship to Insured Coverage Start Date Coverage End Date MEDICARE OF [facility] [address] [place] [address] [id number] CHARMAINE OSHEA Self - patient is the insured
== END 2025-04-09 14:42 | disposition home or self-care (01) ==
LOC: HO.HKA 14:28
PROVIDERS: PCP Physician Assistant; Visit Provider Internal Medicine Hypertension Specialist
DX: N18.30 Chronic kidney disease, stage 3 unspecified (principal); I48.91 Unspecified atrial fibrillation; E87.6 Hypokalemia; Z95.810 Presence of automatic (implantable) cardiac defibrillator; I50.22 Chronic systolic (congestive) heart failure
CPT/HCPCS: 99214

== ENCOUNTER → 2025-04-09 14:27 | Outpatient (BNVA) | payer MEDICARE, SELFPAY | PROVIDERS: PCP Physician Assistant; Visit Provider Internal Medicine Hypertension Specialist | DX: I13.0 Hypertensive heart and chronic kidney disease with heart failure and stage 1 through stage 4 chronic kidney disease, or unspecified chronic kidney disease (principal); N18.30 Chronic kidney disease, stage 3 unspecified; I50.22 Chronic systolic (congestive) heart failure; I48.91 Unspecified atrial fibrillation; E87.6 Hypokalemia; Z95.810 Presence of automatic (implantable) cardiac defibrillator | CPT/HCPCS: 99212 ==

== ENCOUNTER → 2025-05-04 23:59 | Outpatient (BNV) | payer MEDICARE, MEDICAID, SELFPAY ==
--- NOTE | 2025-06-03 19:33 | MHC.OFFVIS ---
Intake Visit Reasons: Remote HF monitoring- [employer] Allergies No Known Allergies Allergy (Verified 04/09/25 14:31) 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 [id number] Cardiac Device Interrogation, cardio physiologic monitor Procedure code (CPT) selection complete Assessment & Plan Assessment & Plan (1) Cardiomyopathy: Code(s): I42.9 - Cardiomyopathy, unspecified Category: Medical Plan Coding Level of Care Code Procedure Only Diagnoses Cardiomyopathy I42.9 CPT Codes Cardiac Device Check - Cardiac Device 15: [id number] Cardiac Device Interrogation, cardio physiologic monitor ([id number])
== END ==
PROVIDERS: PCP Physician Assistant; Visit Provider Internal Medicine Cardiovascular Disease
DX: I42.9 Cardiomyopathy, unspecified (principal); Z95.810 Presence of automatic (implantable) cardiac defibrillator
CPT/HCPCS: 93297

== ENCOUNTER → 2025-05-04 23:59 | Outpatient (BNV) | payer MEDICARE, MEDICAID, SELFPAY ==
--- NOTE | 2025-06-16 13:13 | MHC.OFFVIS ---
Intake Visit Reasons: Remote ICD check- [employer] Allergies No Known Allergies Allergy (Verified 04/09/25 14:31) [facility] Medical History HFrEF (heart failure with reduced ejection fraction) Atrial fibrillation Lymphedema Hypothyroidism History of pulmonary embolism HTN (hypertension) Current use of anticoagulant therapy Surgical History History of cardiac pacemaker History of laparoscopic cholecystectomy Family History Father CVD (cardiovascular disease) Mother Medical history unknown Social History Household Members: None Housing: House Do you presently have visiting nurse or other home services: 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 No new alerts. [id number] Cardiac Device Interrogation, pacemaker or defibrillator Procedure code (CPT) selection complete Assessment & Plan Assessment & Plan (1) ICD (implantable cardioverter-defibrillator) in place: Code(s): Z95.810 - Presence of automatic (implantable) cardiac defibrillator Category: Medical Plan: Coding Level of Care Code Procedure Only Diagnoses ICD (implantable cardioverter-defibrillator) in place Z95.810 CPT Codes Cardiac Device Check - Cardiac Device 14: [id number] Cardiac Device Interrogation, pacemaker or defibrillator ([id number])
== END ==
PROVIDERS: PCP Physician Assistant; Visit Provider Internal Medicine Cardiovascular Disease
DX: Z45.02 Encounter for adjustment and management of automatic implantable cardiac defibrillator (principal)
CPT/HCPCS: 93295

== ENCOUNTER → 2025-06-04 23:59 | Outpatient (BNV) | payer MEDICARE, MEDICAID, SELFPAY ==
--- NOTE | 2025-06-18 21:48 | A.OFFVIS_ITS ---
Intake Visit Reasons: Remote HF monitoring- [employer] Allergies No Known Allergies Allergy (Verified 04/09/25 14:31) [facility] Medical History HFrEF (heart failure with reduced ejection fraction) Atrial fibrillation Lymphedema Hypothyroidism History of pulmonary embolism HTN (hypertension) Current use of anticoagulant therapy Surgical History History of cardiac pacemaker History of laparoscopic cholecystectomy Family History Father CVD (cardiovascular disease) Mother Medical history unknown Social History Household Members: None Housing: House Do you presently have visiting nurse or other home services: Yes (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 [id number] Cardiac Device Interrogation, cardio physiologic monitor Procedure code (CPT) selection complete Assessment & Plan Assessment & Plan (1) Congestive heart failure: Code(s): I50.9 - Heart failure, unspecified Category: Medical Qualifiers: Heart failure chronicity: chronic Heart failure type: systolic Qualified Code(s): I50.22 - Chronic systolic (congestive) heart failure Plan Coding Level of Care Code Procedure Only Diagnoses Chronic systolic congestive heart failure I50.22 Heart failure chronicity: chronic Heart failure type: systolic CPT Codes Cardiac Device Check - Cardiac Device 15: [id number] Cardiac Device Interrogation, cardio physiologic monitor ([id number])
== END ==
PROVIDERS: PCP Physician Assistant; Visit Provider Internal Medicine Cardiovascular Disease
DX: I50.22 Chronic systolic (congestive) heart failure (principal); Z95.810 Presence of automatic (implantable) cardiac defibrillator
CPT/HCPCS: 93297

== ENCOUNTER 2025-07-09 08:17 | Outpatient (REF) | payer MEDICARE, MEDICAID, SELFPAY ==
[2025-07-09 11:04] LABS: Hematocrit 38.5 % (37.0-47.0); Hemoglobin 12.7 g/dl (12.0-16.0); Mean Corpuscular HGB Conc 33.0 g/dl (31.0-35.0); Mean Corpuscular Hemoglobin 32.7 pg (27.0-33.0); Mean Corpuscular Volume 99.2 fL (80.0-98.0); NRBC Abs Auto 0.000 X10*3/uL (0.0-0.012); NRBC Pct Auto 0.0 /100WBC (0.0-0.2); Platelet Count 208 X10*3/uL (160-400); Red Blood Count 3.88 X10*6/uL (4.20-5.50); White Blood Count 7.3 X10*3/uL (4.8-10.8)
[2025-07-09 11:38] LABS: Alanine Aminotransferase 14 U/L (0-31); Albumin Level 4.5 g/dL (3.5-5.0); Alkaline Phosphatase 118 U/L (39-117); Anion Gap 16 (12-20); Aspartate Amino Transferase 22 U/L (5-31); Blood Urea Nitrogen 37 mg/dL (9-16); Calcium 9.3 mg/dL (8.4-10.2); Carbon Dioxide 20 mmol/L (22-29); Chloride 107 mmol/L (96-108); Cholesterol 180 mg/dL (<200); Estimated Glomerular Filt Rate 29; HDL Cholesterol 51 mg/dL (>40); Potassium 3.7 mmol/L (3.3-5.1); Sodium 139 mmol/L (135-145); Total Protein 7.6 g/dL (6.5-8.0); Triglycerides 98 mg/dL (<150)
== END 2025-07-09 08:18 | disposition home or self-care (01) ==
LOC: HO.10HDL 08:17
PROVIDERS: Visit Provider Physician Assistant
DX: I12.9 Hypertensive chronic kidney disease with stage 1 through stage 4 chronic kidney disease, or unspecified chronic kidney disease (principal); N18.30 Chronic kidney disease, stage 3 unspecified; E55.9 Vitamin D deficiency, unspecified; E03.9 Hypothyroidism, unspecified; E78.2 Mixed hyperlipidemia
CPT/HCPCS: 36415; 80048; 80053; 80061; 82306; 84443; 85027

== ENCOUNTER 2025-07-16 13:24 | Outpatient (AMB) | payer MEDICARE, MEDICAID, SELFPAY ==
--- NOTE | 2025-07-16 13:51 | A.OFFPC_ITS ---
Vital Signs 07/16/25 13:52 07/16/25 14:06 Height 5 ft 10 in Weight 250 lb 2 oz BMI 35.9 BP 140/78 H 140/70 H Blood Pressure Location Lt brachial Position Sitting Pulse 84 Pulse Source Pulse Oximeter Temp 97.1 F Temp Source Temporal Artery Scan Pulse Oximetry (%) 98 Oxygen Delivery Method Room Air Intake Visit Reasons: f/u hypothyroid, AFIB Intake Note: Patient is here to follow up on Hypothyroid, AFIB. 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: Not Required per policy Accompanied by: Self / Same As Patient Allergies No Known Allergies Allergy (Verified 07/16/25 13:58) Medication List - Last Reconciled 07/16/25 by Karson Frank PA-C acetaminophen 650 mg PO Q6H PRN amiodarone 200 mg PO DAILY apixaban (Eliquis) 5 mg PO BID baclofen 5 mg PO DAILY PRN 14 days blood pressure kit-extra large As directed bumetanide 2 mg PO DAILY levothyroxine 137 mcg PO DAILY@0600 metoprolol succinate ER 50 mg PO DAILY miscellaneous medical supply (Blood Pressure Cuff) As directed miscellaneous medical supply 1 ea miscellaneous DAILY 99 days nystatin 1 appl topical DAILY PRN 30 days potassium chloride ER 40 mEq (2 x 20 mEq) PO DAILY sacubitril-valsartan 24-26 mg (Entresto) 1 tab PO BID 90 days spironolactone 25 mg PO DAILY tramadol 50 mg PO BID PRN 5 days walker (Ultra-Light Rollator misc) As directed Tobacco use date assessed: 07/16/25 Fall risk assessment: No Falls in past year Last assessed Fall Risk: 07/16/25 Dental Screening Dental Screen Date: 10/17/24 HPI f/u hypothyroid, AFIB HPI Details Patient is a 79 female here today for a follow-up visit. Patient has a past medical history significant for hypertension, hyperlipidemia, hypothyroidism and CKD stage 3, AFib and Congestive heart failure with reduced ejection fraction. Congestive heart failure/AFib: Continues to follow [facility]. Continues to be anticoagulated with Eliquis without any overt signs of bleeding. Continues on amiodarone for rhythm control She does have an ICD in place that is working and functioning well although her recent interrogation did show abnormality she will be following closely with Cardiology for --- >Currently doing well, vitals today are stable. Her exercise tolerance has been getting better. Patient's blood pressure elevated today in office, she reports she has been out of her home all day shopping in december have had a salty lunch. .. CKD-3: Is followed by [facility]. Most recent creatinine 1.7. Continues on bumetanide 2 mg, Continues on potassium supplementation.. Most recent potassium stabilized. .. Hypothyroidism: Most recent TSH stabilized and appears appropriate.. Patient continues on levothyroxine 137 mcg at current dose. Will continue to follow TSH Laboratory Tests 02/05/25 04/04/25 07/09/25 08:50 08:12 08:22 RBC 3.88 L Hgb 12.7 Creatinine 1.80 H 1.72 H Fasting Glucose 96 111 H LDL Cholesterol, C alc 91 110 H 25-OH Vitamin D To twila 21.2 L Laboratory Tests 02/05/25 07/09/25 08:50 08:22 TSH 1.34 1.86 PFSH Medical History HFrEF (heart failure with reduced ejection fraction) Atrial fibrillation Lymphedema Hypothyroidism History of pulmonary embolism HTN (hypertension) Current use of anticoagulant therapy Surgical History History of cardiac pacemaker History of laparoscopic cholecystectomy Family History Father CVD (cardiovascular disease) Mother Medical history unknown Social History Household Members: None Housing: House Do you presently have visiting nurse or other home services: 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[employer]) Alcohol intake: never Comment: rings appropriately- A/ox4 Patient Tobacco Use Status: Never used Tobacco e-Cigarette/Vaping Use: Never Used Second Hand Smoke Exposure: No Advance Directives Date on File: 08/26/23 service: No Current occupational status: retired Cognitive needs: Yes (Pt has a walker) Hearing needs: No Vision needs: No Questionnaire Thrive Questionnaire Date Thrive assessed: 02/15/25 I am a: Patient What is your living situation today?: I have a steady place to live Within the past 12 months, did the food you bought not last and you didn't have the money to get more?: Never true Within the past 12 months, did you worry whether your food would run out before you got money to buy more?: Never true Do you have trouble paying for medicines?: No Do you have trouble getting transportation to medical appointments?: Yes Do you have trouble paying your heating and electricity bill?: No Do you have trouble taking care of your child, family member or friend?: No Do you have trouble with day-to-day activities such as bathing, preparing meals, shopping, managing finances, etc.?: No Are you currently unemployed and looking for a job?: No Are you interested in more education?: No Please select the resources that you would like help with: Transportation Currently or been in a relationship where the following occur: No concerns reported THRIVE Score: 1 NOÉ-7 AMB Questionnaire NOÉ-7 Date NOÉ - 7 assessed: 10/17/24 Source: Developed by Drs. Remy Kirby, Bren Pro, Tony Orona and colleagues, with an educational siri from [employer]. Review of Systems Const Denies headache(s) Eyes Denies loss of vision ENT Denies vertigo, Denies dizziness, Denies headache(s) and Denies sore throat Card Denies chest pain, Denies leg edema and Denies lightheadedness Resp Denies cough, Denies hemoptysis and Denies wheezing GI Denies abdominal pain, Denies melena, Denies constipation, Denies diarrhea and Denies vomiting Denies urinary frequency, Denies dysuria and Denies urinary urgency Musc Denies arthralgias, Denies joint swelling, Denies numbness and Denies tingling Neuro Denies Abnormal speech present, Denies behavioral changes, Denies vertigo, Denies dizziness, Denies headache(s), Denies loss of vision, Denies memory loss, Denies numbness and Denies tingling Psych Denies anxiety, Denies behavioral changes, Denies depression, Denies memory loss and Denies panic attacks Arian/Lymph Denies easy bleeding and Denies easy bruising Aller/Immun Denies wheezing Physical exam (Primary Care) Vital Signs: Last Vital Signs Temp 97.1 F 07/16/25 13:52 Pulse 84 11/24/25 13:52 BP 140/78 H 07/16/25 13:52 Pulse Ox 98 07/16/25 13:52 Oxygen Delivery Method Room Air 07/16/25 13:52 BMI result Body Mass Index 35.9 Tobacco/Smoking Status: Tobacco use Status Tobacco use date assessed 07/16/25 07/16/25 13:57 Patient Tobacco Use Status Never used Tobacco 07/16/25 13:57 e-Cigarette/Vaping Use Never Used 07/16/25 13:57 Thrive Assessment: Date of Thrive Assessment Date Thrive assessed 02/15/25 07/16/25 13:57 Currently or been in a relationship where the following occur: No concerns reported Const General: healthy appearing, no acute distress, alert and awake Nutritional Appearance: well nourished Orientation/consciousness: oriented to person, oriented to place and oriented to time HENMT Ears: TM's normal bilaterally General nose exam: Normal nasal mucous membranes and turbinates present Eyes Conjunctivae: conjunctivae normal Sclerae: sclerae normal Pupils: Equal, round and reactive pupils present Neck Neck: Yes no lymphadenopathy and Yes no JVD Thyroid: Thyroid normal Carotids: no bruits Resp Effort & Inspection: normal respiratory effort and not tachypneic Auscultation: no crackles, no rales, no rhonchi and no wheezes Cardio Rate: regular rate Rhythm: regular rhythm Heart sounds: no murmurs and normal S1 and S2 GI Palpation (GI): Soft to palpation, nontender, no hepatomegaly and no splenomegaly Auscultation: normal bowel sounds Skin General skin exam: no rashes or lesions noted and dry skin Neuro General: oriented to person, oriented to place and oriented to time Cranial nerves: Yes Equal, round and reactive pupils present Speech: No Abnormal speech present Gait exam (Neuro): Normal gait present Motor exam (neuro): no tremor noted Extrem Right upper extremity: full ROM Left upper extremity: full ROM Right lower extremity: full ROM; no edema Left lower extremity: full ROM; no edema Psych Mental Status: mental status grossly normal Speech and movement: Normal speech and movement present Affect: normal affect Attitude: cooperative Thought process: Normal thought process present Coding Level of Care Code Est Pt Level 4 (14724) Diagnoses Stage 3 chronic kidney disease, unspecified whether stage 3a or 3b CKD N18.30 Chronic kidney disease stage 3 subtype: unspecified whether 3a or 3b Atrial fibrillation with RVR I48.91 ICD (implantable cardioverter-defibrillator) in place Z95.810 Chronic systolic congestive heart failure I50.22 Heart failure chronicity: chronic Heart failure type: systolic Class 1 obesity E66.811 Assessment & Plan Assessment & Plan (1) CKD (chronic kidney disease), stage III: Code(s): N18.30 - Chronic kidney disease, stage 3 unspecified Category: Medical Qualifiers: Chronic kidney disease stage 3 subtype: unspecified whether 3a or 3b Qualified Code(s): N18.30 - Chronic kidney disease, stage 3 unspecified Plan: Patient's kidney function stable. Creatinine at 1.7. Most recent potassium stabilized with potassium supplementation Will continue follow Nephrology. Will continue to avoid any nephrotoxins medication. (2) Atrial fibrillation with RVR: Code(s): I48.91 - Unspecified atrial fibrillation Category: Medical Plan: Patient continues to cardiology. Does have ICD in place and gets interrogated quite often. Continues on amiodarone for rhythm control. She denies any heart palpitations overt signs of bleeding. There has been some abnormalities on her ICD interrogation she will be following up closely with Cardiology. (3) ICD (implantable cardioverter-defibrillator) in place: Code(s): Z95.810 - Presence of automatic (implantable) cardiac defibrillator Category: Medical Plan: As above (4) Congestive heart failure: Code(s): I50.9 - Heart failure, unspecified Category: Medical Qualifiers: Heart failure chronicity: chronic Heart failure type: systolic Qualified Code(s): I50.22 - Chronic systolic (congestive) heart failure Plan: Patient appears somewhat well compensated . She seems to be well compensated at this time, has lost weight since last office visit. Her exercise tolerance has much improved since being back on her diuresis medication. Most recent potassium is stabilized. Patient's blood pressure slightly elevated today in office which is unusual for her. Patient reports she feels fine and has been asymptomatic. Will hold off on changing any of the antihypertensive medications and advised to monitor blood pressure at home with goal blood pressure to be below 140/90 (5) Class 1 obesity: Code(s): E66.811 - Obesity, class 1 Category: Medical Plan: Patient has lost weight since last office visit, now BMI below 35. She will continue working on lifestyle and dietary modifications Orders: Orders Microalbumin, Random (w Creat) Today I10 - Essential (primary) hypertension Complete Blood Count no Diff Today I50.22 - Chronic systolic (congestive) heart failure Comprehensive [place]. Panel Fast Today I50.22 - Chronic systolic (congestive) heart failure Lipid Panel Today E78.2 - Mixed hyperlipidemia TSH reflex Free T4 Today E03.9 - Hypothyroidism, unspecified
[2025-07-16 13:52] VITALS: BP 140/78; PULSE 84; TEMP 36.2; O2SAT 98; BMI 35.9
[2025-07-16 14:06] VITALS: BP 140/70
== END 2025-07-16 14:20 | disposition home or self-care (01) ==
LOC: HO.HMCH 13:25
PROVIDERS: PCP Physician Assistant; Visit Provider Physician Assistant
DX: N18.30 Chronic kidney disease, stage 3 unspecified (principal); I48.91 Unspecified atrial fibrillation; I50.22 Chronic systolic (congestive) heart failure; E66.811 Obesity, class 1; Z68.35 Body mass index [BMI] 35.0-35.9, adult; Z95.810 Presence of automatic (implantable) cardiac defibrillator

== ENCOUNTER → 2025-07-16 13:24 | Outpatient (BNVA) | payer MEDICARE, MEDICAID, SELFPAY | PROVIDERS: PCP Physician Assistant; Visit Provider Physician Assistant | DX: N18.30 Chronic kidney disease, stage 3 unspecified (principal); I48.91 Unspecified atrial fibrillation; I50.22 Chronic systolic (congestive) heart failure; E66.811 Obesity, class 1; Z68.35 Body mass index [BMI] 35.0-35.9, adult; Z71.3 Dietary counseling and surveillance | CPT/HCPCS: 99212 ==

== ENCOUNTER → 2025-08-01 10:11 | Outpatient (BNV) | payer MEDICARE, MEDICAID, SELFPAY | PROVIDERS: PCP Physician Assistant; Visit Provider Internal Medicine Cardiovascular Disease | DX: Z45.09 Encounter for adjustment and management of other cardiac device (principal) | CPT/HCPCS: 93297 ==

== ENCOUNTER 2025-08-01 12:50 | Outpatient (AMB) | payer MEDICARE, MEDICAID, SELFPAY ==
[2025-08-01 13:19] VITALS: BP 132/64; PULSE 63; BMI 36.4
--- NOTE | 2025-08-01 13:19 | A.OFFVIS_ITS ---
Vital Signs 08/01/25 13:19 Height 5 ft 10 in Weight 253 lb 8.505 oz BMI 36.4 BP 132/64 Blood Pressure Location Lt brachial Position Sitting Pulse 63 Pulse Source Monitor Intake Visit Reasons: 6 month f/up Intake Note: 6 mth f/up Supervisor Metal Cans Required: No Accompanied by: Self / Same As Patient Allergies No Known Allergies Allergy (Verified 07/16/25 13:58) Medication List - Last Reconciled 08/01/25 by Larry May MD acetaminophen 650 mg PO Q6H PRN amiodarone 200 mg PO DAILY apixaban (Eliquis) 5 mg PO BID baclofen 5 mg PO DAILY PRN 14 days blood pressure kit-extra large As directed bumetanide 2 mg PO DAILY levothyroxine 137 mcg PO DAILY@0600 metoprolol succinate ER 50 mg PO DAILY miscellaneous medical supply (Blood Pressure Cuff) As directed miscellaneous medical supply 1 ea miscellaneous DAILY 99 days nystatin 1 appl topical DAILY PRN 30 days potassium chloride ER 40 mEq (2 x 20 mEq) PO DAILY sacubitril-valsartan 24-26 mg (Entresto) 1 tab PO BID 90 days spironolactone 25 mg PO DAILY tramadol 50 mg PO BID PRN 5 days walker (Ultra-Light Rollator misc) As directed HPI Comments Details: [age] year female here for follow-up. He had AFib and cardiomyopathy. She also had left bundle-branch block. She was cardioverted and and started on amiodarone. She underwent cardiac catheterization which did not show any significant coronary disease. 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 She has been taking medications regularly. No bleeding concerns. Clinical symptoms are stable at this point. No orthopnea or PND. Tolerating medications well. 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) Alcohol intake: never Comment: rings appropriately- A/ox4 Patient Tobacco Use Status: Never used Tobacco e-Cigarette/Vaping Use: Never Used Second Hand Smoke Exposure: No Advance Directives Date on File: 08/26/23 service: No Current occupational status: retired Cognitive needs: Yes (Pt has a walker) Hearing needs: No Vision needs: No Review of Systems Const Denies chills, Denies fatigue, Denies fever(s), Denies frequent falls, Denies weakness, Denies weight gain and Denies weight loss ENT Denies dizziness Card Denies chest pain, Denies leg edema, Denies lightheadedness, Denies palpitations, Denies dyspnea and Denies dyspnea on exertion Resp Denies cough, Denies dyspnea and Denies dyspnea on exertion GI Denies hematochezia Musc Denies abnormal gait, Denies muscle weakness, Denies numbness, Denies radiating pain into limb and Denies tingling Neuro Denies abnormal gait, Denies dizziness, Denies frequent falls, Denies numbness, Denies tingling and Denies weakness Endo Denies fatigue and Denies palpitations Physical Exam Vital Signs: Last Vital Signs Pulse 63 08/01/25 13:19 BP 132/64 08/01/25 13:19 BMI result Body Mass Index 36.4 GENERAL APPEARANCE: Pleasant. In no distress. NECK: no carotid bruit, no jugular venous distention. SKIN: no suspicious lesions, warm and dry. HEART: no murmurs, regular rate and rhythm. LUNGS: Clear to auscultation. ABDOMEN: soft, nontender. EXTREMITIES: Mild edema. PERIPHERAL PULSES: equal. NEUROLOGIC: No gross deficits, AAO X 3 Office Procedures EKG Details: AV dual paced rhythm. QRS duration 156 milliseconds, QTC 505 milliseconds. [id number], Complete Assessment & Plan Assessment & Plan (1) HTN (hypertension): Code(s): I10 - Essential (primary) hypertension Category: Medical Qualifiers: Hypertension type: essential hypertension Qualified Code(s): I10 - Essential (primary) hypertension (2) Congestive heart failure: Code(s): I50.9 - Heart failure, unspecified Category: Medical Qualifiers: Heart failure chronicity: chronic Heart failure type: systolic Qualified Code(s): I50.22 - Chronic systolic (congestive) heart failure (3) Cardiomyopathy: Code(s): I42.9 - Cardiomyopathy, unspecified Category: Medical Plan Pleasant 80 year female with chronic heart failure, atrial fibrillation status post cardioversion and on amiodarone therapy and left bundle-branch block 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 EF has improved 55% in the past. She has not had EF assessment for more than a year at this point. Clinically stable. Blood pressure well c ontrolled. Continue same medications for now. She will have repeat echocardiography. She will see us back in few months. Thank you for allowing me to participate in the care of your patient. Please feel free to contact me if you have any questions. Orders: Orders CA echo transthorac w con Today I42.9 - Cardiomyopathy, unspecified Coding Level of Care Code Est Pt Level 4 (67432) Diagnoses Essential hypertension I10 Hypertension type: essential hypertension Chronic systolic congestive heart failure I50.22 Heart failure chronicity: chronic Heart failure type: systolic Cardiomyopathy I42.9 CPT Codes EKG - CPT: 15813-[id number], Complete ([id number])
--- OUTSIDE RECORDS SUMMARY | 2025-08-01 19:44 | XMS_ITS | Patient Health Record ---
Author Organization [facility] Address [address] [place] [address] Care Team Providers Care Control Integration Engineer Name Role Phone Gaby(inactive) Je AGUILAR Primary Care Provider U Remy Julian Unavailable [phone] Ralf AGUILAR, Ernst Unavailable Unavailable Reason For Referral No Information Plan Of Treatment No Information Insurance Providers Payer Name Payer Address Payer Phone Subscriber Number Group Number Insured Name Patient Relationship to Insured Coverage Start Date Coverage End Date MEDICARE OF [facility] [address] [place] [address] [id number] CHARMAINE OSHEA Self - patient is the insured
--- OUTSIDE RECORDS SUMMARY | 2025-08-01 19:44 | XMS_ITS | Clinical Summary ---
Author Organization [facility] Address [address] [facility] [address] [place] [address] Phone Care Team Providers Care Rubber Stamp Assembler Name Role Phone Unavailable Primary Care Provider [...]
== END 2025-08-01 13:41 | disposition home or self-care (01) ==
LOC: HO.HCS 12:51
PROVIDERS: PCP Physician Assistant; Visit Provider Internal Medicine Cardiovascular Disease
DX: I10 Essential (primary) hypertension (principal); I50.22 Chronic systolic (congestive) heart failure; I42.9 Cardiomyopathy, unspecified
CPT/HCPCS: 93010; 99214

== ENCOUNTER → 2025-08-01 12:50 | Outpatient (BNVA) | payer MEDICARE, MEDICAID, SELFPAY | PROVIDERS: PCP Physician Assistant; Visit Provider Internal Medicine Cardiovascular Disease | DX: I10 Essential (primary) hypertension (principal); I50.22 Chronic systolic (congestive) heart failure; I42.9 Cardiomyopathy, unspecified | CPT/HCPCS: 93005; 99212 ==

== ENCOUNTER 2025-08-06 11:01 | Outpatient (AMB) | payer MEDICARE, MEDICAID, SELFPAY ==
--- NOTE | 2025-08-06 11:11 | HO.NEPHOV ---
Vital Signs 08/06/25 11:12 Height 5 ft 10 in Weight 252 lb BMI 36.2 BP 134/70 Blood Pressure Location Rt brachial Position Sitting Pulse 88 Pulse Source Pulse Oximeter Pulse Oximetry (%) 98 Oxygen Delivery Method Room Air Intake Visit Reasons: 4 MO [employer]U [employer] Required: No Accompanied by: Self / Same As Patient Allergies No Known Allergies Allergy (Verified 08/06/25 11:15) Medication List - Last Reconciled 08/06/25 by Romain Cuenca MD acetaminophen 650 mg PO Q6H PRN amiodarone 200 mg PO DAILY apixaban (Eliquis) 5 mg PO BID baclofen 5 mg PO DAILY PRN 14 days blood pressure kit-extra large As directed bumetanide 2 mg PO DAILY levothyroxine 137 mcg PO DAILY@0600 metoprolol succinate ER 50 mg PO DAILY miscellaneous medical supply (Blood Pressure Cuff) As directed miscellaneous medical supply 1 ea miscellaneous DAILY 99 days nystatin 1 appl topical DAILY PRN 30 days potassium chloride ER 40 mEq (2 x 20 mEq) PO DAILY sacubitril-valsartan 24-26 mg (Entresto) 1 tab PO BID 90 days spironolactone 25 mg PO DAILY tramadol 50 mg PO BID PRN 5 days walker (Ultra-Light Rollator misc) As directed HPI Comments Details: History of Present Illness The patient is a 80-year-old female presenting for a routine follow-up for her chronic medical conditions. She has a history of congestive heart failure with an ejection fraction of 20-25%, chronic kidney disease stage 3 with a baseline creatinine of 1.3, hypertension, and hyperlipidemia. Her current medications include Entresto, spironolactone, and bumetanide 2 mg, all of which she reports are being taken as prescribed. She reports that her health has been stable, though she has noticed her blood pressure fluctuating. She was recently seen by her oil program compliance specialist on the and her primary care provider the week prior, with no medication changes made at either visit. She had a history of an acute kidney injury, during which her bumetanide and spironolactone were held. The patient reports a weight gain from 246 lbs in March to 252 lbs at present. She attributes this to increased salt intake during recent holiday season events. She denies any breathing issues and does not report significant leg swelling. Results - Labs: Kidney function is stable with no change from prior results. - Labs: Potassium is within normal limits. - Tests and Diagnostics: Prior echocardiogram showed an ejection fraction of 20-25%. [facility] Medical History (Reviewed 08/01/25 @ 13:20 by Antoinette Norton [facility]) HFrEF (heart failure with reduced ejection fraction) Atrial fibrillation Lymphedema Hypothyroidism History of pulmonary embolism HTN (hypertension) Current use of anticoagulant therapy Surgical History History of cardiac pacemaker History of laparoscopic cholecystectomy Family History Father CVD (cardiovascular disease) Mother Medical history unknown Social History Household Members: None Housing: House Do you presently have visiting nurse or other home services: Yes ([employer]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 Comfortable. HENT: Neck supple. Mucosa moist. Pulmonary: Lungs aeration equal. No rales. Cardiology: Heart S1-S2 heard. No gallop. Abdomen: Soft. Non tender. Bowel sounds normal. Neurologic: No involuntary movements. No myoclonus. Extremities: Mild edema. No rash. Vital Signs: Last Vital Signs Pulse 88 08/06/25 11:12 BP 134/70 08/06/25 11:12 Pulse Ox 98 08/06/25 11:12 Oxygen Delivery Method Room Air 08/06/25 11:12 BMI result Body Mass Index 36.2 Results Reviewed Nephrology Results: Hgb, (12.0-16.0) 12.7 g/dl 07/09/25 WBC, (4.8-10.8) 7.3 X10*3/uL 07/09/25 Plt Count, (160-400) 208 X10*3/uL 07/09/25 Sodium, (135-145) 139 mmol/L 07/09/25 Potassium, (3.3-5.1) 3.7 mmol/L 07/09/25 Chloride, (96-108) 107 mmol/L 07/09/25 Carbon Dioxide, (22-29) 20 mmol/L L 07/09/25 BUN, (9-16) 37 mg/dL H 07/09/25 Creatinine, (0.5-1.4) 1.72 mg/dL H 07/09/25 Calcium, (8.4-10.2) 9.3 mg/dL 07/09/25 Assessment & Plan Assessment & Plan (1) CKD (chronic kidney disease), stage III: Code(s): N18.30 - Chronic kidney disease, stage 3 unspecified Category: Medical Qualifiers: Chronic kidney disease stage 3 subtype: unspecified whether 3a or 3b Qualified Code(s): N18.30 - Chronic kidney disease, stage 3 unspecified Plan: Patient's kidney function is relatively stable. Creatinine is at 1.8 Will continue to avoid any nephrotoxins medication including NSAIDS. Monitor renal function while on diuretics (2) Atrial fibrillation with RVR: Code(s): I48.91 - Unspecified atrial fibrillation Category: Medical Plan: Patient continues to cardiology. Does have ICD in place and gets interrogated quite often. She denies any heart palpitations overt signs of bleeding. (3) Hypokalemia: Code(s): E87.6 - Hypokalemia Category: Medical Plan: Her hypokalemia has improved since restarting potassium supplement. She continues on Bumex and spironolactone. Recent K is 3.6 Keep KCL (4) ICD (implantable cardioverter-defibrillator) in place: Code(s): Z95.810 - Presence of automatic (implantable) cardiac defibrillator Category: Medical Plan: As above (5) Congestive heart failure: Code(s): I50.9 - Heart failure, unspecified Category: Medical Qualifiers: Heart failure chronicity: chronic Heart failure type: systolic Qualified Code(s): I50.22 - Chronic systolic (congestive) heart failure Plan: Patient appears somewhat well compensated She has less lower extremity edema. Her exercise tolerance has much improved since being back on her diuresis medication. Plan Plan 1. Chronic Kidney Disease, Stage 3 - The patient's stage 3 chronic kidney disease is stable, with recent lab work showing no changes in her kidney function. - Current medications will be continued without any adjustments from a nephrology standpoint. - A follow-up visit is scheduled for four months. 2. Congestive Heart Failure - The patient's congestive heart failure is currently stable on her regimen of Entresto, spironolactone, and bumetanide. - She reports good breathing and no significant leg swelling, though she has had some recent weight gain attributed to dietary salt. - All current cardiac medications will be continued without changes. - The patient was counseled to be careful with salt intake to manage fluid balance. 3. Hypertension - The patient's hypertension is considered under control, with a blood pressure reading of 134/70 mmHg at today's visit, despite her report of some fluctuations. - No changes will be made to her current medication regimen, Orders: Orders Basic Metabolic Panel 4 Months N18.30 - Chronic kidney disease, stage 3 unspecified Coding Level of Care Code Est Pt Level 4 (71339) Diagnoses Stage 3 chronic kidney disease, unspecified whether stage 3a or 3b CKD N18.30 Chronic kidney disease stage 3 subtype: unspecified whether 3a or 3b Atrial fibrillation with RVR I48.91 Hypokalemia E87.6 ICD (implantable cardioverter-defibrillator) in place Z95.810 Chronic systolic congestive heart failure I50.22 Heart failure chronicity: chronic Heart failure type: systolic
[2025-08-06 11:12] VITALS: BP 134/70; PULSE 88; O2SAT 98; BMI 36.2
== END 2025-08-06 11:24 | disposition home or self-care (01) ==
LOC: HO.HKA 11:02
PROVIDERS: PCP Physician Assistant; Visit Provider Internal Medicine Hypertension Specialist
DX: N18.30 Chronic kidney disease, stage 3 unspecified (principal); I48.91 Unspecified atrial fibrillation; E87.6 Hypokalemia; Z95.810 Presence of automatic (implantable) cardiac defibrillator; I50.22 Chronic systolic (congestive) heart failure
CPT/HCPCS: 99214

== ENCOUNTER → 2025-08-06 11:01 | Outpatient (BNVA) | payer MEDICARE, MEDICAID, SELFPAY | PROVIDERS: PCP Physician Assistant; Visit Provider Internal Medicine Hypertension Specialist | DX: I10 Essential (primary) hypertension (principal); N18.30 Chronic kidney disease, stage 3 unspecified; I48.91 Unspecified atrial fibrillation; E87.6 Hypokalemia; Z95.810 Presence of automatic (implantable) cardiac defibrillator; I50.22 Chronic systolic (congestive) heart failure | CPT/HCPCS: 99212 ==